=== PATIENT | male | born 1960 | race Caucasian/White ===

== ENCOUNTER 2023-06-29 10:20 | Outpatient (OUT) | payer OTHER, SELFPAY ==
--- NOTE | 2023-06-29 | XR_ITS ---
The [address] [address] Patient Name: MILE CANO MRN: [id number] date: 1960 Sex: M Assigned Patient Location: [facility] Current Patient Location: [facility] Accession/Order Number: [id number] Exam Date: 06/29/2023 10:33 Report Date: 06/29/2023 17:14 At the request of: ESTEFANIA CRESPO Procedure: XR wrist RT min 3V EXAM: XR wrist RT min 3V HISTORY: wrist pain S63.509 for the past 6 days. COMPARISON: None. TECHNIQUE: 3 views of the right wrist were obtained. FINDINGS: There is no evidence of an acute fracture or dislocation. Remote fracture fragments are seen associated with the triquetrum. Ulnar neutral variance is present. The joint space and the proximal carpal row are intact. Minimal degenerative changes are seen at the joint space of the distal scaphoid bone and mild degenerative changes are present at the first carpometacarpal joint. XR/XR wrist RT min 3V IMPRESSION: No apparent acute fracture or dislocation. Small remote fracture fragments are present which appear to be associated with the triquetrum. Some degenerative changes are also noted. Direct comparison with a previous study would be helpful in determining the chronicity of these findings. Electronically authenticated by: GOLD FRANKLIN Date: 06/29/2023 17:14
== END 2023-06-29 10:21 | disposition home or self-care (01) ==
LOC: RAD 10:20
PROVIDERS: PCP Family Medicine; Visit Provider Family Medicine
DX: S63.509A Unspecified sprain of unspecified wrist, initial encounter (principal)
CPT/HCPCS: 73110

== ENCOUNTER 2023-12-24 06:40 | Outpatient (OUT) | payer OTHER, SELFPAY ==
--- OUTSIDE RECORDS SUMMARY | 2023-12-24 06:43 | XMS_ITS | CCD ---
Author Organization [facility] Care Team Providers Care Inshore Undersea War[employer] Officer Name Role Phone ESTEFANIA WEEKS Referring Unavailable ESTEFANIA WEEKS Primary Care Unavailable MARCELLO DEL RIO Attending Unavailab Maxx Lowry Admitting Unavailable [place] Procedure Practitioner Unavailab le UNKNOWN, PROVIDER Surgeon Unavailable [place] Procedure Practitioner Unavailab le MARCELLO DEL RIO Surgeon Unavailab le [place] Procedure Practitioner Unavailab le ASHLEY BONILLA Surgeon Unavailable ESTEFANIA WEEKS Referring Unavailable ESTEFANIA WEEKS Primary Care Unavailable FRANK JACOME Attending Unavailable FRANK JACOME Admitting Unavailable RENNO, ANAS Admitting Unavailable RENNO, ANAS Attending Unavailable ESTEFANIA WEEKS Primary Care Unavailable MARKER, LEANNE J Referring Unavailable [place] Procedure Practitioner Unavailab PASTORA Pfeiffer Surgeon Unavailable MD Estefania Weeks Primary Care Provider MD Ady Lezama Attending Provider MD Estefania Weeks Primary Care Provider [phone] MD Ady Lezama Attending Provider MD Esetfania Weeks Primary Care Provider [phone] MD Ady Lezama Attending Provider MD Estefania Weeks Primary Care Provider [phone] MD Ady Lezama Attending Provider DR ESTEFANIA WEEKS Admitting Unavailable CHERIE, DR MAC Attending Unavailable DR ESTEFANIA WEEKS Primary Care Unavailable DR ESTEFANIA WEEKS Consulting Unavailable WEST, DR BECK Consulting Unavailable MD Estefania Weeks Primary Care Provider [phone] MD Ady Lezama Attending Provider MD Estefania Weeks Primary Care Provider MD Ady Lezama Attending Provider Ady Lezama Attending Unavail able Estefania Weeks Primary Care Unavailable Ady Lezama Admitting Unavail able Ady Lezama Attending Unavail able Estefania Weeks Primary Care Unavailable Ady Lezama Admitting Unavail able Ady Lezama Attending Unavail able Estefania Weeks Primary Care Unavailable Ady Lezama Admitting Unavail able Ady Lezama Attending Unavail able Ady Lezama Admitting Unavail able Estefania Weeks Primary Care Unavailable GRACE RESTREPO Attending Unavailable Medications Current Medications Medication Drug Class(es) Dates Sig (Normalized) Sig (Original) aspirin 81 mg oral tablet (6 sources) Platelet Aggregation Inhibitor, Nonsteroidal Anti-inflammatory Drug Start: 06-30-2019 take 81 mg by mouth once daily Aspirin Active 81 MG PO Daily June 30, 2019 1:00am atorvastatin 80 mg oral tablet (6 sources) HMG-CoA Reductase Inhibitor Start: 06-30-2019 take 1 tablet by mouth once daily at bedtime Atorvastatin (Lipitor) 80 mg Tablet Active 80 MG PO Daily at bedtime June 30, 2019 1:00am clindamycin 300 mg oral capsule (6 sources) Lincosamide Antibacterial Start: 08-25-2019 take 600 mg by mouth three times daily Clindamycin Hcl Active 600 MG PO Three times daily 12 August 25, 2019 1:00am clopidogrel 75 mg oral tablet (6 sources) P2Y12 Platelet Inhibitor Start: 06-30-2019 take 1 tablet by mouth once daily Clopidogrel (Plavix) 75 mg Tablet Active 75 MG PO Daily June 30, 2019 1:00am lisinopril 20 mg oral tablet (6 sources) Angiotensin Converting Enzyme Inhibitor Start: 06-30-2019 take 5 mg by mouth once daily Lisinopril Active 5 MG PO Daily June 30, 2019 1:00am 24 hr metoprolol succinate 25 mg extended release oral tablet (12 sources) beta-Adrenergic Thalia Start: 08-25-2019 take 25 mg by mouth once daily Metoprolol Succinate Active 25 MG PO Daily 30 August 25, 2019 1:00am Start: 06-30-2019 End: 08-25-2019 take 25 mg by mouth twice daily Metoprolol Tartrate Discontinued 25 MG PO Twice daily June 30, 2019 1:00am August 25, 2019 12:52pm Problems Problem Classification Problem Date Documented Date Episodic/Chronic Acute myocardial infarction (6 sources) Myocardial infarction; Translations: [Non-ST elevation (NSTEMI) myocardial infarction] 08-23-2019 Chronic Conditions associated with dizziness or vertigo (6 sources) Dizziness; Translations: [Dizziness and giddiness] 06-30-2019 Episodic Conduction disorders (6 sources) Complete atrioventricular block; Translations: [Atrioventricular block, complete] 08-24-2019 Chronic Coronary atherosclerosis and other heart disease (12 sources) Coronary arteriosclerosis; Translations: [Atherosclerotic heart disease of [place] coronary artery without angina pectoris] 08-23-2019 Chronic Other hematologic conditions (1 source) Protein level - finding; Translations: [Other specified abnormalities of plasma proteins] 08-22-2019 Episodic Other hematologic conditions (5 sources) Raised cardiac enzyme or marker; Translations: [Other specified abnormalities of plasma proteins] 08-22-2019 Episodic Syncope (6 sources) Near syncope; Translations: [Syncope and collapse] 08-22-2019 Episodic Unclassified (1 source) Encounter for checking and testing of cardiac pacemaker pulse generator [battery]; Translations: [Encounter for checking and testing of cardiac pacemaker pulse generator [battery]] Onset: 07-29-2023 Results Test Name Value Interpretation Reference Range Facility Office Visiton 12-12-2023 Follow-up visit [id number] Weston Cano 1960 M Date Provider Department Center 12/12/2023 Miguel-GRACE RESTREPO [facility] Family History Problem Relation Age of Onset No Known Problems Mother No Known Problems Father Family Status - Relation Status Age at Mother Father Level of Service:24169 [place] OFFICE/OUTPATIENT ESTABLISHED LOW MDM 20 MIN Normal [facility] US VENOUS DOPPLER R Matt US VENOUS DOPPLER R ARM EXAMINATION: US VENOUS DOPPLER R ARM HISTORY: Bursitis of olecranon of right elbow COMPARISON: No relevant comparison available. TECHNIQUE: Grayscale, color and Doppler FINDINGS: Region: Right arm Thrombus: None Flow: Normal Augmentation: Normal Compressibility: Normal Other: Mild subcutaneous edema in the area the patient's trauma at the elbow IMPRESSION: No deep or superficial vein thrombus in the right arm *Exam performed in accordance with [facility] practice guidelines- Peripheral venous ultrasound, November 08, 2009. Electronically authenticated by: EBONY MARTINEZ Date: 2022-08-31 16:22 Normal [facility] BASIC METABOLIC PANELon - Calcium [Mass/Vol] 9.5 mg/dL Normal 8.6-10.3 [facility] Comment on above: Order Comment: No: D o not add to previous draw Performed By: #### 0 0071, 37858, 81403 #### [facility] [address] [place] [address], [place] Chloride [Moles/Vol] 105 mmol/L Normal 98-107 [facility] Comment on above: Order Comment: No: D o not add to previous draw Performed By: #### 0 0071, 86991, 75569 #### [facility] [address] [place] [address], [place] CO2 [Moles/Vol] 25 mmol/L Normal 21-31 [facility] Comment on above: Order Comment: No: D o not add to previous draw Performed By: #### 0 0071, 57464, 55247 #### [facility] [address] [place] [address], [place] Creatinine [Mass/Vol] 0.96 mg/dL Normal 0.70-1.30 [facility] Comment on above: Order Comment: No: D o not add to previous draw Performed By: #### 0 0071, 37602, 36801 #### [facility] [address] [place] [address], [place] GFR/1.73 sq M predicted among blacks MDRD (S/P/Bld) [Vol rate/Area] mL/min/{1.73_m2} Normal >60 [facility] Comment on above: Order Comment: No: D o not add to previous draw Performed By: #### 0 0071, 20153, 45844 #### [facility] [address] [place] [address], [place] GFR/1.73 sq M predicted among non-blacks MDRD (S/P/Bld) [Vol rate/Area] mL/min/{1.73_m2} Normal >60 [facility] Comment on above: Order Comment: No: D o not add to previous draw Performed By: #### 0 0071, 58711, 01016 #### [facility] [address] [place] [address], [place] Glucose [Mass/Vol] 100 mg/dL Normal 70-100 [facility] Comment on above: Order Comment: No: D o not add to previous draw Performed By: #### 0 1, 82678, 92732 #### [facility] [address] [place] [address], [place] Potassium [Moles/Vol] 3.8 mmol/L Normal 3.5-5.1 [facility] Comment on above: Order Comment: No: D o not add to previous draw Performed By: #### 0 1, 46435, 22283 #### [facility] [address] [place] [address], [place] Sodium [Moles/Vol] 139 mmol/L Normal 136-145 [facility] Comment on above: Order Comment: No: D o not add to previous draw Performed By: #### 0 0071, 97906, 96364 #### [facility] [address] [place] [address], [place] Urea nitrogen [Mass/Vol] 14 mg/dL Normal 7-25 [facility] Comment on above: Order Comment: No: D o not add to previous draw Performed By: #### 0 0071, 11967, 93131 #### [facility] [address] [place] [address], [place] BASIC METABOLIC PANELon 2 Calcium [Mass/Vol] 9.2 mg/dL Normal 8.6-10.3 [facility] Comment on above: Order Comment: No: D o not add to previous draw Performed By: #### 0 0071, 20809, 10776 #### [facility] [address] [place] [address], [place] Chloride [Moles/Vol] 105 mmol/L Normal 98-107 [facility] Comment on above: Order Comment: No: D o not add to previous draw Performed By: #### 0 0071, 60544, 45602 #### [facility] [address] [place] [address], [place] CO2 [Moles/Vol] 28 mmol/L Normal 21-31 [facility] Comment on above: Order Comment: No: D o not add to previous draw Performed By: #### 0 0071, 12119, 71031 #### [facility] [address] [place] [address], [place] Creatinine [Mass/Vol] 0.97 mg/dL Normal 0.70-1.30 [facility] Comment on above: Order Comment: No: D o not add to previous draw Performed By: #### 0 0071, 04056, 99985 #### [facility] [address] [place] [address], [place] GFR/1.73 sq M predicted among blacks MDRD (S/P/Bld) [Vol rate/Area] mL/min/{1.73_m2} Normal >60 [facility] Comment on above: Order Comment: No: D o not add to previous draw Performed By: #### 0 0071, 67442, 78082 #### [facility] [address] [place] [address], [place] GFR/1.73 sq M predicted among non-blacks MDRD (S/P/Bld) [Vol rate/Area] mL/min/{1.73_m2} Normal >60 [facility] Comment on above: Order Comment: No: D o not add to previous draw Performed By: #### 0 0071, 21539, 09432 #### [facility] [address] [place] [address], [place] Glucose [Mass/Vol] 104 mg/dL High 70-100 [facility] Comment on above: Order Comment: No: D o not add to previous draw Performed By: #### 0 0071, 79705, 38396 #### [facility] [address] [place] [address], [place] Potassium [Moles/Vol] 4.0 mmol/L Normal 3.5-5.1 [facility] Comment on above: Order Comment: No: D o not add to previous draw Performed By: #### 0 0071, 32788, 01324 #### [facility] [address] [place] [address], [place] Sodium [Moles/Vol] 140 mmol/L Normal 136-145 [facility] Comment on above: Order Comment: No: D o not add to previous draw Performed By: #### 0 0071, 54745, 83847 #### [facility] [address] [place] [address], [place] Urea nitrogen [Mass/Vol] 15 mg/dL Normal 7-25 [facility] Comment on above: Order Comment: No: D o not add to previous draw Performed By: #### 0 0071, 26958, 60780 #### [facility] [address] [place] [address], [place] CBC COMPLETE BLOOD COUNTon 0 05-09-2019 Erythrocyte distribution width (RBC) [Ratio] 13.2 % Normal 11.5-15.0 [facility] Comment on above: Order Comment: No: D o not add to previous draw Performed By: #### 0 0071, 12598, 71992 #### [facility] [address] [place] [address], [place] Hematocrit (Bld) [Volume fraction] 41.7 % Normal 39.0-50.0 [facility] Comment on above: Order Comment: No: D o not add to previous draw Performed By: #### 0 70, 81471, 55342 #### [facility] [address] [place] [id number], [facility] Hemoglobin (Bld) [Mass/Vol] 13.6 g/dL Normal 13.0-17.0 [facility] Comment on above: Order Comment: No: D o not add to previous draw Performed By: #### 0 70, 93679, 53687 #### [facility] [address] [place] [address], [facility] MCH (RBC) [Entitic mass] 30.6 pg Normal 27.0-33.0 [facility] Comment on above: Order Comment: No: D o not add to previous draw Performed By: #### 0 70, , 20272 #### [facility] [address] [place] [id number], [facility] MCHC (RBC) [Mass/Vol] 32.6 g/dL Normal 32.0-35.0 [facility] Comment on above: Order Comment: No: D o not add to previous draw Performed By: #### 0 70, 96962, 39205 #### [facility] [address] [place] [id number], [facility] MCV (RBC) [Entitic vol] 93.7 fL Normal 82.0-98.0 [facility] Comment on above: Order Comment: No: D o not add to previous draw Performed By: #### 0 70, 78055, 73010 #### [facility] [address] [place] [id number], [facility] Nucleated RBC/100 WBC (Bld) [Ratio] 0 % Normal 0-0 [facility] Comment on above: Order Comment: No: D o not add to previous draw Performed By: #### 0 1, 91214, 54594 #### [facility] [address] [place] [address], [facility] PLAT CNT 195 10*3/uL Normal 150-400 [facility] Comment on above: Order Comment: No: D o not add to previous draw Performed By: #### 0 0071, 50620, 65843 #### [facility] [address] [place] [address], [facility] RBC (Bld) [#/Vol] 4.45 10*6/uL Normal 4.20-5.70 [facility] Comment on above: Order Comment: No: D o not add to previous draw Performed By: #### 0 0071, 75425, 77638 #### [facility] [address] [facility] [place] [address], [facility] WBC (Bld) [#/Vol] 7.92 10*3/uL Normal 4.00-10.60 [facility] Comment on above: Order Comment: No: D o not add to previous draw Performed By: #### 0 0071, 38528, 54513 #### [facility] [address] [facility]. [address] Cardiovascular Lab Reporton 05-09-2019 Cardiovascular Lab Report [facility] Patient Name: [facility] Weston Billings MR #: [id number] Department of Physician: Pastora Ramon M.D. Medicine Service Date: 05/08/2019 Division of Birthdate: 1960 Cardiology Room #: [id number] Adult Cardiovascular Services [facility] [address] [place] [address] Cardiovascular Laboratory Report FINAL IMPRESSION: 1. 90% left anterior descending. 2. 80% diagonal. 3. 90% obtuse marginal. 4. 70% right coronary artery. 5. Patent left internal mammary to left anterior descending. 6. Patent saphenous vein graft to the obtuse marginal. 7. Apparent occlusion of the saphenous vein graft to right coronary artery. PROCEDURE: Coronary arteriography, internal mammary artery angiography, saphenous vein graft angiography. METHOD: Written informed consent was obtained. A normal left Vaughn test was confirmed. Modified Seldinger technique was used to place a 6-Mosotho sheath in the left radial artery. Through this, a 6 JR4 was introduced for right coronary arteriography. Attempts to cannulate the internal mammary artery using an internal mammary catheter were unsuccessful. A JL4 was then used for left coronary arteriography. A SIM-1 was used for left internal mammary artery angiography. Attempts were then made to cannulate bypass grafts using the SIM-1, LCB, JR4, and multipurpose. Eventually, the multipurpose could be introduced into a saphenous vein graft to the obtuse marginal. This catheter was also used to inject what appeared to be a stump of the saphenous vein graft to the right coronary artery. It should be noted that none of the bypass grafts were marked. At the conclusion of the procedure, the sheath was withdrawn. Adequate hemostasis was achieved. There were no complications. PRESSURE DATA: LV 123/12, AO 123/58. CORONARY ARTERIOGRAPHY: Left main coronary artery: This segment was normal. Left anterior descending coronary artery: This vessel had a 90% stenosis just distal to the first septal senior materials scientist. The stenosis was proximal to a diagonal branch, which had approximately 80% stenosis. Immediately after the diagonal branch, there was a 70% stenosis. The distal LAD had 90%. FUNES to mid LAD patent. Circumflex coronary artery: This vessel was large and supplied a significant portion of the inferior wall. It gave rise to an obtuse marginal branch which had a 90% stenosis. The continuation in the AV groove had a 50% stenosis. Saphenous vein graft to obtuse marginal patent. Right coronary artery: This vessel was relatively small. The distal distribution was not entirely clear. There was a 70% stenosis in the mid vessel near the origin of the right ventricular branch which in turn had 80% stenosis. Operative notes indicated that this right coronary artery had been bypassed with a saphenous vein. There was the appearance of a bypass stump on angiography. COMMENTS: The patient is a 58-year-old gentleman, who underwent bypass surgery earlier this year. He presented with chest discomfort and a mild increase in troponin. Based on his angiogram, it appears that a vein graft to the right coronary artery is occluded. Also of note is the fact that a moderate-sized diagonal branch did not receive a bypass graft. At this point, it seems appropriate to perform stress testing to see if ischemia can be attributed to the diagonal branch or to the distal right coronary artery. Electronically Signed by: Pastora Ramon M.D. 05/10/2019 11:43 A Pastora Ramon M.D. Date Dict: 05/08/2019/02:59 P/Pastora Ramon M.D. Date Trans: 05/09/2019 07:18 A/love [id number] cc: Estefania Weeks M.D. [address], [place] [facility] [address] Normal [facility] LIPID PROFILEon 05-09-2019 Cholesterol [Mass/Vol] 101 mg/dL Low 120-200 [facility] Comment on above: Order Comment: No: D o not add to previous draw Result Comment: CHOL ESTEROL REFERENCE RANGE: 20 YEARS AND OLDER CARDIOVASCULAR RISK Less than 200 mg/dl Low Risk 200 to 239 mg/dl Borderline Risk 240 mg/dl and greater High Risk Performed By: #### 0 0071, 72112, 24556 #### [facility] [address] [place] [address], [facility] Cholesterol in HDL [Mass/Vol] 29 mg/dL Normal 23-92 [facility] Comment on above: Order Comment: No: D o not add to previous draw Result Comment: Slig ht variation in normal range could be due to gender and/or age. HDL CHOLESTEROL REFERENCE RANGE: 20 years and older Cardiovascular Risk > or =60 mg/dL Desirable 40 TO 59 mg/dL Low Risk <40 mg/dL High Risk Performed By: #### 0 0071, 69442, 85711 #### [facility] [address] [place] [address], [place] Cholesterol in LDL [Mass/Vol] 41 mg/dL Normal 0-130 [facility] Comment on above: Order Comment: No: D o not add to previous draw Result Comment: LDL IS A CALCULATION LDL IS ONLY VALID IF THE TRIG IS LESS THAN 400. Performed By: #### 0 0071, 57453, 31952 #### [facility] [address] Cholesterol.total/Ch olesterol in HDL [Mass ratio] 3.5 {ratio} Normal 0.0-4.5 [facility] Comment on above: Order Comment: No: D o not add to previous draw Performed By: #### 0 0071, 37128, 48011 #### [facility] [address] [facility] [address] NON-HDL CHOLESTEROL 72 mg/dL Normal [facility] Comment on above: Order Comment: No: D o not add to previous draw Performed By: #### 0 0071, 44769, 47256 #### [facility] [address] [facility] [address] Triglyceride [Mass/Vol] 157 mg/dL High 40-149 [facility] Comment on above: Order Comment: No: D o not add to previous draw Result Comment: TRIG LYCERIDE REFERENCE RANGE: 20 YEARS AND OLDER CARDIOVASCULAR RISK LESS THAN 150 mg/dl LOW RISK 150 TO 199 mg/dl BORDERLINE RISK 200 mg/dl AND GREATER HIGH RISK Performed By: #### 0 0071, 41697, 61823 #### [facility] [address] [facility]. [address] VLDL CHOL 31 mg/dL Normal 0-40 [facility] Comment on above: Order Comment: No: D o not add to previous draw Performed By: #### 0 0071, 98577, 76899 #### [facility] [address] APTTon 05-08-2019 aPTT Coag (Bld) [Time] 33.4 s Normal 25.0-35.0 [facility] Comment on above: Order Comment: No: D o not add to previous draw Result Comment: ALL RESULTS MUST BE INTERPRETED WITH RESPECT TO BLOOD DRAWING ARTIFACT OR DILUTION ERROR OF ANTICOAGULANT AT THE TIME OF SAMPLING. THE APTT SHOULD NOT BE USED TO MONITOR UNFRACTIONATED HEPARIN THERAPY, THIS LABORATORY NO LONGER HAS AN ESTABLISHED THERAPEUTIC RANGE BASED ON THE APTT. IT IS RECOMMENDED THAT THE [facility] - HEPARIN ASSAY (ANTI-XA ACTIVITY) BE USED FOR THIS PURPOSE. Performed By: #### 0 0071, 75109, 42922 #### [facility] [address] [place] [address], [facility] BASIC METABOLIC PANELon 09- Calcium [Mass/Vol] 9.2 mg/dL Normal 8.6-10.3 [facility] Comment on above: Order Comment: No: D o not add to previous draw Performed By: #### 0 0071, 93493, 92047 #### [facility] [address] [place] [address], [facility] Chloride [Moles/Vol] 103 mmol/L Normal 98-107 [facility] Comment on above: Order Comment: No: D o not add to previous draw Performed By: #### 0 0071, 55873, 73696 #### [facility] [address] [place] [address], [place] CO2 [Moles/Vol] 27 mmol/L Normal 21-31 [facility] Comment on above: Order Comment: No: D o not add to previous draw Performed By: #### 0 0071, 01685, 52756 #### [facility] [address] [place] [address], [place] Creatinine [Mass/Vol] 1.06 mg/dL Normal 0.70-1.30 [facility] Comment on above: Order Comment: No: D o not add to previous draw Performed By: #### 0 0071, 37839, 96510 #### [facility] [address] [place] [address], [facility] GFR/1.73 sq M predicted among blacks MDRD (S/P/Bld) [Vol rate/Area] mL/min/{1.73_m2} Normal >60 [facility] Comment on above: Order Comment: No: D o not add to previous draw Performed By: #### 0 0071, 31469, 97274 #### [facility] [address] [place] [address], [place] GFR/1.73 sq M predicted among non-blacks MDRD (S/P/Bld) [Vol rate/Area] mL/min/{1.73_m2} Normal >60 [facility] Comment on above: Order Comment: No: D o not add to previous draw Performed By: #### 0 0071, 79272, 38543 #### [facility] [address] [place] [address], [place] Glucose [Mass/Vol] 110 mg/dL High 70-100 [facility] Comment on above: Order Comment: No: D o not add to previous draw Performed By: #### 0 0071, 16778, 75489 #### [facility] [address] [place] [address], [place] Potassium [Moles/Vol] 3.6 mmol/L Normal 3.5-5.1 [facility] Comment on above: Order Comment: No: D o not add to previous draw Performed By: #### 0 0071, 64454, 99039 #### [facility] [address] [place] [address], [place] Sodium [Moles/Vol] 137 mmol/L Normal 136-145 [facility] Comment on above: Order Comment: No: D o not add to previous draw Performed By: #### 0 0071, 68414, 34592 #### [facility] [address] [place] [address], [place] Urea nitrogen [Mass/Vol] 21 mg/dL Normal 7-25 [facility] Comment on above: Order Comment: No: D o not add to previous draw Performed By: #### 0 0071, 44582, 84314 #### [facility] [address] [place] [address], [facility] CBC COMPLETE BLOOD COUNTon 05-08-2019 Erythrocyte distribution width (RBC) [Ratio] 13.2 % Normal 11.5-15.0 [facility] Comment on above: Order Comment: No: D o not add to previous draw Performed By: #### 0 0071, 64291, 25104 #### [facility] [address] Hematocrit (Bld) [Volume fraction] 39.0 % Normal 39.0-50.0 [facility] Comment on above: Order Comment: No: D o not add to previous draw Performed By: #### 0 70, 35202, 38094 #### [facility] [address] [place] [address], [facility] Hemoglobin (Bld) [Mass/Vol] 13.0 g/dL Normal 13.0-17.0 [facility] Comment on above: Order Comment: No: D o not add to previous draw Performed By: #### 0 1, 37058, 70058 #### [facility] [address] [place] [address], [facility] MCH (RBC) [Entitic mass] 31.0 pg Normal 27.0-33.0 [facility] Comment on above: Order Comment: No: D o not add to previous draw Performed By: #### 0 0071, 75074, 13624 #### [facility] [address] [place] [address], [facility] MCHC (RBC) [Mass/Vol] 33.3 g/dL Normal 32.0-35.0 [facility] Comment on above: Order Comment: No: D o not add to previous draw Performed By: #### 0 0071, 16258, 38580 #### [facility] [address] MCV (RBC) [Entitic vol] 93.1 fL Normal 82.0-98.0 [facility] Comment on above: Order Comment: No: D o not add to previous draw Performed By: #### 0 0071, 84892, 14890 #### [facility] [address] [facility] [place] [address], [facility] Nucleated RBC/100 WBC (Bld) [Ratio] 0 % Normal 0-0 [facility] Comment on above: Order Comment: No: D o not add to previous draw Performed By: #### 0 0071, 66416, 38346 #### [facility] [address] [facility] [place] [address], [facility] PLAT CNT 187 10*3/uL Normal 150-400 [facility] Comment on above: Order Comment: No: D o not add to previous draw Performed By: #### 0 0071, 87988, 29293 #### [facility] [address] [facility]. [address] RBC (Bld) [#/Vol] 4.19 10*6/uL Low 4.20-5.70 [facility] Comment on above: Order Comment: No: D o not add to previous draw Performed By: #### 0 0071, 15868, 34236 #### [facility] [address] [facility] [place] [address], [facility] WBC (Bld) [#/Vol] 8.56 10*3/uL Normal 4.00-10.60 [facility] Comment on above: Order Comment: No: D o not add to previous draw Performed By: #### 0 0071, 75120, 53872 #### [facility] [address] [place] [address], [facility] MAGNESIUM BLOODon 05-08-2019 Magnesium [Mass/Vol] 1.8 mg/dL Low 1.9-2.7 [facility] Comment on above: Order Comment: No: D o not add to previous draw Performed By: #### 0 0071, 98652, 90433 #### [facility] [address] POC GLUCOSE LABon 05-08-2019 Glucose [Mass/Vol] CANCELED Normal 70-100 [facility] Comment on above: Order Comment: No: D o not add to previous draw Result Comment: The released value 147 was canceled by BAIRON on 05/08/2019 16:27 Performed By: #### 0 0071, 66250, 64883 #### [facility] [address] NOTE CANCELED Normal [facility] Comment on above: Order Comment: No: D o not add to previous draw Performed By: #### 0 0071, 11544, 62520 #### [facility] [address] [facility]. [address] Glucose [Mass/Vol] 108 mg/dL High 70-100 [facility] Comment on above: Performed By: #### 0 0071, 31466, 16098 #### [facility] [address] PROTHROMBIN TIMEon 9 INR Coag (PPP) [Relative time] 1.05 {INR} Normal 0.91-1.16 [facility] Comment on above: Order Comment: No: D o not add to previous draw Result Comment: ACCC P RECOMMENDED INR FOR WARFARIN THERAPY ------- ------- CONDITION INR PROPHYLAXIS OF VENOUS THROMBOSIS 2-3 (HIGH-RISK SURGERY) TREATMENT OF VENOUS THROMBOSIS 2-3 TREATMENT OF PULMONARY EMBOLISM 2-3 PREVENTION OF SYSTEMIC EMBOLISM: 2-3 ACUTE MYOCARDIAL INFARCTION TISSUE HEART VALVES VALVULAR HEART DISEASE ATRIAL FIBRILLATION RECURRENT SYSTEMIC EMBOLISM MECHANICAL HEART VALVE 2.5-3.5 FROM: ORAL ANTICOAGULANTS. MECHANISM OF ACTION, CLINICAL EFFECTIVENESS, AND OPTIMAL THERAPEUTIC RANGE. CHEST 1995;108:231S-246S. Performed By: #### 0 0071, 11943, 96830 #### [facility] [address] [place] [address], [facility] PT Coag (PPP) [Time] 13.7 s Normal 12.3-14.8 [facility] Comment on above: Order Comment: No: D o not add to previous draw Result Comment: ALL RESULTS MUST BE INTERPRETED WITH RESPECT TO BLOOD DRAWING ARTIFACT OR DILUTION ERROR OF ANTICOAGULANT AT THE TIME OF SAMPLING. Performed By: #### 0 0071, 75467, 49171 #### [facility] [address] [facility] [place] [address], [facility] TROPONIN-Ion 05-08-2019 Troponin I.cardiac [Mass/Vol] 0.34 ng/mL Critically high 0.00-0.04 [facility] Comment on above: Order Comment: No: D o not add to previous draw Result Comment: M-NV EVIOUS CRITICAL RESULT REFERENCE RANGES: 0.00 - 0.04 ng/ml NORMAL 0.05 - 0.50 ng/ml INDETERMINATE > 0.50 ng/ml CONSISTENT WITH AN M.I. Performed By: #### 0 0071, 73091, 57083 #### [facility] [address] [facility] [place] [address], [facility] Troponin I.cardiac [Mass/Vol] 0.59 ng/mL Critically high 0.00-0.04 [facility] Comment on above: Order Comment: No: D o not add to previous draw Result Comment: REFE RENCE RANGES: 0.00 - 0.04 ng/ml NORMAL 0.05 - 0.50 ng/ml INDETERMINATE > 0.50 ng/ml CONSISTENT WITH AN M.I. Performed By: #### 0 0071, 27685, 72751 #### [facility] [address] Troponin I.cardiac [Mass/Vol] 0.74 ng/mL Critically high 0.00-0.04 [facility] Comment on above: Order Comment: No: D o not add to previous draw Result Comment: M-CR ITICAL RESULT(S) REVIEWED, CALLED TO AND READ BACK BY ALPESH DE LA PAZ RN AT 0555 M-TROPONIN INITIAL CRITICAL HIGH; RESPUN AND RETESTED REFERENCE RANGES: 0.00 - 0.04 ng/ml NORMAL 0.05 - 0.50 ng/ml INDETERMINATE > 0.50 ng/ml CONSISTENT WITH AN M.I. Performed By: #### 0 0071, 03300, 03160 #### [facility] [address] UFH HEPARIN ASSAYon 05-08-20 19 UNFRACTIONATED HEPARIN 0.47 IU/mL Normal 0.30-0.70 [facility] Comment on above: Result Comment: Jo roxaban and Apixaban will interfere with the anti Xa assay used to monitor UFH and LMWH. Performed By: #### 0 0071, 09093, 52152 #### [facility] [address] [facility] BASIC METABOLIC PANELon 12-13 Calcium [Mass/Vol] 8.8 mg/dL Normal 8.6-10.3 [facility] Comment on above: Order Comment: No: D o not add to previous draw Performed By: #### 0 0071, 88311, 20891 #### [facility] [address] Chloride [Moles/Vol] 106 mmol/L Normal 98-107 [facility] Comment on above: Order Comment: No: D o not add to previous draw Performed By: #### 0 0071, 10812, 21918 #### [facility] [address] [place] [address], [place] CO2 [Moles/Vol] 24 mmol/L Normal 21-31 [facility] Comment on above: Order Comment: No: D o not add to previous draw Performed By: #### 0 0071, 11053, 22856 #### [facility] [address] [place] [address], [place] Creatinine [Mass/Vol] 0.90 mg/dL Normal 0.70-1.30 [facility] Comment on above: Order Comment: No: D o not add to previous draw Performed By: #### 0 0071, 65994, 07761 #### [facility] [address] [place] [address], [place] GFR/1.73 sq M predicted among blacks MDRD (S/P/Bld) [Vol rate/Area] mL/min/{1.73_m2} Normal >60 [facility] Comment on above: Order Comment: No: D o not add to previous draw Performed By: #### 0 0071, 75218, 83736 #### [facility] [address] [place] [address], [place] GFR/1.73 sq M predicted among non-blacks MDRD (S/P/Bld) [Vol rate/Area] mL/min/{1.73_m2} Normal >60 [facility] Comment on above: Order Comment: No: D o not add to previous draw Performed By: #### 0 0071, 26747, 43896 #### [facility] [address] [place] [address], [place] Glucose [Mass/Vol] 104 mg/dL High 70-100 [facility] Comment on above: Order Comment: No: D o not add to previous draw Performed By: #### 0 0071, 00873, 29462 #### [facility] [address] [place] [address], [place] Potassium [Moles/Vol] 4.0 mmol/L Normal 3.5-5.1 [facility] Comment on above: Order Comment: No: D o not add to previous draw Performed By: #### 0 0071, 46311, 83757 #### [facility] [address] Sodium [Moles/Vol] 137 mmol/L Normal 136-145 [facility] Comment on above: Order Comment: No: D o not add to previous draw Performed By: #### 0 0071, 53798, 96017 #### [facility] [address] [facility]. [address] Urea nitrogen [Mass/Vol] 11 mg/dL Normal 7-25 [facility] Comment on above: Order Comment: No: D o not add to previous draw Performed By: #### 0 0071, 52441, 34809 #### [facility] [address] [facility]. [address] CBC W/DIFFon 12-28-2018 ABS BASOPHILS 0.1 10*3/uL Normal 0.0-0.2 [facility] Comment on above: Order Comment: No: D o not add to previous draw Performed By: #### 0 0071, 67699, 16859 #### [facility] [address] [facility]. [address] ABS IMM GRANS 0.0 10*3/uL Normal 0.0-0.2 [facility] Comment on above: Order Comment: No: D o not add to previous draw Performed By: #### 0 0071, 13945, 82384 #### [facility] [address] [facility]. [address] ABS NEUTROPHILS 4.0 10*3/uL Normal 1.6-7.6 [facility] Comment on above: Order Comment: No: D o not add to previous draw Performed By: #### 0 0071, 96786, 80122 #### [facility] [address] [place] [address], [facility] Basophils/100 WBC (Bld) 0.7 % Normal 0.0-1.0 [facility] Comment on above: Order Comment: No: D o not add to previous draw Performed By: #### 0 70, 96438, 91211 #### [facility] [address] [place] [address], [facility] Eosinophils (Bld) [#/Vol] 0.3 10*3/uL Normal 0.0-0.5 [facility] Comment on above: Order Comment: No: D o not add to previous draw Performed By: #### 0 70, , 19166 #### [facility] [address] [place] [address], [facility] Eosinophils/100 WBC (Bld) 3.8 % Normal 0.0-6.0 [facility] Comment on above: Order Comment: No: D o not add to previous draw Performed By: #### 0 70, , 72653 #### [facility] [address] [place] [address], [facility] Erythrocyte distribution width (RBC) [Ratio] 12.9 % Normal 11.5-15.0 [facility] Comment on above: Order Comment: No: D o not add to previous draw Performed By: #### 0 70, , 90527 #### [facility] [address] [place] [address], [facility] Hematocrit (Bld) [Volume fraction] 37.0 % Low 39.0-50.0 [facility] Comment on above: Order Comment: No: D o not add to previous draw Performed By: #### 0 007, 03031, 37507 #### [facility] [address] [place] [address], [place] Hemoglobin (Bld) [Mass/Vol] 12.4 g/dL Low 13.0-17.0 [facility] Comment on above: Order Comment: No: D o not add to previous draw Performed By: #### 0 1, 61689, 63236 #### [facility] [address] [place] [address], [facility] IMMATURE GRANS 0.3 % Normal 0.0-1.0 [facility] Comment on above: Order Comment: No: D o not add to previous draw Performed By: #### 0 0071, 72563, 46439 #### [facility] [address] [place] [address], [facility] Lymphocytes (Bld) [#/Vol] 2.4 10*3/uL Normal 1.2-4.0 [facility] Comment on above: Order Comment: No: D o not add to previous draw Performed By: #### 0 1, , 26441 #### [facility] [address] [place] [id number], [facility] Lymphocytes/100 WBC (Bld) 31.7 % Normal 20.0-45.0 [facility] Comment on above: Order Comment: No: D o not add to previous draw Performed By: #### 0 1, 69819, 17498 #### [facility] [address] [place] [address], [place] MCH (RBC) [Entitic mass] 31.5 pg Normal 27.0-33.0 [facility] Comment on above: Order Comment: No: D o not add to previous draw Performed By: #### 0 0071, 57626, 32182 #### [facility] [address] [place] [address], [place] MCHC (RBC) [Mass/Vol] 33.5 g/dL Normal 32.0-35.0 [facility] Comment on above: Order Comment: No: D o not add to previous draw Performed By: #### 0 0071, 21470, 58006 #### [facility] [address] [place] [address], [facility] MCV (RBC) [Entitic vol] 93.9 fL Normal 82.0-98.0 [facility] Comment on above: Order Comment: No: D o not add to previous draw Performed By: #### 0 0071, 15029, 97937 #### [facility] [address] [place] [address], [facility] Monocytes (Bld) [#/Vol] 0.7 10*3/uL Normal 0.1-1.0 [facility] Comment on above: Order Comment: No: D o not add to previous draw Performed By: #### 0 0071, 72153, 65521 #### [facility] [address] [place] [address], [facility] MONOS 9.9 % Normal 5.0-12.0 [facility] Comment on above: Order Comment: No: D o not add to previous draw Performed By: #### 0 0071, 84837, 85514 #### [facility] [address] [place] [address], [facility] Neutrophils/100 WBC (Bld) 53.6 % Normal 40.0-72.0 [facility] Comment on above: Order Comment: No: D o not add to previous draw Performed By: #### 0 0071, 62496, 36558 #### [facility] [address] [place] [address], [facility] Nucleated RBC/100 WBC (Bld) [Ratio] 0 % Normal 0-0 [facility] Comment on above: Order Comment: No: D o not add to previous draw Performed By: #### 0 0071, 14221, 76202 #### [facility] [address] [place] [id number], [place] PLAT CNT 208 10*3/uL Normal 150-400 [facility] Comment on above: Order Comment: No: D o not add to previous draw Performed By: #### 0 0071, 10064, 91145 #### [facility] [address] [place] [address], [facility] RBC (Bld) [#/Vol] 3.94 10*6/uL Low 4.20-5.70 [facility] Comment on above: Order Comment: No: D o not add to previous draw Performed By: #### 0 0071, 09822, 51070 #### [facility] [address] [place] [id number], [facility] WBC (Bld) [#/Vol] 7.41 10*3/uL Normal 4.00-10.60 [facility] Comment on above: Order Comment: No: D o not add to previous draw Performed By: #### 0 0071, 61521, 67561 #### [facility] [address] [facility]. [address] History and Physicalon 12-28 History and Physical MR#: [id number] [facility] Pt. Name: Weston Cano Admitted: 12/27/2018 Date of : 1960 Attending Physician: Nate French MD Room #: [id number] Discharge Date: HISTORY AND PHYSICAL TIME: 11:15 p.m. CHIEF COMPLAINT: Syncope. HISTORY OF PRESENT ILLNESS: This is a 58-year-old male, who had CABG for 3-vessel coronary artery disease about a month ago. Today, he presented to [facility] after having an episode of syncope. According to patient's own words, he was not feeling that well and he passed out while sitting on the side of the bed and hitting his head on the floor. After a few seconds, he came back to his senses. Did not have any urine or fecal incontinence or any tongue bite. Did not have any anecdotal chest pain, shortness of breath, or palpitation before passing out or after recovering. In the [facility], the patient had EKG without any acute ST-segment or T-wave changes, but troponins of 0.12 and due to history of recent CABG for 3-vessel coronary artery disease the patient was started on IV heparin for non ST-elevation WA and transferred to [facility] for plan of care. At the time of my interview, patient denies chest pain, shortness of breath, or palpitations. Denies nausea, vomiting or abdominal pain. Denies dizziness or lightheadedness. No swelling or edema in the lower extremities. The patient denies exertional shortness of breath or chest pain after being discharged for 3-vessel coronary artery disease. Has been compliant with his medications and has been nonsmoker since then. REVIEW OF SYSTEMS: Ten-point systems are reviewed, negative except as in HPI. PAST MEDICAL PROBLEMS: 1. Coronary artery disease, status post CABG. 2. Dyslipidemia. ALLERGIES: No known drug allergies. SOCIAL HISTORY: The patient is a nonsmoker, nonalcoholic. Has not been working since undergoing coronary artery bypass graft. 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 FAMILY HISTORY: Reviewed, noncontributory. MEDICATION LIST: Reviewed and reconciled. PHYSICAL EXAMINATION: VITAL SIGNS: The patient's blood pressure 140/88 mmHg, heart rate is 80 per minute, temperature 98 degrees Fahrenheit, respiratory rate is 17 per minute. EYES: No pallor or jaundice. ENT: No nasal discharge. RESPIRATORY: Bilateral air entry. CARDIOVASCULAR: S1-S2. ABDOMEN: Soft, nontender. MUSCULOSKELETAL: No joint deformity. PSYCHIATRY: Alert, awake, oriented to time, place, and person. NEURO: Power 5/5 in all 4 extremities. Tongue midline. No facial droop. LABORATORY DATA: Troponin 0.12. EKG normal sinus rhythm with a heart rate of 60 beats per minute, no ST-T wave changes. Right bundle branch block, which is unchanged as compared to the prior EKG. ASSESSMENT/PLAN: 1. Non-ST elevation myocardial infarction: Continue weight-based IV heparin with patient being n.p.o. and gentle IV hydration. Cardiology will be consulted in the morning. Continue aspirin, high-intensity statins and beta-blockers. Serial troponins will be ordered along with a CBC and BMP in the morning. 2. Coronary artery disease status post CABG. The patient will be continued on aspirin, beta blockers, and high-intensity statins. The patient's LDL was 112 and hemoglobin A1c 6.1 at the time of his CABG in November 2018. 3. Dyslipidemia. Continue high-intensity statins. 4. The patient's code status is full code. 5. The patient's expected length of stay is less than 48 hours at this time. Further plan of care will be based upon the serial troponins and Cardiology's evaluation and recommendations in the morning. Plan of care was discussed with the patient. All his questions were answered. Electronically Signed by: Nate French MD 12/28/2018 02:22 A Nate French MD Date Dict: 12/27/2018/11:21 P/Nate French MD Date Trans: 12/28/2018 01:02 Amadeo/love [id number] Normal [facility] TROPONIN-Ion 12-28-2018 Troponin I.cardiac [Mass/Vol] 0.04 ng/mL Normal 0.00-0.04 [facility] Comment on above: Result Comment: REFE RENCE RANGES: 0.00 - 0.04 ng/ml NORMAL 0.05 - 0.50 ng/ml INDETERMINATE > 0.50 ng/ml CONSISTENT WITH AN M.I. Performed By: #### 0 0071, 04595, 26827 #### [facility] [address] [place] [address], [facility] Troponin I.cardiac [Mass/Vol] 0.05 ng/mL High 0.00-0.04 [facility] Comment on above: Order Comment: No: D o not add to previous draw Result Comment: REFE RENCE RANGES: 0.00 - 0.04 ng/ml NORMAL 0.05 - 0.50 ng/ml INDETERMINATE > 0.50 ng/ml CONSISTENT WITH AN M.I. Performed By: #### 0 0071, 35360, 06637 #### [facility] [address] [place] [address], [facility] UFH HEPARIN ASSAYon 12-29-19 19 UNFRACTIONATED HEPARIN 0.32 IU/mL Normal 0.30-0.70 [facility] Comment on above: Result Comment: Jo roxaban and Apixaban will interfere with the anti Xa assay used to monitor UFH and LMWH. Performed By: #### 0 0071, 53723, 63369 #### [facility] [address] UNFRACTIONATED HEPARIN 0.20 IU/mL Low 0.30-0.70 [facility] Comment on above: Result Comment: Jo roxaban and Apixaban will interfere with the anti Xa assay used to monitor UFH and LMWH. Performed By: #### 0 0071, 25908, 50257 #### [facility] [address] POC GLUCOSE LABon 12-01-2018 Glucose [Mass/Vol] 138 mg/dL High 70-100 [facility] Comment on above: Performed By: #### 0 0071, 54243, 53400 #### [facility] [address] Glucose [Mass/Vol] 99 mg/dL Normal 70-100 [facility] Comment on above: Performed By: #### 0 0071, 63462, 92040 #### [facility] [address] [facility] [address] BASIC METABOLIC PANELon 11-13 Calcium [Mass/Vol] 8.3 mg/dL Low 8.6-10.3 [facility] Comment on above: Order Comment: No: D o not add to previous draw Performed By: #### 0 0071, 26849, 58715 #### [facility] [address] [place] [address], [facility] Chloride [Moles/Vol] 108 mmol/L High 98-107 [facility] Comment on above: Order Comment: No: D o not add to previous draw Performed By: #### 0 0071, 13532, 10298 #### [facility] [address] [place] [address], [place] CO2 [Moles/Vol] 25 mmol/L Normal 21-31 [facility] Comment on above: Order Comment: No: D o not add to previous draw Performed By: #### 0 0071, 91147, 28559 #### [facility] [address] [place] [address], [place] Creatinine [Mass/Vol] 0.94 mg/dL Normal 0.70-1.30 [facility] Comment on above: Order Comment: No: D o not add to previous draw Performed By: #### 0 0071, 20521, 30722 #### [facility] [address] [place] [address], [place] GFR/1.73 sq M predicted among blacks MDRD (S/P/Bld) [Vol rate/Area] mL/min/{1.73_m2} Normal >60 [facility] Comment on above: Order Comment: No: D o not add to previous draw Performed By: #### 0 0071, 25506, 89310 #### [facility] [address] [place] [address], [place] GFR/1.73 sq M predicted among non-blacks MDRD (S/P/Bld) [Vol rate/Area] mL/min/{1.73_m2} Normal >60 [facility] Comment on above: Order Comment: No: D o not add to previous draw Performed By: #### 0 0071, 38755, 74497 #### [facility] [address] [place] [address], [place] Glucose [Mass/Vol] 103 mg/dL High 70-100 [facility] Comment on above: Order Comment: No: D o not add to previous draw Performed By: #### 0 0071, 48967, 53017 #### [facility] [address] [place] [address], [place] Potassium [Moles/Vol] 3.5 mmol/L Normal 3.5-5.1 [facility] Comment on above: Order Comment: No: D o not add to previous draw Performed By: #### 0 0071, 56105, 59081 #### [facility] [address] [place] [id number], [facility] Sodium [Moles/Vol] 141 mmol/L Normal 136-145 [facility] Comment on above: Order Comment: No: D o not add to previous draw Performed By: #### 0 0071, 78507, 95469 #### [facility] [address] [place] [id number], [facility] Urea nitrogen [Mass/Vol] 17 mg/dL Normal 7-25 [facility] Comment on above: Order Comment: No: D o not add to previous draw Performed By: #### 0 0071, 71073, 14150 #### [facility] [address] [place] [address], [facility] CBC COMPLETE BLOOD COUNTon 0 - Erythrocyte distribution width (RBC) [Ratio] 12.7 % Normal 11.5-15.0 [facility] Comment on above: Order Comment: No: D o not add to previous draw Performed By: #### 0 0071, 29295, 60041 #### [facility] [address] [place] [id number], [facility] Hematocrit (Bld) [Volume fraction] 29.2 % Low 39.0-50.0 [facility] Comment on above: Order Comment: No: D o not add to previous draw Performed By: #### 0 0071, 89129, 66193 #### [facility] [address] [place] [id number], [facility] Hemoglobin (Bld) [Mass/Vol] 9.8 g/dL Low 13.0-17.0 [facility] Comment on above: Order Comment: No: D o not add to previous draw Performed By: #### 0 0071, 99838, 23557 #### [facility] [address] [place] [address], [facility] MCH (RBC) [Entitic mass] 32.1 pg Normal 27.0-33.0 [facility] Comment on above: Order Comment: No: D o not add to previous draw Performed By: #### 0 0071, 13573, 09273 #### [facility] [address] [place] [address], [facility] MCHC (RBC) [Mass/Vol] 33.6 g/dL Normal 32.0-35.0 [facility] Comment on above: Order Comment: No: D o not add to previous draw Performed By: #### 0 0071, 80045, 17911 #### [facility] [address] [place] [address], [facility] MCV (RBC) [Entitic vol] 95.7 fL Normal 82.0-98.0 [facility] Comment on above: Order Comment: No: D o not add to previous draw Performed By: #### 0 1, 58160, 79080 #### [facility] [address] [place] [address], [facility] Nucleated RBC/100 WBC (Bld) [Ratio] 0 % Normal 0-0 [facility] Comment on above: Order Comment: No: D o not add to previous draw Performed By: #### 0 0071, 89932, 94180 #### [facility] [address] [place] [address], [facility] PLAT CNT 206 10*3/uL Normal 150-400 [facility] Comment on above: Order Comment: No: D o not add to previous draw Performed By: #### 0 0071, 25181, 98707 #### [facility] [address] [place] [address], [facility] RBC (Bld) [#/Vol] 3.05 10*6/uL Low 4.20-5.70 The [facility] Comment on above: Order Comment: No: D o not add to previous draw Performed By: #### 0 0071, 59293, 15296 #### [facility] [address] [place] [address], [place] WBC (Bld) [#/Vol] 7.92 10*3/uL Normal 4.00-10.60 [facility] Comment on above: Order Comment: No: D o not add to previous draw Performed By: #### 0 0071, 51947, 47729 #### [facility] [address] [place] [address], [place] MAGNESIUM BLOODon 11-30-2018 Magnesium [Mass/Vol] 2.0 mg/dL Normal 1.9-2.7 [facility] Comment on above: Order Comment: No: D o not add to previous draw Performed By: #### 0 1, 41929, 72961 #### [facility] [address] [place] [address], [place] POC GLUCOSE LABon 11-30-2018 Glucose [Mass/Vol] 144 mg/dL High 70-100 [facility] Comment on above: Performed By: #### 0 0071, 25237, 63897 #### [facility] [address] [place] [address], [place] Glucose [Mass/Vol] 142 mg/dL High 70-100 [facility] Comment on above: Performed By: #### 0 0071, 47766, 92545 #### [facility] [address] [place] [address], [place] Glucose [Mass/Vol] 110 mg/dL High 70-100 [facility] Comment on above: Performed By: #### 0 0071, 35576, 58425 #### [facility] [address] [place] [address], [place] Glucose [Mass/Vol] 120 mg/dL High 70-100 [facility] Comment on above: Performed By: #### 0 0071, 04446, 88423 #### [facility] [address] [place] [address], [place] POC GLUCOSE LABon 11-29-2018 Glucose [Mass/Vol] 105 mg/dL High 70-100 [facility] Comment on above: Performed By: #### 0 0071, 93947, 97479 #### [facility] [address] [place] [address], [place] Glucose [Mass/Vol] 77 mg/dL Normal 70-100 [facility] Comment on above: Performed By: #### 0 0071, 86369, 65839 #### [facility] [address] [place] [address], [place] Glucose [Mass/Vol] 247 mg/dL High 70-100 [facility] Comment on above: Performed By: #### 0 0071, 03880, 37365 #### [facility] [address] [place] [address], [place] Glucose [Mass/Vol] 119 mg/dL High 70-100 [facility] Comment on above: Performed By: #### 0 0071, 65731, 47576 #### [facility] [address] [place] [address], [place] POC GLUCOSE LABon 11-28-2018 Glucose [Mass/Vol] 142 mg/dL High 70-100 [facility] Comment on above: Performed By: #### 0 0071, 78660, 04523 #### [facility] [address] [place] [address], [place] Glucose [Mass/Vol] 132 mg/dL High 70-100 [facility] Comment on above: Performed By: #### 0 0071, 37621, 48286 #### [facility] [address] [place] [address], [place] Glucose [Mass/Vol] 152 mg/dL High 70-100 [facility] Comment on above: Performed By: #### 0 0071, 41688, 15907 #### [facility] [address] [place] [address], [place] Glucose [Mass/Vol] 109 mg/dL High 70-100 [facility] Comment on above: Performed By: #### 0 0071, 01954, 02046 #### [facility] [address] [place] [address], [place] BASIC METABOLIC PANELon 11-13 Calcium [Mass/Vol] 8.3 mg/dL Low 8.6-10.3 [facility] Comment on above: Order Comment: No: D o not add to previous draw Performed By: #### 0 0071, 66481, 63250 #### [facility] [address] [place] [address], [place] Chloride [Moles/Vol] 108 mmol/L High 98-107 [facility] Comment on above: Order Comment: No: D o not add to previous draw Performed By: #### 0 0071, 02585, 69408 #### [facility] [address] [place] [address], [place] CO2 [Moles/Vol] 26 mmol/L Normal 21-31 [facility] Comment on above: Order Comment: No: D o not add to previous draw Performed By: #### 0 0071, 31709, 73952 #### [facility] [address] [place] [address], [place] Creatinine [Mass/Vol] 0.91 mg/dL Normal 0.70-1.30 [facility] Comment on above: Order Comment: No: D o not add to previous draw Performed By: #### 0 0071, 00440, 15647 #### [facility] [address] [place] [address], [place] GFR/1.73 sq M predicted among blacks MDRD (S/P/Bld) [Vol rate/Area] mL/min/{1.73_m2} Normal >60 [facility] Comment on above: Order Comment: No: D o not add to previous draw Performed By: #### 0 0071, 96709, 63667 #### [facility] [address] [place] [address], [place] GFR/1.73 sq M predicted among non-blacks MDRD (S/P/Bld) [Vol rate/Area] mL/min/{1.73_m2} Normal >60 [facility] Comment on above: Order Comment: No: D o not add to previous draw Performed By: #### 0 0071, 13973, 61030 #### [facility] [address] [place] [address], [place] Glucose [Mass/Vol] 113 mg/dL High 70-100 [facility] Comment on above: Order Comment: No: D o not add to previous draw Performed By: #### 0 0071, 57966, 89435 #### [facility] [address] [place] [address], [place] Potassium [Moles/Vol] 4.1 mmol/L Normal 3.5-5.1 [facility] Comment on above: Order Comment: No: D o not add to previous draw Performed By: #### 0 0071, 12705, 25852 #### [facility] [address] [place] [address], [place] Sodium [Moles/Vol] 137 mmol/L Normal 136-145 [facility] Comment on above: Order Comment: No: D o not add to previous draw Performed By: #### 0 0071, 68723, 13968 #### [facility] [address] [place] [address], [place] Urea nitrogen [Mass/Vol] 10 mg/dL Normal 7-25 [facility] Comment on above: Order Comment: No: D o not add to previous draw Performed By: #### 0 0071, 13826, 27264 #### [facility] [address] [facility] [place] [address], [facility] CBC W/DIFFon 11-27-2018 ABS BASOPHILS 0.0 10*3/uL Normal 0.0-0.2 The [facility] Comment on above: Order Comment: No: D o not add to previous draw Performed By: #### 5 610, 67897 #### [facility] [address] [facility]. [address] ABS IMM GRANS 0.1 10*3/uL Normal 0.0-0.2 [facility] Comment on above: Order Comment: No: D o not add to previous draw Performed By: #### 5 6100, 40258 #### [facility] [address] [facility] [place] [address], [facility] ABS NEUTROPHILS 8.1 10*3/uL High 1.6-7.6 The [facility] Comment on above: Order Comment: No: D o not add to previous draw Performed By: #### 5 610, 77228 #### [facility] [address] [facility] [place] [address], [facility] Basophils/100 WBC (Bld) 0.4 % Normal 0.0-1.0 [facility] Comment on above: Order Comment: No: D o not add to previous draw Performed By: #### 5 610, 37330 #### [facility] [address] [facility] [place] [address], [facility] Eosinophils (Bld) [#/Vol] 0.2 10*3/uL Normal 0.0-0.5 [facility] Comment on above: Order Comment: No: D o not add to previous draw Performed By: #### 5 610, 88928 #### [facility] [address] [facility] [place] [address], [facility] Eosinophils/100 WBC (Bld) 1.9 % Normal 0.0-6.0 [facility] Comment on above: Order Comment: No: D o not add to previous draw Performed By: #### 5 6100, 82620 #### [facility] [address] [place] [address], [facility] Erythrocyte distribution width (RBC) [Ratio] 13.2 % Normal 11.5-15.0 [facility] Comment on above: Order Comment: No: D o not add to previous draw Performed By: #### 5 6100, 88556 #### [facility] [address] [place] [address], [facility] Hematocrit (Bld) [Volume fraction] 26.9 % Low 39.0-50.0 [facility] Comment on above: Order Comment: No: D o not add to previous draw Performed By: #### 5 6100, 22711 #### [facility] [address] [facility] [place] [address], [facility] Hemoglobin (Bld) [Mass/Vol] 9.2 g/dL Low 13.0-17.0 [facility] Comment on above: Order Comment: No: D o not add to previous draw Performed By: #### 5 6100, 78284 #### [facility] [address] [facility] [place] [address], [facility] IMMATURE GRANS 0.6 % Normal 0.0-1.0 [facility] Comment on above: Order Comment: No: D o not add to previous draw Performed By: #### 5 6100, 53720 #### [facility] [address] [facility] [place] [address], [facility] Lymphocytes (Bld) [#/Vol] 1.7 10*3/uL Normal 1.2-4.0 [facility] Comment on above: Order Comment: No: D o not add to previous draw Performed By: #### 5 6100, 42365 #### [facility] [address] [place] [address], [facility] Lymphocytes/100 WBC (Bld) 15.0 % Low 20.0-45.0 [facility] Comment on above: Order Comment: No: D o not add to previous draw Performed By: #### 5 6100, 46763 #### [facility] [address] [place] [address], [facility] MCH (RBC) [Entitic mass] 32.9 pg Normal 27.0-33.0 [facility] Comment on above: Order Comment: No: D o not add to previous draw Performed By: #### 5 6100, 57504 #### [facility] [address] [place] [address], [facility] MCHC (RBC) [Mass/Vol] 34.2 g/dL Normal 32.0-35.0 [facility] Comment on above: Order Comment: No: D o not add to previous draw Performed By: #### 5 6100, 42698 #### [facility] [address] [place] [address], [facility] MCV (RBC) [Entitic vol] 96.1 fL Normal 82.0-98.0 [facility] Comment on above: Order Comment: No: D o not add to previous draw Performed By: #### 5 6100, 60120 #### [facility] [address] [place] [address], [facility] Monocytes (Bld) [#/Vol] 1.0 10*3/uL Normal 0.1-1.0 [facility] Comment on above: Order Comment: No: D o not add to previous draw Performed By: #### 5 610, 14113 #### [facility] [address] [place] [id number], [facility] MONOS 9.3 % Normal 5.0-12.0 [facility] Comment on above: Order Comment: No: D o not add to previous draw Performed By: #### 5 610, 52818 #### [facility] [address] [place] [address], [facility] Neutrophils/100 WBC (Bld) 72.8 % High 40.0-72.0 [facility] Comment on above: Order Comment: No: D o not add to previous draw Performed By: #### 5 610, 81995 #### [facility] [address] [place] [address], [place] Nucleated RBC/100 WBC (Bld) [Ratio] 0 % Normal 0-0 [facility] Comment on above: Order Comment: No: D o not add to previous draw Performed By: #### 5 610, 95934 #### [facility] [address] [place] [address], [place] PLAT CNT 120 10*3/uL Low 150-400 The [facility] Comment on above: Order Comment: No: D o not add to previous draw Performed By: #### 5 610, 34193 #### [facility] [address] [place] [address], [facility] RBC (Bld) [#/Vol] 2.80 10*6/uL Low 4.20-5.70 The [facility] Comment on above: Order Comment: No: D o not add to previous draw Performed By: #### 5 6101, 99596 #### [facility] [address] [place] [address], [place] WBC (Bld) [#/Vol] 11.16 10*3/uL High 4.00-10.60 [facility] Comment on above: Order Comment: No: D o not add to previous draw Performed By: #### 5 6101, 56642 #### [facility] [address] [place] [address], [place] MAGNESIUM BLOODon 11-27-2018 Magnesium [Mass/Vol] 1.9 mg/dL Normal 1.9-2.7 [facility] Comment on above: Order Comment: No: D o not add to previous draw Performed By: #### 5 6101, 31059 #### [facility] [address] Operative Reporton 9 Operative Report MR#: [id number] I [facility] Pt. Name: Weston Cano Room #: D [id number] Discharge Date: Birthdate: 1960 OPERATIVE REPORT DATE OF SURGERY: 11/24/2018 SURGEON: Marcello Del Rio MD PREOPERATIVE DIAGNOSES: Three-vessel coronary artery disease and stable angina. POSTOPERATIVE DIAGNOSES: Three-vessel coronary artery disease and stable angina. PROCEDURE PERFORMED: 1. CABG x3, MYRON to the LAD, saphenous vein to the RCA at the origin of the PDA and PL and saphenous vein to the OM. 2. RCA and PLV endarterectomy. SEISMOLOGY TEACHER: 1. DENISE Arriaga. 2. DENISE Bernal. ANESTHESIA: General. SPECIMENS: None. COMPLICATIONS: None. PRODUCTS: None. DRIPS: Levophed 0.05. URINE OUT: 500 mL. CELL SAVER: 250 mL. FINDINGS: 1. The RCA was a heavily calcified 1.5 mm vessel that needed to be endarterectomized. The endarterectomy extended from the distal RCA into the PL. There was good runoff. 2. The OM2 a 1.5 mm vessel with good runoff. 3. The LAD to mid LAD a 1.75-2 mm vessel with good runoff. DISPOSITION: The patient tolerated the procedure well. He was transferred to the CVICU in stable condition for extubation when clinically appropriate. STATEMENT OF MEDICAL NECESSITY: The patient is a 58-year-old male, who was admitted last week after an elective cardiac catheterization revealed 3-vessel CAD. The cardiac cath was scheduled secondary to repeated near syncopal episodes over the course of the last 4 months. There was associated chest congestion and mild pressure. There was no associated shortness of breath, cough, fever, chills, nausea, vomiting, or palpitations. I discussed the risks and benefits with the patient and his family. They agreed to proceed accordingly with semi-elective CABG. This was scheduled for 11/24/2018. OPERATIVE NOTE IN DETAIL: The patient was brought to the operating room, placed on the table, in the supine position, and identified as Mr. Weston Cano. General endotracheal anesthesia was induced. Monitoring lines consisted of a right IJ [place]-Comfort catheter, right radial artery pressure catheter, Astudillo catheter, and EKG electrodes. Peripheral IV access was also obtained. The patient was prepped and draped in the usual manner to encompass the neck, chest, abdomen and both lower extremities. Median sternotomy incision was made. Hemostasis was assured with the Bovie and the bone wax. The Rultract retractor was set into place for elevation of the left nanda sternum. The left pleural space was widely opened. The MYRON was dissected from its bed as a pedicle. The proximal extent was subclavian vein. The distal extent was the bifurcation. Side branches were clipped and divided. The MYRON was noted to be of adequate length, caliber, size, and integrity. Simultaneously, Arlene was used in the endoscopic vein harvesting technique to remove the greater saphenous vein from the left lower extremity. Side branches were clipped and divided. The vein was noted to be of adequate length, caliber, size, and integrity. The vein was ligated proximally and distally, and divided. It was prepared. It was placed on the back table in vein preservation solution. The leg was closed in layers with Vicryl sutures and dressings were applied. The patient was systemically heparinized. After 3 minutes of the being in, the MYRON was ligated distally and divided. There was excellent flow through the MYRON. The MYRON was noted to be of adequate length, caliber, size, and integrity. It was marked. This was wrapped in the papaverine-soaked sponge and tucked away in the left chest. The Rultract retractor was removed and a standard sternal retractor was placed. The pericardium was opened and fashioned into a cradle. Pursestring sutures were placed in the ascending aorta and the right atrium for cardiopulmonary bypass cannulas and for an antegrade cardioplegic catheter. The patient was cannulated without any difficulty. Satisfactory ACT level was obtained. Cardiopulmonary bypass was initiated and we stayed warm. The distals were checked and marked out. We then started to cool to 32 degrees. Flow was taken down and the aorta was crossclamped. Antegrade cardioplegia was delivered. There was excellent diastolic arrest of the heart. The first vessel grafted was the distal RCA. I did note upon arteriotomy that there was a plaque into the PL consistent with what was seen on the cardiac cath. Endarterectomy was performed. The plaque went into the distal RCA and into the PL. It was removed. The anastomosis was performed with 7-0 Prolene continuous suture technique. Before completion of the anastomosis, the graft was deaired. After completion of the anastomosis cardioplegia was established down the graft and there was noted to be excellent runoff. Antegrade cardioplegia was also delivered. The heart was repositioned. The next vessel grafted was the OM2 branch of the left circumflex. This was a goo vessel, approximately 1.5 mm in diameter. Arteriotomy was made and it was grafted in end-to-side fashion with the saphenous vein using 7-0 Prolene continuous suture technique. Prior to completion of the anastomosis, the graft was de-aired. After completion of the anastomosis, cardioplegia was established down the graft and there was noted to be good runoff. Cardioplegia was established down to both vein grafts and through the root. The heart was repositioned. Rewarming was begun. The final vessel grafted was the mid LAD. This was a nice vessel also, approximately 1.75 mm in diameter. Arteriotomy was made and it was grafted in an end-to-side fashion with a previously dissected MYRON using 7-0 Prolene continuos suture technique. Prior to completion of the anastomosis, it was de-aired. After completion of the anastomosis, warm blood was allowed to run through the MYRON in the LAD, as we started to re-warm when we were half way through the LAD distal. Two 6-0 Prolene tacking sutures were used to tack the mammary to the epicardial surface of the heart. No fixed sutures were necessary for either of the 3 anastomoses, and in my standard fashion, I did probe all anastomoses proximally and distally to assure patency. manager agency was given. The patient was then placed in Trendelenburg. The flow was taken down. The root vent was turned on and the crossclamp was removed. We allowed volume to remain in the heart, so we could measure out the lengths of the vein grafts. Both proximals were done at separate punch hole sites in the aorta with the aid of a side-bitting clamp. The proximal for the RCA was done at a separate punch hole site proximal in the ascending aorta. The proximal for the OM was done at the site of the antegrade cardioplegic catheter. Again, no fixed sutures were necessary. We were able to wean successfully from cardiopulmonary bypass on the first attempt. We did use little levophed for low SVR. Protamine was administered to reverse the heparin effect. The patient was decannulated without any difficulty. Hemostasis was adequate. A left pleural tube had already been placed and sutured into position. The patient was decannulated without any difficulty. Two mediastinal chest tubes were placed and sutured into position. The chest was closed in standard fashion with 2 single wires for the manubrium and 4 single wires for the body of the sternum. 0 Vicryl and #1 Vicryl for the fascial layer. 2-0 Vicryl for subcutaneous layer. 4-0 Vicryl for the subcuticular layer followed by our standard dressings. The patient tolerated the procedure well. Transferred back to the CVICU for extubation when clinically appropriate. Electronically Signed by: Marcello Del Rio MD 01/04/2019 12:26 A Marcello Del Rio MD Date Dict: 11/26/2018/04:47 P/Marcello Del Rio MD Date Trans: 11/27/2018 02:17 A/love [id number] cc: Estefania Weeks M.D. [address] [facility] [id number] Normal [facility] PHOSPHORUS BLOODon 9 Phosphate [Mass/Vol] 2.8 mg/dL Normal 2.5-5.0 [facility] Comment on above: Order Comment: No: D o not add to previous draw Performed By: #### 5 0651, 02007 #### [address] [place] [address], [facility] POC GLUCOSE LABon 11-27-2018 Glucose [Mass/Vol] 121 mg/dL High 70-100 [facility] Comment on above: Performed By: #### 0 0071, 81893, 94061 #### [facility] [address] [place] [address], [place] Glucose [Mass/Vol] 87 mg/dL Normal 70-100 [facility] Comment on above: Performed By: #### 0 0071, 88622, 06142 #### [facility] [address] [facility] [place] [place] [address], [place] Glucose [Mass/Vol] 113 mg/dL High 70-100 [facility] Comment on above: Performed By: #### 0 0071, 30720, 03974 #### [facility] [address] [place] [address], [place] Glucose [Mass/Vol] 128 mg/dL High 70-100 [facility] Comment on above: Performed By: #### 0 0071, 66665, 53945 #### [facility] [address] [facility] [place] [address], [facility] PORTABLE CHEST 1 VIEWon 11-13 PORTABLE CHEST 1 VIEW [facility] Department of Radiology [address] [place], [place] [id number] Patient Name: WESTON CANO : 1960 Sex: M Age: Race: White Pt. Location: [id number] Patient Status: I Ordered Date: 11/27/2018 7:00:00 AM Completed Date: 11/27/2018 06:01 AM Requesting Provider: MARCELLO DEL RIO Attending Provider: MARCELLO DEL RIO Report Copy To: Signs & Symptoms: Post CABG History: Patient history not available Comments: Check Chest Tube Position Exam: PORTABLE CHEST 1 VIEW PORTABLE CHEST 1 VIEW 11/27/2018 6:01 AM EDT SIGNS AND SYMPTOMS: Post CABG TECHNOLOGIST COMMENTS: Post CABG 11/24/18; check chest tube positions per ordering physician. QUESTION FOR THE RADIOLOGIST: Check Chest Tube Position PROTOCOL: AP(PA) view was obtained. COMPARISON: November 25 FINDINGS: The heart is enlarged. Sternal wires are intact. There is right basilar effusion and probable infiltrate. There is left basilar atelectasis. [place]-Com[place] catheter has been removed. Patient has been extubated. IMPRESSION: Patient has been extubated with removal of [place] catheter. Chronic cardiomegaly. Right basilar effusion and probable infiltrate/atelectas is. Electronically signed by:Kena Nix. Transcribed by: [email or web address], User Resident: Electronically Signed by: KENA NIX @ 11/27/2018 07:[address] [facility] Comment on above: Order Comment: No: D o not add to previous draw ARTERIAL BLOOD GAS WITH ICAo n 11-26-2018 BASE EXCESS -5 mmol/L Low -2-3 [facility] Comment on above: Performed By: #### 4 999, , 81058 #### [facility] [address] [place] [address], [place] [employer]ERY SYSTEMS NASAL CANNULA Normal [facility] Comment on above: Performed By: #### 4 999, 42803, 62163 #### [facility] [address] [place] [address], [place] HCO3 (Bld) [Moles/Vol] 19 mmol/L Low 21-28 [facility] Comment on above: Performed By: #### 4 999, , 29620 #### [facility] [address] [place] [address], [facility] IONIZED CALCIUM 1.17 mmol/L Normal 1.13-1.32 [facility] Comment on above: Performed By: #### 4 1000, , 31440 #### [facility] [address] [place] [address], [facility] LPM 3.[address] [facility] Comment on above: Performed By: #### 4 999, , 06132 #### [facility] [address] [facility] [place] [address], [facility] Oxygen (Bld) [Partial pressure] 61 mm[Hg] Low 83-108 [facility] Comment on above: Performed By: #### 4 1000, , #### [facility] [address] Oxygen saturation in Blood 90.2 % Low 94.0-97.0 [facility] Comment on above: Performed By: #### 4 1000, , 11889 #### [facility] [address] [facility] [place] [address], [facility] PCO2 30 mmHg Low 35-45 [facility] Comment on above: Performed By: #### 4 1000, , 55618 #### [facility] [address] [place] [address], [facility] pH (Bld) 7.41 [pH] Normal 7.35-7.45 [facility] Comment on above: Result Comment: DAPHNEY SHRESTHA NOTE: Effective 10/17/18, reference ranges for Respiratory GEM analyzers running arterial blood have been updated to reflect the power supply engineer's published reference ranges. Performed By: #### 4 1000, , 51085 #### [facility] [address] [place] [address], [facility] BASIC METABOLIC PANELon 04- Calcium [Mass/Vol] 8.3 mg/dL Low 8.6-10.3 [facility] Comment on above: Performed By: #### 4 1000, , 47603 #### [facility] [address] [place] [address], [place] Chloride [Moles/Vol] 114 mmol/L High 98-107 [facility] Comment on above: Performed By: #### 4 1000, , 00147 #### [facility] [address] [place] [address], [place] CO2 [Moles/Vol] 19 mmol/L Low 21-31 [facility] Comment on above: Performed By: #### 4 1000, , 15398 #### [facility] [address] [place] [address], [place] Creatinine [Mass/Vol] 1.00 mg/dL Normal 0.70-1.30 [facility] Comment on above: Performed By: #### 4 1000, , 25550 #### [facility] [address] [place] [address], [place] GFR/1.73 sq M predicted among blacks MDRD (S/P/Bld) [Vol rate/Area] mL/min/{1.73_m2} Normal >60 [facility] Comment on above: Performed By: #### 4 1000, , 24677 #### [facility] [address] [place] [address], [place] GFR/1.73 sq M predicted among non-blacks MDRD (S/P/Bld) [Vol rate/Area] mL/min/{1.73_m2} Normal >60 [facility] Comment on above: Performed By: #### 4 1000, , 07983 #### [facility] [address] [place] [address], [place] Glucose [Mass/Vol] 153 mg/dL High 70-100 [facility] Comment on above: Performed By: #### 4 1000, , 02994 #### [facility] [address] Potassium [Moles/Vol] 4.0 mmol/L Normal 3.5-5.1 [facility] Comment on above: Performed By: #### 4 1000, , 24014 #### [facility] [address] [facility] [address] Sodium [Moles/Vol] 140 mmol/L Normal 136-145 [facility] Comment on above: Performed By: #### 4 1000, , 35354 #### [facility] [address] [facility] [address] Urea nitrogen [Mass/Vol] 11 mg/dL Normal 7-25 [facility] Comment on above: Performed By: #### 4 1000, , 64710 #### [facility] [address] [facility]. [address] CBC W/DIFFon 11-26-2018 ABS BASOPHILS 0.0 10*3/uL Normal 0.0-0.2 [facility] Comment on above: Order Comment: No: D o not add to previous draw Performed By: #### 4 1000, , 18862 #### [facility] [address] [facility]. [address] ABS IMM GRANS 0.1 10*3/uL Normal 0.0-0.2 [facility] Comment on above: Order Comment: No: D o not add to previous draw Performed By: #### 4 1000, , 39145 #### [facility] [address] ABS NEUTROPHILS 7.6 10*3/uL Normal 1.6-7.6 [facility] Comment on above: Order Comment: No: D o not add to previous draw Performed By: #### 4 1000, , 86317 #### [facility] [address] [place] [id number], [facility] Basophils/100 WBC (Bld) 0.2 % Normal 0.0-1.0 [facility] Comment on above: Order Comment: No: D o not add to previous draw Performed By: #### 4 1000, , 72075 #### [facility] [address] [place] [id number], [facility] Eosinophils (Bld) [#/Vol] 0.0 10*3/uL Normal 0.0-0.5 [facility] Comment on above: Order Comment: No: D o not add to previous draw Performed By: #### 4 1000, , #### [facility] [address] [place] [id number], [facility] Eosinophils/100 WBC (Bld) 0.2 % Normal 0.0-6.0 [facility] Comment on above: Order Comment: No: D o not add to previous draw Performed By: #### 4 1000, , #### [facility] [address] [facility] [place] [address], [facility] Erythrocyte distribution width (RBC) [Ratio] 13.2 % Normal 11.5-15.0 [facility] Comment on above: Order Comment: No: D o not add to previous draw Performed By: #### 4 1000, , 68859 #### [facility] [address] [place] [id number], [facility] Hematocrit (Bld) [Volume fraction] 33.2 % Low 39.0-50.0 [facility] Comment on above: Order Comment: No: D o not add to previous draw Performed By: #### 4 1000, , 32303 #### [facility] [address] [place] [address], [place] Hemoglobin (Bld) [Mass/Vol] 11.6 g/dL Low 13.0-17.0 [facility] Comment on above: Order Comment: No: D o not add to previous draw Performed By: #### 4 1000, , 79950 #### [facility] [address] [place] [address], [facility] IMMATURE GRANS 0.5 % Normal 0.0-1.0 The [facility] Comment on above: Order Comment: No: D o not add to previous draw Performed By: #### 4 1000, , 62287 #### [facility] [address] [facility] [place] [address], [facility] Lymphocytes (Bld) [#/Vol] 1.4 10*3/uL Normal 1.2-4.0 [facility] Comment on above: Order Comment: No: D o not add to previous draw Performed By: #### 4 1000, , #### [facility] [address] [facility] [place] [address], [facility] Lymphocytes/100 WBC (Bld) 14.3 % Low 20.0-45.0 [facility] Comment on above: Order Comment: No: D o not add to previous draw Performed By: #### 4 1000, , 19854 #### [facility] [address] [facility] [place] [address], [facility] MCH (RBC) [Entitic mass] 33.0 pg Normal 27.0-33.0 [facility] Comment on above: Order Comment: No: D o not add to previous draw Performed By: #### 4 1000, , 69119 #### [facility] [address] [facility] [place] [id number], [facility] MCHC (RBC) [Mass/Vol] 34.9 g/dL Normal 32.0-35.0 [facility] Comment on above: Order Comment: No: D o not add to previous draw Performed By: #### 4 1000, , 07112 #### [facility] [address] MCV (RBC) [Entitic vol] 94.6 fL Normal 82.0-98.0 [facility] Comment on above: Order Comment: No: D o not add to previous draw Performed By: #### 4 1000, 61390, 14358 #### [facility] [address] [place] [address], [facility] Monocytes (Bld) [#/Vol] 0.9 10*3/uL Normal 0.1-1.0 [facility] Comment on above: Order Comment: No: D o not add to previous draw Performed By: #### 4 1000, , 29522 #### [facility] [address] MONOS 8.9 % Normal 5.0-12.0 [facility] Comment on above: Order Comment: No: D o not add to previous draw Performed By: #### 4 1000, , 68784 #### [facility] [address] Neutrophils/100 WBC (Bld) 75.9 % High 40.0-72.0 [facility] Comment on above: Order Comment: No: D o not add to previous draw Performed By: #### 4 1000, , 73977 #### [facility] [address] Nucleated RBC/100 WBC (Bld) [Ratio] 0 % Normal 0-0 [facility] Comment on above: Order Comment: No: D o not add to previous draw Performed By: #### 4 1000, , 28810 #### [facility] [address] [place] [address], [facility] PLAT CNT 102 10*3/uL Low 150-400 [facility] Comment on above: Order Comment: No: D o not add to previous draw Performed By: #### 4 1000, , 83965 #### [facility] [address] [place] [address], [facility] RBC (Bld) [#/Vol] 3.51 10*6/uL Low 4.20-5.70 The [facility] Comment on above: Order Comment: No: D o not add to previous draw Performed By: #### 4 1000, , 28196 #### [facility] [address] [place] [address], [facility] WBC (Bld) [#/Vol] 10.04 10*3/uL Normal 4.00-10.60 [facility] Comment on above: Order Comment: No: D o not add to previous draw Performed By: #### 4 1000, , 31036 #### [facility] [address] [place] [address], [facility] MAGNESIUM BLOODon 11-26-2018 Magnesium [Mass/Vol] 1.9 mg/dL Normal 1.9-2.7 [facility] Comment on above: Order Comment: No: D o not add to previous draw Performed By: #### 5 6101, 65480 #### [facility] [address] [facility] [place] [address], [facility] MIXED VENOUS BLOOD GAS W/MAINTENANCE INSPECTOR Xon 11-26-2018 BASE EXCESS -4 mmol/L Normal [facility] Comment on above: Performed By: #### 4 1000, , 53152 #### [facility] [address] [place] [address], [facility] COHB 1 % Normal [facility] Comment on above: Performed By: #### 4 1000, , 21829 #### [facility] [address] [place] [id number], [facility] HCO3 (Bld) [Moles/Vol] 20 mmol/L Normal [facility] Comment on above: Performed By: #### 4 1000, , 78842 #### [facility] [address] [place] [address], [facility] LPM 3 Normal [facility] Comment on above: Performed By: #### 4 1000, , 44486 #### [facility] [address] [place] [address], [facility] METHB 1 % Normal [facility] Comment on above: Performed By: #### 4 1000, , 29161 #### [facility] [address] [place] [address], [facility] Oxygen (Bld) [Partial pressure] 31 mm[Hg] Low 35-45 [facility] Comment on above: Performed By: #### 4 1000, , 96473 #### [facility] [address] [place] [address], [facility] Oxygen saturation in Blood 56.2 % Low 65.0-75.0 [facility] Comment on above: Performed By: #### 4 1000, , 63739 #### [facility] [address] [place] [address], [facility] PCO2 34 mmHg Low 40-50 [facility] Comment on above: Performed By: #### 4 999, , 81808 #### [facility] [address] [place] [address], [facility] pH (Bld) 7.38 [pH] Normal 7.31-7.41 [facility] Comment on above: Result Comment: DAPHNEY SHRESTHA NOTE: Effective 11/09/18, reference ranges for Respiratory GEM analyzers running venous blood have been updated to reflect the power supply engineer's published reference ranges. Performed By: #### 4 999, , 45297 #### [facility] [address] [place] [id number], [facility] THB 9.7 g/dL Normal [facility] Comment on above: Performed By: #### 4 1000, , 25968 #### [facility] [address] [place] [address], [place] PHOSPHORUS BLOODon 9 Phosphate [Mass/Vol] 2.3 mg/dL Low 2.5-5.0 [facility] Comment on above: Order Comment: No: D o not add to previous draw Performed By: #### 5 610, 98544 #### [facility] [address] [place] [address], [place] POC GLUCOSE LABon 11-26-2018 Glucose [Mass/Vol] 162 mg/dL High 70-100 [facility] Comment on above: Performed By: #### 5 610, 03963 #### [facility] [address] [place] [address], [place] Glucose [Mass/Vol] 113 mg/dL High 70-100 [facility] Comment on above: Performed By: #### 5 610, 63561 #### [facility] [address] [place] [address], [place] Glucose [Mass/Vol] 158 mg/dL High 70-100 [facility] Comment on above: Performed By: #### 5 610, 12078 #### [facility] [address] [place] [address], [place] Glucose [Mass/Vol] 101 mg/dL High 70-100 [facility] Comment on above: Performed By: #### 5 610, 49088 #### [facility] [address] [place] [address], [place] Glucose [Mass/Vol] 104 mg/dL High 70-100 [facility] Comment on above: Performed By: #### 5 610, 23703 #### [facility] [address] [place] [address], [place] Glucose [Mass/Vol] 159 mg/dL High 70-100 [facility] Comment on above: Performed By: #### 4 1000, 70676, 75542 #### [facility] [address] [place] [address], [facility] Glucose [Mass/Vol] 105 mg/dL High 70-100 [facility] Comment on above: Performed By: #### 4 1000, 64087, 90238 #### [facility] [address] [place] [address], [place] ARTERIAL BLOOD GAS W/COOXon 11-25-2018 BASE EXCESS -9 mmol/L Low -2-3 [facility] Comment on above: Performed By: #### 5 0608 #### [facility] [address] [place] [address], [facility] COHB 0.9 % Normal 0.0-1.5 [facility] Comment on above: Performed By: #### 5 0608 #### [facility] [address] [place] [address], [facility] DELIVERY SYSTEMS VENTILATOR Normal [facility] Comment on above: Performed By: #### 5 0608 #### [facility] [address] [place] [address], [facility] FIO2 50 % Normal [facility] Comment on above: Performed By: #### 5 0608 #### [facility] [address] [place] [address], [place] HCO3 (Bld) [Moles/Vol] 17 mmol/L Low 21-28 [facility] Comment on above: Performed By: #### 5 0608 #### [facility] [address] [place] [address], [place] METHB 1.3 % Normal 0.0-1.5 [facility] Comment on above: Performed By: #### 5 0608 #### [facility] [address] [place] [address], [place] MIN VOLUME 9.9 Normal [facility] Comment on above: Performed By: #### 5 0608 #### [facility] [address] [place] [address], [place] MODALITY SIMV Normal [facility] Comment on above: Performed By: #### 5 0608 #### [facility] [address] [place] [address], [place] Oxygen (Bld) [Partial pressure] 146 mm[Hg] Critically high 83-108 [facility] Comment on above: Performed By: #### 5 0608 #### [facility] [address] [place] [address], [place] Oxygen saturation in Blood 95.5 % Normal 94.0-97.0 [facility] Comment on above: Performed By: #### 5 0608 #### [facility] [address] [place] [address], [place] PCO2 37 mmHg Normal 35-45 [facility] Comment on above: Performed By: #### 5 0608 #### [facility] [address] [place] [address], [place] PEEP 8.[address] [facility] Comment on above: Performed By: #### 5 0608 #### [facility] [address] [place] [address], [place] pH (Bld) 7.27 [pH] Low 7.35-7.45 [facility] Comment on above: Result Comment: DAPHNEY SHRESTHA NOTE: Effective 10/17/18, reference ranges for Respiratory GEM analyzers running arterial blood have been updated to reflect the power supply engineer's published reference ranges. Performed By: #### 5 0608 #### [facility] [address] [place] [address], [place] PRESSURE SUPPORT 8 Normal The [facility] Comment on above: Performed By: #### 5 0608 #### [facility] [address] [place] [address], [place] THB 10.3 g/dL Low 12.0-16.3 The [facility] Comment on above: Performed By: #### 5 0608 #### [facility] [address] TIDAL VOLUME (VT) CC [address] [facility] Comment on above: Performed By: #### 5 0608 #### [facility] [address] ARTERIAL BLOOD GAS WITH ICAo n 11-25-2018 BASE EXCESS -7 mmol/L Low -2-3 [facility] Comment on above: Performed By: #### 4 1000, , 56672 #### [facility] [address] DELIVERY SYSTEMS VENTILATOR Normal The [facility] Comment on above: Performed By: #### 4 1000, , 35820 #### [facility] [address] FIO2 40 % Normal [facility] Comment on above: Performed By: #### 4 1000, , 85715 #### [facility] [address] [facility] [address] HCO3 (Bld) [Moles/Vol] 18 mmol/L Low 21-28 [facility] Comment on above: Performed By: #### 4 1000, , 59708 #### [facility] [address] IONIZED CALCIUM 1.10 mmol/L Low 1.13-1.32 The [facility] Comment on above: Performed By: #### 4 1000, , 66477 #### [facility] [address] [place] [address], [facility] MIN VOLUME 11.[address] [facility] Comment on above: Performed By: #### 4 1000, , 59847 #### [facility] [address] [place] [address], [place] MODALITY SIMV Normal [facility] Comment on above: Performed By: #### 4 999, , 63888 #### [facility] [address] [place] [address], [place] Oxygen (Bld) [Partial pressure] 92 mm[Hg] Normal 83-108 [facility] Comment on above: Performed By: #### 4 1000, , 39740 #### [facility] [address] [place] [address], [place] Oxygen saturation in Blood 94.9 % Normal 94.0-97.0 [facility] Comment on above: Performed By: #### 4 1000, , 91012 #### [facility] [address] [place] [address], [place] PCO2 32 mmHg Low 35-45 [facility] Comment on above: Performed By: #### 4 999, , 70499 #### [facility] [address] [place] [address], [place] PEEP 8.[address] [facility] Comment on above: Performed By: #### 4 999, , 62468 #### [facility] [address] [place] [address], [place] pH (Bld) 7.36 [pH] Normal 7.35-7.45 [facility] Comment on above: Result Comment: DAPHNEY SHRESTHA NOTE: Effective 10/17/18, reference ranges for Respiratory GEM analyzers running arterial blood have been updated to reflect the power supply engineer's published reference ranges. Performed By: #### 4 999, , 17732 #### [facility] [address] [place] [address], [place] PRESSURE SUPPORT 8 Normal [facility] Comment on above: Performed By: #### 4 1000, , 35070 #### [facility] [address] TIDAL VOLUME (VT) CC 500 cc Normal [facility] Comment on above: Performed By: #### 4 1000, , 67437 #### [facility] [address] [facility]. [address] CBC W/DIFFon 11-25-2018 ABS BASOPHILS 0.0 10*3/uL Normal 0.0-0.2 The [facility] Comment on above: Order Comment: No: D o not add to previous draw Performed By: #### 4 1000, , 36815 #### [facility] [address] [facility]. [address] ABS IMM GRANS 0.1 10*3/uL Normal 0.0-0.2 The [facility] Comment on above: Order Comment: No: D o not add to previous draw Performed By: #### 4 1000, , 57718 #### [facility] [address] [facility]. [address] ABS NEUTROPHILS 8.0 10*3/uL High 1.6-7.6 The [facility] Comment on above: Order Comment: No: D o not add to previous draw Performed By: #### 4 1000, , 19639 #### [facility] [address] [facility]. [address] Basophils/100 WBC (Bld) 0.2 % Normal 0.0-1.0 [facility] Comment on above: Order Comment: No: D o not add to previous draw Performed By: #### 4 1000, , [id number] #### [facility] [address] [facility] [place] [address], [facility] Eosinophils (Bld) [#/Vol] 0.1 10*3/uL Normal 0.0-0.5 [facility] Comment on above: Order Comment: No: D o not add to previous draw Performed By: #### 4 1000, , [id number] #### [facility] [address] [place] [address], [facility] Eosinophils/100 WBC (Bld) 0.8 % Normal 0.0-6.0 [facility] Comment on above: Order Comment: No: D o not add to previous draw Performed By: #### 4 1000, , 40312 #### [facility] [address] [place] [address], [facility] Erythrocyte distribution width (RBC) [Ratio] 13.1 % Normal 11.5-15.0 [facility] Comment on above: Order Comment: No: D o not add to previous draw Performed By: #### 4 1000, , 46080 #### [facility] [address] [facility] [place] [address], [facility] Hematocrit (Bld) [Volume fraction] 30.0 % Low 39.0-50.0 [facility] Comment on above: Order Comment: No: D o not add to previous draw Performed By: #### 4 1000, , 25904 #### [facility] [address] [place] [address], [facility] Hemoglobin (Bld) [Mass/Vol] 10.4 g/dL Low 13.0-17.0 [facility] Comment on above: Order Comment: No: D o not add to previous draw Performed By: #### 4 1000, , 25027 #### [facility] [address] [facility] [place] [address], [facility] IMMATURE GRANS 0.4 % Normal 0.0-1.0 [facility] Comment on above: Order Comment: No: D o not add to previous draw Performed By: #### 4 1000, , 96819 #### [facility] [address] [place] [address], [facility] Lymphocytes (Bld) [#/Vol] 1.8 10*3/uL Normal 1.2-4.0 [facility] Comment on above: Order Comment: No: D o not add to previous draw Performed By: #### 4 1000, , 24728 #### [facility] [address] [place] [address], [facility] Lymphocytes/100 WBC (Bld) 15.8 % Low 20.0-45.0 [facility] Comment on above: Order Comment: No: D o not add to previous draw Performed By: #### 4 1000, , #### [facility] [address] [place] [address], [facility] MCH (RBC) [Entitic mass] 33.3 pg High 27.0-33.0 [facility] Comment on above: Order Comment: No: D o not add to previous draw Performed By: #### 4 1000, , #### [facility] [address] [facility] [place] [address], [facility] MCHC (RBC) [Mass/Vol] 34.7 g/dL Normal 32.0-35.0 [facility] Comment on above: Order Comment: No: D o not add to previous draw Performed By: #### 4 999, , #### [facility] [address] [facility] [place] [address], [facility] MCV (RBC) [Entitic vol] 96.2 fL Normal 82.0-98.0 [facility] Comment on above: Order Comment: No: D o not add to previous draw Performed By: #### 4 999, , 28778 #### [facility] [address] [facility] [place] [address], [facility] Monocytes (Bld) [#/Vol] 1.3 10*3/uL High 0.1-1.0 [facility] Comment on above: Order Comment: No: D o not add to previous draw Performed By: #### 4 1000, , 28296 #### [facility] [address] [place] [address], [facility] MONOS 11.5 % Normal 5.0-12.0 [facility] Comment on above: Order Comment: No: D o not add to previous draw Performed By: #### 4 1000, 98972, 49995 #### [facility] [address] [place] [id number], [facility] Neutrophils/100 WBC (Bld) 71.3 % Normal 40.0-72.0 [facility] Comment on above: Order Comment: No: D o not add to previous draw Performed By: #### 4 1000, , 36556 #### [facility] [address] [place] [address], [place] Nucleated RBC/100 WBC (Bld) [Ratio] 0 % Normal 0-0 [facility] Comment on above: Order Comment: No: D o not add to previous draw Performed By: #### 4 1000, , 69644 #### [facility] [address] [place] [address], [place] PLAT CNT 149 10*3/uL Low 150-400 [facility] Comment on above: Order Comment: No: D o not add to previous draw Performed By: #### 4 1000, , 33550 #### [facility] [address] [place] [id number], [place] RBC (Bld) [#/Vol] 3.12 10*6/uL Low 4.20-5.70 [facility] Comment on above: Order Comment: No: D o not add to previous draw Performed By: #### 4 1000, , 72079 #### [facility] [address] [place] [address], [place] WBC (Bld) [#/Vol] 11.23 10*3/uL High 4.00-10.60 [facility] Comment on above: Order Comment: No: D o not add to previous draw Performed By: #### 4 1000, , 32751 #### [facility] [address] [place] [address], [place] COMP METABOLIC PANELon 11-25 Albumin [Mass/Vol] 3.6 g/dL Normal 3.5-5.7 [facility] Comment on above: Performed By: #### 4 1000, , 52426 #### [facility] [address] [place] [address], [facility] ALKALINE PHOSPH 31 IU/L Low 34-104 [facility] Comment on above: Performed By: #### 4 1000, , 62351 #### [facility] [address] [place] [address], [facility] ALT [Catalytic activity/Vol] 18 U/L Normal 7-52 [facility] Comment on above: Performed By: #### 4 1000, , 95699 #### [facility] [address] [place] [id number], [facility] AST [Catalytic activity/Vol] 50 U/L High 13-39 [facility] Comment on above: Performed By: #### 4 1000, , 39530 #### [facility] [address] [place] [id number], [facility] Bilirubin [Mass/Vol] 0.9 mg/dL Normal 0.3-1.0 [facility] Comment on above: Performed By: #### 4 1000, , 19264 #### [facility] [address] [place] [id number], [facility] Calcium [Mass/Vol] 7.8 mg/dL Low 8.6-10.3 [facility] Comment on above: Performed By: #### 4 1000, , 03594 #### [facility] [address] [place] [id number], [facility] Chloride [Moles/Vol] 116 mmol/L High 98-107 [facility] Comment on above: Performed By: #### 4 1000, , 23442 #### [facility] [address] [place] [address], [place] CO2 [Moles/Vol] 24 mmol/L Normal 21-31 [facility] Comment on above: Performed By: #### 4 1000, , 63201 #### [facility] [address] [place] [address], [place] Creatinine [Mass/Vol] 1.12 mg/dL Normal 0.70-1.30 [facility] Comment on above: Performed By: #### 4 1000, , 15229 #### [facility] [address] [place] [address], [place] GFR/1.73 sq M predicted among blacks MDRD (S/P/Bld) [Vol rate/Area] mL/min/{1.73_m2} Normal >60 [facility] Comment on above: Performed By: #### 4 1000, , 44043 #### [facility] [address] [place] [address], [place] GFR/1.73 sq M predicted among non-blacks MDRD (S/P/Bld) [Vol rate/Area] mL/min/{1.73_m2} Normal >60 [facility] Comment on above: Performed By: #### 4 1000, , 87838 #### [facility] [address] [place] [address], [place] Glucose [Mass/Vol] 129 mg/dL High 70-100 [facility] Comment on above: Performed By: #### 4 1000, , 54633 #### [facility] [address] [place] [address], [place] Potassium [Moles/Vol] 4.5 mmol/L Normal 3.5-5.1 [facility] Comment on above: Performed By: #### 4 1000, , 70446 #### [facility] [address] [place] [address], [place] Protein [Mass/Vol] 4.9 g/dL Low 6.0-8.3 [facility] Comment on above: Performed By: #### 4 1000, , 53863 #### [facility] [address] [place] [address], [facility] Sodium [Moles/Vol] 139 mmol/L Normal 136-145 [facility] Comment on above: Performed By: #### 4 1000, , 10465 #### [facility] [address] Urea nitrogen [Mass/Vol] 11 mg/dL Normal 7-25 [facility] Comment on above: Performed By: #### 4 1000, , 23294 #### [facility] [address] [facility] [address] CPK-MB PROFILEon 11-25-2018 CK [Catalytic activity/Vol] 708 U/L High 30-223 [facility] Comment on above: Order Comment: No: D o not add to previous draw Performed By: #### 4 1000, , 89395 #### [facility] [address] [facility] [address] CK.MB [Mass/Vol] 57.2 ng/mL High 0.0-5.0 The [facility] Comment on above: Order Comment: No: D o not add to previous draw Result Comment: IF T OTAL CK <200 U/L AND: 1. CKMB IS 5-10 NG/ML----BORDERLINE 2. CKMB IS >10 NG/ML----INDICATIVE OF [place] OR IF TOTAL CK >200 U/L AND CKMB INDEX >1.9----[place] Performed By: #### 4 1000, , 61034 #### [facility] [address] [place] [address], [facility] CK.MB [Mass/Vol] 8.1 ng/mL Critically high 0.0-1.9 [facility] Comment on above: Order Comment: No: D o not add to previous draw Performed By: #### 4 1000, , 57522 #### [facility] [address] [place] [address], [place] MAGNESIUM BLOODon 11-25-2018 Magnesium [Mass/Vol] 2.3 mg/dL Normal 1.9-2.7 [facility] Comment on above: Order Comment: No: D o not add to previous draw Performed By: #### 4 1000, , 15892 #### [facility] [address] [place] [address], [place] MIXED VENOUS BLOOD GASon BASE EXCESS -4 mmol/L Normal [facility] Comment on above: Order Comment: No: D o not add to previous draw Performed By: #### 4 1000, , 89339 #### [facility] [address] [place] [address], [place] DELIVERY SYSTEMS VENTILATOR Normal The [facility] Comment on above: Order Comment: No: D o not add to previous draw Performed By: #### 4 1000, , 94510 #### [facility] [address] [place] [address], [place] HCO3 (Bld) [Moles/Vol] 22 mmol/L Normal [facility] Comment on above: Order Comment: No: D o not add to previous draw Performed By: #### 4 1000, , 94082 #### [facility] [address] [place] [address], [place] Oxygen (Bld) [Partial pressure] mm[Hg] Normal 35-45 [facility] Comment on above: Order Comment: No: D o not add to previous draw Performed By: #### 4 1000, , 58942 #### [facility] [address] [place] [address], [place] Oxygen saturation in Blood 55.1 % Low 65.0-75.0 [facility] Comment on above: Order Comment: No: D o not add to previous draw Performed By: #### 4 1000, , 15817 #### [facility] [address] [place] [address], [place] PCO2 41 mmHg Normal 40-50 [facility] Comment on above: Order Comment: No: D o not add to previous draw Performed By: #### 4 1000, , 25838 #### [facility] [address] [place] [address], [place] pH (Bld) 7.33 [pH] Normal 7.31-7.41 [facility] Comment on above: Order Comment: No: D o not add to previous draw Result Comment: DAPHNEY SHRESTHA NOTE: Effective 11/09/18, reference ranges for Respiratory GEM analyzers running venous blood have been updated to reflect the power supply engineer's published reference ranges. Performed By: #### 4 1000, , 54523 #### [facility] [address] [place] [address], [place] POC GLUCOSE LABon 11-25-2018 Glucose [Mass/Vol] 77 mg/dL Normal 70-100 [facility] Comment on above: Performed By: #### 4 1000, , 62282 #### [facility] [address] [place] [address], [place] Glucose [Mass/Vol] 76 mg/dL Normal 70-100 [facility] Comment on above: Performed By: #### 4 1000, , 75001 #### [facility] [address] [place] [address], [place] Glucose [Mass/Vol] 105 mg/dL High 70-100 [facility] Comment on above: Performed By: #### 4 1000, , 61682 #### [facility] [address] [place] [address], [place] Glucose [Mass/Vol] 117 mg/dL High 70-100 [facility] Comment on above: Performed By: #### 4 1000, , 91515 #### [facility] [address] [place] [address], [place] Glucose [Mass/Vol] 164 mg/dL High 70-100 [facility] Comment on above: Performed By: #### 5 0608 #### [facility] [address] [place] [address], [place] Glucose [Mass/Vol] 131 mg/dL High 70-100 [facility] Comment on above: Performed By: #### 4 1000, , 23291 #### [facility] [address] [place] [address], [place] Glucose [Mass/Vol] 115 mg/dL High 70-100 [facility] Comment on above: Performed By: #### 4 1000, , 13506 #### [facility] [address] [place] [address], [place] Glucose [Mass/Vol] 118 mg/dL High 70-100 [facility] Comment on above: Performed By: #### 4 1000, , 63059 #### [facility] [address] [place] [address], [place] Glucose [Mass/Vol] 122 mg/dL High 70-100 [facility] Comment on above: Performed By: #### 4 1000, , 64713 #### [facility] [address] [place] [address], [place] Glucose [Mass/Vol] 124 mg/dL High 70-100 [facility] Comment on above: Performed By: #### 4 1000, , 31643 #### [facility] [address] [place] [address], [place] Glucose [Mass/Vol] 123 mg/dL High 70-100 [facility] Comment on above: Performed By: #### 4 1000, 21318, 24505 #### [facility] [address] [place] [address], [place] Glucose [Mass/Vol] 128 mg/dL High 70-100 [facility] Comment on above: Performed By: #### 4 1000, 56938, 28013 #### [facility] [address] [place] [address], [place] Glucose [Mass/Vol] 133 mg/dL High 70-100 [facility] Comment on above: Performed By: #### 4 1000, 24048, 04072 #### [facility] [address] [place] [address], [place] Glucose [Mass/Vol] 138 mg/dL High 70-100 [facility] Comment on above: Performed By: #### 5 0608 #### [facility] [address] [facility] [place] [address], [place] Glucose [Mass/Vol] 142 mg/dL High 70-100 The [facility] Comment on above: Performed By: #### 5 0608 #### [facility] [address] [facility] [place] [address], [place] Glucose [Mass/Vol] 156 mg/dL High 70-100 [facility] Comment on above: Performed By: #### 5 0608 #### [facility] [address] [facility] [place] [address], [facility] PORTABLE CHEST 1 VIEWon 11-13 PORTABLE CHEST 1 VIEW [facility] Department of Radiology [address] [place] [address] Patient Name: WESTON CANO : 1960 Sex: M Age: Race: White Pt. Location: [id number] Patient Status: I Ordered Date: 11/25/2018 6:00:00 AM Completed Date: 11/25/2018 07:12 AM Requesting Provider: MARCELLO DEL RIO Attending Provider: MARCELLO DEL RIO Report Copy To: Signs & Symptoms: Post CABG History: Patient history not available Comments: Check Chest Tube Position Exam: PORTABLE CHEST 1 VIEW PORTABLE CHEST 1 VIEW 11/25/2018 7:12 AM EDT SIGNS AND SYMPTOMS: Post CABG TECHNOLOGIST COMMENTS: post op CABG, chest tubes QUESTION FOR THE RADIOLOGIST: Check Chest Tube Position PROTOCOL: AP(PA) view was obtained. COMPARISON: November 24, 2018. FINDINGS: ET tube is within the trachea at the level of the clavicle, unchanged. Right internal jugular [place] catheter terminates within the right main pulmonary artery. Enteric tube terminates within the stomach. Median sternotomy wires are intact. Unchanged left chest tube. There is lower level of inspiration on today's study compared to prior study, with slightly increased lung marking. There may be small pleural effusion bilaterally. No pneumothorax. Degenerative change of the spine. IMPRESSION: Unchanged support lines and tubes, in satisfactory position. Slightly increased lung marking and bibasilar atelectasis, likely related to lower lung volume. Approved by:Kimberly Valdez on 11/25/2018 7:21 AM EDT. I, Leida Ferro, have reviewed the images and report and concur with these findings. Electronically signed by:Leida Ferro. Transcribed by: [email or web address], User Resident: [email or web address] Electronically Signed by: LEIDA FERRO @ 11/25/2018 06:05 PM I personally read this/these film(s) with this resident Normal [facility] Comment on above: Order Comment: No: D o not add to previous draw PROTHROMBIN TIMEon 9 INR Coag (PPP) [Relative time] 1.39 {INR} High 0.91-1.16 [facility] Comment on above: Order Comment: No: D o not add to previous draw Result Comment: ACCC P RECOMMENDED INR FOR WARFARIN THERAPY ------- ------- CONDITION INR PROPHYLAXIS OF VENOUS THROMBOSIS 2-3 (HIGH-RISK SURGERY) TREATMENT OF VENOUS THROMBOSIS 2-3 TREATMENT OF PULMONARY EMBOLISM 2-3 PREVENTION OF SYSTEMIC EMBOLISM: 2-3 ACUTE MYOCARDIAL INFARCTION TISSUE HEART VALVES VALVULAR HEART DISEASE ATRIAL FIBRILLATION RECURRENT SYSTEMIC EMBOLISM MECHANICAL HEART VALVE 2.5-3.5 FROM: ORAL ANTICOAGULANTS. MECHANISM OF ACTION, CLINICAL EFFECTIVENESS, AND OPTIMAL THERAPEUTIC RANGE. CHEST 1995;108:231S-246S. Performed By: #### 4 999, 24464, 98784 #### [facility] [address] [place] [address], [facility] PT Coag (PPP) [Time] 17.1 s High 12.3-14.8 [facility] Comment on above: Order Comment: No: D o not add to previous draw Result Comment: ALL RESULTS MUST BE INTERPRETED WITH RESPECT TO BLOOD DRAWING ARTIFACT OR DILUTION ERROR OF ANTICOAGULANT AT THE TIME OF SAMPLING. Performed By: #### 4 1000, 10911, 83587 #### [facility] [address] [place] [address], [facility] VENOUS BLOOD GAS W/COOXon BASE EXCESS -4 mmol/L Normal [facility] Comment on above: Performed By: #### 4 1000, , #### [facility] [address] [place] [id number], [facility] COHB 1 % Normal [facility] Comment on above: Performed By: #### 4 1000, , #### [facility] [address] [place] [address], [facility] HCO3 (Bld) [Moles/Vol] 20 mmol/L Normal [facility] Comment on above: Performed By: #### 4 999, , #### [facility] [address] [place] [address], [place] METHB 0.7 % Normal [facility] Comment on above: Performed By: #### 4 999, , #### [facility] [address] [place] [address], [facility] Oxygen (Bld) [Partial pressure] 31 mm[Hg] Low 35-45 [facility] Comment on above: Performed By: #### 4 999, , #### [facility] [address] [facility] [place] [address], [facility] Oxygen saturation in Blood 57.9 % Low 65.0-75.0 [facility] Comment on above: Performed By: #### 4 1000, , #### [facility] [address] [place] [id number], [facility] PCO2 34 mmHg Low 40-50 [facility] Comment on above: Performed By: #### 4 1000, , 53510 #### [facility] [address] [place] [id number], [place] pH (Bld) 7.38 [pH] Normal 7.31-7.41 [facility] Comment on above: Result Comment: PLEA SE NOTE: Effective 11/09/18, reference ranges for Respiratory GEM analyzers running venous blood have been updated to reflect the power supply engineer's published reference ranges. Performed By: #### 4 1000, 02745, 62286 #### [facility] [address] [place] [address], [facility] THB 10.4 g/dL Normal [facility] Comment on above: Performed By: #### 4 1000, 18855, 63181 #### [facility] [address] [place] [address], [facility] *MRSA/MSSA DNA NASALon 11-24 *MRSA/MSSA DNA NASAL Clinical Report: (D ) Specimen: NASAL SWAB Collected: 11/24/2018 07:00 Status: Final Last Updated: 11/24/2018 12:46 MSSA DNA (Final) Negative MRSA DNA (Final) Negative Normal [facility] Comment on above: Performed By: #### 0 0071, 35047, 28446 #### [facility] [address] [place] [address], [facility] ACTIVATED CLOTTING TIMEon ACTIVATED CLOTTING TIME 127 sec Normal 82-152 [facility] Comment on above: Performed By: #### 0 0071, 60001, 57884 #### [facility] [address] [facility] [address] ACTIVATED CLOTTING TIME 418 sec High 82-152 [facility] Comment on above: Performed By: #### 0 0071, 97635, 82691 #### [facility] [address] ACTIVATED CLOTTING TIME 443 sec High 82-152 [facility] Comment on above: Performed By: #### 0 0071, 70568, 37347 #### [facility] [address] [place] [address], [facility] ACTIVATED CLOTTING TIME 473 sec High 82-152 [facility] Comment on above: Performed By: #### 0 0071, 88710, 70250 #### [facility] [address] [place] [address], [facility] ACTIVATED CLOTTING TIME 443 sec High 82-152 [facility] Comment on above: Performed By: #### 0 0071, 24178, 45391 #### [facility] [address] [place] [address], [facility] ACTIVATED CLOTTING TIME 455 sec High 82-152 [facility] Comment on above: Performed By: #### 0 0071, 22763, 99305 #### [facility] [address] [place] [address], [facility] ACTIVATED CLOTTING TIME 514 sec High 82-152 [facility] Comment on above: Performed By: #### 0 0071, 88611, 75324 #### [facility] [address] [place] [address], [facility] ACTIVATED CLOTTING TIME 721 sec High 82-152 [facility] Comment on above: Performed By: #### 0 0071, 55051, 32219 #### [facility] [address] [place] [address], [facility] ACTIVATED CLOTTING TIME 138 sec Normal 82-152 [facility] Comment on above: Performed By: #### 0 0071, 20785, 12909 #### [facility] [address] [place] [address], [facility] APTTon 11-24-2018 aPTT Coag (Bld) [Time] 35.9 s High 25.0-35.0 [facility] Comment on above: Result Comment: ALL RESULTS MUST BE INTERPRETED WITH RESPECT TO BLOOD DRAWING ARTIFACT OR DILUTION ERROR OF ANTICOAGULANT AT THE TIME OF SAMPLING. THE APTT SHOULD NOT BE USED TO MONITOR UNFRACTIONATED HEPARIN THERAPY, THIS LABORATORY NO LONGER HAS AN ESTABLISHED THERAPEUTIC RANGE BASED ON THE APTT. IT IS RECOMMENDED THAT THE [facility] - HEPARIN ASSAY (ANTI-XA ACTIVITY) BE USED FOR THIS PURPOSE. Performed By: #### 4 6447 #### [facility] [address] [place] [address], [facility] ARTERIAL BLOOD GAS WITH ICAo n 11-24-2018 BASE EXCESS -12 mmol/L Low -2-3 [facility] Comment on above: Performed By: #### 4 [id number] #### [facility] [address] [place] [address], [facility] DELIVERY SYSTEMS VENTILATOR Normal [facility] Comment on above: Performed By: #### 4 6447 #### [facility] [address] [place] [address], [facility] FIO2 100 % Normal [facility] Comment on above: Performed By: #### 4 6447 #### [facility] [address] [place] [address], [facility] HCO3 (Bld) [Moles/Vol] 16 mmol/L Low 21-28 [facility] Comment on above: Performed By: #### 4 [id number] #### [facility] [address] [place] [address], [facility] IONIZED CALCIUM 1.11 mmol/L Low 1.13-1.32 [facility] Comment on above: Performed By: #### 4 6447 #### [facility] [address] [place] [address], [facility] MIN VOLUME 13.[address] [facility] Comment on above: Performed By: #### 4 6447 #### [facility] [address] [place] [address], [place] MODALITY SIMV Normal [facility] Comment on above: Performed By: #### 4 6447 #### [facility] [address] [place] [address], [facility] Oxygen (Bld) [Partial pressure] 108 mm[Hg] Normal 83-108 [facility] Comment on above: Performed By: #### 4 6467 #### [facility] [address] [place] [address], [facility] Oxygen saturation in Blood 94.9 % Normal 94.0-97.0 [facility] Comment on above: Performed By: #### 4 6447 #### [facility] [address] [place] [address], [place] PCO2 41 mmHg Normal 35-45 [facility] Comment on above: Performed By: #### 4 6447 #### [facility] [address] [place] [address], [place] PEEP 8.[address] [facility] Comment on above: Performed By: #### 4 6447 #### [facility] [address] [place] [address], [place] pH (Bld) 7.19 [pH] Critically low 7.35-7.45 [facility] Comment on above: Result Comment: DAPHNEY SHRESTHA NOTE: Effective 10/17/18, reference ranges for Respiratory GEM analyzers running arterial blood have been updated to reflect the power supply engineer's published reference ranges. Performed By: #### 4 [id number] #### [facility] [address] [place] [address], [place] TIDAL VOLUME (VT) CC [address] [facility] Comment on above: Performed By: #### 4 6447 #### [facility] [address] [place] [address], [place] BASE EXCESS -9 mmol/L Low -2-3 [facility] Comment on above: Order Comment: No: D o not add to previous draw Performed By: #### 4 6447 #### [facility] [address] [place] [address], [place] DELIVERY SYSTEMS MV Normal [facility] Comment on above: Order Comment: No: D o not add to previous draw Performed By: #### 4 6443 #### [facility] [address] [place] [address], [place] FIO2 50 % Normal [facility] Comment on above: Order Comment: No: D o not add to previous draw Performed By: #### 4 6447 #### [facility] [address] [place] [address], [place] HCO3 (Bld) [Moles/Vol] 19 mmol/L Low 21-28 [facility] Comment on above: Order Comment: No: D o not add to previous draw Performed By: #### 4 6447 #### [facility] [address] [place] [address], [place] IONIZED CALCIUM 1.14 mmol/L Normal 1.13-1.32 [facility] Comment on above: Order Comment: No: D o not add to previous draw Performed By: #### 4 6447 #### [facility] [address] [place] [address], [place] MIN VOLUME 10.1 Normal [facility] Comment on above: Order Comment: No: D o not add to previous draw Performed By: #### 4 6447 #### [facility] [address] [place] [address], [place] MODALITY SIMV Normal [facility] Comment on above: Order Comment: No: D o not add to previous draw Performed By: #### 4 6447 #### [facility] [address] [place] [address], [place] Oxygen (Bld) [Partial pressure] 84 mm[Hg] Normal 83-108 [facility] Comment on above: Order Comment: No: D o not add to previous draw Performed By: #### 4 6447 #### [facility] [address] [place] [address], [place] Oxygen saturation in Blood 92.7 % Low 94.0-97.0 [facility] Comment on above: Order Comment: No: D o not add to previous draw Performed By: #### 4 6447 #### [facility] [address] [place] [address], [place] PCO2 45 mmHg Normal 35-45 [facility] Comment on above: Order Comment: No: D o not add to previous draw Performed By: #### 4 6447 #### [facility] [address] [place] [address], [facility] PEEP 8.[address] [facility] Comment on above: Order Comment: No: D o not add to previous draw Performed By: #### 4 6447 #### [facility] [address] [place] [address], [facility] PF RATIO [address] [facility] Comment on above: Order Comment: No: D o not add to previous draw Performed By: #### 4 6447 #### [facility] [address] [place] [address], [facility] pH (Bld) 7.23 [pH] Critically low 7.35-7.45 [facility] Comment on above: Order Comment: No: D o not add to previous draw Result Comment: DAPHNEY SHRESTHA NOTE: Effective 10/17/18, reference ranges for Respiratory GEM analyzers running arterial blood have been updated to reflect the power supply engineer's published reference ranges. Performed By: #### 4 [id number] #### [facility] [address] [place] [address], [facility] PRESSURE SUPPORT 8 Normal [facility] Comment on above: Order Comment: No: D o not add to previous draw Performed By: #### 4 6447 #### [facility] [address] [place] [address], [facility] TIDAL VOLUME (VT) CC [address] [facility] Comment on above: Order Comment: No: D o not add to previous draw Performed By: #### 4 [id number] #### [facility] [address] [place] [address], [facility] BASIC METABOLIC PANELon 04- Calcium [Mass/Vol] 8.1 mg/dL Low 8.6-10.3 The [facility] Comment on above: Order Comment: No: D o not add to previous draw Performed By: #### 5 0608 #### [facility] [address] [place] [address], [place] Chloride [Moles/Vol] 112 mmol/L High 98-107 [facility] Comment on above: Order Comment: No: D o not add to previous draw Performed By: #### 5 0608 #### [facility] [address] [place] [address], [place] CO2 [Moles/Vol] 17 mmol/L Low 21-31 [facility] Comment on above: Order Comment: No: D o not add to previous draw Performed By: #### 5 0608 #### [facility] [address] [place] [address], [place] Creatinine [Mass/Vol] 1.41 mg/dL High 0.70-1.30 [facility] Comment on above: Order Comment: No: D o not add to previous draw Performed By: #### 5 0608 #### [facility] [address] [place] [address], [place] GFR/1.73 sq M predicted among blacks MDRD (S/P/Bld) [Vol rate/Area] mL/min/{1.73_m2} Normal >60 [facility] Comment on above: Order Comment: No: D o not add to previous draw Performed By: #### 5 0608 #### [facility] [address] [place] [address], [place] GFR/1.73 sq M predicted among non-blacks MDRD (S/P/Bld) [Vol rate/Area] 52 ml/min/1.73sq m Abnormal >60 [facility] Comment on above: Order Comment: No: D o not add to previous draw Performed By: #### 5 0608 #### [facility] [address] [place] [address], [place] Glucose [Mass/Vol] 177 mg/dL High 70-100 [facility] Comment on above: Order Comment: No: D o not add to previous draw Performed By: #### 5 0608 #### [facility] [address] [place] [address], [place] Potassium [Moles/Vol] 5.1 mmol/L Normal 3.5-5.1 [facility] Comment on above: Order Comment: No: D o not add to previous draw Performed By: #### 5 0608 #### [facility] [address] [place] [address], [place] Sodium [Moles/Vol] 140 mmol/L Normal 136-145 [facility] Comment on above: Order Comment: No: D o not add to previous draw Performed By: #### 5 0608 #### [facility] [address] [place] [address], [place] Urea nitrogen [Mass/Vol] 14 mg/dL Normal 7-25 [facility] Comment on above: Order Comment: No: D o not add to previous draw Performed By: #### 5 0608 #### [facility] [address] [place] [address], [place] Calcium [Mass/Vol] 7.8 mg/dL Low 8.6-10.3 [facility] Comment on above: Order Comment: No: D o not add to previous draw Performed By: #### 0 0071, 45213, 55310 #### [facility] [address] [place] [address], [place] Chloride [Moles/Vol] 110 mmol/L High 98-107 [facility] Comment on above: Order Comment: No: D o not add to previous draw Performed By: #### 0 0071, 47394, 73883 #### [facility] [address] [place] [address], [place] CO2 [Moles/Vol] 22 mmol/L Normal 21-31 [facility] Comment on above: Order Comment: No: D o not add to previous draw Performed By: #### 0 0071, 09743, 25076 #### [facility] [address] [place] [address], [place] Creatinine [Mass/Vol] 1.13 mg/dL Normal 0.70-1.30 [facility] Comment on above: Order Comment: No: D o not add to previous draw Performed By: #### 0 0071, 09465, 57931 #### [facility] [address] [place] [address], [place] GFR/1.73 sq M predicted among blacks MDRD (S/P/Bld) [Vol rate/Area] mL/min/{1.73_m2} Normal >60 [facility] Comment on above: Order Comment: No: D o not add to previous draw Performed By: #### 0 0071, 08386, 84196 #### [facility] [address] [place] [address], [place] GFR/1.73 sq M predicted among non-blacks MDRD (S/P/Bld) [Vol rate/Area] mL/min/{1.73_m2} Normal >60 [facility] Comment on above: Order Comment: No: D o not add to previous draw Performed By: #### 0 0071, 73995, 30863 #### [facility] [address] [place] [address], [place] Glucose [Mass/Vol] 109 mg/dL High 70-100 [facility] Comment on above: Order Comment: No: D o not add to previous draw Performed By: #### 0 0071, 15952, 79212 #### [facility] [address] [place] [address], [place] Potassium [Moles/Vol] 3.9 mmol/L Normal 3.5-5.1 [facility] Comment on above: Order Comment: No: D o not add to previous draw Performed By: #### 0 0071, 69492, 87482 #### [facility] [address] [place] [address], [place] Sodium [Moles/Vol] 138 mmol/L Normal 136-145 [facility] Comment on above: Order Comment: No: D o not add to previous draw Performed By: #### 0 0071, 34086, 15624 #### [facility] [address] [place] [address], [place] Urea nitrogen [Mass/Vol] 12 mg/dL Normal 7-25 [facility] Comment on above: Order Comment: No: D o not add to previous draw Performed By: #### 0 0071, 06747, 75394 #### [facility] [address] [place] [address], [place] Calcium [Mass/Vol] 8.8 mg/dL Normal 8.6-10.3 [facility] Comment on above: Order Comment: No: D o not add to previous draw Performed By: #### 0 1, 87737, 00976 #### [facility] [address] [place] [address], [place] Chloride [Moles/Vol] 102 mmol/L Normal 98-107 [facility] Comment on above: Order Comment: No: D o not add to previous draw Performed By: #### 0 0071, 14358, 13762 #### [facility] [address] [place] [address], [place] CO2 [Moles/Vol] 23 mmol/L Normal 21-31 [facility] Comment on above: Order Comment: No: D o not add to previous draw Performed By: #### 0 0071, 01170, 84992 #### [facility] [address] [place] [address], [place] Creatinine [Mass/Vol] 0.99 mg/dL Normal 0.70-1.30 [facility] Comment on above: Order Comment: No: D o not add to previous draw Performed By: #### 0 0071, 31501, 27498 #### [facility] [address] [place] [address], [place] GFR/1.73 sq M predicted among blacks MDRD (S/P/Bld) [Vol rate/Area] mL/min/{1.73_m2} Normal >60 [facility] Comment on above: Order Comment: No: D o not add to previous draw Performed By: #### 0 0071, 41076, 41300 #### [facility] [address] [place] [address], [place] GFR/1.73 sq M predicted among non-blacks MDRD (S/P/Bld) [Vol rate/Area] mL/min/{1.73_m2} Normal >60 [facility] Comment on above: Order Comment: No: D o not add to previous draw Performed By: #### 0 0071, 59619, 73628 #### [facility] [address] [place] [address], [place] Glucose [Mass/Vol] 100 mg/dL Normal 70-100 [facility] Comment on above: Order Comment: No: D o not add to previous draw Performed By: #### 0 0071, 90449, 24709 #### [facility] [address] [place] [address], [place] Potassium [Moles/Vol] 3.7 mmol/L Normal 3.5-5.1 [facility] Comment on above: Order Comment: No: D o not add to previous draw Performed By: #### 0 0071, 38468, 01377 #### [facility] [address] [place] [address], [place] Sodium [Moles/Vol] 133 mmol/L Low 136-145 [facility] Comment on above: Order Comment: No: D o not add to previous draw Performed By: #### 0 0071, 88296, 66049 #### [facility] [address] [place] [id number], [facility] Urea nitrogen [Mass/Vol] 11 mg/dL Normal 7-25 [facility] Comment on above: Order Comment: No: D o not add to previous draw Performed By: #### 0 0071, 26309, 12630 #### [facility] [address] [place] [address], [facility] CBC COMPLETE BLOOD COUNTon 0 - Erythrocyte distribution width (RBC) [Ratio] 12.4 % Normal 11.5-15.0 [facility] Comment on above: Order Comment: No: D o not add to previous draw Performed By: #### 0 0071, 41844, 57489 #### [facility] [address] [place] [id number], [facility] Hematocrit (Bld) [Volume fraction] 31.5 % Low 39.0-50.0 [facility] Comment on above: Order Comment: No: D o not add to previous draw Performed By: #### 0 1, 01877, 56491 #### [facility] [address] [place] [address], [facility] Hemoglobin (Bld) [Mass/Vol] 11.4 g/dL Low 13.0-17.0 [facility] Comment on above: Order Comment: No: D o not add to previous draw Performed By: #### 0 1, 21480, 53641 #### [facility] [address] [place] [address], [facility] MCH (RBC) [Entitic mass] 33.2 pg High 27.0-33.0 [facility] Comment on above: Order Comment: No: D o not add to previous draw Performed By: #### 0 0071, 40585, 07263 #### [facility] [address] [place] [id number], [facility] MCHC (RBC) [Mass/Vol] 36.2 g/dL High 32.0-35.0 [facility] Comment on above: Order Comment: No: D o not add to previous draw Performed By: #### 0 0071, 62038, 42482 #### [facility] [address] [place] [address], [facility] MCV (RBC) [Entitic vol] 91.8 fL Normal 82.0-98.0 [facility] Comment on above: Order Comment: No: D o not add to previous draw Performed By: #### 0 0071, 42475, 20759 #### [facility] [address] [place] [id number], [facility] Nucleated RBC/100 WBC (Bld) [Ratio] 0 % Normal 0-0 [facility] Comment on above: Order Comment: No: D o not add to previous draw Performed By: #### 0 0071, 83446, 54253 #### [facility] [address] [place] [id number], [facility] PLAT CNT 133 10*3/uL Low 150-400 [facility] Comment on above: Order Comment: No: D o not add to previous draw Performed By: #### 0 0071, 31650, 50166 #### [facility] [address] [place] [address], [facility] RBC (Bld) [#/Vol] 3.43 10*6/uL Low 4.20-5.70 The [facility] Comment on above: Order Comment: No: D o not add to previous draw Performed By: #### 0 0071, 15285, 77489 #### [facility] [address] [place] [address], [place] WBC (Bld) [#/Vol] 10.86 10*3/uL High 4.00-10.60 [facility] Comment on above: Order Comment: No: D o not add to previous draw Performed By: #### 0 0071, 69713, 13260 #### [facility] [address] [place] [address], [facility] CBC W/DIFFon 11-24-2018 ABS BASOPHILS 0.0 10*3/uL Normal 0.0-0.2 The [facility] Comment on above: Performed By: #### 5 0608 #### [facility] [address] [place] [address], [facility] ABS IMM GRANS 0.1 10*3/uL Normal 0.0-0.2 [facility] Comment on above: Performed By: #### 5 0608 #### [facility] [address] [place] [address], [facility] ABS NEUTROPHILS 15.8 10*3/uL High 1.6-7.6 The [facility] Comment on above: Performed By: #### 5 0608 #### [facility] [address] Basophils/100 WBC (Bld) 0.2 % Normal 0.0-1.0 [facility] Comment on above: Performed By: #### 5 0608 #### [facility] [address] [place] [address], [facility] Eosinophils (Bld) [#/Vol] 0.0 10*3/uL Normal 0.0-0.5 [facility] Comment on above: Performed By: #### 5 0608 #### [facility] [address] [place] [address], [facility] Eosinophils/100 WBC (Bld) 0.2 % Normal 0.0-6.0 [facility] Comment on above: Performed By: #### 5 0608 #### [facility] [address] Erythrocyte distribution width (RBC) [Ratio] 12.9 % Normal 11.5-15.0 [facility] Comment on above: Performed By: #### 5 0608 #### [facility] [address] [place] [address], [facility] Hematocrit (Bld) [Volume fraction] 33.4 % Low 39.0-50.0 [facility] Comment on above: Performed By: #### 5 0608 #### [facility] [address] [place] [address], [facility] Hemoglobin (Bld) [Mass/Vol] 11.6 g/dL Low 13.0-17.0 [facility] Comment on above: Performed By: #### 5 0608 #### [facility] [address] [place] [address], [facility] IMMATURE GRANS 0.5 % Normal 0.0-1.0 The [facility] Comment on above: Performed By: #### 5 0608 #### [facility] [address] [facility] [place] [address], [facility] Lymphocytes (Bld) [#/Vol] 1.4 10*3/uL Normal 1.2-4.0 [facility] Comment on above: Performed By: #### 5 0608 #### [facility] [address] [facility] [place] [address], [facility] Lymphocytes/100 WBC (Bld) 7.6 % Low 20.0-45.0 [facility] Comment on above: Performed By: #### 5 0608 #### [facility] [address] [place] [address], [facility] MCH (RBC) [Entitic mass] 33.3 pg High 27.0-33.0 [facility] Comment on above: Performed By: #### 5 0608 #### [facility] [address] [place] [address], [facility] MCHC (RBC) [Mass/Vol] 34.7 g/dL Normal 32.0-35.0 [facility] Comment on above: Performed By: #### 5 0608 #### [facility] [address] [facility]. [address] MCV (RBC) [Entitic vol] 96.0 fL Normal 82.0-98.0 [facility] Comment on above: Performed By: #### 5 0608 #### [facility] [address] [place] [address], [facility] Monocytes (Bld) [#/Vol] 1.3 10*3/uL High 0.1-1.0 [facility] Comment on above: Performed By: #### 5 0608 #### [facility] [address] MONOS 7.1 % Normal 5.0-12.0 [facility] Comment on above: Performed By: #### 5 0608 #### [facility] [address] Neutrophils/100 WBC (Bld) 84.4 % High 40.0-72.0 [facility] Comment on above: Performed By: #### 5 0608 #### [facility] [address] Nucleated RBC/100 WBC (Bld) [Ratio] 0 % Normal 0-0 [facility] Comment on above: Performed By: #### 5 0608 #### [facility] [address] [facility] [place] [address], [facility] PLAT CNT 210 10*3/uL Normal 150-400 [facility] Comment on above: Performed By: #### 5 0608 #### [facility] [address] [place] [address], [facility] RBC (Bld) [#/Vol] 3.48 10*6/uL Low 4.20-5.70 [facility] Comment on above: Performed By: #### 5 0608 #### [facility] [address] [place] [address], [facility] WBC (Bld) [#/Vol] 18.69 10*3/uL High 4.00-10.60 [facility] Comment on above: Performed By: #### 5 0608 #### [facility] [address] [place] [address], [facility] ABS BASOPHILS 0.0 10*3/uL Normal 0.0-0.2 [facility] Comment on above: Order Comment: No: D o not add to previous draw Performed By: #### 0 0071, 85017, 34978 #### [facility] [address] [place] [address], [facility] ABS IMM GRANS 0.0 10*3/uL Normal 0.0-0.2 [facility] Comment on above: Order Comment: No: D o not add to previous draw Performed By: #### 0 0071, 96882, 49628 #### [facility] [address] [place] [address], [facility] ABS NEUTROPHILS 3.5 10*3/uL Normal 1.6-7.6 The [facility] Comment on above: Order Comment: No: D o not add to previous draw Performed By: #### 0 0071, 89135, 31646 #### [facility] [address] [place] [address], [facility] Basophils/100 WBC (Bld) 0.6 % Normal 0.0-1.0 [facility] Comment on above: Order Comment: No: D o not add to previous draw Performed By: #### 0 0071, 76760, 81792 #### [facility] [address] [place] [address], [facility] Eosinophils (Bld) [#/Vol] 0.4 10*3/uL Normal 0.0-0.5 [facility] Comment on above: Order Comment: No: D o not add to previous draw Performed By: #### 0 0071, 70436, 48279 #### [facility] [address] [place] [address], [facility] Eosinophils/100 WBC (Bld) 6.0 % Normal 0.0-6.0 [facility] Comment on above: Order Comment: No: D o not add to previous draw Performed By: #### 0 0071, 85825, 23156 #### [facility] [address] Erythrocyte distribution width (RBC) [Ratio] 12.3 % Normal 11.5-15.0 [facility] Comment on above: Order Comment: No: D o not add to previous draw Performed By: #### 0 0071, 15657, 48345 #### [facility] [address] [place] [id number], [facility] Hematocrit (Bld) [Volume fraction] 41.0 % Normal 39.0-50.0 [facility] Comment on above: Order Comment: No: D o not add to previous draw Performed By: #### 0 1, 30463, 71068 #### [facility] [address] [place] [address], [facility] Hemoglobin (Bld) [Mass/Vol] 14.7 g/dL Normal 13.0-17.0 [facility] Comment on above: Order Comment: No: D o not add to previous draw Performed By: #### 0 0071, 95759, 24416 #### [facility] [address] [place] [address], [facility] IMMATURE GRANS 0.3 % Normal 0.0-1.0 [facility] Comment on above: Order Comment: No: D o not add to previous draw Performed By: #### 0 0071, 32189, 24347 #### [facility] [address] [place] [id number], [facility] Lymphocytes (Bld) [#/Vol] 2.0 10*3/uL Normal 1.2-4.0 [facility] Comment on above: Order Comment: No: D o not add to previous draw Performed By: #### 0 0071, 55455, 46386 #### [facility] [address] [place] [address], [facility] Lymphocytes/100 WBC (Bld) 30.0 % Normal 20.0-45.0 [facility] Comment on above: Order Comment: No: D o not add to previous draw Performed By: #### 0 0071, 02386, 03521 #### [facility] [address] [place] [address], [facility] MCH (RBC) [Entitic mass] 33.0 pg Normal 27.0-33.0 [facility] Comment on above: Order Comment: No: D o not add to previous draw Performed By: #### 0 1, 43028, 91972 #### [facility] [address] [place] [address], [facility] MCHC (RBC) [Mass/Vol] 35.9 g/dL High 32.0-35.0 [facility] Comment on above: Order Comment: No: D o not add to previous draw Performed By: #### 0 0071, 85280, 72643 #### [facility] [address] [place] [address], [facility] MCV (RBC) [Entitic vol] 92.1 fL Normal 82.0-98.0 [facility] Comment on above: Order Comment: No: D o not add to previous draw Performed By: #### 0 0071, 94238, 50141 #### [facility] [address] [place] [address], [facility] Monocytes (Bld) [#/Vol] 0.7 10*3/uL Normal 0.1-1.0 [facility] Comment on above: Order Comment: No: D o not add to previous draw Performed By: #### 0 0071, 53796, 20327 #### [facility] [address] [place] [address], [place] MONOS 10.4 % Normal 5.0-12.0 [facility] Comment on above: Order Comment: No: D o not add to previous draw Performed By: #### 0 0071, 65827, 72422 #### [facility] [address] [place] [address], [place] Neutrophils/100 WBC (Bld) 52.7 % Normal 40.0-72.0 [facility] Comment on above: Order Comment: No: D o not add to previous draw Performed By: #### 0 0071, 10335, 76034 #### [facility] [address] [place] [address], [place] Nucleated RBC/100 WBC (Bld) [Ratio] 0 % Normal 0-0 [facility] Comment on above: Order Comment: No: D o not add to previous draw Performed By: #### 0 0071, 15288, 40298 #### [facility] [address] [place] [id number], [place] PLAT CNT 209 10*3/uL Normal 150-400 [facility] Comment on above: Order Comment: No: D o not add to previous draw Performed By: #### 0 0071, 61883, 83519 #### [facility] [address] [place] [address], [place] RBC (Bld) [#/Vol] 4.45 10*6/uL Normal 4.20-5.70 [facility] Comment on above: Order Comment: No: D o not add to previous draw Performed By: #### 0 0071, 50481, 03452 #### [facility] [address] [place] [address], [place] WBC (Bld) [#/Vol] 6.54 10*3/uL Normal 4.00-10.60 [facility] Comment on above: Order Comment: No: D o not add to previous draw Performed By: #### 0 0071, 34679, 04320 #### [facility] [address] [place] [address], [facility] COOXIMETRYon 11-24-2018 COHB 2 % Normal [facility] Comment on above: Performed By: #### 4 6447 #### [facility] [address] [place] [address], [place] METHB 0 % Normal [facility] Comment on above: Performed By: #### 4 6447 #### [facility] [address] [place] [address], [place] Oxygen saturation in Blood 59.4 % Low 65.0-75.0 [facility] Comment on above: Performed By: #### 4 6447 #### [facility] [address] [place] [address], [place] THB 12.4 g/dL Normal [facility] Comment on above: Performed By: #### 4 6447 #### [facility] [address] [place] [address], [place] MAGNESIUM BLOODon 11-24-2018 Magnesium [Mass/Vol] 2.5 mg/dL Normal 1.9-2.7 [facility] Comment on above: Order Comment: No: D o not add to previous draw Performed By: #### 5 0608 #### [facility] [address] [place] [address], [place] Magnesium [Mass/Vol] 2.8 mg/dL High 1.9-2.7 [facility] Comment on above: Performed By: #### 0 0071, 78703, 66749 #### [facility] [address] [place] [address], [place] MIXED VENOUS BLOOD GASon BASE EXCESS CANCELED Normal [facility] Comment on above: Order Comment: No: D o not add to previous draw Result Comment: The released value -8 was canceled by DANIELA on 11/24/2018 16:42 Performed By: #### 4 6447 #### [facility] [address] [place] [address], [place] BILEVEL CANCELED Normal [facility] Comment on above: Order Comment: No: D o not add to previous draw Performed By: #### 4 6447 #### [facility] [address] [place] [address], [place] DELIVERY SYSTEMS CANCELED Normal [facility] Comment on above: Order Comment: No: D o not add to previous draw Performed By: #### 4 6447 #### [facility] [address] [place] [address], [place] FIO2 CANCELED Normal [facility] Comment on above: Order Comment: No: D o not add to previous draw Performed By: #### 4 6447 #### [facility] [address] [place] [address], [place] HCO3 (Bld) [Moles/Vol] CANCELED Normal [facility] Comment on above: Order Comment: No: D o not add to previous draw Result Comment: The released value 20 was canceled by DANIELA on 11/24/2018 16:42 Performed By: #### 4 6447 #### [facility] [address] [place] [address], [place] LPM CANCELED Normal [facility] Comment on above: Order Comment: No: D o not add to previous draw Performed By: #### 4 6447 #### [facility] [address] [place] [address], [place] MIN VOLUME CANCELED Normal [facility] Comment on above: Order Comment: No: D o not add to previous draw Performed By: #### 4 6447 #### [facility] [address] [place] [address], [place] MODALITY CANCELED Normal [facility] Comment on above: Order Comment: No: D o not add to previous draw Performed By: #### 4 6447 #### [facility] [address] [place] [address], [place] Oxygen (Bld) [Partial pressure] CANCELED Normal 35-45 [facility] Comment on above: Order Comment: No: D o not add to previous draw Result Comment: The released value 38 was canceled by KBRANDMAN on 11/24/2018 16:42 Performed By: #### 4 6447 #### [facility] [address] [place] [address], [place] Oxygen saturation in Blood CANCELED Normal 65.0-75.0 [facility] Comment on above: Order Comment: No: D o not add to previous draw Result Comment: The released value 59.4 was canceled by KBRANDMAN on 11/24/2018 16:42 Performed By: #### 4 6447 #### [facility] [address] [place] [address], [place] PCO2 CANCELED Normal 40-50 [facility] Comment on above: Order Comment: No: D o not add to previous draw Result Comment: The released value 53 was canceled by KBRANDMAN on 11/24/2018 16:42 Performed By: #### 4 6447 #### [facility] [address] [place] [address], [place] PEEP CANCELED Normal [facility] Comment on above: Order Comment: No: D o not add to previous draw Performed By: #### 4 6447 #### [facility] [address] [place] [address], [place] pH (Bld) CANCELED Normal 7.31-7.41 [facility] Comment on above: Order Comment: No: D o not add to previous draw Result Comment: The released value 7.19 was canceled by KBRANDMAN on 11/24/2018 16:42 Performed By: #### 4 6447 #### [facility] [address] [place] [address], [place] PRESSURE SUPPORT CANCELED Normal [facility] Comment on above: Order Comment: No: D o not add to previous draw Performed By: #### 4 6447 #### [facility] [address] [place] [address], [place] TIDAL VOLUME (VT) CC CANCELED Normal [facility] Comment on above: Order Comment: No: D o not add to previous draw Performed By: #### 4 6447 #### [facility] [address] [place] [address], [place] PERFUSION BLOOD PANELon 11-13 BASE EXCESS -8.0 mmol/L Low -2.0-3.0 [facility] Comment on above: Performed By: #### 4 1000, , 30585 #### [facility] [address] [place] [address], [place] Glucose [Mass/Vol] 162 mg/dL High 70-105 [facility] Comment on above: Performed By: #### 4 1000, , 39855 #### [facility] [address] [place] [address], [place] Hematocrit (Bld) [Volume fraction] 30 % Low 38-51 [facility] Comment on above: Performed By: #### 4 1000, , 54315 #### [facility] [address] [place] [address], [place] Hemoglobin (Bld) [Mass/Vol] 10.2 g/dL Low 12.0-17.0 [facility] Comment on above: Performed By: #### 4 1000, , 78674 #### [facility] [address] [place] [address], [place] IONIZED CALCIUM 1.09 mmol/L Low 1.12-1.32 [facility] Comment on above: Performed By: #### 4 999, , 27274 #### [facility] [address] [place] [address], [place] Oxygen (Bld) [Partial pressure] 319.0 mm[Hg] High 80.0-105.0 [facility] Comment on above: Performed By: #### 4 999, , 10560 #### [facility] [address] [place] [address], [place] PCO2 42.4 mmHg Normal 35.0-45.0 [facility] Comment on above: Performed By: #### 4 999, , 09592 #### [facility] [address] [place] [address], [place] pH (Bld) 7.26 [pH] Low 7.35-7.45 [facility] Comment on above: Performed By: #### 4 999, , 12704 #### [facility] [address] [place] [address], [place] Potassium [Moles/Vol] 4.8 mmol/L Normal 3.5-4.9 [facility] Comment on above: Performed By: #### 4 999, , 14686 #### [facility] [address] [place] [address], [place] Sodium [Moles/Vol] 142 mmol/L Normal 138-146 [facility] Comment on above: Performed By: #### 4 999, , 56801 #### [facility] [address] [place] [address], [place] BASE EXCESS -6.0 mmol/L Low -2.0-3.0 [facility] Comment on above: Performed By: #### 0 0071, 84991, 80810 #### [facility] [address] [place] [address], [place] Glucose [Mass/Vol] 97 mg/dL Normal 70-105 [facility] Comment on above: Performed By: #### 0 70, , 29597 #### [facility] [address] [place] [address], [facility] Hematocrit (Bld) [Volume fraction] 33 % Low 38-51 [facility] Comment on above: Performed By: #### 0 70, , 09753 #### [facility] [address] [place] [address], [facility] Hemoglobin (Bld) [Mass/Vol] 11.2 g/dL Low 12.0-17.0 [facility] Comment on above: Performed By: #### 0 70, , 81099 #### [facility] [address] [place] [address], [facility] IONIZED CALCIUM 1.13 mmol/L Normal 1.12-1.32 [facility] Comment on above: Performed By: #### 0 70, , 07622 #### [facility] [address] [place] [address], [facility] Oxygen (Bld) [Partial pressure] 93.0 mm[Hg] Normal 80.0-105.0 [facility] Comment on above: Performed By: #### 0 70, , 10505 #### [facility] [address] [place] [address], [facility] PCO2 43.6 mmHg Normal 35.0-45.0 [facility] Comment on above: Performed By: #### 0 70, 20153, 06603 #### [facility] [address] [place] [id number], [facility] pH (Bld) 7.28 [pH] Low 7.35-7.45 [facility] Comment on above: Performed By: #### 0 70, , 60400 #### [facility] [address] [place] [address], [facility] Potassium [Moles/Vol] 3.9 mmol/L Normal 3.5-4.9 [facility] Comment on above: Performed By: #### 0 1, 16416, 37427 #### [facility] [address] [place] [address], [place] Sodium [Moles/Vol] 140 mmol/L Normal 138-146 [facility] Comment on above: Performed By: #### 0 0071, 37629, 97939 #### [facility] [address] [place] [address], [facility] BASE EXCESS -4.0 mmol/L Low -2.0-3.0 [facility] Comment on above: Performed By: #### 0 1, 66192, 05098 #### [facility] [address] [place] [address], [facility] Glucose [Mass/Vol] 107 mg/dL High 70-105 [facility] Comment on above: Performed By: #### 0 1, 47278, 55734 #### [facility] [address] [place] [address], [facility] Hematocrit (Bld) [Volume fraction] 26 % Low 38-51 [facility] Comment on above: Performed By: #### 0 0071, 58904, 53874 #### [facility] [address] [place] [address], [facility] Hemoglobin (Bld) [Mass/Vol] 8.8 g/dL Low 12.0-17.0 [facility] Comment on above: Performed By: #### 0 0071, 33092, 01944 #### [facility] [address] [place] [address], [facility] IONIZED CALCIUM 1.18 mmol/L Normal 1.12-1.32 [facility] Comment on above: Performed By: #### 0 1, 94049, 52810 #### [facility] [address] [place] [address], [place] Oxygen (Bld) [Partial pressure] 195.0 mm[Hg] High 80.0-105.0 [facility] Comment on above: Performed By: #### 0 0071, 46825, 59051 #### [facility] [address] [place] [address], [place] PCO2 44.9 mmHg Normal 35.0-45.0 [facility] Comment on above: Performed By: #### 0 1, 89014, 96484 #### [facility] [address] [place] [address], [place] pH (Bld) 7.31 [pH] Low 7.35-7.45 [facility] Comment on above: Performed By: #### 0 70, 78131, 14774 #### [facility] [address] [place] [address], [place] Potassium [Moles/Vol] 3.7 mmol/L Normal 3.5-4.9 [facility] Comment on above: Performed By: #### 0 1, 03357, 69264 #### [facility] [address] [place] [address], [place] Sodium [Moles/Vol] 138 mmol/L Normal 138-146 [facility] Comment on above: Performed By: #### 0 0071, 69576, 49452 #### [facility] [address] [place] [address], [place] BASE EXCESS -2.0 mmol/L Normal -2.0-3.0 [facility] Comment on above: Performed By: #### 0 1, 17751, 61791 #### [facility] [address] [place] [address], [place] Glucose [Mass/Vol] 118 mg/dL High 70-105 [facility] Comment on above: Performed By: #### 0 70, , 37796 #### [facility] [address] [place] [id number], [facility] Hematocrit (Bld) [Volume fraction] 27 % Low 38-51 [facility] Comment on above: Performed By: #### 0 70, , 54743 #### [facility] [address] [place] [address], [facility] Hemoglobin (Bld) [Mass/Vol] 9.2 g/dL Low 12.0-17.0 [facility] Comment on above: Performed By: #### 0 70, , 86552 #### [facility] [address] [facility] [place] [address], [facility] IONIZED CALCIUM 1.00 mmol/L Low 1.12-1.32 [facility] Comment on above: Performed By: #### 0 70, , 25851 #### [facility] [address] [facility] [place] [address], [facility] Oxygen (Bld) [Partial pressure] 329.0 mm[Hg] High 80.0-105.0 [facility] Comment on above: Performed By: #### 0 70, , 42537 #### [facility] [address] [facility] [place] [address], [facility] PCO2 47.2 mmHg High 35.0-45.0 [facility] Comment on above: Performed By: #### 0 70, 95909, 80523 #### [facility] [address] [place] [address], [facility] pH (Bld) 7.32 [pH] Low 7.35-7.45 [facility] Comment on above: Performed By: #### 0 70, , 97765 #### [facility] [address] [place] [address], [facility] Potassium [Moles/Vol] 4.3 mmol/L Normal 3.5-4.9 [facility] Comment on above: Performed By: #### 0 0071, 19093, 07855 #### [facility] [address] [place] [address], [facility] Sodium [Moles/Vol] 136 mmol/L Low 138-146 [facility] Comment on above: Performed By: #### 0 0071, 63839, 29030 #### [facility] [address] [place] [address], [facility] BASE EXCESS -2.0 mmol/L Normal -2.0-3.0 [facility] Comment on above: Performed By: #### 0 1, 67418, 97848 #### [facility] [address] [place] [address], [facility] Glucose [Mass/Vol] 120 mg/dL High 70-105 [facility] Comment on above: Performed By: #### 0 0071, 17756, 07428 #### [facility] [address] [place] [address], [facility] Hematocrit (Bld) [Volume fraction] 30 % Low 38-51 [facility] Comment on above: Performed By: #### 0 0071, 45734, 11862 #### [facility] [address] [place] [address], [facility] Hemoglobin (Bld) [Mass/Vol] 10.2 g/dL Low 12.0-17.0 [facility] Comment on above: Performed By: #### 0 0071, 40342, 50899 #### [facility] [address] [place] [address], [facility] IONIZED CALCIUM 1.00 mmol/L Low 1.12-1.32 [facility] Comment on above: Performed By: #### 0 0071, , 87459 #### [facility] [address] [place] [address], [facility] Oxygen (Bld) [Partial pressure] 332.0 mm[Hg] High 80.0-105.0 [facility] Comment on above: Performed By: #### 0 0071, 34330, 18324 #### [facility] [address] [place] [address], [place] PCO2 46.0 mmHg High 35.0-45.0 [facility] Comment on above: Performed By: #### 0 0071, 09362, 48416 #### [facility] [address] [place] [address], [place] pH (Bld) 7.33 [pH] Low 7.35-7.45 [facility] Comment on above: Performed By: #### 0 1, , 87448 #### [facility] [address] [place] [address], [place] Potassium [Moles/Vol] 4.5 mmol/L Normal 3.5-4.9 [facility] Comment on above: Performed By: #### 0 1, 92018, 96054 #### [facility] [address] [place] [address], [place] Sodium [Moles/Vol] 136 mmol/L Low 138-146 [facility] Comment on above: Performed By: #### 0 0071, 52451, 48873 #### [facility] [address] [place] [address], [place] BASE EXCESS 0.0 mmol/L Normal -2.0-3.0 [facility] Comment on above: Performed By: #### 0 0071, 75210, 36741 #### [facility] [address] [place] [address], [place] Glucose [Mass/Vol] 120 mg/dL High 70-105 [facility] Comment on above: Performed By: #### 0 70, , 01544 #### [facility] [address] [place] [address], [facility] Hematocrit (Bld) [Volume fraction] 31 % Low 38-51 [facility] Comment on above: Performed By: #### 0 70, , 88820 #### [facility] [address] [place] [address], [facility] Hemoglobin (Bld) [Mass/Vol] 10.5 g/dL Low 12.0-17.0 [facility] Comment on above: Performed By: #### 0 70, , 17345 #### [facility] [address] [place] [address], [facility] IONIZED CALCIUM 0.99 mmol/L Low 1.12-1.32 [facility] Comment on above: Performed By: #### 0 70, , 66713 #### [facility] [address] [place] [address], [facility] Oxygen (Bld) [Partial pressure] 396.0 mm[Hg] High 80.0-105.0 [facility] Comment on above: Performed By: #### 0 70, , 83981 #### [facility] [address] [place] [address], [facility] PCO2 41.9 mmHg Normal 35.0-45.0 [facility] Comment on above: Performed By: #### 0 70, 57901, 27546 #### [facility] [address] [place] [address], [facility] pH (Bld) 7.38 [pH] Normal 7.35-7.45 [facility] Comment on above: Performed By: #### 0 70, , 09791 #### [facility] [address] [place] [address], [facility] Potassium [Moles/Vol] 4.3 mmol/L Normal 3.5-4.9 [facility] Comment on above: Performed By: #### 0 0071, 90521, 01787 #### [facility] [address] [place] [address], [facility] Sodium [Moles/Vol] 137 mmol/L Low 138-146 [facility] Comment on above: Performed By: #### 0 0071, 57639, 23637 #### [facility] [address] [place] [address], [facility] BASE EXCESS 0.0 mmol/L Normal -2.0-3.0 [facility] Comment on above: Performed By: #### 0 1, 93310, 56388 #### [facility] [address] [place] [address], [facility] Glucose [Mass/Vol] 115 mg/dL High 70-105 [facility] Comment on above: Performed By: #### 0 0071, 13534, [id number] #### [facility] [address] [place] [address], [facility] Hematocrit (Bld) [Volume fraction] 30 % Low 38-51 [facility] Comment on above: Performed By: #### 0 [id number], [id number], [id number] #### [facility] [address] [place] [address], [facility] Hemoglobin (Bld) [Mass/Vol] 10.2 g/dL Low 12.0-17.0 [facility] Comment on above: Performed By: #### 0 [id number], [id number], [id number] #### [facility] [address] [place] [address], [facility] IONIZED CALCIUM 0.99 mmol/L Low 1.12-1.32 [facility] Comment on above: Performed By: #### 0 [id number], , [id number] #### [facility] [address] [place] [address], [place] Oxygen (Bld) [Partial pressure] 346.0 mm[Hg] High 80.0-105.0 [facility] Comment on above: Performed By: #### 0 0071, 33743, 13969 #### [facility] [address] [place] [address], [place] PCO2 44.8 mmHg Normal 35.0-45.0 [facility] Comment on above: Performed By: #### 0 0071, 69144, 55170 #### [facility] [address] [place] [address], [place] pH (Bld) 7.37 [pH] Normal 7.35-7.45 [facility] Comment on above: Performed By: #### 0 70, , 44839 #### [facility] [address] [place] [address], [place] Potassium [Moles/Vol] 4.1 mmol/L Normal 3.5-4.9 [facility] Comment on above: Performed By: #### 0 1, 03516, 31294 #### [facility] [address] [place] [address], [place] Sodium [Moles/Vol] 138 mmol/L Normal 138-146 [facility] Comment on above: Performed By: #### 0 0071, 01462, 07700 #### [facility] [address] [place] [address], [place] BASE EXCESS -3.0 mmol/L Low -2.0-3.0 [facility] Comment on above: Performed By: #### 0 0071, 28046, 69966 #### [facility] [address] [place] [address], [place] Glucose [Mass/Vol] 103 mg/dL Normal 70-105 [facility] Comment on above: Performed By: #### 0 70, , 17845 #### [facility] [address] [place] [id number], [facility] Hematocrit (Bld) [Volume fraction] 30 % Low 38-51 [facility] Comment on above: Performed By: #### 0 70, , 05679 #### [facility] [address] [place] [address], [facility] Hemoglobin (Bld) [Mass/Vol] 10.2 g/dL Low 12.0-17.0 [facility] Comment on above: Performed By: #### 0 70, , 58433 #### [facility] [address] [place] [address], [facility] IONIZED CALCIUM 1.00 mmol/L Low 1.12-1.32 [facility] Comment on above: Performed By: #### 0 70, , 32341 #### [facility] [address] [place] [id number], [facility] Oxygen (Bld) [Partial pressure] 272.0 mm[Hg] High 80.0-105.0 [facility] Comment on above: Performed By: #### 0 70, , 57895 #### [facility] [address] [place] [id number], [facility] PCO2 38.6 mmHg Normal 35.0-45.0 [facility] Comment on above: Performed By: #### 0 70, 92209, 17614 #### [facility] [address] [place] [id number], [facility] pH (Bld) 7.36 [pH] Normal 7.35-7.45 [facility] Comment on above: Performed By: #### 0 70, , 47866 #### [facility] [address] [place] [address], [place] Potassium [Moles/Vol] 4.3 mmol/L Normal 3.5-4.9 [facility] Comment on above: Performed By: #### 0 1, 41677, 09412 #### [facility] [address] [place] [address], [place] Sodium [Moles/Vol] 137 mmol/L Low 138-146 [facility] Comment on above: Performed By: #### 0 1, , 80988 #### [facility] [address] [place] [address], [place] Glucose [Mass/Vol] 101 mg/dL Normal 70-105 [facility] Comment on above: Performed By: #### 0 70, , 28054 #### [facility] [address] [place] [address], [facility] Oxygen (Bld) [Partial pressure] 496.0 mm[Hg] High 80.0-105.0 [facility] Comment on above: Performed By: #### 0 70, 63198, 02710 #### [facility] [address] [place] [address], [place] PCO2 50.1 mmHg High 35.0-45.0 [facility] Comment on above: Performed By: #### 0 70, 02912, 01034 #### [facility] [address] [place] [address], [place] BASE EXCESS -5.0 mmol/L Low -2.0-3.0 [facility] Comment on above: Performed By: #### 0 70, 58477, 46320 #### [facility] [address] [place] [address], [place] Glucose [Mass/Vol] 108 mg/dL High 70-105 [facility] Comment on above: Performed By: #### 0 1, 69509, 35050 #### [facility] [address] [place] [address], [facility] Hematocrit (Bld) [Volume fraction] 35 % Low 38-51 [facility] Comment on above: Performed By: #### 0 1, 07539, 04113 #### [facility] [address] [place] [address], [facility] Hemoglobin (Bld) [Mass/Vol] 11.9 g/dL Low 12.0-17.0 [facility] Comment on above: Performed By: #### 0 1, 49634, 04158 #### [facility] [address] [place] [address], [facility] IONIZED CALCIUM 1.13 mmol/L Normal 1.12-1.32 [facility] Comment on above: Performed By: #### 0 70, , 55368 #### [facility] [address] [place] [address], [facility] Oxygen (Bld) [Partial pressure] 184.0 mm[Hg] High 80.0-105.0 [facility] Comment on above: Performed By: #### 0 1, 97059, 87305 #### [facility] [address] [place] [address], [facility] PCO2 49.9 mmHg High 35.0-45.0 [facility] Comment on above: Performed By: #### 0 0071, 95269, 19180 #### [facility] [address] [place] [address], [place] pH (Bld) 7.26 [pH] Low 7.35-7.45 [facility] Comment on above: Performed By: #### 0 0071, 27979, 13296 #### [facility] [address] [place] [address], [facility] Potassium [Moles/Vol] 4.0 mmol/L Normal 3.5-4.9 [facility] Comment on above: Performed By: #### 0 1, 65493, 54102 #### [facility] [address] [place] [id number], [facility] Sodium [Moles/Vol] 138 mmol/L Normal 138-146 [facility] Comment on above: Performed By: #### 0 0071, 06679, 03289 #### [facility] [address] [place] [address], [facility] BASE EXCESS -1.0 mmol/L Normal -2.0-3.0 [facility] Comment on above: Performed By: #### 0 70, , 00480 #### [facility] [address] [place] [address], [facility] Glucose [Mass/Vol] 109 mg/dL High 70-105 [facility] Comment on above: Performed By: #### 0 70, 69883, 43444 #### [facility] [address] [place] [address], [facility] Hematocrit (Bld) [Volume fraction] 37 % Low 38-51 [facility] Comment on above: Performed By: #### 0 70, , 05212 #### [facility] [address] [place] [address], [facility] Hemoglobin (Bld) [Mass/Vol] 12.6 g/dL Normal 12.0-17.0 [facility] Comment on above: Performed By: #### 0 1, 84789, 70004 #### [facility] [address] [place] [id number], [facility] IONIZED CALCIUM 1.14 mmol/L Normal 1.12-1.32 [facility] Comment on above: Performed By: #### 0 007, 05926, 07225 #### [facility] [address] [place] [address], [facility] Oxygen (Bld) [Partial pressure] 231.0 mm[Hg] High 80.0-105.0 [facility] Comment on above: Performed By: #### 0 0071, 82764, 65868 #### [facility] [address] [place] [address], [facility] PCO2 43.2 mmHg Normal 35.0-45.0 [facility] Comment on above: Performed By: #### 0 0071, 78533, 28705 #### [facility] [address] [place] [address], [facility] pH (Bld) 7.36 [pH] Normal 7.35-7.45 [facility] Comment on above: Performed By: #### 0 0071, 38437, 01099 #### [facility] [address] [place] [id number], [facility] Potassium [Moles/Vol] 4.2 mmol/L Normal 3.5-4.9 [facility] Comment on above: Performed By: #### 0 0071, 17143, 08604 #### [facility] [address] [place] [address], [facility] Sodium [Moles/Vol] 137 mmol/L Low 138-146 [facility] Comment on above: Performed By: #### 0 0071, 34662, 27435 #### [facility] [address] [place] [address], [facility] PHOSPHORUS BLOODon 9 Phosphate [Mass/Vol] 4.0 mg/dL Normal 2.5-5.0 [facility] Comment on above: Order Comment: No: D o not add to previous draw Performed By: #### 5 0608 #### [facility] [address] [place] [address], [facility] POC GLUCOSE LABon 11-24-2018 Glucose [Mass/Vol] 104 mg/dL High 70-100 [facility] Comment on above: Performed By: #### 5 0608 #### [facility] [address] [facility] [place] [address], [place] Glucose [Mass/Vol] 88 mg/dL Normal 70-100 [facility] Comment on above: Performed By: #### 4 6447 #### [facility] [address] [facility] [place] [address], [place] Glucose [Mass/Vol] 92 mg/dL Normal 70-100 [facility] Comment on above: Performed By: #### 4 6447 #### [facility] [address] [facility] [place] [address], [place] Glucose [Mass/Vol] 80 mg/dL Normal 70-100 [facility] Comment on above: Performed By: #### 4 6447 #### [facility] [address] [facility] [place] [address], [place] Glucose [Mass/Vol] 105 mg/dL High 70-100 [facility] Comment on above: Performed By: #### 0 0071, 82607, 27087 #### [facility] [address] [facility] [place] [address], [facility] PORTABLE CHEST 1 VIEWon 11-13 PORTABLE CHEST 1 VIEW [facility] Department of Radiology [address] [place] [id number] Patient Name: WESTON CANO : 1960 Sex: M Age: Race: White Pt. Location: [id number] Patient Status: I Ordered Date: 11/24/2018 8:40:00 PM Completed Date: 11/24/2018 08:53 PM Requesting Provider: MARCELLO DEL RIO Attending Provider: MARCELLO DEL RIO Report Copy To: Signs & Symptoms: O2 Desaturation History: Patient history not available Comments: Check E.T. Position Exam: PORTABLE CHEST 1 VIEW PORTABLE CHEST 1 VIEW 11/24/2018 8:53 PM EDT SIGNS AND SYMPTOMS: O2 Desaturation TECHNOLOGIST COMMENTS: Check E.T. Position QUESTION FOR THE RADIOLOGIST: Check E.T. Position PROTOCOL: AP(PA) view was obtained. COMPARISON: Chest radiograph from same day at 1558 hours. FINDINGS: ET tube is seen approximately 5 cm from clotilde, in satisfactory position. Right IJ [place]-Comfort catheter again seen with tip just left of midline within the pulmonary outflow tract. Post CABG changes as before. Left-sided chest tube is again seen. Enteric tube again seen going below the diaphragm with tip out of field of view, likely in satisfactory position. Trachea is midline. Cardiac Silhouette is slightly enlarged as before. Redemonstration of perihilar vascular congestion, unchanged. Small left-sided pleural effusion, unchanged. Post surgical changes in the mediastinum with small amount of air projecting over the left lung base, unchanged. There is no focal consolidation. No pneumothorax. No acute osseous abnormalities. IMPRESSION: 1. Support lines and tubes in satisfactory position. 2. Right IJ Syracuse-Comfort catheter again seen, slightly retracted with tip just left of midline. 3. Cardiomegaly with perihilar vascular congestion, unchanged. 4. Postsurgical changes from recent CABG with small amount of air projecting over the left lung base, unchanged and may represent loculated subpulmonic pneumothorax. 5. Left-sided pleural effusion, unchanged. Approved by:Yolanda Nicole on 11/25/2018 1:47 AM EDT. I, Leida Ferro, have reviewed the images and report and concur with these findings. Electronically signed by:Leida Ferro. Transcribed by: [email or web address], User Resident: YOLANDA NICOLE Electronically Signed by: GIBSONBALDEMAR PILLO @ 11/25/2018 09:37 AM I personally read this/these film(s) with this resident Normal [facility] Comment on above: Order Comment: No: D o not add to previous draw PORTABLE CHEST 1 VIEW [facility] Department of Radiology [address] [place] [phone] Patient Name: WESTON CANO : 1960 Sex: M Age: Race: White Pt. Location: [address] [place] [address] Patient Status: I Ordered Date: 11/24/2018 3:45:00 PM Completed Date: 11/24/2018 04:10 PM Requesting Provider: MARCELLO DEL RIO Attending Provider: EMA LUO Report Copy To: Signs & Symptoms: Other History: Patient history not available Comments: Other, post CABG Exam: PORTABLE CHEST 1 VIEW PORTABLE CHEST 1 VIEW 11/24/2018 4:10 PM EDT SIGNS AND SYMPTOMS: Other TECHNOLOGIST COMMENTS: Post CABG QUESTION FOR THE RADIOLOGIST: Other, post CABG PROTOCOL: AP(PA) view was obtained. COMPARISON: Chest x-ray November 23, 2018. FINDINGS: Endotracheal tube in satisfactory position with the tip between the clavicles. Enteric tube extends beneath the diaphragm. Right IJ [place]-Comfort catheter with the tip in the proximal right main pulmonary artery. Left-sided chest tube in place. Cardiac silhouette is enlarged. There is perihilar vascular congestion. Left-sided pleural effusion. Postsurgical changes to the mediastinum with a small amount of air projecting over the left lung base. No pneumothorax. IMPRESSION: 1. Postsurgical changes from recent CABG with small amount of air projecting over the left lung base. Left-sided pleural effusion with left basilar atelectasis. 2. Support lines and tubes in satisfactory positions with right IJ [place]-Comfort catheter tip in the right main pulmonary artery. 3. Left-sided chest tube in place. 4. Cardiomegaly with perihilar vascular congestion. Approved by:Rajani Santillan on 11/24/2018 4:16 PM EDT. I, Danette Krueger, have reviewed the images and report and concur with these findings. Electronically signed by:Danette Krueger. Transcribed by: [email or web address], User Resident: RAJANI SANTILLAN Electronically Signed by: DANETTE KRUEGER @ 11/24/2018 04:32 PM I personally read this/these film(s) with this resident Normal [facility] Comment on above: Order Comment: No: D o not add to previous draw PORTABLE CHEST 1 VIEW [facility] Department of Radiology [address] [place] [phone] Patient Name: WESTON CANO : 1960 Sex: M Age: Race: White Pt. Location: [id number] Patient Status: I Ordered Date: 11/23/2018 10:20:00 PM Completed Date: 11/24/2018 12:05 AM Requesting Provider: MARCELLO DEL RIO Attending Provider: EMA LUO Report Copy To: Signs & Symptoms: Pre-Op Evaluation History: Patient history not available Comments: R/O Atelectasis, pre-op for CABG in AM Exam: PORTABLE CHEST 1 VIEW PORTABLE CHEST 1 VIEW 11/24/2018 12:05 AM EDT SIGNS AND SYMPTOMS: Pre-Op Evaluation TECHNOLOGIST COMMENTS: pre op CABG patient denies any previous medical history QUESTION FOR THE RADIOLOGIST: R/O Atelectasis, pre-op for CABG in AM PROTOCOL: AP(PA) view was obtained. COMPARISON: None FINDINGS: Frontal view of the chest revealed mild cardiomegaly. Lungs and costophrenic recesses are clear with left basal platelike atelectasis at the costophrenic angle and tiny right pleural effusion is suspected. Trachea is in the midline. Bony skeleton appears intact with spurring in the thoracic spine suggesting mild spondylosis. IMPRESSION: Left basal platelike atelectasis. Possible small right pleural effusion. Mild cardiomegaly. Electronically signed by:Leida Ferro. Transcribed by: [email or web address], User Resident: Electronically Signed by: LEIDA FERRO @ 11/24/2018 01:13 PM Normal [facility] Comment on above: Order Comment: No: D o not add to previous draw PROTHROMBIN TIMEon 9 INR Coag (PPP) [Relative time] 1.43 {INR} High 0.91-1.16 [facility] Comment on above: Order Comment: No: D o not add to previous draw Result Comment: ACCC P RECOMMENDED INR FOR WARFARIN THERAPY ------- ------- CONDITION INR PROPHYLAXIS OF VENOUS THROMBOSIS 2-3 (HIGH-RISK SURGERY) TREATMENT OF VENOUS THROMBOSIS 2-3 TREATMENT OF PULMONARY EMBOLISM 2-3 PREVENTION OF SYSTEMIC EMBOLISM: 2-3 ACUTE MYOCARDIAL INFARCTION TISSUE HEART VALVES VALVULAR HEART DISEASE ATRIAL FIBRILLATION RECURRENT SYSTEMIC EMBOLISM MECHANICAL HEART VALVE 2.5-3.5 FROM: ORAL ANTICOAGULANTS. MECHANISM OF ACTION, CLINICAL EFFECTIVENESS, AND OPTIMAL THERAPEUTIC RANGE. CHEST 1995;108:231S-246S. Performed By: #### 4 6447 #### [facility] [employer] [address] PT Coag (PPP) [Time] 17.5 s High 12.3-14.8 [facility] Comment on above: Order Comment: No: D o not add to previous draw Result Comment: ALL RESULTS MUST BE INTERPRETED WITH RESPECT TO BLOOD DRAWING ARTIFACT OR DILUTION ERROR OF ANTICOAGULANT AT THE TIME OF SAMPLING. Performed By: #### 4 6447 #### [facility] [address] RBC'S 2 UNITSon 11-24-2018 CROSSMATCH INTERP 1 COMP Normal [facility] Comment on above: Performed By: #### 0 0071, 58757, 95141 #### [facility] [address] CROSSMATCH INTERP 2 COMP Normal [facility] Comment on above: Performed By: #### 0 0071, 10116, 16581 #### [facility] [address] PRODUCT CODE 1 E0336 Normal [facility] Comment on above: Performed By: #### 0 0071, 67390, 40251 #### [facility] [address] [facility]. [address] PRODUCT CODE 2 E0336 Normal [facility] Comment on above: Performed By: #### 0 0071, 01779, 76472 #### [facility] [address] [place] [address], [facility] PRODUCT STATUS 1 RE Normal [facility] Comment on above: Result Comment: Resu lt changed by IF on 11/28/2018 06:51. The previous value was XM. Performed By: #### 0 0071, 45251, 27996 #### [facility] [address] [place] [address], [facility] PRODUCT STATUS 2 RE Normal [facility] Comment on above: Result Comment: Resu lt changed by IF on 11/28/2018 06:51. The previous value was XM. Performed By: #### 0 0071, 99587, 94774 #### [facility] [address] [place] [address], [facility] UNIT ABO [address] [facility] Comment on above: Performed By: #### 0 0071, 35913, 44460 #### [facility] [address] [place] [address], [facility] UNIT ABO [address] [facility] Comment on above: Performed By: #### 0 0071, 62578, 49092 #### [facility] [address] [place] [address], [facility] UNIT ID 1 [id number] Normal [facility] Comment on above: Performed By: #### 0 0071, 66268, 24101 #### [facility] [address] [place] [address], [facility] UNIT ID 2 [id number] Normal [facility] Comment on above: Performed By: #### 0 0071, 66005, 12384 #### [facility] [address] UNIT RH 1 Positive Normal [facility] Comment on above: Performed By: #### 0 0071, 79979, 22480 #### [facility] [address] [place] [address], [facility] UNIT RH 2 Positive Normal [facility] Comment on above: Performed By: #### 0 0071, 49766, 00535 #### [facility] [address] TYPE AND SCREENon 11-24-2018 ABO INTERPRETATION A Normal [facility] Comment on above: Performed By: #### 0 0071, 53907, 04511 #### [facility] [address] RH INTERPRETATION Positive Normal [facility] Comment on above: Performed By: #### 0 0071, 14285, 80154 #### [facility] [address] APTTon 11-23-2018 aPTT Coag (Bld) [Time] 30.2 s Normal 25.0-35.0 [facility] Comment on above: Order Comment: No: D o not add to previous draw Result Comment: ALL RESULTS MUST BE INTERPRETED WITH RESPECT TO BLOOD DRAWING ARTIFACT OR DILUTION ERROR OF ANTICOAGULANT AT THE TIME OF SAMPLING. THE APTT SHOULD NOT BE USED TO MONITOR UNFRACTIONATED HEPARIN THERAPY, THIS LABORATORY NO LONGER HAS AN ESTABLISHED THERAPEUTIC RANGE BASED ON THE APTT. IT IS RECOMMENDED THAT THE [facility] - HEPARIN ASSAY (ANTI-XA ACTIVITY) BE USED FOR THIS PURPOSE. Performed By: #### 0 0071, 22036, 67158 #### [facility] [address] BASIC METABOLIC PANELon 11-13 Calcium [Mass/Vol] 8.7 mg/dL Normal 8.6-10.3 [facility] Comment on above: Order Comment: No: D o not add to previous draw Performed By: #### 4 1000, , 80229 #### [facility] [address] [place] [address], [place] Chloride [Moles/Vol] 106 mmol/L Normal 98-107 [facility] Comment on above: Order Comment: No: D o not add to previous draw Performed By: #### 4 1000, 92146, 19130 #### [facility] [address] [place] [address], [place] CO2 [Moles/Vol] 24 mmol/L Normal 21-31 [facility] Comment on above: Order Comment: No: D o not add to previous draw Performed By: #### 4 1000, , 36059 #### [facility] [address] [place] [address], [place] Creatinine [Mass/Vol] 1.08 mg/dL Normal 0.70-1.30 [facility] Comment on above: Order Comment: No: D o not add to previous draw Performed By: #### 4 1000, , 64909 #### [facility] [address] [place] [address], [place] GFR/1.73 sq M predicted among blacks MDRD (S/P/Bld) [Vol rate/Area] mL/min/{1.73_m2} Normal >60 [facility] Comment on above: Order Comment: No: D o not add to previous draw Performed By: #### 4 1000, , 95221 #### [facility] [address] [place] [address], [place] GFR/1.73 sq M predicted among non-blacks MDRD (S/P/Bld) [Vol rate/Area] mL/min/{1.73_m2} Normal >60 [facility] Comment on above: Order Comment: No: D o not add to previous draw Performed By: #### 4 1000, , 81498 #### [facility] [address] [place] [address], [place] Glucose [Mass/Vol] 105 mg/dL High 70-100 [facility] Comment on above: Order Comment: No: D o not add to previous draw Performed By: #### 4 1000, 22524, 50333 #### [facility] [address] [place] [address], [place] Potassium [Moles/Vol] 4.1 mmol/L Normal 3.5-5.1 [facility] Comment on above: Order Comment: No: D o not add to previous draw Performed By: #### 4 1000, 48888, 28762 #### [facility] [address] [place] [address], [place] Sodium [Moles/Vol] 137 mmol/L Normal 136-145 [facility] Comment on above: Order Comment: No: D o not add to previous draw Performed By: #### 4 1000, , 44708 #### [facility] [address] [place] [address], [place] Urea nitrogen [Mass/Vol] 9 mg/dL Normal 7-25 [facility] Comment on above: Order Comment: No: D o not add to previous draw Performed By: #### 4 1000, 32306, 68494 #### [facility] [address] [place] [address], [place] CBC COMPLETE BLOOD COUNTon 0 - Erythrocyte distribution width (RBC) [Ratio] 12.5 % Normal 11.5-15.0 [facility] Comment on above: Order Comment: No: D o not add to previous draw Performed By: #### 5 0608 #### [facility] [address] [place] [address], [place] Hematocrit (Bld) [Volume fraction] 39.5 % Normal 39.0-50.0 [facility] Comment on above: Order Comment: No: D o not add to previous draw Performed By: #### 5 0608 #### [facility] [address] [place] [address], [facility] [facility] Hemoglobin (Bld) [Mass/Vol] 13.9 g/dL Normal 13.0-17.0 [facility] Comment on above: Order Comment: No: D o not add to previous draw Performed By: #### 5 0608 #### [facility] [address] [place] [address], [facility] MCH (RBC) [Entitic mass] 32.2 pg Normal 27.0-33.0 [facility] Comment on above: Order Comment: No: D o not add to previous draw Performed By: #### 5 0608 #### [facility] [address] [facility] [place] [address], [facility] MCHC (RBC) [Mass/Vol] 35.2 g/dL High 32.0-35.0 [facility] Comment on above: Order Comment: No: D o not add to previous draw Performed By: #### 5 0608 #### [facility] [address] [facility] [place] [address], [facility] MCV (RBC) [Entitic vol] 91.4 fL Normal 82.0-98.0 [facility] Comment on above: Order Comment: No: D o not add to previous draw Performed By: #### 5 0608 #### [facility] [address] [facility] [place] [address], [facility] Nucleated RBC/100 WBC (Bld) [Ratio] 0 % Normal 0-0 [facility] Comment on above: Order Comment: No: D o not add to previous draw Performed By: #### 5 0608 #### [facility] [address] [facility] [place] [address], [facility] PLAT CNT 208 10*3/uL Normal 150-400 [facility] Comment on above: Order Comment: No: D o not add to previous draw Performed By: #### 5 0608 #### [facility] [address] [facility] [place] [address], [facility] RBC (Bld) [#/Vol] 4.32 10*6/uL Normal 4.20-5.70 [facility] Comment on above: Order Comment: No: D o not add to previous draw Performed By: #### 5 0608 #### [facility] [address] [place] [id number], [facility] WBC (Bld) [#/Vol] 6.36 10*3/uL Normal 4.00-10.60 [facility] Comment on above: Order Comment: No: D o not add to previous draw Performed By: #### 5 0608 #### [facility] [address] Cardiovascular Lab Reporton 11-23-2018 Cardiovascular Lab Report [facility] Patient Name: [facility] Weston Billings MR #: [id number] Department of Physician: [facility] Alethea Ramsey M.D. Division of Service Date: 11/22/2018 Cardiology Birthdate: 1960 Adult Cardiovascular Room #: [id number] [place] [address] Cardiovascular Laboratory Report INDICATION: The patient is a 58-year-old man, who recently sustained syncope. His evaluation included a stress test during which he had rate related bundle branch block and ischemic EKG changes, myocardial perfusion. Imaging showed a fixed defect in the inferior wall, but no reversible ischemia. His echocardiogram was normal except for possible bundle branch block on rhythm strips. Because of that, he was referred for cardiac catheterization. PROCEDURES: 1. Bilateral selective coronary angiography from the right radial access. 2. Left heart catheterization. METHODS: Procedure was explained to the patient with risks and benefits. He signed informed consent. He was brought to greens laborer in a fasting state. The right wrist area was prepped and draped in usual fashion. The Vaughn's test was favorable. Using micropuncture technique, the right radial artery was accessed a 6-Mosotho x 11 cm Hydrophilic sheath was advanced. Verapamil was given through the sheath and heparin was administered intravenously. Left heart catheterization was then performed by advancing the 6-Mosotho JR5 diagnostic catheter over the wire into the left ventricular cavity. Measurement of pressures was performed. Pullback across the aortic valve was performed with measurement of pressures. Bilateral selective coronary angiography was then performed using 6-Mosotho JR5 and JL 3.5. diagnostic catheters. Catheters were removed. Procedure was concluded. The access sheath was removed and a manual compression dressing applied for hemostasis. He tolerated the procedure well. He was transferred back to the cardiovascular recovery area. TOTAL FLUORO TIME: 4.56 minutes. TOTAL AIR KERMA: 624 mGy. TOTAL CONTRAST VOLUME: 50 mL. HEMODYNAMICS: AO 126/78, mean 100. LV 129/5, 12. CORONARY ANGIOGRAPHY: This is a codominant circulation. Left main: This arises from left coronary cusp. It bifurcates into left anterior descending and circumflex vessels. Left main is free of disease. Left anterior descending: This is a large vessel, it has diffuse calcifications in its proximal to mid segment. There is a diffuse 80% stenosis. There is complex in the mid segment. A first diagonal branch has a 70% proximal stenosis. The apical LAD has 90% stenosis. Circumflex vessel: This is large and codominant vessel. It has a 70% mid segment stenosis. A second obtuse marginal branch has 60% stenosis. Right coronary artery. This arises from the right coronary cusp. It is a large and codominant vessel. It has 80% mid segment stenosis, 40% distal stenosis, and 80% stenosis at the ostium of a posterolateral ventricular branch. SUMMARY OF FINDINGS: 1. Severe 3-vessel coronary artery disease. 2. Normal left-sided filling pressures. 3. No evidence of aortic stenosis. RECOMMENDATIONS: Bypass surgery after a Heart team approach and discussion with the patient regarding risks and benefits. Electronically Signed by: Austin Ramsey M.D. 11/25/2018 12:14 P Austin Ramsey M.D. Date Dict: 11/22/2018/10:22 Amadeo/Austin Ramsey M.D. Date Trans: 11/23/2018 07:36 Amadeo/love [id number] cc: Estefania Weeks M.D. [address] [place] [address] Normal [facility] MAGNESIUM BLOODon 11-23-2018 Magnesium [Mass/Vol] 2.0 mg/dL Normal 1.9-2.7 [facility] Comment on above: Order Comment: No: D o not add to previous draw Performed By: #### 4 1000, 91979, 51879 #### [facility] [address] [facility]. [address] PHOSPHORUS BLOODon 9 Phosphate [Mass/Vol] 2.9 mg/dL Normal 2.5-5.0 [facility] Comment on above: Order Comment: No: D o not add to previous draw Performed By: #### 4 1000, 48932, 24453 #### [facility] [address] [facility]. [address] PROTHROMBIN TIMEon 9 INR Coag (PPP) [Relative time] 1.11 {INR} Normal 0.91-1.16 [facility] Comment on above: Order Comment: No: D o not add to previous draw Result Comment: ACCC P RECOMMENDED INR FOR WARFARIN THERAPY ------- ------- CONDITION INR PROPHYLAXIS OF VENOUS THROMBOSIS 2-3 (HIGH-RISK SURGERY) TREATMENT OF VENOUS THROMBOSIS 2-3 TREATMENT OF PULMONARY EMBOLISM 2-3 PREVENTION OF SYSTEMIC EMBOLISM: 2-3 ACUTE MYOCARDIAL INFARCTION TISSUE HEART VALVES VALVULAR HEART DISEASE ATRIAL FIBRILLATION RECURRENT SYSTEMIC EMBOLISM MECHANICAL HEART VALVE 2.5-3.5 FROM: ORAL ANTICOAGULANTS. MECHANISM OF ACTION, CLINICAL EFFECTIVENESS, AND OPTIMAL THERAPEUTIC RANGE. CHEST 1995;108:231S-246S. Performed By: #### 5 6101, 62427 #### [facility] [address] [place] [address], [facility] PT Coag (PPP) [Time] 14.3 s Normal 12.3-14.8 [facility] Comment on above: Order Comment: No: D o not add to previous draw Result Comment: ALL RESULTS MUST BE INTERPRETED WITH RESPECT TO BLOOD DRAWING ARTIFACT OR DILUTION ERROR OF ANTICOAGULANT AT THE TIME OF SAMPLING. Performed By: #### 5 6101, 90788 #### [facility] [address] [place] [address], [facility] BASIC METABOLIC PANELon 11-13 Calcium [Mass/Vol] 9.4 mg/dL Normal 8.6-10.3 [facility] Comment on above: Order Comment: No: D o not add to previous draw Performed By: #### 0 0071, 36180, 70815 #### [facility] [address] [place] [address], [facility] Chloride [Moles/Vol] 106 mmol/L Normal 98-107 [facility] Comment on above: Order Comment: No: D o not add to previous draw Performed By: #### 0 0071, 32797, 92594 #### [facility] [address] [place] [address], [place] CO2 [Moles/Vol] 26 mmol/L Normal 21-31 [facility] Comment on above: Order Comment: No: D o not add to previous draw Performed By: #### 0 0071, 12313, 70411 #### [facility] [address] [place] [address], [facility] Creatinine [Mass/Vol] 1.01 mg/dL Normal 0.70-1.30 [facility] Comment on above: Order Comment: No: D o not add to previous draw Performed By: #### 0 0071, 77307, 19394 #### [facility] [address] [place] [address], [place] GFR/1.73 sq M predicted among blacks MDRD (S/P/Bld) [Vol rate/Area] mL/min/{1.73_m2} Normal >60 [facility] Comment on above: Order Comment: No: D o not add to previous draw Performed By: #### 0 0071, 72246, 70067 #### [facility] [address] [place] [address], [place] GFR/1.73 sq M predicted among non-blacks MDRD (S/P/Bld) [Vol rate/Area] mL/min/{1.73_m2} Normal >60 [facility] Comment on above: Order Comment: No: D o not add to previous draw Performed By: #### 0 0071, 75178, 84006 #### [facility] [address] [place] [address], [place] Glucose [Mass/Vol] 99 mg/dL Normal 70-100 [facility] Comment on above: Order Comment: No: D o not add to previous draw Performed By: #### 0 0071, 82807, 23061 #### [facility] [address] [place] [address], [place] Potassium [Moles/Vol] 3.9 mmol/L Normal 3.5-5.1 [facility] Comment on above: Order Comment: No: D o not add to previous draw Performed By: #### 0 0071, 15180, 59350 #### [facility] [address] [place] [address], [place] Sodium [Moles/Vol] 137 mmol/L Normal 136-145 [facility] Comment on above: Order Comment: No: D o not add to previous draw Performed By: #### 0 0071, 63580, 60902 #### [facility] [address] [place] [address], [place] Urea nitrogen [Mass/Vol] 8 mg/dL Normal 7-25 [facility] Comment on above: Order Comment: No: D o not add to previous draw Performed By: #### 0 0071, 06102, 88587 #### [facility] [address] [facility]. [address] CBC W/DIFFon 11-22-2018 ABS BASOPHILS 0.1 10*3/uL Normal 0.0-0.2 [facility] Comment on above: Order Comment: No: D o not add to previous draw Performed By: #### 5 0103 #### [facility] [address] ABS IMM GRANS 0.0 10*3/uL Normal 0.0-0.2 [facility] Comment on above: Order Comment: No: D o not add to previous draw Performed By: #### 5 0103 #### [facility] [address] [facility]. [address] ABS NEUTROPHILS 4.9 10*3/uL Normal 1.6-7.6 [facility] Comment on above: Order Comment: No: D o not add to previous draw Performed By: #### 5 0103 #### [facility] [address] [facility] [place] [address], [facility] Basophils/100 WBC (Bld) 0.6 % Normal 0.0-1.0 [facility] Comment on above: Order Comment: No: D o not add to previous draw Performed By: #### 5 0103 #### [facility] [address] [facility] [place] [address], [facility] Eosinophils (Bld) [#/Vol] 0.3 10*3/uL Normal 0.0-0.5 [facility] Comment on above: Order Comment: No: D o not add to previous draw Performed By: #### 5 0103 #### [facility] [address] [facility]. [address] Eosinophils/100 WBC (Bld) 3.3 % Normal 0.0-6.0 [facility] Comment on above: Order Comment: No: D o not add to previous draw Performed By: #### 5 0103 #### [facility] [address] [place] [address], [facility] Erythrocyte distribution width (RBC) [Ratio] 12.4 % Normal 11.5-15.0 [facility] Comment on above: Order Comment: No: D o not add to previous draw Performed By: #### 5 0103 #### [facility] [address] [facility] [place] [address], [facility] Hematocrit (Bld) [Volume fraction] 40.9 % Normal 39.0-50.0 [facility] Comment on above: Order Comment: No: D o not add to previous draw Performed By: #### 5 0103 #### [facility] [address] [place] [address], [facility] Hemoglobin (Bld) [Mass/Vol] 14.4 g/dL Normal 13.0-17.0 [facility] Comment on above: Order Comment: No: D o not add to previous draw Performed By: #### 5 0103 #### [facility] [address] [place] [address], [facility] IMMATURE GRANS 0.4 % Normal 0.0-1.0 [facility] Comment on above: Order Comment: No: D o not add to previous draw Performed By: #### 5 0103 #### [facility] [address] [place] [address], [facility] Lymphocytes (Bld) [#/Vol] 2.4 10*3/uL Normal 1.2-4.0 [facility] Comment on above: Order Comment: No: D o not add to previous draw Performed By: #### 5 3 #### [facility] [address] Lymphocytes/100 WBC (Bld) 29.4 % Normal 20.0-45.0 [facility] Comment on above: Order Comment: No: D o not add to previous draw Performed By: #### 5 0103 #### [facility] [address] [place] [address], [facility] MCH (RBC) [Entitic mass] 32.8 pg Normal 27.0-33.0 [facility] Comment on above: Order Comment: No: D o not add to previous draw Performed By: #### 5 0103 #### [facility] [address] [place] [address], [facility] MCHC (RBC) [Mass/Vol] 35.2 g/dL High 32.0-35.0 [facility] Comment on above: Order Comment: No: D o not add to previous draw Performed By: #### 5 0103 #### [facility] [address] [facility] [place] [address], [facility] MCV (RBC) [Entitic vol] 93.2 fL Normal 82.0-98.0 [facility] Comment on above: Order Comment: No: D o not add to previous draw Performed By: #### 5 0103 #### [facility] [address] [place] [address], [facility] Monocytes (Bld) [#/Vol] 0.6 10*3/uL Normal 0.1-1.0 [facility] Comment on above: Order Comment: No: D o not add to previous draw Performed By: #### 5 0103 #### [facility] [address] [place] [address], [facility] MONOS 7.5 % Normal 5.0-12.0 [facility] Comment on above: Order Comment: No: D o not add to previous draw Performed By: #### 5 3 #### [facility] [address] [place] [address], [place] Neutrophils/100 WBC (Bld) 58.8 % Normal 40.0-72.0 [facility] Comment on above: Order Comment: No: D o not add to previous draw Performed By: #### 5 0103 #### [facility] [address] [place] [id number], [facility] Nucleated RBC/100 WBC (Bld) [Ratio] 0 % Normal 0-0 [facility] Comment on above: Order Comment: No: D o not add to previous draw Performed By: #### 5 0103 #### [facility] [address] [place] [address], [place] PLAT CNT 209 10*3/uL Normal 150-400 [facility] Comment on above: Order Comment: No: D o not add to previous draw Performed By: #### 5 0103 #### [facility] [address] [place] [address], [facility] RBC (Bld) [#/Vol] 4.39 10*6/uL Normal 4.20-5.70 [facility] Comment on above: Order Comment: No: D o not add to previous draw Performed By: #### 5 0103 #### [facility] [address] [place] [address], [facility] WBC (Bld) [#/Vol] 8.26 10*3/uL Normal 4.00-10.60 [facility] Comment on above: Order Comment: No: D o not add to previous draw Performed By: #### 5 0103 #### [facility] [address] [place] [address], [facility] HEMOGLOBIN A1Con 11-22-2018 HbA1c (Bld) [Mass fraction] 6.1 % High 4.0-6.0 [facility] Comment on above: Order Comment: No: D o not add to previous draw Performed By: #### 4 6447 #### [facility] [address] [place] [address], [facility] HbA1c (Bld) [Mass fraction] 128 mg/dL High 70-126 [facility] Comment on above: Order Comment: No: D o not add to previous draw Performed By: #### 4 6447 #### [facility] [address] [place] [address], [facility] LIPID PROFILEon 11-22-2018 Cholesterol [Mass/Vol] 166 mg/dL Normal 120-200 [facility] Comment on above: Order Comment: No: D o not add to previous draw Result Comment: CHOL ESTEROL REFERENCE RANGE: 20 YEARS AND OLDER CARDIOVASCULAR RISK Less than 200 mg/dl Low Risk 200 to 239 mg/dl Borderline Risk 240 mg/dl and greater High Risk Performed By: #### 0 0071, 13074, 37620 #### [facility] [address] [place] [address], [facility] Cholesterol in HDL [Mass/Vol] 30 mg/dL Normal 23-92 [facility] Comment on above: Order Comment: No: D o not add to previous draw Result Comment: Slig ht variation in normal range could be due to gender and/or age. HDL CHOLESTEROL REFERENCE RANGE: 20 years and older Cardiovascular Risk > or =60 mg/dL Desirable 40 TO 59 mg/dL Low Risk <40 mg/dL High Risk Performed By: #### 0 0071, 32146, 32044 #### [facility] [address] [place] [address], [facility] Cholesterol in LDL [Mass/Vol] 112 mg/dL Normal 0-130 [facility] Comment on above: Order Comment: No: D o not add to previous draw Result Comment: LDL IS A CALCULATION LDL IS ONLY VALID IF THE TRIG IS LESS THAN 400. Performed By: #### 0 0071, 38069, 61362 #### [facility] [address] [place] [id number], [facility] Cholesterol.total/Ch olesterol in HDL [Mass ratio] 5.5 {ratio} High .0-4.5 [facility] Comment on above: Order Comment: No: D o not add to previous draw Performed By: #### 0 0071, 11838, 96850 #### [facility] [address] NON-HDL CHOLESTEROL 136 mg/dL Normal [facility] Comment on above: Order Comment: No: D o not add to previous draw Performed By: #### 0 0071, 51016, 69120 #### [facility] [address] Triglyceride [Mass/Vol] 119 mg/dL Normal 40-149 [facility] Comment on above: Order Comment: No: D o not add to previous draw Result Comment: TRIG LYCERIDE REFERENCE RANGE: 20 YEARS AND OLDER CARDIOVASCULAR RISK LESS THAN 150 mg/dl LOW RISK 150 TO 199 mg/dl BORDERLINE RISK 200 mg/dl AND GREATER HIGH RISK Performed By: #### 0 0071, 23938, 74095 #### [facility] [address] VLDL CHOL 24 mg/dL Normal 0-40 [facility] Comment on above: Order Comment: No: D o not add to previous draw Performed By: #### 0 0071, 98310, 42467 #### [facility] [address] [place] [address], [facility] LIVER BATTERYon 11-22-2018 Albumin [Mass/Vol] 4.2 g/dL Normal 3.5-5.7 [facility] Comment on above: Order Comment: No: D o not add to previous draw Performed By: #### 0 0071, 35324, 42661 #### [facility] [address] [place] [address], [facility] ALKALINE PHOSPH 56 IU/L Normal 34-104 [facility] Comment on above: Order Comment: No: D o not add to previous draw Performed By: #### 0 0071, 47105, 17338 #### [facility] [address] [place] [address], [facility] ALT [Catalytic activity/Vol] 32 U/L Normal 7-52 [facility] Comment on above: Order Comment: No: D o not add to previous draw Performed By: #### 0 0071, 22267, 73597 #### [facility] [address] [place] [address], [place] AST [Catalytic activity/Vol] 21 U/L Normal 13-39 [facility] Comment on above: Order Comment: No: D o not add to previous draw Performed By: #### 0 0071, 02302, 19320 #### [facility] [address] [place] [address], [place] Bilirubin [Mass/Vol] 0.6 mg/dL Normal 0.3-1.0 [facility] Comment on above: Order Comment: No: D o not add to previous draw Performed By: #### 0 0071, 50554, 10062 #### [facility] [address] [place] [address], [place] Bilirubin.direct [Mass/Vol] 0.1 mg/dL Normal 0.0-0.2 [facility] Comment on above: Order Comment: No: D o not add to previous draw Performed By: #### 0 0071, 73320, 06093 #### [facility] [address] [place] [address], [place] Protein [Mass/Vol] 7.1 g/dL Normal 6.0-8.3 [facility] Comment on above: Order Comment: No: D o not add to previous draw Performed By: #### 0 0071, 35888, 58450 #### [facility] [address] [place] [address], [place] Vital Signs Date Time Vital Sign Value Performing Clinician Facility 11-25-2018 08:07-0400 Respiratory rate 12 /min ESTEFANIA WEEKS [facility] Comment on above: Performed By: #### 4 1000, 65755, 09947 #### [facility] [address] [place] [address], [facility] 11-25-2018 01:22-0400 Respiratory rate 12 /min ESTEFANIA CHERIE [facility] Comment on above: Performed By: #### 5 0608 #### [facility] [address] [place] [address], [facility] 11-24-2018 22:23-0400 Respiratory rate 12 /min ESTEFANIA CHERIE [facility] Comment on above: Performed By: #### 4 6447 #### [facility] [address] [place] [address], [facility] 11-24-2018 18:19-0400 Respiratory rate CANCELED ESTEFANIA WEEKS [facility] Comment on above: Order Comment: No: D o not add to previous draw Performed By: #### 4 6447 #### [facility] [address] [place] [address], [facility] 11-24-2018 18:18-0400 Respiratory rate 12 /min ESTEFANIA MISTRYY [facility] Comment on above: Order Comment: No: D o not add to previous draw Performed By: #### 4 6447 #### [facility] [address] [place], [place] [id number] [place] [address] Encounters Encounter Date Encounter Type Care Provider Facility Start: 12-12-2023 End: 12-12-2023 ambulatory GRACE [facility]REPO [facility] Start: 10-28-2023 End: 10-28-2023 ambulatory Ady Lezama Facility:[facility] Start: 10-28-2023 End: 10-28-2023 ambulatory MD Estefania Weeks Work Phone: [facility] Work Phone: Start: 10-28-2023 End: 10-28-2023 Patient encounter procedure MD Estefania Weeks Work Phone: [facility] Start: 07-29-2023 End: 07-29-2023 ambulatory Ady Lezama Facility:[facility] Start: 04-29-2023 End: 04-29-2023 ambulatory Ady Lezama Facility:[id number] Start: 01-25-2023 End: 01-25-2023 ambulatory Ady Lezama Facility:[id number] Start: 10-25-2022 End: 10-25-2022 ambulatory MD Estefania Weeks Work Phone: [facility] Work Phone: Start: 10-25-2022 End: 10-25-2022 Patient encounter procedure MD Estefania Weeks Work Phone: [facility] Start: 10-22-2022 ambulatory Facility:[id number] Start: 08-31-2022 End: 09-01-[address] ESTEFANIA WEEKS Facility:[facility] Start: 07-23-2022 End: 07-23-2022 ambulatory MD Estefania Weeks Work Phone: [facility] Work Phone: Start: 07-23-2022 End: 07-23-2022 Patient encounter procedure MD Estefania Weeks Work Phone: [facility] [facility] Start: 07-23-2022 ambulatory Facility:[id number] Start: 04-23-2022 End: 04-23-2022 Patient encounter procedure MD Estefania Weeks Work Phone: [facility] Start: 01-19-2022 End: 01-19-2022 Patient encounter procedure MD Estefania Weeks Work Phone: [facility] Start: 10-16-2021 End: 10-16-2021 Patient encounter procedure MD Estefania Weeks Work Phone: [facility] Start: 05-08-2019 End: 05-10-2019 Evaluation and management of inpatient VICKI LUND Facility:[facility] Start: 12-28-2018 End: 12-28-2018 Evaluation and management of inpatient ESTEFANIA WEEKS Facility:[facility] Start: 11-22-2018 End: 12-01-2018 Evaluation and management of inpatient ESTEFANIA WEEKS Facility:[facility] Procedures Date Procedure Procedure Detail Performing Clinician Start: 05-08-2019 FLUOROSCOPY OF L INT MAMM GRAFT USING OTH CONTRAST PASTORA RAMON Start: 05-08-2019 FLUOROSCOPY OF MULT COR A GRAFT USING OTH CONTRAST PASTORA RAMON Start: 05-08-2019 FLUOROSCOPY OF MULTI PLE CORONARY ARTERIES USING OTH CONTRAST PASTORA RAMON Start: 05-08-2019 MEASURE OF CARDIAC S AMPL \T\ PRESSURE, L HEART, PERC APPROACH PASTORA RAMON Start: 11-24-2018 Antibody screen ESTEFANIA WEEKS Comment on above: Performed By: #### [id number] #### [facility] [address] [place] [address], [facility] Start: 11-24-2018 BYPASS 1 COR ART FRO M L INT MAMMARY, OPEN APPROACH NARONGSAK G BOONSWANG Start: 11-24-2018 BYPASS 2 COR ART FRO M AORTA WITH AUTOL VN, OPEN APPROACH NARONGSAK G BOONSWANG Start: 11-24-2018 EXCISION OF LEFT SAP HENOUS VEIN, PERC ENDO APPROACH NARONGSAK G BOONSWANG Start: 11-24-2018 EXTIRPATION OF MATTE R FROM 1 COR ART, OPEN APPROACH NARONGSAK G BOONSWANG Start: 11-24-2018 MONITORING OF ARTERI AL PRESSURE, PULMONARY, PERC APPROACH SOORAJ G YERMAL Start: 11-24-2018 MONITORING OF ARTERI AL SATURATION, PERIPHERAL, PERC APPROACH NARONGSAK G BOONSWANG Start: 11-24-2018 MONITORING OF CARDIA C OUTPUT, PERCUTANEOUS APPROACH SOORAJ G YERMAL Start: 11-24-2018 Performance of Cardi ac Output, Continuous NARONGSAK G BOONSWANG Start: 11-24-2018 PERFORMANCE OF CARDI AC OUTPUT, SINGLE, MANUAL NARONGSAK G BOONSWANG Start: 11-24-2018 ULTRASONOGRAPHY OF R IGHT AND LEFT HEART, TRANSESOPHAGEAL SOORAJ G YERMAL Start: 11-22-2018 FLUOROSCOPY OF MULTI PLE CORONARY ARTERIES USING OTH CONTRAST AUSTIN GONZALEZRBEL Start: 11-22-2018 MEASURE OF CARDIAC S AMPL \T\ PRESSURE, L HEART, PERC APPROACH AUSTIN GONZALEZRBHELEN History of coronary artery bypass grafting S/P CABG x 3 MD Estefania Weeks Work Phone: Payers Date Payer Category Payer Self-pay [id number] 1960 Unknown [id number] 2.16.8 [id number] 1960 Unknown [id number] 2.16.8 [id number] 1960 Unknown [id number] 2.16.8 [id number] 1960 Unknown [id number] 2.16.84 [id number] 1960 Unknown [id number] 2.16. [id number] 1960 Unknown [id number] 2.16. [id number] 1960 Unknown [id number] 2.16. [id number] 1960 Unknown [id number] 2.16. [id number] 1959 Unknown [id number] Unknown [id number] Unknown [id number] 2.16.8 [id number] Unknown [id number] 2.16.8 [id number] Unknown [id number] 2.16.8 [id number] Unknown [id number] 2.16.8 [id number] Social History Date Type Detail Facility Start: 08-24-2019 End: 08-24-2019 Tobacco smoking status NHIS Ex-smoker (finding) [facility] End: 12-12-2018 History of tobacco use [facility] Work Phone: Start: 1960 Sex Assigned At Male F [facility] Medical Equipment Procedure Code Equipment Code Equipment Origin al Text Equipment Identifier Dates Insertion, pacemaker Endocardial pacing lead [id number] FDA Start: 08-24-2019 Insertion, pacemaker Endocardial pacing lead [id number] FDA Start: 08-24-2019 Insertion, pacemaker Dual-chamber implantable pacemaker, rate-responsive [id number] FDA Start: 08-24-2019 Progress note 12-12-2023 Note Date & Type Note Facility 12-12-2023 Note [facility] Cardiology Clinic Note Chief Complaint: Patient here for 1 year follow up CAD, hypertension, and hyperlipidemia. Still follows with [facility] in [place] for device interrogations. No recent labs or imaging. Denies chest pain, SOB, palpitations, and lightheadedness/syncope. HPI: Weston Cano is a 63 y.o. male presents to clinic for routine f/u. Known h/o CAD s/p CABG x3 in 2019, HTN, HLD Pacemaker placed d/t complete heart block at [facility] this past August 24, 2019. 10/19/2021 He denies any changes since last seen. He stays active, walks 2-3 miles daily. Tries to maintain a heart helathy diet. Denies CP, dyspnea, PRATER, orthopnea, PND, LE edema, dizziness/LH, palpitations, syncope 11/2023 Doing well Cardiology ROS: Review of Systems All other systems reviewed and are negative. Past Medical History He has a past medical history of Coronary artery disease, Hyperlipidemia, and Hypertension. Surgical History He has a past surgical history that includes Cardiac catheterization; Coronary artery bypass graft; and Insert / replace / remove pacemaker. Social History He reports that he has quit smoking. His smoking use included cigarettes. He has never used smokeless tobacco. He reports that he does not currently use alcohol. No history on file for drug use. Family History Family History Problem Relation Name Age of Onset No Known Problems Mother No Known Problems Father Allergies Patient has no known allergies. Medications Current Outpatient Medications: aspirin 81 mg EC tablet, Take 1 tablet (81 mg) by mouth in the morning., Disp: 90 tablet, Rfl: 3 clopidogrel (Plavix) 75 mg tablet, Take 1 tablet (75 mg) by mouth in the morning., Disp: 90 tablet, Rfl: 3 lisinopril 5 mg tablet, Take 1 tablet (5 mg) by mouth in the morning., Disp: 90 tablet, Rfl: 3 metoprolol succinate XL (Toprol-XL) 25 mg 24 hr tablet, TAKE 1 TABLET BY MOUTH EVERY DAY IN THE MORNING, Disp: 90 tablet, Rfl: 3 rosuvastatin (Crestor) 20 mg tablet, Take 1 tablet (20 mg) by mouth in the morning., Disp: 90 tablet, Rfl: 3 Last Recorded Vitals BP 134/70 (BP Location: Right arm, Patient Position: Sitting) Pulse 68 Ht 1.778 m (5' 10 ) Wt 102 kg (224 lb) SpO2 96% BMI 32.14 kg/m??? Physical Examination: GENERAL: alert and oriented x3, well developed, in no acute distress. HEAD: atraumatic, normocephalic. EYES: KATHY, EOMI. NECK: trachea midline, no JVD present, no carotid bruits present. CARDIAC: S1, S2 present. RRR. No murmur, rubs, or gallops. RESPIRATORY: CTAB, no increased effort of breathing, no rales, rhonchi, or wheezing. ABDOMEN: soft, nontender, nondistended. EXTREMITIES: no lower extremity edema, peripheral pulses are 2+ bilaterally. No rash/skin discoloration present. NEURO: strength/sensation equal and symmetric in bilateral upper and lower extremities. PSYCH: appropriate mood, affect, and judgement. Labs 06/27/2021 CBC-unremarkable CMP-creatinine 1.19, BUN 22, K4.2, NA 139, GFR greater than 60, ALT 28, AST 19 [id number] Lipids 06/27/2021-cholesterol 96, HDL 40, trig 73, LDL 41 -- 11/24/2018 PROCEDURE PERFORMED: 1. CABG x3, MYRON to the LAD, saphenous vein to the RCA at the origin of the PDA and PL and saphenous vein to the OM. 2. RCA and PLV endarterectomy. CVL report 05/08/2019 FINAL IMPRESSION: 1. 90% left anterior descending. 2. 80% diagonal. 3. 90% obtuse marginal. 4. 70% right coronary artery. 5. Patent left internal mammary to left anterior descending. 6. Patent saphenous vein graft to the obtuse marginal. 7. Apparent occlusion of the saphenous vein graft to right coronary artery Echocardiogram 08/23/2019: Global left ventricular systolic function is normal; EF 55 to 60%. No significant valvular abnormalities. ASSESSMENT 1. Coronary arteriosclerosis - -S/p CABG x3 2018 -Lipids 06/27/2021-cholesterol 96, HDL 40, trig 73, LDL 41 -Denies angina or dyspnea -Continue aspirin, statin, Plavix, lisinopril and metoprolol -Continue cardiac risk factor modification with routine exercise and heart healthy diet. I25.10: Atherosclerotic heart disease of [place] coronary artery without angina pectoris 2. History of coronary artery bypass grafting - -As above Z95.1: Presence of aortocoronary bypass graft 3. Mixed hyperlipidemia - -Well controlled -Continue atorvastatin E78.2: Mixed hyperlipidemia 4. Essential hypertension - -Currently well controlled -Continue lisinopril and metoprolol I10: Essential (primary) hypertension 5. Cardiac pacemaker in situ - -placed for CHB -Patient following with [facility]cludes [facility] in [place] for his pacemaker interrogations and follow-up Z95.0: Presence of cardiac pacemaker Plan: We will check a fasting lipid profile and liver function tests. Consider Crestor increasing to 40 mg if needed. Continue (more content not included)... [facility] Evaluation note Note Date & Type Note Facility Evaluation note No assessment information availa [facility] Work Phone: Summary Purpose Family History No Family History Records FoundNo Family History Records FoundNo Family History Records FoundNo Family History Records FoundNo Family History Records Found Advance Directives No Advanced Directives Records Found Advance Directive Response Recorded Date/ Time Advance Directives No June 8:48am Advance Directive Response Recorded Date/ Time Advance Directives No June 9:48am Hospital Course Note MR#: [id number] [facility] Pt. Name: Weston Cano Admitted: 11/22/2018 Discharged: 12/01/2018 Date of : 1960 Physician: Marcello Del Rio MD DISCHARGE SUMMARY The patient is a 58-year-old male who was admitted on 11/22/2018 after elective cardiac catheterization revealed severe three-vessel disease. His cath was scheduled secondary to repeated near syncopal episode over the course of the past 4 months. He reported the associated chest congestion and mild pressure. There was no associated shortness of breath, cough, fever, chills, nausea, vomiting, or palpitations. The benefits and risks of the coronary artery bypass grafting were discussed with the patient and his family. They agreed to proceed with surgery. Surgery was performed on 11/24/2018. No complications ensued. Of note that the evening of surgery, the patient had been pacer dependent. His pacer stopped working and thus he coded. A code blue was called. He was resuscitated aft (more content not included)... Note MR#: [id number] [facility] Pt. Name: Weston Cano Admitted: 12/27/2018 Discharged: 12/28/2018 Date of : 1960 Physician: Frank Jacome MD DISCHARGE SUMMARY PRINCIPAL DIAGNOSES: 1. Syncope. 2. Zqh-DI-ozjmirpxq myocardial infarction. 3. Coronary artery disease, status post CABG. 4. Hyperlipidemia. HISTORY OF PRESENT ILLNESS: This is a 58-year-old male who recently underwent coronary artery bypass surgery by Dr. Del Rio on 12/03/2018, who presented with syncopal episode. He stated that the past few days he had been feeling well and the day prior to admission he lied down on the couch where he felt some tingling in his arms. He then sat up on the couch and then fell face forward. He was sent to [place]. He had a troponin of 0.12. Given this troponin, they sent him to [facility] for further care. He had no shortness of breath or incontinence. He had no other symptoms. He states that he has been compliant with his medications. He was starte (more content not included)... Note MR#: [id number] [facility] Pt. Name: Weston Cano Admitted: 05/08/2019 Discharged: 05/10/2019 Date of : 1960 Physician: Vicki Lund M.D. DISCHARGE SUMMARY PRIMARY DIAGNOSIS: Fsa-PO-aaadrxzln myocardial infarction. SECONDARY DIAGNOSES: 1. Coronary artery disease, status post CABG. 2. Hyperlipidemia. HISTORY OF PRESENT ILLNESS AND HOSPITAL COURSE: The patient is a 58-year-old male with a past medical history of CAD status post CABG in November of 2018, who was transferred from [facility] for NSTEMI. The patient reported that he was sitting on his chair and was about to sleep when he experienced sudden onset of substernal chest discomfort and that lasted 5-10 minutes. It resolved on its own. There were no apparent alleviating or aggravating factors for the chest pain. It was more like discomfort rather than pain, but it was associated with numbness all over his body and dizziness. The patient feels like his chest was very tight (more content not included)... Chief Complaint and Reason for Visit Chief Complaint complete heart block Additional Source Comments (unrecognized sect ion and content) No Status Records FoundNo Status Records FoundNo Status Records FoundNo Status Records FoundNo Status Records Found INFORMATION SOURCE (unrecogn ized section and content) DATE CREATED AUTHOR 05/25/2019 [facility] DATE CREATED AUTHOR AUTHOR'S ORGANIZ ATION 09/01/2022 [facility] DATE CREATED AUTHOR AUTHOR'S ORGANIZ ATION 05/05/2023 [facility] DATE CREATED AUTHOR AUTHOR'S ORGANIZ ATION 11/04/2023 [facility] DATE CREATED AUTHOR AUTHOR'S ORGANIZ ATION 12/13/2023 [facility] Care Teams (unrecognized sec tion and content) Team Status: Active Member Role Status Dates Estefania Weeks MD Primary Care Provider Active Team Status: Inactive Member Role Status Dates Estefania Weeks MD Primary Care Provider Active Ady Weston Lezama MD Attending Provider Active Team Status: Inactive Member Role Status Dates Estefania Weeks MD Primary Care Provider Active Start: October 28, 2023 End: October 28, 2023 Ady Lezama MD Attending Provider Active Start: October 28, 2023 End: October 28, 2023 Goals (unrecognized section and content) Goals may be documented in a n alternate sectionGoals may be documented in an alternate sectionGoals may be documented in an alternate sectionGoals may be documented in an alternate sectionGoals may be documented in an alternate sectionGoals may be documented in an alternate section FOR RECORDS PERTAINING TO PATIENTS WHO ARE OR HAVE BEEN ENROLLED IN A CHEMICAL DEPENDENCY/SUBSTANCEABUSE PROGRAM, SOME INFORMATION MAY BE OMITTED. This clinical summary was aggregated from multiple sources. Caution should be exercised in using it in the provision of clinical care. This summary normalizes information from multiple sources, and as a consequence, information in this document may materially change the coding, format and clinical context of patient data. In addition, data may be omitted in some cases. CLINICAL DECISIONS SHOULD BE BASED ON THE PRIMARY CLINICAL RECORDS. [employer] provides no warranty or guarantee of the accuracy or completeness of information in this document.
[2023-12-24 10:50] LABS: Alanine Aminotransferase 44 U/L (16-63); Albumin Globulin Ratio 1.1; Albumin Level 3.9 g/dL (3.4-5.0); Alkaline Phosphatase 68 U/L (46-116); Aspartate Amino Transferase 21 U/L (15-37); Bilirubin Direct 0.1 mg/dL (0.0-0.2); Bilirubin Total 0.5 mg/dL (0.2-1.0); Chol HDL Ratio 3.2; Cholesterol 129 mg/dL (<=200); Globulin 3.4 g/dL; HDL Cholesterol 40 mg/dL (40-60); Total Protein 7.3 g/dL (6.4-8.2); Triglycerides 205 mg/dL (<=150)
== END 2023-12-24 06:41 | disposition home or self-care (01) ==
LOC: LAB 06:41
PROVIDERS: PCP Family Medicine; Visit Provider Internal Medicine Interventional Cardiology
DX: E78.5 Hyperlipidemia, unspecified (principal)
CPT/HCPCS: 36415; 80061; 80076

== ENCOUNTER 2024-08-28 15:09 | Outpatient (OUT) | payer OTHER, SELFPAY ==
--- OUTSIDE RECORDS SUMMARY | 2024-08-28 15:24 | XMS_ITS | CCD ---
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 Name Role Phone ESTEFANIA WEEKS Referring Unavailable ESTEFANIA WEEKS Primary Care Unavailable MARCELLO DEL RIO Attending Unavailab Maxx Lowry Admitting Unavailable [place] Procedure Practitioner Unavailab le UNKNOWN, PROVIDER Surgeon Unavailable [place] Procedure Practitioner Unavailab MARCELLO Adamson Surgeon Unavailab le [place] Procedure Practitioner Unavailab le ASHLEY BONILLA Surgeon Unavailable ESTEFANIA WEEKS Referring Unavailable ESTEFANIA WEEKS Primary Care Unavailable FRANK JACOME Attending Unavailable FRANK JACOME Admitting Unavailable RENNO, ANAS Admitting Unavailable RENNO, ANAS Attending Unavailable ESTEFANIA WEEKS Primary Care Unavailable MARKER, LEANNE J Referring Unavailable [place] Procedure Practitioner Unavailab PASTORA Pfeiffer Surgeon Unavailable MD Estefania Weeks Primary Care Provider [phone] MD Ady Lezama Attending Provider MD Estefania Weeks Primary Care Provider [phone] MD Ady Lezama Attending Provider MD Estefania Weeks Primary Care Provider [phone] MD Ady Lezama Attending Provider MD Estefania Weeks Primary Care Provider [phone] MD Ady Lezama Attending Provider DR ESTEFANIA WEEKS Admitting Unavailable DR ESTEFANIA WEEKS Attending Unavailable DR ESTEFANIA WEEKS Primary Care Unavailable DR ESTEFANIA WEEKS Consulting Unavailable WEST, DR BECK Consulting Unavailable MD Estefania Weeks Primary Care Provider [phone] MD Ady Lezama Attending Provider MD Estefania Weeks Primary Care Provider [phone] MD Ady Lezama Attending Provider GRACE RESTREPO Attending Unavailable MD Estefania Weeks Primary Care Provider [phone] MD Ady Lezama Attending Provider MD Estefania Weeks Primary Care Provider [phone] MD Ady Lezama Attending Provider Ady Lezama [...] Unavail able Estefania Weeks Primary Care Unavailable Medications Current Medications Medication Drug Class(es) Dates Sig (Normalized) Sig (Original) aspirin 81 mg oral tablet (8 sources) Platelet Aggregation Inhibitor, Nonsteroidal Anti-inflammatory Drug Start: 06-30-2019 take 81 mg by mouth once daily Aspirin Active 81 MG PO Daily June 30, 2019 1:00am atorvastatin 80 mg oral tablet (8 sources) HMG-CoA Reductase Inhibitor Start: 06-30-2019 take 1 tablet by mouth once daily at bedtime Atorvastatin (Lipitor) 80 mg Tablet Active 80 MG PO Daily at bedtime June 30, 2019 1:00am clindamycin 300 mg oral capsule (8 sources) Lincosamide Antibacterial Start: 08-25-2019 take 600 mg by mouth three times daily Clindamycin Hcl Active 600 MG PO Three times daily 12 2 August 25, 2019 1:00am clopidogrel 75 mg oral tablet (8 sources) P2Y12 Platelet Inhibitor Start: 06-30-2019 take 1 tablet by mouth once daily Clopidogrel (Plavix) 75 mg Tablet Active 75 MG PO Daily June 30, 2019 1:00am lisinopril 20 mg oral tablet (8 sources) Angiotensin Converting Enzyme Inhibitor Start: 06-30-2019 take 5 mg by mouth once daily Lisinopril Active 5 MG PO Daily June 30, 2019 1:00am 24 hr metoprolol succinate 25 mg extended release oral tablet (16 sources) beta-Adrenergic Thalia Start: 08-25-2019 take 25 mg by mouth once daily Metoprolol Succinate Active 25 MG PO Daily 30 30 August 25, 2019 1:00am Start: 06-30-2019 End: 08-25-2019 take 25 mg by mouth twice daily Metoprolol Tartrate Discontinued 25 MG PO Twice daily June 30, 2019 1:00am August 25, 2019 12:52pm Problems Problem Classification Problem Date Documented Date Episodic/Chronic Acute myocardial infarction (8 sources) Myocardial infarction; Translations: [Non-ST elevation (NSTEMI) myocardial infarction] 08-23-2019 Chronic Conditions associated with dizziness or vertigo (8 sources) Dizziness; Translations: [Dizziness and giddiness] 06-30-2019 Episodic Conduction disorders (9 sources) Complete atrioventricular block; Translations: [Atrioventricular block, complete] Onset: 01-30-2024 08-24-2019 Chronic Coronary atherosclerosis and other heart disease (16 sources) Coronary arteriosclerosis; Translations: [Atherosclerotic heart disease of picayune coronary artery without angina pectoris] 08-23-2019 Chronic Other hematologic conditions (1 source) Protein level - finding; Translations: [Other specified abnormalities of plasma proteins] 08-22-2019 Episodic Other hematologic conditions (7 sources) Raised cardiac enzyme or marker; Translations: [Other specified abnormalities of plasma proteins] 08-22-2019 Episodic Syncope (8 sources) Near syncope; Translations: [Syncope and collapse] 08-22-2019 Episodic Unclassified (1 source) Encounter for checking and testing of cardiac pacemaker pulse generator [battery]; Translations: [Encounter for checking and testing of cardiac pacemaker pulse generator [battery]] Onset: 10-28-2023 Results Test Name Value Interpretation Reference Range Facility Office Visiton 12-12-2023 Follow-up visit [id number] Weston Cano 1960 M Date Provider Department Center 12/12/2023 Miguel-GRACE RESTREPO CARD [facility] Family History Problem Relation Age of Onset No Known Problems Mother No Known Problems Father Family Status - Relation Status Age at Mother Father Level of Service:04261 [place] OFFICE/OUTPATIENT ESTABLISHED LOW MDM 20 MIN Normal [facility] US VENOUS DOPPLER R Matt US VENOUS [...] by: EBONY MARTINEZ Date: 2022-08-31 16:22 Normal [facility] BASIC METABOLIC PANELon 04-16 Calcium [Mass/Vol] 9.5 mg/dL Normal 8.6-10.3 [facility] Comment on above: Order Comment: No: D o not add to previous draw Performed By: #### 0 0071, 57654, 42037 #### [facility] [address] [place] [address], [place] Chloride [Moles/Vol] 105 mmol/L Normal 98-107 [facility] Comment on above: Order Comment: No: D o not add to previous draw Performed By: #### 0 0071, 18078, 26578 #### [facility] [address] [place] [address], [place] CO2 [Moles/Vol] 25 mmol/L Normal 21-31 [facility] Comment on above: Order Comment: No: D o not add to previous draw Performed By: #### 0 0071, 35594, 80253 #### [facility] [address] [place] [address], [place] Creatinine [Mass/Vol] 0.96 mg/dL Normal 0.70-1.30 [facility] Comment on above: Order Comment: No: D o not add to previous draw Performed By: #### 0 0071, 63620, 64605 #### [facility] [address] [place] [address], [place] GFR/1.73 sq M predicted among blacks MDRD (S/P/Bld) [Vol rate/Area] mL/min/{1.73_m2} Normal >60 [facility] Comment on above: Order Comment: No: D o not add to previous draw Performed By: #### 0 0071, 07354, 74210 #### [facility] [address] [place] [address], [place] GFR/1.73 sq M predicted among non-blacks MDRD (S/P/Bld) [Vol rate/Area] mL/min/{1.73_m2} Normal >60 [facility] Comment on above: Order Comment: No: D o not add to previous draw Performed By: #### 0 0071, 10810, 61903 #### [facility] [address] [place] [address], [place] Glucose [Mass/Vol] 100 mg/dL Normal 70-100 [facility] Comment on above: Order Comment: No: D o not add to previous draw Performed By: #### 0 0071, 60006, 46624 #### [facility] [address] [place] [address], [place] Potassium [Moles/Vol] 3.8 mmol/L Normal 3.5-5.1 [facility] Comment on above: Order Comment: No: D o not add to previous draw Performed By: #### 0 0071, 37525, 08011 #### [facility] [address] [place] [address], [place] Sodium [Moles/Vol] 139 mmol/L Normal 136-145 [facility] Comment on above: Order Comment: No: D o not add to previous draw Performed By: #### 0 0071, 25511, 21588 #### [facility] [address] [place] [address], [place] Urea nitrogen [Mass/Vol] 14 mg/dL Normal 7-25 [facility] Comment on above: Order Comment: No: D o not add to previous draw Performed By: #### 0 0071, 88606, 36755 #### [facility] [address] [place] [address], [facility] BASIC METABOLIC PANELon - Calcium [Mass/Vol] 9.2 mg/dL Normal 8.6-10.3 [facility] Comment on above: Order Comment: No: D o not add to previous draw Performed By: #### 0 0071, 65552, 87303 #### [facility] [address] [place] [address], [facility] Chloride [Moles/Vol] 105 mmol/L Normal 98-107 [facility] Comment on above: Order Comment: No: D o not add to previous draw Performed By: #### 0 0071, 40082, 92373 #### [facility] [address] [place] [address], [place] CO2 [Moles/Vol] 28 mmol/L Normal 21-31 [facility] Comment on above: Order Comment: No: D o not add to previous draw Performed By: #### 0 0071, 06314, 16928 #### [facility] [address] [place] [address], [place] Creatinine [Mass/Vol] 0.97 mg/dL Normal 0.70-1.30 [facility] Comment on above: Order Comment: No: D o not add to previous draw Performed By: #### 0 0071, 97668, 68344 #### [facility] [address] [place] [address], [place] GFR/1.73 sq M predicted among blacks MDRD (S/P/Bld) [Vol rate/Area] mL/min/{1.73_m2} Normal >60 [facility] Comment on above: Order Comment: No: D o not add to previous draw Performed By: #### 0 0071, 39229, 27827 #### [facility] [address] [place] [address], [place] GFR/1.73 sq M predicted among non-blacks MDRD (S/P/Bld) [Vol rate/Area] mL/min/{1.73_m2} Normal >60 [facility] Comment on above: Order Comment: No: D o not add to previous draw Performed By: #### 0 0071, 68411, 67960 #### [facility] [address] [place] [address], [place] Glucose [Mass/Vol] 104 mg/dL High 70-100 [facility] Comment on above: Order Comment: No: D o not add to previous draw Performed By: #### 0 0071, 14112, 46672 #### [facility] [address] [place] [address], [place] Potassium [Moles/Vol] 4.0 mmol/L Normal 3.5-5.1 [facility] Comment on above: Order Comment: No: D o not add to previous draw Performed By: #### 0 1, 25549, 96703 #### [facility] [address] [place] [address], [place] Sodium [Moles/Vol] 140 mmol/L Normal 136-145 [facility] Comment on above: Order Comment: No: D o not add to previous draw Performed By: #### 0 0071, 59254, 02465 #### [facility] [address] [place] [address], [place] Urea nitrogen [Mass/Vol] 15 mg/dL Normal 7-25 [facility] Comment on above: Order Comment: No: D o not add to previous draw Performed By: #### 0 0071, 60963, 57817 #### [facility] [address] [place] [address], [place] CBC COMPLETE BLOOD COUNTon 0 05-09-2019 Erythrocyte distribution width (RBC) [Ratio] 13.2 % Normal 11.5-15.0 [facility] Comment on above: Order Comment: No: D o not add to previous draw Performed By: #### 0 0071, 16843, 97319 #### [facility] [address] [place] [address], [facility] Hematocrit (Bld) [Volume fraction] 41.7 % Normal 39.0-50.0 [facility] Comment on above: Order Comment: No: D o not add to previous draw Performed By: #### 0 1, 33725, 04886 #### [facility] [address] [place] [address], [facility] Hemoglobin (Bld) [Mass/Vol] 13.6 g/dL Normal 13.0-17.0 [facility] Comment on above: Order Comment: No: D o not add to previous draw Performed By: #### 0 1, 26872, 58510 #### [facility] [address] [place] [address], [place] MCH (RBC) [Entitic mass] 30.6 pg Normal 27.0-33.0 [facility] Comment on above: Order Comment: No: D o not add to previous draw Performed By: #### 0 70, 15512, 07500 #### [facility] [address] [place] [address], [place] MCHC (RBC) [Mass/Vol] 32.6 g/dL Normal 32.0-35.0 [facility] Comment on above: Order Comment: No: D o not add to previous draw Performed By: #### 0 0071, 11660, 52622 #### [facility] [address] [place] [address], [place] MCV (RBC) [Entitic vol] 93.7 fL Normal 82.0-98.0 [facility] Comment on above: Order Comment: No: D o not add to previous draw Performed By: #### 0 1, 79880, 05197 #### [facility] [address] [place] [address], [facility] Nucleated RBC/100 WBC (Bld) [Ratio] 0 % Normal 0-0 [facility] Comment on above: Order Comment: No: D o not add to previous draw Performed By: #### 0 0071, 73712, 19092 #### [facility] [address] [place] [address], [facility] PLAT CNT 195 10*3/uL Normal 150-400 [facility] Comment on above: Order Comment: No: D o not add to previous draw Performed By: #### 0 0071, 05426, 28816 #### [facility] [address] [facility] [place] [address], [facility] RBC (Bld) [#/Vol] 4.45 10*6/uL Normal 4.20-5.70 [facility] Comment on above: Order Comment: No: D o not add to previous draw Performed By: #### 0 0071, 84948, 05295 #### [facility] [address] [facility] [place] [address], [facility] WBC (Bld) [#/Vol] 7.92 10*3/uL Normal 4.00-10.60 [facility] Comment on above: Order Comment: No: D o not add to previous draw Performed By: #### 0 0071, 26227, 89828 #### [facility] [address] [facility]. [address] Cardiovascular Lab Reporton 05-09-2019 Cardiovascular Lab Report [facility] Patient Name: [facility] Weston Billings MR #: [id number] Department of Physician: Pastora Ramon M.D. Medicine Service Date: 05/08/2019 Division of Birthdate: 1960 Cardiology Room #: 3AB [id number] Adult Cardiovascular Services [facility] [address] [address] Cardiovascular Laboratory Report FINAL IMPRESSION: 1. 90% [...] Seldinger technique was used to place a 6-Tuvaluan sheath in the left radial artery. Through [...] stenosis just distal to the first septal vp of global marketing. The stenosis was proximal to a diagonal [...] Ramon M.D. Date Trans: 05/09/2019 07:18 A/love [id number] cc: Estefania Weeks M.D. [address] [phone] Normal [facility] LIPID PROFILEon 05-09-2019 Cholesterol [Mass/Vol] 101 mg/dL Low 120-200 [facility] Comment on above: Order Comment: No: D o not add to previous draw Result Comment: CHOL ESTEROL REFERENCE RANGE: 20 YEARS AND OLDER CARDIOVASCULAR RISK Less than 200 mg/dl Low Risk 200 to 239 mg/dl Borderline Risk 240 mg/dl and greater High Risk Performed By: #### 0 0071, 39165, 02945 #### [facility] [address] Cholesterol in HDL [Mass/Vol] 29 mg/dL Normal 23-92 [facility] Comment on above: Order Comment: No: D o not add to previous draw Result Comment: Slig ht variation in normal range could be due to gender and/or age. HDL CHOLESTEROL REFERENCE RANGE: 20 years and older Cardiovascular Risk > or =60 mg/dL Desirable 40 TO 59 mg/dL Low Risk <40 mg/dL High Risk Performed By: #### 0 0071, 69257, 88595 #### [facility] [address] [place] [address], [facility] Cholesterol in LDL [Mass/Vol] 41 mg/dL Normal 0-130 [facility] Comment on above: Order Comment: No: D o not add to previous draw Result Comment: LDL IS A CALCULATION LDL IS ONLY VALID IF THE TRIG IS LESS THAN 400. Performed By: #### 0 0071, 71558, 40331 #### [facility] [address] [place] [address], [facility] Cholesterol.total/Ch olesterol in HDL [Mass ratio] 3.5 {ratio} Normal 0.0-4.5 [facility] Comment on above: Order Comment: No: D o not add to previous draw Performed By: #### 0 1, 45878, 97061 #### [facility] [address] [place] [address], [facility] NON-HDL CHOLESTEROL 72 mg/dL Normal [facility] Comment on above: Order Comment: No: D o not add to previous draw Performed By: #### 0 1, 59862, 21198 #### [facility] [address] [place] [address], [facility] Triglyceride [Mass/Vol] 157 mg/dL High 40-149 [facility] Comment on above: Order Comment: No: D o not add to previous draw Result Comment: TRIG LYCERIDE REFERENCE RANGE: 20 YEARS AND OLDER CARDIOVASCULAR RISK LESS THAN 150 mg/dl LOW RISK 150 TO 199 mg/dl BORDERLINE RISK 200 mg/dl AND GREATER HIGH RISK Performed By: #### 0 0071, 68469, 05179 #### [facility] [address] [place] [address], [place] VLDL CHOL 31 mg/dL Normal 0-40 [facility] Comment on above: Order Comment: No: D o not add to previous draw Performed By: #### 0 0071, 48006, 06737 #### [facility] [address] [place] [address], [facility] APTTon 05-08-2019 aPTT Coag (Bld) [Time] 33.4 s Normal 25.0-35.0 [facility] Comment on above: Order Comment: No: [...] THIS PURPOSE. Performed By: #### 0 0071, 22507, 49760 #### [facility] [address] [place] [address], [facility] BASIC METABOLIC PANELon 04-16 Calcium [Mass/Vol] 9.2 mg/dL Normal 8.6-10.3 [facility] Comment on above: Order Comment: No: D o not add to previous draw Performed By: #### 0 0071, 17292, 93572 #### [facility] [address] [place] [address], [facility] Chloride [Moles/Vol] 103 mmol/L Normal 98-107 [facility] Comment on above: Order Comment: No: D o not add to previous draw Performed By: #### 0 0071, 91434, 69138 #### [facility] [address] [place] [address], [place] CO2 [Moles/Vol] 27 mmol/L Normal 21-31 [facility] Comment on above: Order Comment: No: D o not add to previous draw Performed By: #### 0 0071, 47627, 76279 #### [facility] [address] [place] [address], [place] Creatinine [Mass/Vol] 1.06 mg/dL Normal 0.70-1.30 [facility] Comment on above: Order Comment: No: D o not add to previous draw Performed By: #### 0 0071, 68785, 01433 #### [facility] [address] [place] [address], [place] GFR/1.73 sq M predicted among blacks MDRD (S/P/Bld) [Vol rate/Area] mL/min/{1.73_m2} Normal >60 [facility] Comment on above: Order Comment: No: D o not add to previous draw Performed By: #### 0 0071, 77916, 60775 #### [facility] [address] [place] [address], [facility] GFR/1.73 sq M predicted among non-blacks MDRD (S/P/Bld) [Vol rate/Area] mL/min/{1.73_m2} Normal >60 [facility] Comment on above: Order Comment: No: D o not add to previous draw Performed By: #### 0 0071, 27534, 41340 #### [facility] [address] [place] [address], [place] Glucose [Mass/Vol] 110 mg/dL High 70-100 [facility] Comment [facility]: Order Comment: No: D o not add to previous draw Performed By: #### 0 0071, 26940, 88545 #### [facility] [address] [place] [address], [place] Potassium [Moles/Vol] 3.6 mmol/L Normal 3.5-5.1 [facility] Comment on above: Order Comment: No: D o not add to previous draw Performed By: #### 0 0071, 34595, 77703 #### [facility] [address] [place] [address], [place] Sodium [Moles/Vol] 137 mmol/L Normal 136-145 [facility] Comment on above: Order Comment: No: D o not add to previous draw Performed By: #### 0 0071, 92809, 66457 #### [facility] [address] [place] [address], [facility] Urea nitrogen [Mass/Vol] 21 mg/dL Normal 7-25 [facility] Comment on above: Order Comment: No: D o not add to previous draw Performed By: #### 0 0071, 06906, 44954 #### [facility] [address] [place] [address], [facility] CBC COMPLETE BLOOD COUNTon - Erythrocyte distribution width (RBC) [Ratio] 13.2 % Normal 11.5-15.0 [facility] Comment on above: Order Comment: No: D o not add to previous draw Performed By: #### 0 0071, 35387, 72469 #### [facility] [address] [place] [address], [facility] Hematocrit (Bld) [Volume fraction] 39.0 % Normal 39.0-50.0 [facility] Comment on above: Order Comment: No: D o not add to previous draw Performed By: #### 0 0071, 65173, 11690 #### [facility] [address] [place] [address], [facility] Hemoglobin (Bld) [Mass/Vol] 13.0 g/dL Normal 13.0-17.0 [facility] Comment on above: Order Comment: No: D o not add to previous draw Performed By: #### 0 0071, 65797, 03628 #### [facility] [address] [place] [address], [place] MCH (RBC) [Entitic mass] 31.0 pg Normal 27.0-33.0 [facility] Comment on above: Order Comment: No: D o not add to previous draw Performed By: #### 0 0071, 56849, 17969 #### [facility] [address] MCHC (RBC) [Mass/Vol] 33.3 g/dL Normal 32.0-35.0 [facility] Comment on above: Order Comment: No: D o not add to previous draw Performed By: #### 0 0071, 86869, 09821 #### [facility] [address] [place] [address], [facility] MCV (RBC) [Entitic vol] 93.1 fL Normal 82.0-98.0 [facility] Comment on above: Order Comment: No: D o not add to previous draw Performed By: #### 0 0071, 54563, 51371 #### [facility] [address] Nucleated RBC/100 WBC (Bld) [Ratio] 0 % Normal 0-0 [facility] Comment on above: Order Comment: No: D o not add to previous draw Performed By: #### 0 0071, 34279, 35084 #### [facility] [address] [place] [address], [facility] PLAT CNT 187 10*3/uL Normal 150-400 [facility] Comment on above: Order Comment: No: D o not add to previous draw Performed By: #### 0 0071, 89587, 59918 #### [facility] [address] [facility] [place] [address], [facility] RBC (Bld) [#/Vol] 4.19 10*6/uL Low 4.20-5.70 [facility] Comment on above: Order Comment: No: D o not add to previous draw Performed By: #### 0 0071, 85723, 01643 #### [facility] [address] [facility] [place] [address], [facility] WBC (Bld) [#/Vol] 8.56 10*3/uL Normal 4.00-10.60 [facility] Comment on above: Order Comment: No: D o not add to previous draw Performed By: #### 0 0071, 95803, 35529 #### [facility] [address] [place] [address], [place] MAGNESIUM BLOODon 05-08-2019 Magnesium [Mass/Vol] 1.8 mg/dL Low 1.9-2.7 [facility] Comment on above: Order Comment: No: D o not add to previous draw Performed By: #### 0 0071, 07534, 52109 #### [facility] [address] [place] [address], [facility] POC GLUCOSE LABon 05-08-2019 Glucose [Mass/Vol] CANCELED Normal 70-100 [facility] Comment [facility]: Order Comment: No: D o not add to previous draw Result Comment: The released value 147 was canceled by BAIRON on 05/08/2019 16:27 Performed By: #### 0 0071, 82858, 43210 #### [facility] [address] [place] [address], [facility] NOTE CANCELED Normal The [facility] Comment on above: Order Comment: No: D o not add to previous draw Performed By: #### 0 0071, 41873, 53804 #### [facility] [address] [place] [address], [place] Glucose [Mass/Vol] 108 mg/dL High 70-100 [facility] Comment on above: Performed By: #### 0 0071, 79524, 14917 #### [facility] [address] [place] [address], [place] PROTHROMBIN TIMEon 9 INR Coag (PPP) [Relative time] 1.05 {INR} Normal 0.91-1.16 [facility] Comment on above: Order Comment: [...] CHEST 1995;[id number]. Performed By: #### 0 0071, 91597, 58173 #### [facility] [address] PT Coag (PPP) [Time] 13.7 s Normal 12.3-14.8 [facility] Comment on above: Order Comment: No: D o not add to previous draw Result Comment: ALL RESULTS MUST BE INTERPRETED WITH RESPECT TO BLOOD DRAWING ARTIFACT OR DILUTION ERROR OF ANTICOAGULANT AT THE TIME OF SAMPLING. Performed By: #### 0 0071, 63985, 56200 #### [facility] [address] [place] [address], [facility] TROPONIN-Ion 05-08-2019 Troponin I.cardiac [Mass/Vol] 0.34 ng/mL Critically high 0.00-0.04 [facility] Comment on above: Order Comment: No: D o not add to previous draw Result Comment: M-WI EVIOUS CRITICAL RESULT REFERENCE RANGES: 0.00 - 0.04 ng/ml NORMAL 0.05 - 0.50 ng/ml INDETERMINATE > 0.50 ng/ml CONSISTENT WITH AN M.I. Performed By: #### 0 0071, 17598, 89088 #### [facility] [address] [place] [address], [facility] Troponin I.cardiac [Mass/Vol] 0.59 ng/mL Critically high 0.00-0.04 [facility] Comment on above: Order Comment: No: D o not add to previous draw Result Comment: REFE RENCE RANGES: 0.00 - 0.04 ng/ml NORMAL 0.05 - 0.50 ng/ml INDETERMINATE > 0.50 ng/ml CONSISTENT WITH AN M.I. Performed By: #### 0 0071, 88726, 05161 #### [facility] [address] Troponin I.cardiac [Mass/Vol] 0.74 ng/mL Critically high 0.00-0.04 [facility] Comment on above: Order Comment: No: [...] AN M.I. Performed By: #### 0 0071, 43189, 34803 #### [facility] [address] [facility]. [address] UFH HEPARIN ASSAYon 05-08-20 19 UNFRACTIONATED HEPARIN 0.47 IU/mL Normal 0.30-0.70 [facility] Comment on above: Result Comment: [place] roxaban and Apixaban will interfere with the anti Xa assay used to monitor UFH and LMWH. Performed By: #### 0 0071, 96281, 76660 #### [facility] [address] [facility] [address] BASIC METABOLIC PANELon 05- Calcium [Mass/Vol] 8.8 mg/dL Normal 8.6-10.3 [facility] Comment on above: Order Comment: No: D o not add to previous draw Performed By: #### 0 0071, 27076, 71815 #### [facility] [address] [place] [address], [place] Chloride [Moles/Vol] 106 mmol/L Normal 98-107 [facility] Comment on above: Order Comment: No: D o not add to previous draw Performed By: #### 0 0071, 13407, 74676 #### [facility] [address] [place] [address], [place] CO2 [Moles/Vol] 24 mmol/L Normal 21-31 The [facility] Comment on above: Order Comment: No: D o not add to previous draw Performed By: #### 0 0071, 95786, 00769 #### [facility] [address] [place] [address], [place] Creatinine [Mass/Vol] 0.90 mg/dL Normal 0.70-1.30 [facility] Comment on above: Order Comment: No: D o not add to previous draw Performed By: #### 0 0071, 45337, 67883 #### [facility] [address] [place] [address], [place] GFR/1.73 sq M predicted among blacks MDRD (S/P/Bld) [Vol rate/Area] mL/min/{1.73_m2} Normal >60 [facility] Comment on above: Order Comment: No: D o not add to previous draw Performed By: #### 0 0071, 94356, 45995 #### [facility] [address] [place] [address], [place] GFR/1.73 sq M predicted among non-blacks MDRD (S/P/Bld) [Vol rate/Area] mL/min/{1.73_m2} Normal >60 [facility] Comment on above: Order Comment: No: D o not add to previous draw Performed By: #### 0 0071, 93193, 21769 #### [facility] [address] [place] [address], [place] Glucose [Mass/Vol] 104 mg/dL High 70-100 [facility] Comment on above: Order Comment: No: D o not add to previous draw Performed By: #### 0 0071, 79663, 45247 #### [facility] [address] [place] [address], [facility] Potassium [Moles/Vol] 4.0 mmol/L Normal 3.5-5.1 [facility] Comment on above: Order Comment: No: D o not add to previous draw Performed By: #### 0 0071, 37905, 83376 #### [facility] [address] [place] [address], [facility] Sodium [Moles/Vol] 137 mmol/L Normal 136-145 [facility] Comment on above: Order Comment: No: D o not add to previous draw Performed By: #### 0 0071, 10567, 76748 #### [facility] [address] [facility]. [address] Urea nitrogen [Mass/Vol] 11 mg/dL Normal 7-25 [facility] Comment on above: Order Comment: No: D o not add to previous draw Performed By: #### 0 0071, 46776, 14600 #### [facility] [address] [facility]. [address] CBC W/DIFFon 12-28-2018 ABS BASOPHILS 0.1 10*3/uL Normal 0.0-0.2 The [facility] Comment on above: Order Comment: No: D o not add to previous draw Performed By: #### 0 0071, 90313, 04698 #### [facility] [address] [facility] [place] [address], [facility] ABS IMM GRANS 0.0 10*3/uL Normal 0.0-0.2 [facility] Comment on above: Order Comment: No: D o not add to previous draw Performed By: #### 0 0071, 23162, 26560 #### [facility] [address] [place] [address], [facility] ABS NEUTROPHILS 4.0 10*3/uL Normal 1.6-7.6 [facility] Comment on above: Order Comment: No: D o not add to previous draw Performed By: #### 0 1, 26369, 30094 #### [facility] [address] [place] [address], [facility] Basophils/100 WBC (Bld) 0.7 % Normal 0.0-1.0 [facility] Comment on above: Order Comment: No: D o not add to previous draw Performed By: #### 0 70, 01362, 70920 #### [facility] [address] [place] [address], [facility] Eosinophils (Bld) [#/Vol] 0.3 10*3/uL Normal 0.0-0.5 [facility] Comment on above: Order Comment: No: D o not add to previous draw Performed By: #### 0 70, , 95645 #### [facility] [address] [place] [address], [facility] Eosinophils/100 WBC (Bld) 3.8 % Normal 0.0-6.0 [facility] Comment on above: Order Comment: No: D o not add to previous draw Performed By: #### 0 70, 59577, 08243 #### [facility] [address] [place] [address], [facility] Erythrocyte distribution width (RBC) [Ratio] 12.9 % Normal 11.5-15.0 [facility] Comment on above: Order Comment: No: D o not add to previous draw Performed By: #### 0 1, 11320, 25143 #### [facility] [address] [place] [address], [facility] Hematocrit (Bld) [Volume fraction] 37.0 % Low 39.0-50.0 [facility] Comment on above: Order Comment: No: D o not add to previous draw Performed By: #### 0 1, 66702, 07884 #### [facility] [address] [place] [address], [facility] Hemoglobin (Bld) [Mass/Vol] 12.4 g/dL Low 13.0-17.0 [facility] Comment on above: Order Comment: No: D o not add to previous draw Performed By: #### 0 1, 19073, 56046 #### [facility] [address] [place] [address], [facility] IMMATURE GRANS 0.3 % Normal 0.0-1.0 The [facility] Comment on above: Order Comment: No: D o not add to previous draw Performed By: #### 0 70, , 76460 #### [facility] [address] [facility] [place] [address], [facility] Lymphocytes (Bld) [#/Vol] 2.4 10*3/uL Normal 1.2-4.0 [facility] Comment on above: Order Comment: No: D o not add to previous draw Performed By: #### 0 70, 77742, 73447 #### [facility] [address] [facility] [place] [address], [facility] Lymphocytes/100 WBC (Bld) 31.7 % Normal 20.0-45.0 [facility] Comment on above: Order Comment: No: D o not add to previous draw Performed By: #### 0 1, 85515, 13240 #### [facility] [address] [place] [address], [facility] MCH (RBC) [Entitic mass] 31.5 pg Normal 27.0-33.0 [facility] Comment on above: Order Comment: No: D o not add to previous draw Performed By: #### 0 70, 71181, 10596 #### [facility] [address] [place] [address], [facility] MCHC (RBC) [Mass/Vol] 33.5 g/dL Normal 32.0-35.0 [facility] Comment on above: Order Comment: No: D o not add to previous draw Performed By: #### 0 0071, 57406, 32065 #### [facility] [address] [place] [id number], [facility] MCV (RBC) [Entitic vol] 93.9 fL Normal 82.0-98.0 [facility] Comment on above: Order Comment: No: D o not add to previous draw Performed By: #### 0 0071, 26331, 73891 #### [facility] [address] [facility] [place] [address], [facility] Monocytes (Bld) [#/Vol] 0.7 10*3/uL Normal 0.1-1.0 [facility] Comment on above: Order Comment: No: D o not add to previous draw Performed By: #### 0 0071, 48725, 19686 #### [facility] [address] [place] [address], [facility] MONOS 9.9 % Normal 5.0-12.0 [facility] Comment on above: Order Comment: No: D o not add to previous draw Performed By: #### 0 0071, 23338, 07779 #### [facility] [address] [place] [address], [facility] Neutrophils/100 WBC (Bld) 53.6 % Normal 40.0-72.0 [facility] Comment on above: Order Comment: No: D o not add to previous draw Performed By: #### 0 0071, 45874, 12714 #### [facility] [address] [place] [address], [facility] Nucleated RBC/100 WBC (Bld) [Ratio] 0 % Normal 0-0 [facility] Comment on above: Order Comment: No: D o not add to previous draw Performed By: #### 0 0071, 85189, 07243 #### [facility] [address] [place] [address], [facility] PLAT CNT 208 10*3/uL Normal 150-400 The [facility] Comment on above: Order Comment: No: D o not add to previous draw Performed By: #### 0 0071, 49716, 18120 #### [facility] [address] RBC (Bld) [#/Vol] 3.94 10*6/uL Low 4.20-5.70 The [facility] Comment on above: Order Comment: No: D o not add to previous draw Performed By: #### 0 0071, 42749, 55894 #### [facility] [address] [facility] [address] WBC (Bld) [#/Vol] 7.41 10*3/uL Normal 4.00-10.60 [facility] Comment on above: Order Comment: No: D o not add to previous draw Performed By: #### 0 0071, 22652, 41087 #### [facility] [address] [facility]. [address] History and Physicalon 12-28 History and Physical MR#: [id number] [facility] Pt. Name: Weston Cano Admitted: 12/27/2018 Date of : 1960 Attending Physician: Nate French MD Room #: [id number] Discharge Date: HISTORY AND PHYSICAL TIME: 11:15 p.m. CHIEF COMPLAINT: Syncope. HISTORY OF PRESENT ILLNESS: This is a 58-year-old male, who had CABG for 3-vessel coronary artery disease about a month ago. Today, he presented to [facility] after having an episode of syncope. [...] passing out or after recovering. In the [facility], the patient had EKG without any acute ST-segment or T-wave changes, but troponins of 0.12 and due to history of recent CABG for 3-vessel coronary artery disease the patient was started on IV heparin for non ST-elevation ND and transferred to [facility] for plan of care. At [...] artery bypass graft. 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 FAMILY HISTORY: Reviewed, noncontributory. MEDICATION LIST: Reviewed [...] P/Nate French MD Date Trans: 12/28/2018 01:02 A/love [id number] Normal [facility] TROPONIN-Ion 12-28-2018 Troponin I.cardiac [Mass/Vol] 0.04 ng/mL Normal 0.00-0.04 [facility] Comment on above: Result Comment: REFE LIBAN RANGES: 0.00 - 0.04 ng/ml NORMAL 0.05 - 0.50 ng/ml INDETERMINATE > 0.50 ng/ml CONSISTENT WITH AN M.I. Performed By: #### 0 0071, 31423, 59691 #### [facility] [address] [facility] [place] [address], [facility] Troponin I.cardiac [Mass/Vol] 0.05 ng/mL High 0.00-0.04 [facility] Comment on above: Order Comment: No: D o not add to previous draw Result Comment: REFE LIBAN RANGES: 0.00 - 0.04 ng/ml NORMAL 0.05 - 0.50 ng/ml INDETERMINATE > 0.50 ng/ml CONSISTENT WITH AN M.I. Performed By: #### 0 0071, 38563, 30710 #### [facility] [address] [place] [address], [facility] UFH HEPARIN ASSAYon 12-29-19 UNFRACTIONATED HEPARIN 0.32 IU/mL Normal 0.30-0.70 [facility] Comment on above: Result Comment: [place] roxaban and Apixaban will interfere with the anti Xa assay used to monitor UFH and LMWH. Performed By: #### 0 0071, 29681, 56754 #### [facility] [address] UNFRACTIONATED HEPARIN 0.20 IU/mL Low 0.30-0.70 [facility] Comment on above: Result Comment: Jo roxaban and Apixaban will interfere with the anti Xa assay used to monitor UFH and LMWH. Performed By: #### 0 0071, 25479, 05619 #### [facility] [address] [place] [address], [facility] POC GLUCOSE LABon 12-01-2018 Glucose [Mass/Vol] 138 mg/dL High 70-100 [facility] Comment on above: Performed By: #### 0 0071, 26614, 98395 #### [facility] [address] [place] [address], [facility] Glucose [Mass/Vol] 99 mg/dL Normal 70-100 [facility] Comment on above: Performed By: #### 0 0071, 23854, 06453 #### [facility] [address] [place] [address], [facility] BASIC METABOLIC PANELon 11-13 Calcium [Mass/Vol] 8.3 mg/dL Low 8.6-10.3 [facility] Comment on above: Order Comment: No: D o not add to previous draw Performed By: #### 0 0071, 48134, 97804 #### [facility] [address] [place] [address], [place] Chloride [Moles/Vol] 108 mmol/L High 98-107 [facility] Comment on above: Order Comment: No: D o not add to previous draw Performed By: #### 0 0071, 85892, 78654 #### [facility] [address] [place] [address], [place] CO2 [Moles/Vol] 25 mmol/L Normal 21-31 [facility] Comment on above: Order Comment: No: D o not add to previous draw Performed By: #### 0 0071, 01761, 18250 #### [facility] [address] [place] [address], [facility] Creatinine [Mass/Vol] 0.94 mg/dL Normal 0.70-1.30 [facility] Comment on above: Order Comment: No: D o not add to previous draw Performed By: #### 0 0071, 78150, 74183 #### [facility] [address] [place] [address], [place] GFR/1.73 sq M predicted among blacks MDRD (S/P/Bld) [Vol rate/Area] mL/min/{1.73_m2} Normal >60 [facility] Comment on above: Order Comment: No: D o not add to previous draw Performed By: #### 0 0071, 28151, 07234 #### [facility] [address] [place] [address], [place] GFR/1.73 sq M predicted among non-blacks MDRD (S/P/Bld) [Vol rate/Area] mL/min/{1.73_m2} Normal >60 [facility] Comment on above: Order Comment: No: D o not add to previous draw Performed By: #### 0 0071, 70395, 04126 #### [facility] [address] [place] [address], [place] Glucose [Mass/Vol] 103 mg/dL High 70-100 [facility] Comment on above: Order Comment: No: D o not add to previous draw Performed By: #### 0 0071, 73845, 22584 #### [facility] [address] [place] [address], [facility] Potassium [Moles/Vol] 3.5 mmol/L Normal 3.5-5.1 [facility] Comment on above: Order Comment: No: D o not add to previous draw Performed By: #### 0 0071, 66557, 96606 #### [facility] [address] [place] [id number], [facility] Sodium [Moles/Vol] 141 mmol/L Normal 136-145 [facility] Comment on above: Order Comment: No: D o not add to previous draw Performed By: #### 0 0071, 46353, 67172 #### [facility] [address] Urea nitrogen [Mass/Vol] 17 mg/dL Normal 7-25 [facility] Comment on above: Order Comment: No: D o not add to previous draw Performed By: #### 0 1, 87879, 97344 #### [facility] [address] CBC COMPLETE BLOOD COUNTon 0 - Erythrocyte distribution width (RBC) [Ratio] 12.7 % Normal 11.5-15.0 [facility] Comment on above: Order Comment: No: D o not add to previous draw Performed By: #### 0 0071, 14079, 47828 #### [facility] [address] [place] [id number], [facility] Hematocrit (Bld) [Volume fraction] 29.2 % Low 39.0-50.0 [facility] Comment on above: Order Comment: No: D o not add to previous draw Performed By: #### 0 0071, 43473, 11741 #### [facility] [address] Hemoglobin (Bld) [Mass/Vol] 9.8 g/dL Low 13.0-17.0 [facility] Comment on above: Order Comment: No: D o not add to previous draw Performed By: #### 0 0071, 14324, 58432 #### [facility] [address] [place] [address], [facility] MCH (RBC) [Entitic mass] 32.1 pg Normal 27.0-33.0 [facility] Comment on above: Order Comment: No: D o not add to previous draw Performed By: #### 0 70, 83299, 57279 #### [facility] [address] [place] [address], [facility] MCHC (RBC) [Mass/Vol] 33.6 g/dL Normal 32.0-35.0 [facility] Comment on above: Order Comment: No: D o not add to previous draw Performed By: #### 0 007, , 70898 #### [facility] [address] [facility] [place] [address], [facility] MCV (RBC) [Entitic vol] 95.7 fL Normal 82.0-98.0 [facility] Comment on above: Order Comment: No: D o not add to previous draw Performed By: #### 0 70, 37566, 53281 #### [facility] [address] [facility] [place] [address], [facility] Nucleated RBC/100 WBC (Bld) [Ratio] 0 % Normal 0-0 [facility] Comment on above: Order Comment: No: D o not add to previous draw Performed By: #### 0 0071, 49054, 79200 #### [facility] [address] [place] [address], [facility] PLAT CNT 206 10*3/uL Normal 150-400 [facility] Comment on above: Order Comment: No: D o not add to previous draw Performed By: #### 0 0071, 02437, 57427 #### [facility] [address] [place] [address], [place] RBC (Bld) [#/Vol] 3.05 10*6/uL Low 4.20-5.70 [facility] Comment on above: Order Comment: No: D o not add to previous draw Performed By: #### 0 0071, 19515, 97767 #### [facility] [address] [place] [address], [place] WBC (Bld) [#/Vol] 7.92 10*3/uL Normal 4.00-10.60 [facility] Comment on above: Order Comment: No: D o not add to previous draw Performed By: #### 0 0071, 79320, 76475 #### [facility] [address] [place] [address], [place] MAGNESIUM BLOODon 11-30-2018 Magnesium [Mass/Vol] 2.0 mg/dL Normal 1.9-2.7 [facility] Comment on above: Order Comment: No: D o not add to previous draw Performed By: #### 0 0071, 30124, 98003 #### [facility] [address] [place] [address], [place] POC GLUCOSE LABon 11-30-2018 Glucose [Mass/Vol] 144 mg/dL High 70-100 [facility] Comment on above: Performed By: #### 0 0071, 92554, 57538 #### [facility] [address] [place] [address], [place] Glucose [Mass/Vol] 142 mg/dL High 70-100 [facility] Comment on above: Performed By: #### 0 0071, 80607, 77860 #### [facility] [address] [place] [address], [place] Glucose [Mass/Vol] 110 mg/dL High 70-100 [facility] Comment on above: Performed By: #### 0 0071, 08435, 89728 #### [facility] [address] [place] [address], [place] Glucose [Mass/Vol] 120 mg/dL High 70-100 [facility] Comment on above: Performed By: #### 0 0071, 50948, 25034 #### [facility] [address] [place] [address], [place] POC GLUCOSE LABon 11-29-2018 Glucose [Mass/Vol] 105 mg/dL High 70-100 [facility] Comment on above: Performed By: #### 0 0071, 21201, 25151 #### [facility] [address] [place] [address], [place] Glucose [Mass/Vol] 77 mg/dL Normal 70-100 [facility] Comment on above: Performed By: #### 0 0071, 70289, 56122 #### [facility] [address] [place] [address], [place] Glucose [Mass/Vol] 247 mg/dL High 70-100 [facility] Comment on above: Performed By: #### 0 0071, 96262, 18515 #### [facility] [address] [place] [address], [place] Glucose [Mass/Vol] 119 mg/dL High 70-100 [facility] Comment on above: Performed By: #### 0 0071, 81857, 02595 #### [facility] [address] [place] [address], [place] POC GLUCOSE LABon 11-28-2018 Glucose [Mass/Vol] 142 mg/dL High 70-100 [facility] Comment on above: Performed By: #### 0 0071, 82268, 41213 #### [facility] [address] [place] [address], [place] Glucose [Mass/Vol] 132 mg/dL High 70-100 [facility] Comment on above: Performed By: #### 0 0071, 11639, 59829 #### [facility] [address] [place] [address], [place] Glucose [Mass/Vol] 152 mg/dL High 70-100 [facility] Comment on above: Performed By: #### 0 0071, 13808, 12748 #### [facility] [address] [place] [address], [place] Glucose [Mass/Vol] 109 mg/dL High 70-100 [facility] Comment on above: Performed By: #### 0 0071, 84400, 01381 #### [facility] [address] [place] [address], [place] BASIC METABOLIC PANELon 11-13 Calcium [Mass/Vol] 8.3 mg/dL Low 8.6-10.3 [facility] Comment on above: Order Comment: No: D o not add to previous draw Performed By: #### 0 0071, 58257, 93929 #### [facility] [address] [place] [address], [place] Chloride [Moles/Vol] 108 mmol/L High 98-107 [facility] Comment on above: Order Comment: No: D o not add to previous draw Performed By: #### 0 0071, 43494, 49400 #### [facility] [address] [place] [address], [place] CO2 [Moles/Vol] 26 mmol/L Normal 21-31 [facility] Comment on above: Order Comment: No: D o not add to previous draw Performed By: #### 0 0071, 10436, 90113 #### [facility] [address] [place] [address], [place] Creatinine [Mass/Vol] 0.91 mg/dL Normal 0.70-1.30 [facility] Comment on above: Order Comment: No: D o not add to previous draw Performed By: #### 0 0071, 19673, 91927 #### [facility] [address] [place] [address], [place] GFR/1.73 sq M predicted among blacks MDRD (S/P/Bld) [Vol rate/Area] mL/min/{1.73_m2} Normal >60 [facility] Comment on above: Order Comment: No: D o not add to previous draw Performed By: #### 0 0071, 62119, 06029 #### [facility] [address] [place] [address], [place] GFR/1.73 sq M predicted among non-blacks MDRD (S/P/Bld) [Vol rate/Area] mL/min/{1.73_m2} Normal >60 [facility] Comment on above: Order Comment: No: D o not add to previous draw Performed By: #### 0 0071, 64161, 29303 #### [facility] [address] [place] [address], [place] Glucose [Mass/Vol] 113 mg/dL High 70-100 [facility] Comment on above: Order Comment: No: D o not add to previous draw Performed By: #### 0 0071, 39639, 71287 #### [facility] [address] [place] [address], [place] Potassium [Moles/Vol] 4.1 mmol/L Normal 3.5-5.1 [facility] Comment on above: Order Comment: No: D o not add to previous draw Performed By: #### 0 0071, 49511, 80333 #### [facility] [address] [place] [address], [place] Sodium [Moles/Vol] 137 mmol/L Normal 136-145 [facility] Comment on above: Order Comment: No: D o not add to previous draw Performed By: #### 0 0071, 98769, 18875 #### [facility] [address] Urea nitrogen [Mass/Vol] 10 mg/dL Normal 7-25 [facility] Comment on above: Order Comment: No: D o not add to previous draw Performed By: #### 0 0071, 86119, 99192 #### [facility] [address] [place] [address], [facility] CBC W/DIFFon 11-27-2018 ABS BASOPHILS 0.0 10*3/uL Normal 0.0-0.2 [facility] Comment on above: Order Comment: No: D o not add to previous draw Performed By: #### 5 6101, 66116 #### [facility] [address] ABS IMM GRANS 0.1 10*3/uL Normal 0.0-0.2 [facility] Comment on above: Order Comment: No: D o not add to previous draw Performed By: #### 5 6101, 48671 #### [facility] [address] [facility] ABS NEUTROPHILS 8.1 10*3/uL High 1.6-7.6 [facility] Comment on above: Order Comment: No: D o not add to previous draw Performed By: #### 5 6101, 03694 #### [facility] [address] [place] [address], [facility] Basophils/100 WBC (Bld) 0.4 % Normal 0.0-1.0 [facility] Comment on above: Order Comment: No: D o not add to previous draw Performed By: #### 5 610, 12972 #### [facility] [address] [place] [address], [facility] Eosinophils (Bld) [#/Vol] 0.2 10*3/uL Normal 0.0-0.5 [facility] Comment on above: Order Comment: No: D o not add to previous draw Performed By: #### 5 6100, 27281 #### [facility] [address] [place] [address], [facility] Eosinophils/100 WBC (Bld) 1.9 % Normal 0.0-6.0 [facility] Comment on above: Order Comment: No: D o not add to previous draw Performed By: #### 5 6100, 15025 #### [facility] [address] [place] [address], [facility] Erythrocyte distribution width (RBC) [Ratio] 13.2 % Normal 11.5-15.0 [facility] Comment on above: Order Comment: No: D o not add to previous draw Performed By: #### 5 6100, 81915 #### [facility] [address] [place] [address], [facility] Hematocrit (Bld) [Volume fraction] 26.9 % Low 39.0-50.0 [facility] Comment on above: Order Comment: No: D o not add to previous draw Performed By: #### 5 6100, 14745 #### [facility] [address] [place] [address], [facility] Hemoglobin (Bld) [Mass/Vol] 9.2 g/dL Low 13.0-17.0 [facility] Comment on above: Order Comment: No: D o not add to previous draw Performed By: #### 5 6100, 15097 #### [facility] [address] [place] [address], [facility] IMMATURE GRANS 0.6 % Normal 0.0-1.0 [facility] Comment on above: Order Comment: No: D o not add to previous draw Performed By: #### 5 6100, 66949 #### [facility] [address] [place] [address], [facility] Lymphocytes (Bld) [#/Vol] 1.7 10*3/uL Normal 1.2-4.0 [facility] Comment on above: Order Comment: No: D o not add to previous draw Performed By: #### 5 6100, 55751 #### [facility] [address] [place] [id number], [facility] Lymphocytes/100 WBC (Bld) 15.0 % Low 20.0-45.0 [facility] Comment on above: Order Comment: No: D o not add to previous draw Performed By: #### 5 6100, 57581 #### [facility] [address] [place] [address], [facility] MCH (RBC) [Entitic mass] 32.9 pg Normal 27.0-33.0 [facility] Comment on above: Order Comment: No: D o not add to previous draw Performed By: #### 5 6100, 59984 #### [facility] [address] [place] [id number], [facility] MCHC (RBC) [Mass/Vol] 34.2 g/dL Normal 32.0-35.0 [facility] Comment on above: Order Comment: No: D o not add to previous draw Performed By: #### 5 6100, 37159 #### [facility] [address] [place] [address], [facility] MCV (RBC) [Entitic vol] 96.1 fL Normal 82.0-98.0 [facility] Comment on above: Order Comment: No: D o not add to previous draw Performed By: #### 5 610, 63103 #### [facility] [address] [place] [address], [facility] Monocytes (Bld) [#/Vol] 1.0 10*3/uL Normal 0.1-1.0 [facility] Comment on above: Order Comment: No: D o not add to previous draw Performed By: #### 5 610, 09542 #### [facility] [address] [place] [address], [place] MONOS 9.3 % Normal 5.0-12.0 [facility] Comment on above: Order Comment: No: D o not add to previous draw Performed By: #### 5 610, 10573 #### [facility] [address] [place] [address], [place] Neutrophils/100 WBC (Bld) 72.8 % High 40.0-72.0 [facility] Comment on above: Order Comment: No: D o not add to previous draw Performed By: #### 5 610, 47835 #### [facility] [address] [place] [address], [place] Nucleated RBC/100 WBC (Bld) [Ratio] 0 % Normal 0-0 [facility] Comment on above: Order Comment: No: D o not add to previous draw Performed By: #### 5 610, 86687 #### [facility] [address] [place] [address], [place] PLAT CNT 120 10*3/uL Low 150-400 [facility] Comment on above: Order Comment: No: D o not add to previous draw Performed By: #### 5 610, 84265 #### [facility] [address] [place] [address], [place] RBC (Bld) [#/Vol] 2.80 10*6/uL Low 4.20-5.70 [facility] Comment on above: Order Comment: No: D o not add to previous draw Performed By: #### 5 610, 72789 #### [facility] [address] [place] [address], [place] WBC (Bld) [#/Vol] 11.16 10*3/uL High 4.00-10.60 [facility] Comment on above: Order Comment: No: D o not add to previous draw Performed By: #### 5 6101, 61806 #### [facility] [address] [place] [address], [facility] MAGNESIUM BLOODon 11-27-2018 Magnesium [Mass/Vol] 1.9 mg/dL Normal 1.9-2.7 [facility] Comment on above: Order Comment: No: D o not add to previous draw Performed By: #### 5 6101, 15655 #### [facility] [address] Operative Reporton 9 Operative Report MR#: [id number] I [facility] Pt. Name: Weston Cano Room #: 3CD 192019 Discharge Date: Birthdate: 1960 OPERATIVE REPORT DATE [...] the OM. 2. RCA and PLV endarterectomy. DESIGN DRAFTER: 1. DENISE Arriaga. 2. DENISE Bernal. ANESTHESIA: [...] Monitoring lines consisted of a right IJ Alden-Comfort catheter, right radial artery pressure catheter, Astudillo [...] anastomoses proximally and distally to assure patency. shot examiner was given. The patient was then placed [...] Rio MD Date Trans: 11/27/2018 02:17 A/love [id number] cc: Estefania Weeks M.D. [address] [place] [address] Normal [facility] PHOSPHORUS BLOODon 9 Phosphate [Mass/Vol] 2.8 mg/dL Normal 2.5-5.0 [facility] Comment on above: Order Comment: No: D o not add to previous draw Performed By: #### 5 6101, 27553 #### [facility] [address] [place] [address], [place] POC GLUCOSE LABon 11-27-2018 Glucose [Mass/Vol] 121 mg/dL High 70-100 [facility] Comment on above: Performed By: #### 0 0071, 47002, 84218 #### [facility] [address] [place] [address], [place] Glucose [Mass/Vol] 87 mg/dL Normal 70-100 [facility] Comment on above: Performed By: #### 0 0071, 32121, 69035 #### [facility] [address] [place] [address], [place] Glucose [Mass/Vol] 113 mg/dL High 70-100 [facility] Comment on above: Performed By: #### 0 0071, 25399, 37033 #### [facility] [address] [place] [address], [place] Glucose [Mass/Vol] 128 mg/dL High 70-100 [facility] Comment on above: Performed By: #### 0 0071, 20421, 50049 #### [facility] [address] [facility] [place] [address], [facility] PORTABLE CHEST 1 VIEWon 11-13 PORTABLE CHEST 1 VIEW [facility] Department of Radiology [address] [place] [address] Patient Name: WESTON CANO : 1960 Sex: M Age: Race: White Pt. Location: [id number] Patient Status: I Ordered Date: 11/27/2018 7:00:00 [...] probable infiltrate. There is left basilar atelectasis. Alden-Comfort catheter has been removed. Patient has been extubated. IMPRESSION: Patient has been extubated with removal of Alden-Comfort catheter. Chronic cardiomegaly. Right basilar effusion and probable infiltrate/atelectas is. Electronically signed by:Kena Nix. Transcribed by: [email or web address], User Resident: Electronically Signed by: KENA NIX @ 11/27/2018 07:43 AM Normal [facility] Comment on above: Order Comment: No: D o not add to previous draw ARTERIAL BLOOD GAS WITH ICAo n 11-26-2018 BASE EXCESS -5 mmol/L Low -2-3 [facility] Comment on above: Performed By: #### 4 1000, 13536, 32314 #### [facility] [address] [place] [address], [facility] [employer] NASAL CANNULA Normal [facility] Comment on above: Performed By: #### 4 999, , 28369 #### [facility] [address] [place] [address], [place] HCO3 (Bld) [Moles/Vol] 19 mmol/L Low 21-28 [facility] Comment on above: Performed By: #### 4 1000, , #### [facility] [address] [place] [address], [place] IONIZED CALCIUM 1.17 mmol/L Normal 1.13-1.32 [facility] Comment on above: Performed By: #### 4 999, , #### [facility] [address] [place] [address], [place] LPM 3.0 LPM Normal [facility] Comment on above: Performed By: #### 4 999, , 29486 #### [facility] [address] [place] [address], [place] Oxygen (Bld) [Partial pressure] 61 mm[Hg] Low 83-108 [facility] Comment on above: Performed By: #### 4 999, , 83865 #### [facility] [address] [place] [address], [place] Oxygen saturation in Blood 90.2 % Low 94.0-97.0 [facility] Comment on above: Performed By: #### 4 999, , 19027 #### [facility] [address] [place] [address], [place] PCO2 30 mmHg Low 35-45 [facility] Comment on above: Performed By: #### 4 1000, , 07685 #### [facility] [address] [place] [address], [place] pH (Bld) 7.41 [pH] Normal 7.35-7.45 [facility] Comment on above: Result Comment: PLEA SE NOTE: Effective 10/17/18, reference ranges for Respiratory GEM analyzers running arterial blood have been updated to reflect the account analyst's published reference ranges. Performed By: #### 4 1000, 06957, 55890 #### [facility] [address] [place] [id number], [place] BASIC METABOLIC PANELon - Calcium [Mass/Vol] 8.3 mg/dL Low 8.6-10.3 [facility] Comment on above: Performed By: #### 4 1000, 56821, 63057 #### [facility] [address] [place] [address], [place] Chloride [Moles/Vol] 114 mmol/L High 98-107 [facility] Comment on above: Performed By: #### 4 1000, , 76422 #### [facility] [address] [place] [address], [place] CO2 [Moles/Vol] 19 mmol/L Low 21-31 [facility] Comment on above: Performed By: #### 4 1000, , 11097 #### [facility] [address] [place] [address], [place] Creatinine [Mass/Vol] 1.00 mg/dL Normal 0.70-1.30 [facility] Comment on above: Performed By: #### 4 1000, , 83592 #### [facility] [address] [place] [address], [place] GFR/1.73 sq M predicted among blacks MDRD (S/P/Bld) [Vol rate/Area] mL/min/{1.73_m2} Normal >60 [facility] Comment on above: Performed By: #### 4 1000, , 11378 #### [facility] [address] [place] [address], [place] GFR/1.73 sq M predicted among non-blacks MDRD (S/P/Bld) [Vol rate/Area] mL/min/{1.73_m2} Normal >60 [facility] Comment on above: Performed By: #### 4 1000, , 47406 #### [facility] [address] [place] [address], [facility] Glucose [Mass/Vol] 153 mg/dL High 70-100 [facility] Comment on above: Performed By: #### 4 1000, , 48861 #### [facility] [address] [facility] [place] [address], [facility] Potassium [Moles/Vol] 4.0 mmol/L Normal 3.5-5.1 [facility] Comment on above: Performed By: #### 4 1000, , 18611 #### [facility] [address] [facility] [place] [address], [facility] Sodium [Moles/Vol] 140 mmol/L Normal 136-145 [facility] Comment on above: Performed By: #### 4 1000, , 81405 #### [facility] [address] [facility]. [address] Urea nitrogen [Mass/Vol] 11 mg/dL Normal 7-25 [facility] Comment on above: Performed By: #### 4 1000, , 65619 #### [facility] [address] [facility]. [address] CBC W/DIFFon 11-26-2018 ABS BASOPHILS 0.0 10*3/uL Normal 0.0-0.2 [facility] Comment on above: Order Comment: No: D o not add to previous draw Performed By: #### 4 1000, , 31332 #### [facility] [address] [facility] [place] [address], [facility] ABS IMM GRANS 0.1 10*3/uL Normal 0.0-0.2 [facility] Comment on above: Order Comment: No: D o not add to previous draw Performed By: #### 4 1000, , 76911 #### [facility] [address] [place] [address], [facility] ABS NEUTROPHILS 7.6 10*3/uL Normal 1.6-7.6 [facility] Comment on above: Order Comment: No: D o not add to previous draw Performed By: #### 4 1000, , 97330 #### [facility] [address] [place] [id number], [facility] Basophils/100 WBC (Bld) 0.2 % Normal 0.0-1.0 [facility] Comment on above: Order Comment: No: D o not add to previous draw Performed By: #### 4 1000, , #### [facility] [address] [place] [address], [facility] Eosinophils (Bld) [#/Vol] 0.0 10*3/uL Normal 0.0-0.5 [facility] Comment on above: Order Comment: No: D o not add to previous draw Performed By: #### 4 999, , #### [facility] [address] [facility] [place] [address], [facility] Eosinophils/100 WBC (Bld) 0.2 % Normal 0.0-6.0 [facility] Comment on above: Order Comment: No: D o not add to previous draw Performed By: #### 4 999, , 44852 #### [facility] [address] [place] [place] [address], [facility] Erythrocyte distribution width (RBC) [Ratio] 13.2 % Normal 11.5-15.0 [facility] Comment on above: Order Comment: No: D o not add to previous draw Performed By: #### 4 1000, , 63442 #### [facility] [address] [place] [id number], [facility] Hematocrit (Bld) [Volume fraction] 33.2 % Low 39.0-50.0 [facility] Comment on above: Order Comment: No: D o not add to previous draw Performed By: #### 4 1000, , 93111 #### [facility] [address] [facility] [place] [address], [facility] Hemoglobin (Bld) [Mass/Vol] 11.6 g/dL Low 13.0-17.0 [facility] Comment on above: Order Comment: No: D o not add to previous draw Performed By: #### 4 1000, , 90702 #### [facility] [address] [facility] [place] [address], [facility] IMMATURE GRANS 0.5 % Normal 0.0-1.0 [facility] Comment on above: Order Comment: No: D o not add to previous draw Performed By: #### 4 1000, , 38096 #### [facility] [address] [facility] [place] [address], [facility] Lymphocytes (Bld) [#/Vol] 1.4 10*3/uL Normal 1.2-4.0 [facility] Comment on above: Order Comment: No: D o not add to previous draw Performed By: #### 4 1000, , 43997 #### [facility] [address] [facility] [place] [address], [facility] Lymphocytes/100 WBC (Bld) 14.3 % Low 20.0-45.0 [facility] Comment on above: Order Comment: No: D o not add to previous draw Performed By: #### 4 1000, , 75567 #### [facility] [address] [facility] [place] [address], [facility] MCH (RBC) [Entitic mass] 33.0 pg Normal 27.0-33.0 [facility] Comment on above: Order Comment: No: D o not add to previous draw Performed By: #### 4 1000, , 92496 #### [facility] [address] [facility] MCHC (RBC) [Mass/Vol] 34.9 g/dL Normal 32.0-35.0 [facility] Comment on above: Order Comment: No: D o not add to previous draw Performed By: #### 4 1000, , 53793 #### [facility] [address] [place] [place] [address], [facility] MCV (RBC) [Entitic vol] 94.6 fL Normal 82.0-98.0 [facility] Comment on above: Order Comment: No: D o not add to previous draw Performed By: #### 4 1000, , 42711 #### [facility] [address] [place] [address], [facility] Monocytes (Bld) [#/Vol] 0.9 10*3/uL Normal 0.1-1.0 [facility] Comment on above: Order Comment: No: D o not add to previous draw Performed By: #### 4 1000, , 85225 #### [facility] [address] [facility] [place] [address], [facility] MONOS 8.9 % Normal 5.0-12.0 [facility] Comment on above: Order Comment: No: D o not add to previous draw Performed By: #### 4 1000, , 74882 #### [facility] [address] [facility] [place] [address], [facility] Neutrophils/100 WBC (Bld) 75.9 % High 40.0-72.0 [facility] Comment on above: Order Comment: No: D o not add to previous draw Performed By: #### 4 1000, , 02027 #### [facility] [address] [facility] [place] [address], [facility] Nucleated RBC/100 WBC (Bld) [Ratio] 0 % Normal 0-0 [facility] Comment on above: Order Comment: No: D o not add to previous draw Performed By: #### 4 1000, , 37738 #### [facility] [address] [place] [address], [place] PLAT CNT 102 10*3/uL Low 150-400 [facility] Comment on above: Order Comment: No: D o not add to previous draw Performed By: #### 4 1000, 21234, 74263 #### [facility] [address] [place] [address], [facility] RBC (Bld) [#/Vol] 3.51 10*6/uL Low 4.20-5.70 [facility] Comment on above: Order Comment: No: D o not add to previous draw Performed By: #### 4 1000, , 67193 #### [facility] [address] [place] [address], [place] WBC (Bld) [#/Vol] 10.04 10*3/uL Normal 4.00-10.60 [facility] Comment on above: Order Comment: No: D o not add to previous draw Performed By: #### 4 999, , 23154 #### [facility] [address] [place] [address], [facility] MAGNESIUM BLOODon 11-26-2018 Magnesium [Mass/Vol] 1.9 mg/dL Normal 1.9-2.7 [facility] Comment on above: Order Comment: No: D o not add to previous draw Performed By: #### 5 6101, 35814 #### [facility] [address] [place] [address], [facility] MIXED VENOUS BLOOD GAS W/TYRE FINISHER AND EXAMINER Xon 11-26-2018 BASE EXCESS -4 mmol/L Normal [facility] Comment on above: Performed By: #### 4 999, , 85445 #### [facility] [address] [place], [place] [id number], [facility] COHB 1 % Normal [facility] Comment on above: Performed By: #### 4 1000, , [id number] #### [facility] [address] [place] [address], [place] HCO3 (Bld) [Moles/Vol] 20 mmol/L Normal [facility] Comment on above: Performed By: #### 4 999, , 14468 #### [facility] [address] [place] [address], [place] LPM 3 Normal [facility] Comment on above: Performed By: #### 4 999, , 13614 #### [facility] [address] [place] [address], [place] METHB 1 % Normal [facility] Comment on above: Performed By: #### 4 999, , #### [facility] [address] [place] [address], [place] Oxygen (Bld) [Partial pressure] 31 mm[Hg] Low 35-45 [facility] Comment on above: Performed By: #### 4 999, , #### [facility] [address] [place] [address], [place] Oxygen saturation in Blood 56.2 % Low 65.0-75.0 [facility] Comment on above: Performed By: #### 4 999, , #### [facility] [address] [place] [address], [place] PCO2 34 mmHg Low 40-50 [facility] Comment on above: Performed By: #### 4 999, , 18795 #### [facility] [address] [place] [address], [place] pH (Bld) 7.38 [pH] Normal 7.31-7.41 [facility] Comment on above: Result Comment: DAPHNEY SHRESTHA NOTE: Effective 11/09/18, reference ranges for Respiratory GEM analyzers running venous blood have been updated to reflect the account analyst's published reference ranges. Performed By: #### 4 999, , 72627 #### [facility] [address] [place] [address], [place] THB 9.7 g/dL Normal [facility] Comment on above: Performed By: #### 4 1000, 83410, 27678 #### [facility] [address] [place] [address], [place] PHOSPHORUS BLOODon 9 Phosphate [Mass/Vol] 2.3 mg/dL Low 2.5-5.0 [facility] Comment on above: Order Comment: No: D o not add to previous draw Performed By: #### 5 610, 05227 #### [facility] [address] [place] [address], [place] POC GLUCOSE LABon 11-26-2018 Glucose [Mass/Vol] 162 mg/dL High 70-100 [facility] Comment on above: Performed By: #### 5 610, 32979 #### [facility] [address] [place] [address], [place] Glucose [Mass/Vol] 113 mg/dL High 70-100 [facility] Comment on above: Performed By: #### 5 610, 01897 #### [facility] [address] [place] [address], [place] Glucose [Mass/Vol] 158 mg/dL High 70-100 [facility] Comment on above: Performed By: #### 5 6101, 32158 #### [facility] [address] [place] [address], [place] Glucose [Mass/Vol] 101 mg/dL High 70-100 [facility] Comment on above: Performed By: #### 5 6101, 89126 #### [facility] [address] [place] [address], [place] Glucose [Mass/Vol] 104 mg/dL High 70-100 [facility] Comment on above: Performed By: #### 5 6101, 21364 #### [facility] [address] [place] [address], [facility] Glucose [Mass/Vol] 159 mg/dL High 70-100 [facility] Comment on above: Performed By: #### 4 1000, 73407, 13099 #### [facility] [address] [place] [address], [place] Glucose [Mass/Vol] 105 mg/dL High 70-100 [facility] Comment on above: Performed By: #### 4 1000, 98624, 32217 #### [facility] [address] [place] [address], [facility] ARTERIAL BLOOD GAS W/COOXon 11-25-2018 BASE EXCESS -9 mmol/L Low -2-3 [facility] Comment on above: Performed By: #### 5 0608 #### [facility] [address] [place] [address], [facility] COHB 0.9 % Normal 0.0-1.5 [facility] Comment on above: Performed By: #### 5 0608 #### [facility] [address] [place] [id number], [facility] DELIVERY SYSTEMS VENTILATOR Normal [facility] Comment on above: Performed By: #### 5 0608 #### [facility] [address] [place] [address], [facility] FIO2 50 % Normal [facility] Comment on above: Performed By: #### 5 0608 #### [facility] [address] [place] [address], [facility] HCO3 (Bld) [Moles/Vol] 17 mmol/L Low 21-28 [facility] Comment on above: Performed By: #### 5 0608 #### [facility] [address] [place] [address], [place] METHB 1.3 % Normal 0.0-1.5 [facility] [place] [facility] Comment on above: Performed By: #### 5 0608 #### [facility] [address] [place] [address], [facility] MIN VOLUME 9.9 Normal [facility] Comment on above: Performed By: #### 5 0608 #### [facility] [address] [place] [address], [facility] MODALITY SIMV Normal [facility] Comment on above: Performed By: #### 5 0608 #### [facility] [address] [place] [address], [facility] Oxygen (Bld) [Partial pressure] 146 mm[Hg] Critically high 83-108 [facility] Comment on above: Performed By: #### 5 0608 #### [facility] [address] [place] [address], [facility] Oxygen saturation in Blood 95.5 % Normal 94.0-97.0 [facility] Comment on above: Performed By: #### 5 0608 #### [facility] [address] [place] [address], [facility] PCO2 37 mmHg Normal 35-45 [facility] Comment on above: Performed By: #### 5 0608 #### [facility] [address] [place] [address], [facility] PEEP 8.0 CMH20 Normal [facility] Comment on above: Performed By: #### 5 0608 #### [facility] [address] [place] [address], [place] pH (Bld) 7.27 [pH] Low 7.35-7.45 [facility] Comment on above: Result Comment: DAPHNEY SHRESTHA NOTE: Effective 10/17/18, reference ranges for Respiratory GEM analyzers running arterial blood have been updated to reflect the account analyst's published reference ranges. Performed By: #### 5 0608 #### [facility] [address] [place] [address], [facility] PRESSURE SUPPORT 8 Normal [facility] Comment on above: Performed By: #### 5 0608 #### [facility] [address] [place] [address], [facility] THB 10.3 g/dL Low 12.0-16.3 [facility] Comment on above: Performed By: #### 5 0608 #### [facility] [address] TIDAL VOLUME (VT) CC 500 cc Normal [facility] Comment on above: Performed By: #### 5 0608 #### [facility] [address] ARTERIAL BLOOD GAS WITH ICAo n 11-25-2018 BASE EXCESS -7 mmol/L Low -2-3 [facility] Comment on above: Performed By: #### 4 1000, , 58910 #### [facility] [address] DELIVERY SYSTEMS VENTILATOR Normal [facility] Comment on above: Performed By: #### 4 999, , 98606 #### [facility] [address] [place] [address], [facility] FIO2 40 % Normal [facility] Comment on above: Performed By: #### 4 1000, , 17632 #### [facility] [address] [place] [address], [facility] HCO3 (Bld) [Moles/Vol] 18 mmol/L Low 21-28 [facility] Comment on above: Performed By: #### 4 1000, 94309, 98504 #### [facility] [address] [place] [address], [facility] IONIZED CALCIUM 1.10 mmol/L Low 1.13-1.32 [facility] Comment on above: Performed By: #### 4 1000, , #### [facility] [address] [place] [address], [place] MIN VOLUME 11.7 Normal [facility] Comment on above: Performed By: #### 4 999, , 86597 #### [facility] [address] [place] [address], [place] MODALITY SIMV Normal [facility] Comment on above: Performed By: #### 4 999, , 06466 #### [facility] [address] [place] [address], [place] Oxygen (Bld) [Partial pressure] 92 mm[Hg] Normal 83-108 [facility] Comment on above: Performed By: #### 4 999, , #### [facility] [address] [place] [address], [place] Oxygen saturation in Blood 94.9 % Normal 94.0-97.0 [facility] Comment on above: Performed By: #### 4 999, , #### [facility] [address] [place] [address], [place] PCO2 32 mmHg Low 35-45 [facility] Comment on above: Performed By: #### 4 999, , #### [facility] [address] [place] [address], [place] PEEP 8.0 CMH20 Normal [facility] Comment on above: Performed By: #### 4 1000, , 10413 #### [facility] [address] [place] [address], [place] pH (Bld) 7.36 [pH] Normal 7.35-7.45 [facility] Comment on above: Result Comment: DAPHNEY SE NOTE: Effective 10/17/18, reference ranges for Respiratory GEM analyzers running arterial blood have been updated to reflect the account analyst's published reference ranges. Performed By: #### 4 999, , 69329 #### [facility] [address] [facility] [place] [address], [facility] PRESSURE SUPPORT 8 Normal [facility] Comment on above: Performed By: #### 4 1000, , 77938 #### [facility] [address] [facility] TIDAL VOLUME (VT) CC 500 cc Normal [facility] Comment on above: Performed By: #### 4 1000, , 50844 #### [facility] [address] [facility] [place] [address], [facility] CBC W/DIFFon 11-25-2018 ABS BASOPHILS 0.0 10*3/uL Normal 0.0-0.2 [facility] Comment on above: Order Comment: No: D o not add to previous draw Performed By: #### 4 999, , 25658 #### [facility] [address] [facility]. [address] ABS IMM GRANS 0.1 10*3/uL Normal 0.0-0.2 [facility] Comment on above: Order Comment: No: D o not add to previous draw Performed By: #### 4 999, , 10307 #### [facility] [address] [facility]. [address] ABS NEUTROPHILS 8.0 10*3/uL High 1.6-7.6 [facility] Comment on above: Order Comment: No: D o not add to previous draw Performed By: #### 4 999, , 42784 #### [facility] [address] [facility] [place] [address], [facility] Basophils/100 WBC (Bld) 0.2 % Normal 0.0-1.0 [facility] Comment on above: Order Comment: No: D o not add to previous draw Performed By: #### 4 999, , 78546 #### [facility] [address] Eosinophils (Bld) [#/Vol] 0.1 10*3/uL Normal 0.0-0.5 [facility] Comment on above: Order Comment: No: D o not add to previous draw Performed By: #### 4 1000, , 75898 #### [facility] [address] [place] [place] [address], [facility] Eosinophils/100 WBC (Bld) 0.8 % Normal 0.0-6.0 [facility] Comment on above: Order Comment: No: D o not add to previous draw Performed By: #### 4 1000, , 46847 #### [facility] [address] Erythrocyte distribution width (RBC) [Ratio] 13.1 % Normal 11.5-15.0 [facility] Comment on above: Order Comment: No: D o not add to previous draw Performed By: #### 4 1000, , 51552 #### [facility] [address] [facility] [place] [address], [facility] Hematocrit (Bld) [Volume fraction] 30.0 % Low 39.0-50.0 [facility] Comment on above: Order Comment: No: D o not add to previous draw Performed By: #### 4 1000, , 99680 #### [facility] [address] [facility] [place] [address], [facility] Hemoglobin (Bld) [Mass/Vol] 10.4 g/dL Low 13.0-17.0 [facility] Comment on above: Order Comment: No: D o not add to previous draw Performed By: #### 4 1000, , 04138 #### [facility] [address] [facility] [place] [address], [facility] IMMATURE GRANS 0.4 % Normal 0.0-1.0 [facility] Comment on above: Order Comment: No: D o not add to previous draw Performed By: #### 4 1000, , 96191 #### [facility] [address] [place] [address], [facility] Lymphocytes (Bld) [#/Vol] 1.8 10*3/uL Normal 1.2-4.0 [facility] Comment on above: Order Comment: No: D o not add to previous draw Performed By: #### 4 1000, , 34345 #### [facility] [address] [facility] [place] [address], [facility] Lymphocytes/100 WBC (Bld) 15.8 % Low 20.0-45.0 [facility] Comment on above: Order Comment: No: D o not add to previous draw Performed By: #### 4 1000, , #### [facility] [address] [facility] [place] [address], [facility] MCH (RBC) [Entitic mass] 33.3 pg High 27.0-33.0 [facility] Comment on above: Order Comment: No: D o not add to previous draw Performed By: #### 4 999, , #### [facility] [address] [facility] [place] [address], [facility] MCHC (RBC) [Mass/Vol] 34.7 g/dL Normal 32.0-35.0 [facility] Comment on above: Order Comment: No: D o not add to previous draw Performed By: #### 4 999, , 31362 #### [facility] [address] [facility] [place] [address], [facility] MCV (RBC) [Entitic vol] 96.2 fL Normal 82.0-98.0 [facility] Comment on above: Order Comment: No: D o not add to previous draw Performed By: #### 4 1000, , 62405 #### [facility] [address] [place] [address], [facility] Monocytes (Bld) [#/Vol] 1.3 10*3/uL High 0.1-1.0 [facility] Comment on above: Order Comment: No: D o not add to previous draw Performed By: #### 4 1000, , 92099 #### [facility] [address] [place] [address], [place] MONOS 11.5 % Normal 5.0-12.0 [facility] Comment on above: Order Comment: No: D o not add to previous draw Performed By: #### 4 1000, , 36126 #### [facility] [address] [place] [address], [place] Neutrophils/100 WBC (Bld) 71.3 % Normal 40.0-72.0 [facility] Comment on above: Order Comment: No: D o not add to previous draw Performed By: #### 4 1000, , #### [facility] [address] [place] [address], [place] Nucleated RBC/100 WBC (Bld) [Ratio] 0 % Normal 0-0 [facility] Comment on above: Order Comment: No: D o not add to previous draw Performed By: #### 4 1000, , 25143 #### [facility] [address] [place] [address], [place] PLAT CNT 149 10*3/uL Low 150-400 [facility] Comment on above: Order Comment: No: D o not add to previous draw Performed By: #### 4 1000, , 36530 #### [facility] [address] [place] [address], [place] RBC (Bld) [#/Vol] 3.12 10*6/uL Low 4.20-5.70 [facility] Comment on above: Order Comment: No: D o not add to previous draw Performed By: #### 4 1000, , 46250 #### [facility] [address] [place] [address], [place] WBC (Bld) [#/Vol] 11.23 10*3/uL High 4.00-10.60 [facility] Comment on above: Order Comment: No: D o not add to previous draw Performed By: #### 4 1000, , 64215 #### [facility] [address] COMP METABOLIC PANELon 11-25 Albumin [Mass/Vol] 3.6 g/dL Normal 3.5-5.7 [facility] Comment on above: Performed By: #### 4 1000, , 45037 #### [facility] [address] [facility] ALKALINE PHOSPH 31 IU/L Low 34-104 [facility] Comment on above: Performed By: #### 4 1000, , 97595 #### [facility] [address] ALT [Catalytic activity/Vol] 18 U/L Normal 7-52 [facility] Comment on above: Performed By: #### 4 1000, , 29796 #### [facility] [address] [facility]. [address] AST [Catalytic activity/Vol] 50 U/L High 13-39 [facility] Comment on above: Performed By: #### 4 1000, , 47455 #### [facility] [address] Bilirubin [Mass/Vol] 0.9 mg/dL Normal 0.3-1.0 [facility] Comment on above: Performed By: #### 4 1000, , 85392 #### [facility] [address] [place] [address], [facility] Calcium [Mass/Vol] 7.8 mg/dL Low 8.6-10.3 [facility] Comment on above: Performed By: #### 4 1000, , 99393 #### [facility] [address] [place] [address], [place] Chloride [Moles/Vol] 116 mmol/L High 98-107 [facility] Comment on above: Performed By: #### 4 1000, , 38288 #### [facility] [address] [place] [address], [place] CO2 [Moles/Vol] 24 mmol/L Normal 21-31 [facility] Comment on above: Performed By: #### 4 1000, , 59695 #### [facility] [address] [place] [address], [place] Creatinine [Mass/Vol] 1.12 mg/dL Normal 0.70-1.30 [facility] Comment on above: Performed By: #### 4 1000, , 41710 #### [facility] [address] [place] [address], [place] GFR/1.73 sq M predicted among blacks MDRD (S/P/Bld) [Vol rate/Area] mL/min/{1.73_m2} Normal >60 [facility] Comment on above: Performed By: #### 4 1000, , 58061 #### [facility] [address] [place] [address], [place] GFR/1.73 sq M predicted among non-blacks MDRD (S/P/Bld) [Vol rate/Area] mL/min/{1.73_m2} Normal >60 [facility] Comment on above: Performed By: #### 4 1000, , 21218 #### [facility] [address] [place] [address], [place] Glucose [Mass/Vol] 129 mg/dL High 70-100 [facility] Comment on above: Performed By: #### 4 1000, , 22962 #### [facility] [address] [place] [address], [facility] Potassium [Moles/Vol] 4.5 mmol/L Normal 3.5-5.1 [facility] Comment on above: Performed By: #### 4 1000, , 32179 #### [facility] [address] [place] [address], [facility] Protein [Mass/Vol] 4.9 g/dL Low 6.0-8.3 [facility] Comment on above: Performed By: #### 4 1000, , 63613 #### [facility] [address] [place] [address], [facility] Sodium [Moles/Vol] 139 mmol/L Normal 136-145 [facility] Comment on above: Performed By: #### 4 1000, , 11892 #### [facility] [address] [facility] [place] [address], [facility] Urea nitrogen [Mass/Vol] 11 mg/dL Normal 7-25 [facility] Comment on above: Performed By: #### 4 1000, , 59240 #### [facility] [address] [facility] CPK-MB PROFILEon 11-25-2018 CK [Catalytic activity/Vol] 708 U/L High 30-223 [facility] Comment on above: Order Comment: No: D o not add to previous draw Performed By: #### 4 1000, , 00439 #### [facility] [address] [place] [address], [facility] CK.MB [Mass/Vol] 57.2 ng/mL High 0.0-5.0 [facility] Comment on above: Order Comment: No: D o not add to previous draw Result Comment: IF T OTAL CK <200 U/L AND: 1. CKMB IS 5-10 NG/ML----BORDERLINE 2. CKMB IS >10 NG/ML----INDICATIVE OF ND OR IF TOTAL CK >200 U/L AND CKMB INDEX >1.9----INDICATIVE OF ND Performed By: #### 4 1000, , 17246 #### [facility] [address] [place] [address], [facility] CK.MB [Mass/Vol] 8.1 ng/mL Critically high 0.0-1.9 [facility] Comment on above: Order Comment: No: D o not add to previous draw Performed By: #### 4 1000, , 74625 #### [facility] [address] [place] [address], [facility] MAGNESIUM BLOODon 11-25-2018 Magnesium [Mass/Vol] 2.3 mg/dL Normal 1.9-2.7 [facility] Comment on above: Order Comment: No: D o not add to previous draw Performed By: #### 4 1000, , 91018 #### [facility] [address] [place] [address], [facility] MIXED VENOUS BLOOD GASon BASE EXCESS -4 mmol/L Normal [facility] Comment on above: Order Comment: No: D o not add to previous draw Performed By: #### 4 1000, , 34263 #### [facility] [address] [place] [address], [facility] DELIVERY SYSTEMS VENTILATOR Normal [facility] Comment on above: Order Comment: No: D o not add to previous draw Performed By: #### 4 1000, , 54397 #### [facility] [address] [place] [address], [place] HCO3 (Bld) [Moles/Vol] 22 mmol/L Normal [facility] Comment on above: Order Comment: No: D o not add to previous draw Performed By: #### 4 1000, , 65957 #### [facility] [address] [place] [address], [place] Oxygen (Bld) [Partial pressure] mm[Hg] Normal 35-45 [facility] Comment on above: Order Comment: No: D o not add to previous draw Performed By: #### 4 1000, 27481, 99335 #### [facility] [address] [place] [address], [place] Oxygen saturation in Blood 55.1 % Low 65.0-75.0 [facility] Comment on above: Order Comment: No: D o not add to previous draw Performed By: #### 4 1000, , 02932 #### [facility] [address] [place] [place] [address], [place] PCO2 41 mmHg Normal 40-50 [facility] Comment on above: Order Comment: No: D o not add to previous draw Performed By: #### 4 1000, , 46987 #### [facility] [address] [place] [address], [place] pH (Bld) 7.33 [pH] Normal 7.31-7.41 [facility] Comment on above: Order Comment: No: D o not add to previous draw Result Comment: DAPHNEY SHRESTHA NOTE: Effective 11/09/18, reference ranges for Respiratory GEM analyzers running venous blood have been updated to reflect the account analyst's published reference ranges. Performed By: #### 4 1000, , 33968 #### [facility] [address] [place] [address], [place] POC GLUCOSE LABon 11-25-2018 Glucose [Mass/Vol] 77 mg/dL Normal 70-100 [facility] Comment on above: Performed By: #### 4 1000, 53744, 10557 #### [facility] [address] [place] [address], [place] Glucose [Mass/Vol] 76 mg/dL Normal 70-100 [facility] Comment on above: Performed By: #### 4 1000, 92148, 65926 #### [facility] [address] [place] [address], [place] Glucose [Mass/Vol] 105 mg/dL High 70-100 [facility] Comment on above: Performed By: #### 4 1000, , [id number] #### [facility] [address] [place] [address], [place] Glucose [Mass/Vol] 117 mg/dL High 70-100 [facility] Comment on above: Performed By: #### 4 1000, , 51595 #### [facility] [address] [place] [address], [place] Glucose [Mass/Vol] 164 mg/dL High 70-100 [facility] Comment on above: Performed By: #### 5 0608 #### [facility] [address] [place] [address], [place] Glucose [Mass/Vol] 131 mg/dL High 70-100 [facility] Comment on above: Performed By: #### 4 1000, , 55288 #### [facility] [address] [place] [address], [place] Glucose [Mass/Vol] 115 mg/dL High 70-100 [facility] Comment on above: Performed By: #### 4 1000, , 12008 #### [facility] [address] [place] [address], [place] Glucose [Mass/Vol] 118 mg/dL High 70-100 [facility] Comment on above: Performed By: #### 4 1000, , 13536 #### [facility] [address] [place] [address], [place] Glucose [Mass/Vol] 122 mg/dL High 70-100 [facility] Comment on above: Performed By: #### 4 1000, , 64369 #### [facility] [address] [place] [address], [place] Glucose [Mass/Vol] 124 mg/dL High 70-100 [facility] [place] [facility] Comment on above: Performed By: #### 4 1000, 41983, 51481 #### [facility] [address] [place] [address], [place] Glucose [Mass/Vol] 123 mg/dL High 70-100 [facility] Comment on above: Performed By: #### 4 1000, 10632, 24500 #### [facility] [address] [place] [address], [place] Glucose [Mass/Vol] 128 mg/dL High 70-100 [facility] Comment on above: Performed By: #### 4 1000, 10493, 19652 #### [facility] [address] [place] [address], [place] Glucose [Mass/Vol] 133 mg/dL High 70-100 [facility] Comment on above: Performed By: #### 4 1000, 90978, 50317 #### [facility] [address] [place] [address], [place] Glucose [Mass/Vol] 138 mg/dL High 70-100 [facility] Comment on above: Performed By: #### 5 0608 #### [facility] [address] [place] [address], [place] Glucose [Mass/Vol] 142 mg/dL High 70-100 [facility] Comment on above: Performed By: #### 5 0608 #### [facility] [address] [place] [address], [place] Glucose [Mass/Vol] 156 mg/dL High 70-100 [facility] Comment on above: Performed By: #### 5 0608 #### [facility] [address] [place] [address], [place] PORTABLE CHEST 1 VIEWon 11-13 PORTABLE CHEST 1 VIEW [facility] Department of Radiology [address] [place] [address] Patient Name: WESTON CANO : 1960 Sex: M Age: Race: White Pt. Location: [id number] Patient Status: I Ordered Date: 11/25/2018 6:00:00 [...] of the clavicle, unchanged. Right internal jugular Alden-Comfort catheter terminates within the right main pulmonary [...] findings. Electronically signed by:Leida Ferro. Transcribed by: [email or web address], User Resident: KIMBERLY VALDEZ Electronically Signed by: LEIDA FERRO @ 11/25/2018 06:05 PM I personally read this/these film(s) with this resident Normal [facility] Comment on above: Order Comment: No: D o not add to previous draw PROTHROMBIN TIMEon 9 INR Coag (PPP) [Relative time] 1.39 {INR} High 0.91-1.16 [facility] Comment on above: Order Comment: [...] RANGE. CHEST 1995;108:[id number]. Performed By: #### 4 1399, 46315, 79724 #### [facility] [address] PT Coag (PPP) [Time] 17.1 s High 12.3-14.8 [facility] Comment on above: Order Comment: No: D o not add to previous draw Result Comment: ALL RESULTS MUST BE INTERPRETED WITH RESPECT TO BLOOD DRAWING ARTIFACT OR DILUTION ERROR OF ANTICOAGULANT AT THE TIME OF SAMPLING. Performed By: #### 4 999, , #### [facility] [address] [place] [address], [facility] VENOUS BLOOD GAS W/COOXon BASE EXCESS -4 mmol/L Normal [facility] Comment on above: Performed By: #### 4 999, , 73059 #### [facility] [address] [place] [address], [facility] COHB 1 % Normal [facility] Comment on above: Performed By: #### 4 999, , #### [facility] [address] [facility] [place] [address], [facility] HCO3 (Bld) [Moles/Vol] 20 mmol/L Normal [facility] Comment on above: Performed By: #### 4 999, , #### [facility] [address] [place] [address], [facility] METHB 0.7 % Normal [facility] Comment on above: Performed By: #### 4 999, , 66634 #### [facility] [address] [place] [address], [facility] Oxygen (Bld) [Partial pressure] 31 mm[Hg] Low 35-45 [facility] Comment on above: Performed By: #### 4 999, , 02309 #### [facility] [address] [place] [address], [place] Oxygen saturation in Blood 57.9 % Low 65.0-75.0 [facility] Comment on above: Performed By: #### 4 999, , 98219 #### [facility] [address] [place] [address], [place] PCO2 34 mmHg Low 40-50 [facility] Comment on above: Performed By: #### 4 1000, 06800, 80696 #### [facility] [address] [place] [address], [place] pH (Bld) 7.38 [pH] Normal 7.31-7.41 [facility] Comment on above: Result Comment: DAPHNEY SHRESTHA NOTE: Effective 11/09/18, reference ranges for Respiratory GEM analyzers running venous blood have been updated to reflect the account analyst's published reference ranges. Performed By: #### 4 999, 86529, 32892 #### [facility] [address] [place] [address], [facility] THB 10.4 g/dL Normal [facility] Comment on above: Performed By: #### 4 999, 24370, 57607 #### [facility] [address] [place] [address], [facility] *MRSA/MSSA DNA NASALon 11-24 *MRSA/MSSA DNA NASAL Clinical Report: (D ) Specimen: NASAL SWAB Collected: 11/24/2018 07:00 Status: Final Last Updated: 11/24/2018 12:46 MSSA DNA (Final) Negative MRSA DNA (Final) Negative Normal [facility] Comment on above: Performed By: #### 0 0071, 95927, 38723 #### [facility] [address] [place] [address], [place] ACTIVATED CLOTTING TIMEon ACTIVATED CLOTTING TIME 127 sec Normal 82-152 [facility] Comment on above: Performed By: #### 0 0071, 64619, 71100 #### [facility] [address] [place] [address], [place] ACTIVATED CLOTTING TIME 418 sec High 82-152 [facility] Comment on above: Performed By: #### 0 0071, 73326, 95772 #### [facility] [address] [place] [address], [place] ACTIVATED CLOTTING TIME 443 sec High 82-152 [facility] Comment on above: Performed By: #### 0 0071, 29491, 35152 #### [facility] [address] [place] [address], [place] ACTIVATED CLOTTING TIME 473 sec High 82-152 [facility] Comment on above: Performed By: #### 0 0071, 23350, 68101 #### [facility] [address] [place] [address], [place] ACTIVATED CLOTTING TIME 443 sec High 82-152 [facility] Comment on above: Performed By: #### 0 0071, 90899, 93801 #### [facility] [address] [place] [address], [place] ACTIVATED CLOTTING TIME 455 sec High 82-152 [facility] Comment on above: Performed By: #### 0 0071, 91505, 32872 #### [facility] [address] [place] [address], [facility] ACTIVATED CLOTTING TIME 514 sec High 82-152 [facility] Comment on above: Performed By: #### 0 0071, 35919, 30370 #### [facility] [address] [place] [address], [place] ACTIVATED CLOTTING TIME 721 sec High 82-152 [facility] Comment on above: Performed By: #### 0 0071, 71700, 52159 #### [facility] [address] [place] [address], [facility] ACTIVATED CLOTTING TIME 138 sec Normal 82-152 [facility] Comment on above: Performed By: #### 0 0071, 57604, 64525 #### [facility] [address] [place] [address], [facility] APTTon 11-24-2018 aPTT Coag (Bld) [Time] 35.9 s High 25.0-35.0 [facility] Comment on above: Result Comment: ALL RESULTS [...] PURPOSE. Performed By: #### 4 6447 #### [facility] [address] [place] [address], [facility] ARTERIAL BLOOD GAS WITH ICAo n 11-24-2018 BASE EXCESS -12 mmol/L Low -2-3 [facility] Comment on above: Performed By: #### 4 6447 #### [facility] [address] [place] [address], [facility] DELIVERY SYSTEMS VENTILATOR Normal [facility] Comment on above: Performed By: #### 4 6447 #### [facility] [address] [place] [address], [facility] FIO2 100 % Normal [facility] Comment on above: Performed By: #### 4 6447 #### [facility] [address] [place] [address], [facility] HCO3 (Bld) [Moles/Vol] 16 mmol/L Low 21-28 [facility] Comment on above: Performed By: #### 4 6447 #### [facility] [address] [place] [address], [facility] IONIZED CALCIUM 1.11 mmol/L Low 1.13-1.32 [facility] Comment on above: Performed By: #### 4 6447 #### [facility] [address] [place] [address], [facility] MIN VOLUME 13.1 Normal [facility] Comment on above: Performed By: #### 4 6447 #### [facility] [address] [place] [address], [facility] MODALITY SIMV Normal [facility] Comment on above: Performed By: #### 4 6462 #### [facility] [address] [place] [address], [facility] Oxygen (Bld) [Partial pressure] 108 mm[Hg] Normal 83-108 [facility] Comment on above: Performed By: #### 4 6447 #### [facility] [address] [place] [address], [facility] Oxygen saturation in Blood 94.9 % Normal 94.0-97.0 [facility] Comment on above: Performed By: #### 4 6447 #### [facility] [address] [place] [address], [facility] PCO2 41 mmHg Normal 35-45 [facility] Comment on above: Performed By: #### 4 6447 #### [facility] [address] [place] [address], [facility] PEEP 8.0 CMH20 Normal [facility] Comment on above: Performed By: #### 4 6447 #### [facility] [address] [place] [address], [facility] pH (Bld) 7.19 [pH] Critically low 7.35-7.45 [facility] Comment on above: Result Comment: DAPHNEY SHRESTHA NOTE: Effective 10/17/18, reference ranges for Respiratory GEM analyzers running arterial blood have been updated to reflect the account analyst's published reference ranges. Performed By: #### 4 6423 #### [facility] [address] [place] [address], [facility] TIDAL VOLUME (VT) CC 500 cc Normal [facility] Comment on above: Performed By: #### 4 6450 #### [facility] [address] [facility] [place] [place] [address], [facility] BASE EXCESS -9 mmol/L Low -2-3 [facility] Comment on above: Order Comment: No: D o not add to previous draw Performed By: #### 4 6448 #### [facility] [address] [place] [address], [facility] [employer] MV Normal [facility] Comment on above: Order Comment: No: D o not add to previous draw Performed By: #### 4 6447 #### [facility] [address] [place] [address], [facility] FIO2 50 % Normal [facility] Comment on above: Order Comment: No: D o not add to previous draw Performed By: #### 4 6447 #### [facility] [address] [place] [address], [facility] HCO3 (Bld) [Moles/Vol] 19 mmol/L Low 21-28 [facility] Comment on above: Order Comment: No: D o not add to previous draw Performed By: #### 4 6447 #### [facility] [address] [place] [address], [place] IONIZED CALCIUM 1.14 mmol/L Normal 1.13-1.32 [facility] Comment on above: Order Comment: No: D o not add to previous draw Performed By: #### 4 6447 #### [facility] [address] [place] [address], [facility] MIN VOLUME 10.1 Normal [facility] Comment on above: Order Comment: No: D o not add to previous draw Performed By: #### 4 6447 #### [facility] [address] [place] [address], [place] MODALITY SIMV Normal [facility] Comment on above: Order Comment: No: D o not add to previous draw Performed By: #### 4 6447 #### [facility] [address] [place] [address], [place] Oxygen (Bld) [Partial pressure] 84 mm[Hg] Normal 83-108 [facility] Comment on above: Order Comment: No: D o not add to previous draw Performed By: #### 4 6447 #### [facility] [address] [place] [address], [place] Oxygen saturation in Blood 92.7 % Low 94.0-97.0 [facility] Comment on above: Order Comment: No: D o not add to previous draw Performed By: #### 4 6447 #### [facility] [address] [place] [address], [place] PCO2 45 mmHg Normal 35-45 [facility] Comment on above: Order Comment: No: D o not add to previous draw Performed By: #### 4 6447 #### [facility] [address] [place] [address], [place] PEEP 8.0 CMH20 Normal [facility] Comment on above: Order Comment: No: D o not add to previous draw Performed By: #### 4 6447 #### [facility] [address] [place] [address], [place] PF RATIO 168 mmHg Normal [facility] Comment on above: Order Comment: No: D o not add to previous draw Performed By: #### 4 6447 #### [facility] [address] [place] [address], [place] pH (Bld) 7.23 [pH] Critically low 7.35-7.45 [facility] Comment on above: Order Comment: No: D o not add to previous draw Result Comment: PLEA SE NOTE: Effective 10/17/18, reference ranges for Respiratory GEM analyzers running arterial blood have been updated to reflect the account analyst's published reference ranges. Performed By: #### 4 6447 #### [facility] [address] [place] [address], [place] PRESSURE SUPPORT 8 Normal [facility] Comment on above: Order Comment: No: D o not add to previous draw Performed By: #### 4 6472 #### [facility] [address] [place] [address], [place] TIDAL VOLUME (VT) CC 500 cc Normal [facility] Comment on above: Order Comment: No: D o not add to previous draw Performed By: #### 4 6447 #### [facility] [address] [place] [address], [place] BASIC METABOLIC PANELon 11-13 Calcium [Mass/Vol] 8.1 mg/dL Low 8.6-10.3 [facility] Comment on above: Order Comment: No: D o not add to previous draw Performed By: #### 5 0608 #### [facility] [address] [place] [address], [place] Chloride [Moles/Vol] 112 mmol/L High 98-107 [facility] Comment on above: Order Comment: No: D o not add to previous draw Performed By: #### 5 0608 #### [facility] [address] [place] [address], [place] CO2 [Moles/Vol] 17 mmol/L Low 21-31 [facility] Comment on above: Order Comment: No: D o not add to previous draw Performed By: #### 5 0608 #### [facility] [address] [place] [address], [place] Creatinine [Mass/Vol] 1.41 mg/dL High 0.70-1.30 [facility] Comment on above: Order Comment: No: D o not add to previous draw Performed By: #### 5 0608 #### [facility] [address] [place] [id number], [place] GFR/1.73 sq M predicted among blacks MDRD (S/P/Bld) [Vol rate/Area] mL/min/{1.73_m2} Normal >60 [facility] Comment on above: Order Comment: No: D o not add to previous draw Performed By: #### 5 0608 #### [facility] [address] [place] [address], [place] GFR/1.73 sq M predicted among non-blacks MDRD (S/P/Bld) [Vol rate/Area] 52 ml/min/1.73sq m Abnormal >60 [facility] Comment on above: Order Comment: No: D o not add to previous draw Performed By: #### 5 0608 #### [facility] [address] [place] [address], [place] Glucose [Mass/Vol] 177 mg/dL High 70-100 [facility]: Order Comment: No: D o not add to previous draw Performed By: #### 5 0608 #### [facility] [address] [place] [address], [place] Potassium [Moles/Vol] 5.1 mmol/L Normal 3.5-5.1 [facility] Comment on above: Order Comment: No: D o not add to previous draw Performed By: #### 5 0608 #### [facility] [address] [place] [address], [place] Sodium [Moles/Vol] 140 mmol/L Normal 136-145 [facility] Comment on above: Order Comment: No: D o not add to previous draw Performed By: #### 5 0608 #### [facility] [address] [place] [address], [place] Urea nitrogen [Mass/Vol] 14 mg/dL Normal 7-25 [facility] Comment on above: Order Comment: No: D o not add to previous draw Performed By: #### 5 0608 #### [facility] [address] [place] [address], [place] Calcium [Mass/Vol] 7.8 mg/dL Low 8.6-10.3 [facility] Comment on above: Order Comment: No: D o not add to previous draw Performed By: #### 0 0071, 98297, 08660 #### [facility] [address] [place] [address], [place] Chloride [Moles/Vol] 110 mmol/L High 98-107 [facility] Comment on above: Order Comment: No: D o not add to previous draw Performed By: #### 0 0071, 40227, 13685 #### [facility] [address] [place] [address], [place] CO2 [Moles/Vol] 22 mmol/L Normal 21-31 [facility] Comment on above: Order Comment: No: D o not add to previous draw Performed By: #### 0 0071, 65649, 93436 #### [facility] [address] [place] [address], [place] Creatinine [Mass/Vol] 1.13 mg/dL Normal 0.70-1.30 [facility] Comment on above: Order Comment: No: D o not add to previous draw Performed By: #### 0 0071, 49465, 12831 #### [facility] [address] [place] [address], [place] GFR/1.73 sq M predicted among blacks MDRD (S/P/Bld) [Vol rate/Area] mL/min/{1.73_m2} Normal >60 [facility] Comment on above: Order Comment: No: D o not add to previous draw Performed By: #### 0 0071, 82361, 86358 #### [facility] [address] [place] [address], [place] GFR/1.73 sq M predicted among non-blacks MDRD (S/P/Bld) [Vol rate/Area] mL/min/{1.73_m2} Normal >60 [facility] Comment on above: Order Comment: No: D o not add to previous draw Performed By: #### 0 0071, 48471, 46334 #### [facility] [address] [place] [address], [place] Glucose [Mass/Vol] 109 mg/dL High 70-100 [facility] Comment on above: Order Comment: No: D o not add to previous draw Performed By: #### 0 0071, 66192, 76165 #### [facility] [address] [place] [address], [place] Potassium [Moles/Vol] 3.9 mmol/L Normal 3.5-5.1 [facility] Comment on above: Order Comment: No: D o not add to previous draw Performed By: #### 0 0071, 59145, 20517 #### [facility] [address] [place] [address], [place] Sodium [Moles/Vol] 138 mmol/L Normal 136-145 [facility] Comment on above: Order Comment: No: D o not add to previous draw Performed By: #### 0 0071, 03104, 70828 #### [facility] [address] [place] [address], [place] Urea nitrogen [Mass/Vol] 12 mg/dL Normal 7-25 [facility] Comment on above: Order Comment: No: D o not add to previous draw Performed By: #### 0 0071, 72981, 49277 #### [facility] [address] [place] [address], [place] Calcium [Mass/Vol] 8.8 mg/dL Normal 8.6-10.3 [facility] Comment on above: Order Comment: No: D o not add to previous draw Performed By: #### 0 0071, 65166, 01722 #### [facility] [address] [place] [address], [place] Chloride [Moles/Vol] 102 mmol/L Normal 98-107 [facility] Comment on above: Order Comment: No: D o not add to previous draw Performed By: #### 0 0071, 30660, 83785 #### [facility] [address] [place] [address], [place] CO2 [Moles/Vol] 23 mmol/L Normal 21-31 [facility] Comment on above: Order Comment: No: D o not add to previous draw Performed By: #### 0 0071, 19491, 06498 #### [facility] [address] [place] [address], [place] Creatinine [Mass/Vol] 0.99 mg/dL Normal 0.70-1.30 [facility] Comment on above: Order Comment: No: D o not add to previous draw Performed By: #### 0 0071, 32309, 87279 #### [facility] [address] [place] [address], [place] GFR/1.73 sq M predicted among blacks MDRD (S/P/Bld) [Vol rate/Area] mL/min/{1.73_m2} Normal >60 [facility] Comment on above: Order Comment: No: D o not add to previous draw Performed By: #### 0 0071, 50349, 86654 #### [facility] [address] [place] [address], [place] GFR/1.73 sq M predicted among non-blacks MDRD (S/P/Bld) [Vol rate/Area] mL/min/{1.73_m2} Normal >60 [facility] Comment on above: Order Comment: No: D o not add to previous draw Performed By: #### 0 0071, 16795, 14933 #### [facility] [address] [place] [address], [place] Glucose [Mass/Vol] 100 mg/dL Normal 70-100 [facility] Comment on above: Order Comment: No: D o not add to previous draw Performed By: #### 0 0071, 72864, 49667 #### [facility] [facility] [address] [place] [address], [place] Potassium [Moles/Vol] 3.7 mmol/L Normal 3.5-5.1 [facility] Comment on above: Order Comment: No: D o not add to previous draw Performed By: #### 0 0071, 79852, 00962 #### [facility] [address] [place] [address], [facility] Sodium [Moles/Vol] 133 mmol/L Low 136-145 [facility] Comment on above: Order Comment: No: D o not add to previous draw Performed By: #### 0 0071, 59817, 31251 #### [facility] [address] [place] [address], [facility] Urea nitrogen [Mass/Vol] 11 mg/dL Normal 7-25 [facility] Comment on above: Order Comment: No: D o not add to previous draw Performed By: #### 0 0071, 38275, 49258 #### [facility] [address] [place] [address], [facility] CBC COMPLETE BLOOD COUNTon 0 - Erythrocyte distribution width (RBC) [Ratio] 12.4 % Normal 11.5-15.0 [facility] Comment on above: Order Comment: No: D o not add to previous draw Performed By: #### 0 0071, 92701, 85640 #### [facility] [address] [place] [address], [facility] Hematocrit (Bld) [Volume fraction] 31.5 % Low 39.0-50.0 [facility] Comment on above: Order Comment: No: D o not add to previous draw Performed By: #### 0 0071, 37651, 41663 #### [facility] [address] [place] [address], [facility] Hemoglobin (Bld) [Mass/Vol] 11.4 g/dL Low 13.0-17.0 [facility] Comment on above: Order Comment: No: D o not add to previous draw Performed By: #### 0 0071, 51123, 94293 #### [facility] [address] [place] [address], [facility] MCH (RBC) [Entitic mass] 33.2 pg High 27.0-33.0 [facility] Comment on above: Order Comment: No: D o not add to previous draw Performed By: #### 0 1, 50196, 65622 #### [facility] [address] [place] [address], [facility] MCHC (RBC) [Mass/Vol] 36.2 g/dL High 32.0-35.0 [facility] Comment on above: Order Comment: No: D o not add to previous draw Performed By: #### 0 1, , 16385 #### [facility] [address] [place] [id number], [facility] MCV (RBC) [Entitic vol] 91.8 fL Normal 82.0-98.0 [facility] Comment on above: Order Comment: No: D o not add to previous draw Performed By: #### 0 70, , 88879 #### [facility] [address] [place] [address], [facility] Nucleated RBC/100 WBC (Bld) [Ratio] 0 % Normal 0-0 [facility] Comment on above: Order Comment: No: D o not add to previous draw Performed By: #### 0 70, , 46322 #### [facility] [address] [place] [address], [facility] PLAT CNT 133 10*3/uL Low 150-400 [facility] Comment on above: Order Comment: No: D o not add to previous draw Performed By: #### 0 1, 25070, 91896 #### [facility] [address] [place] [id number], [facility] RBC (Bld) [#/Vol] 3.43 10*6/uL Low 4.20-5.70 [facility] Comment on above: Order Comment: No: D o not add to previous draw Performed By: #### 0 70, , 01334 #### [facility] [address] [facility] [place] [address], [facility] WBC (Bld) [#/Vol] 10.86 10*3/uL High 4.00-10.60 [facility] Comment on above: Order Comment: No: D o not add to previous draw Performed By: #### 0 0071, 55725, 91920 #### [facility] [address] [facility] [place] [address], [facility] CBC W/DIFFon 11-24-2018 ABS BASOPHILS 0.0 10*3/uL Normal 0.0-0.2 [facility] Comment on above: Performed By: #### 5 0608 #### [facility] [address] [facility] [place] [address], [facility] ABS IMM GRANS 0.1 10*3/uL Normal 0.0-0.2 [facility] Comment on above: Performed By: #### 5 0608 #### [facility] [address] [facility] [place] [address], [facility] ABS NEUTROPHILS 15.8 10*3/uL High 1.6-7.6 [facility] Comment on above: Performed By: #### 5 0608 #### [facility] [address] [facility] [place] [address], [facility] Basophils/100 WBC (Bld) 0.2 % Normal 0.0-1.0 [facility] Comment on above: Performed By: #### 5 0608 #### [facility] [address] [facility] [place] [address], [facility] Eosinophils (Bld) [#/Vol] 0.0 10*3/uL Normal 0.0-0.5 [facility] Comment on above: Performed By: #### 5 0608 #### [facility] [address] [place] [id number], [facility] Eosinophils/100 WBC (Bld) 0.2 % Normal 0.0-6.0 [facility] Comment on above: Performed By: #### 5 0608 #### [facility] [address] [facility] [facility] Erythrocyte distribution width (RBC) [Ratio] 12.9 % Normal 11.5-15.0 [facility] Comment on above: Performed By: #### 5 0608 #### [facility] [address] [facility] [place] [address], [facility] Hematocrit (Bld) [Volume fraction] 33.4 % Low 39.0-50.0 [facility] Comment on above: Performed By: #### 5 0608 #### [facility] [address] [facility]. [address] Hemoglobin (Bld) [Mass/Vol] 11.6 g/dL Low 13.0-17.0 [facility] Comment on above: Performed By: #### 5 0608 #### [facility] [address] [facility]. [address] IMMATURE GRANS 0.5 % Normal 0.0-1.0 [facility] Comment on above: Performed By: #### 5 0608 #### [facility] [address] [facility] [place] [address], [facility] Lymphocytes (Bld) [#/Vol] 1.4 10*3/uL Normal 1.2-4.0 [facility] Comment on above: Performed By: #### 5 0608 #### [facility] [address] [place] [address], [facility] Lymphocytes/100 WBC (Bld) 7.6 % Low 20.0-45.0 [facility] Comment on above: Performed By: #### 5 0608 #### [facility] [address] [place] [address], [facility] MCH (RBC) [Entitic mass] 33.3 pg High 27.0-33.0 [facility] Comment on above: Performed By: #### 5 0608 #### [facility] [address] [facility] MCHC (RBC) [Mass/Vol] 34.7 g/dL Normal 32.0-35.0 [facility] Comment on above: Performed By: #### 5 0608 #### [facility] [address] [facility] [place] [place] [address], [facility] MCV (RBC) [Entitic vol] 96.0 fL Normal 82.0-98.0 [facility] Comment on above: Performed By: #### 5 0608 #### [facility] [address] [facility] [place] [address], [facility] Monocytes (Bld) [#/Vol] 1.3 10*3/uL High 0.1-1.0 [facility] Comment on above: Performed By: #### 5 0608 #### [facility] [address] [facility] MONOS 7.1 % Normal 5.0-12.0 [facility] Comment on above: Performed By: #### 5 0608 #### [facility] [address] [facility] Neutrophils/100 WBC (Bld) 84.4 % High 40.0-72.0 [facility] Comment on above: Performed By: #### 5 0608 #### [facility] [address] [facility] [place] [address], [facility] Nucleated RBC/100 WBC (Bld) [Ratio] 0 % Normal 0-0 [facility] Comment on above: Performed By: #### 5 0608 #### [facility] [address] [place] [address], [facility] PLAT CNT 210 10*3/uL Normal 150-400 [facility] Comment on above: Performed By: #### 5 0608 #### [facility] [address] [facility] [place] [address], [facility] RBC (Bld) [#/Vol] 3.48 10*6/uL Low 4.20-5.70 [facility] Comment on above: Performed By: #### 5 0608 #### [facility] [address] [facility] [place] [address], [facility] WBC (Bld) [#/Vol] 18.69 10*3/uL High 4.00-10.60 [facility] Comment on above: Performed By: #### 5 0608 #### [facility] [address] [facility] [place] [address], [facility] ABS BASOPHILS 0.0 10*3/uL Normal 0.0-0.2 [facility] Comment on above: Order Comment: No: D o not add to previous draw Performed By: #### 0 0071, 11822, 78949 #### [facility] [address] [facility]. [address] ABS IMM GRANS 0.0 10*3/uL Normal 0.0-0.2 [facility] Comment on above: Order Comment: No: D o not add to previous draw Performed By: #### 0 0071, 78871, 64502 #### [facility] [address] [facility] [place] [address], [facility] ABS NEUTROPHILS 3.5 10*3/uL Normal 1.6-7.6 [facility] Comment on above: Order Comment: No: D o not add to previous draw Performed By: #### 0 0071, 89086, 15177 #### [facility] [address] [facility] [place] [address], [facility] Basophils/100 WBC (Bld) 0.6 % Normal 0.0-1.0 [facility] Comment on above: Order Comment: No: D o not add to previous draw Performed By: #### 0 0071, 34108, 77879 #### [facility] [address] [place] [address], [facility] Eosinophils (Bld) [#/Vol] 0.4 10*3/uL Normal 0.0-0.5 [facility] Comment on above: Order Comment: No: D o not add to previous draw Performed By: #### 0 0071, 43975, 13038 #### [facility] [address] [place] [id number], [facility] Eosinophils/100 WBC (Bld) 6.0 % Normal 0.0-6.0 [facility] Comment on above: Order Comment: No: D o not add to previous draw Performed By: #### 0 70, 13411, 67499 #### [facility] [address] [place] [id number], [facility] Erythrocyte distribution width (RBC) [Ratio] 12.3 % Normal 11.5-15.0 [facility] Comment on above: Order Comment: No: D o not add to previous draw Performed By: #### 0 0071, 10621, 97019 #### [facility] [address] [place] [address], [facility] Hematocrit (Bld) [Volume fraction] 41.0 % Normal 39.0-50.0 [facility] Comment on above: Order Comment: No: D o not add to previous draw Performed By: #### 0 0071, 26321, 13222 #### [facility] [address] [place] [id number], [facility] Hemoglobin (Bld) [Mass/Vol] 14.7 g/dL Normal 13.0-17.0 [facility] Comment on above: Order Comment: No: D o not add to previous draw Performed By: #### 0 0071, 90728, 33926 #### [facility] [address] [place] [id number], [facility] IMMATURE GRANS 0.3 % Normal 0.0-1.0 [facility] Comment on above: Order Comment: No: D o not add to previous draw Performed By: #### 0 0071, 03598, 58387 #### [facility] [address] [place] [address], [facility] Lymphocytes (Bld) [#/Vol] 2.0 10*3/uL Normal 1.2-4.0 [facility] Comment on above: Order Comment: No: D o not add to previous draw Performed By: #### 0 0071, , 48869 #### [facility] [address] [place] [address], [facility] Lymphocytes/100 WBC (Bld) 30.0 % Normal 20.0-45.0 [facility] Comment on above: Order Comment: No: D o not add to previous draw Performed By: #### 0 70, , 48697 #### [facility] [address] [place] [address], [facility] MCH (RBC) [Entitic mass] 33.0 pg Normal 27.0-33.0 [facility] Comment on above: Order Comment: No: D o not add to previous draw Performed By: #### 0 1, 75179, 86039 #### [facility] [address] [place] [id number], [facility] MCHC (RBC) [Mass/Vol] 35.9 g/dL High 32.0-35.0 [facility] Comment on above: Order Comment: No: D o not add to previous draw Performed By: #### 0 0071, 48388, 48319 #### [facility] [address] [place] [id number], [facility] MCV (RBC) [Entitic vol] 92.1 fL Normal 82.0-98.0 [facility] Comment on above: Order Comment: No: D o not add to previous draw Performed By: #### 0 0071, 45418, 42806 #### [facility] [address] [place] [address], [facility] Monocytes (Bld) [#/Vol] 0.7 10*3/uL Normal 0.1-1.0 [facility] Comment on above: Order Comment: No: D o not add to previous draw Performed By: #### 0 0071, 44304, 13861 #### [facility] [address] [place] [address], [facility] MONOS 10.4 % Normal 5.0-12.0 [facility] Comment on above: Order Comment: No: D o not add to previous draw Performed By: #### 0 0071, 22344, 43285 #### [facility] [address] [place] [address], [facility] Neutrophils/100 WBC (Bld) 52.7 % Normal 40.0-72.0 [facility] Comment on above: Order Comment: No: D o not add to previous draw Performed By: #### 0 0071, 29478, 67332 #### [facility] [address] [facility] [place] [address], [facility] Nucleated RBC/100 WBC (Bld) [Ratio] 0 % Normal 0-0 [facility] Comment on above: Order Comment: No: D o not add to previous draw Performed By: #### 0 0071, 87233, 20384 #### [facility] [address] [facility] [place] [address], [facility] PLAT CNT 209 10*3/uL Normal 150-400 [facility] Comment on above: Order Comment: No: D o not add to previous draw Performed By: #### 0 0071, 00745, 70567 #### [facility] [address] [place] [address], [facility] RBC (Bld) [#/Vol] 4.45 10*6/uL Normal 4.20-5.70 [facility] Comment on above: Order Comment: No: D o not add to previous draw Performed By: #### 0 0071, 49695, 28309 #### [facility] [address] [place] [address], [place] WBC (Bld) [#/Vol] 6.54 10*3/uL Normal 4.00-10.60 [facility] Comment on above: Order Comment: No: D o not add to previous draw Performed By: #### 0 0071, 84330, 19729 #### [facility] [address] [place] [address], [place] COOXIMETRYon 11-24-2018 COHB 2 % Normal [facility] Comment on above: Performed By: #### 4 6447 #### [facility] [address] [place] [address], [place] METHB 0 % Normal [facility] Comment on above: Performed By: #### 4 6447 #### [facility] [address] [place] [address], [place] Oxygen saturation in Blood 59.4 % Low 65.0-75.0 [facility] Comment on above: Performed By: #### 4 6447 #### [facility] [address] [place] [address], [place] THB 12.4 g/dL Normal [facility] Comment on above: Performed By: #### 4 6447 #### [facility] [address] [place] [address], [place] MAGNESIUM BLOODon 11-24-2018 Magnesium [Mass/Vol] 2.5 mg/dL Normal 1.9-2.7 [facility] Comment on above: Order Comment: No: D o not add to previous draw Performed By: #### 5 0608 #### [facility] [address] [place] [address], [place] Magnesium [Mass/Vol] 2.8 mg/dL High 1.9-2.7 [facility] Comment on above: Performed By: #### 0 0071, 13434, 56152 #### [facility] [address] [place] [address], [facility] MIXED VENOUS BLOOD GASon BASE EXCESS CANCELED Normal [facility] Comment on above: Order Comment: No: D o not add to previous draw Result Comment: The released value -8 was canceled by DANIELA on 11/24/2018 16:42 Performed By: #### 4 [id number] #### [facility] [address] [place] [address], [facility] BILEVEL CANCELED Normal [facility] Comment on above: Order Comment: No: D o not add to previous draw Performed By: #### 4 6447 #### [facility] [address] [place] [address], [facility] DELIVERY SYSTEMS CANCELED Normal [facility] Comment on above: Order Comment: No: D o not add to previous draw Performed By: #### 4 6447 #### [facility] [address] [place] [address], [place] FIO2 CANCELED Normal [facility] Comment on above: Order Comment: No: D o not add to previous draw Performed By: #### 4 6447 #### [facility] [address] [place] [address], [facility] HCO3 (Bld) [Moles/Vol] CANCELED Normal [facility] Comment on above: Order Comment: No: D o not add to previous draw Result Comment: The released value 20 was canceled by DANIELA on 11/24/2018 16:42 Performed By: #### 4 [id number] #### [facility] [address] [place] [address], [place] LPM CANCELED Normal [facility] Comment on above: Order Comment: No: D o not add to previous draw Performed By: #### 4 6499 #### [facility] [address] [place] [address], [place] MIN VOLUME CANCELED Normal [facility] Comment on above: Order Comment: No: D o not add to previous draw Performed By: #### 4 6447 #### [facility] [address] [place] [address], [place] MODALITY CANCELED Normal [facility] Comment on above: Order Comment: No: D o not add to previous draw Performed By: #### 4 6447 #### [facility] [address] [place] [address], [place] Oxygen (Bld) [Partial pressure] CANCELED Normal 35-45 [facility] Comment on above: Order Comment: No: D o not add to previous draw Result Comment: The released value 38 was canceled by KBRANDMAN on 11/24/2018 16:42 Performed By: #### 4 [id number] #### [facility] [address] [place] [address], [place] Oxygen saturation in Blood CANCELED Normal 65.0-75.0 [facility] Comment on above: Order Comment: No: D o not add to previous draw Result Comment: The released value 59.4 was canceled by KBRANDMAN on 11/24/2018 16:42 Performed By: #### 4 [id number] #### [facility] [address] [place] [address], [place] PCO2 CANCELED Normal 40-50 [facility] Comment on above: Order Comment: No: D o not add to previous draw Result Comment: The released value 53 was canceled by KBRANDMAN on 11/24/2018 16:42 Performed By: #### 4 [id number] #### [facility] [address] [place] [address], [place] PEEP CANCELED Normal [facility] Comment on above: Order Comment: No: D o not add to previous draw Performed By: #### 4 6447 #### [facility] [address] [place] [address], [place] pH (Bld) CANCELED Normal 7.31-7.41 [facility] Comment on above: Order Comment: No: D o not add to previous draw Result Comment: The released value 7.19 was canceled by DANIELA on 11/24/2018 16:42 Performed By: #### 4 [id number] #### [facility] [address] [place] [address], [place] PRESSURE SUPPORT CANCELED Normal [facility] Comment on above: Order Comment: No: D o not add to previous draw Performed By: #### 4 6447 #### [facility] [address] [place] [address], [place] TIDAL VOLUME (VT) CC CANCELED Normal [facility] Comment on above: Order Comment: No: D o not add to previous draw Performed By: #### 4 [id number] #### [facility] [address] [place] [address], [place] PERFUSION BLOOD PANELon 11-13 BASE EXCESS -8.0 mmol/L Low -2.0-3.0 [facility] Comment on above: Performed By: #### 4 1000, 56434, 21061 #### [facility] [address] [place] [address], [place] Glucose [Mass/Vol] 162 mg/dL High 70-105 [facility] Comment on above: Performed By: #### 4 1000, 32685, 03383 #### [facility] [address] [place] [address], [place] Hematocrit (Bld) [Volume fraction] 30 % Low 38-51 [facility] Comment on above: Performed By: #### 4 1000, 57103, 07985 #### [facility] [address] [place] [address], [place] Hemoglobin (Bld) [Mass/Vol] 10.2 g/dL Low 12.0-17.0 [facility] Comment on above: Performed By: #### 4 999, , 82855 #### [facility] [address] [place] [id number], [facility] IONIZED CALCIUM 1.09 mmol/L Low 1.12-1.32 [facility] Comment on above: Performed By: #### 4 999, , #### [facility] [address] [place] [address], [facility] Oxygen (Bld) [Partial pressure] 319.0 mm[Hg] High 80.0-105.0 [facility] Comment on above: Performed By: #### 4 999, , #### [facility] [address] [place] [address], [facility] PCO2 42.4 mmHg Normal 35.0-45.0 [facility] Comment on above: Performed By: #### 4 999, , #### [facility] [address] [place] [address], [facility] pH (Bld) 7.26 [pH] Low 7.35-7.45 [facility] Comment on above: Performed By: #### 4 999, , #### [facility] [address] [place] [address], [place] Potassium [Moles/Vol] 4.8 mmol/L Normal 3.5-4.9 [facility] Comment on above: Performed By: #### 4 999, , #### [facility] [address] [place] [address], [place] Sodium [Moles/Vol] 142 mmol/L Normal 138-146 [facility] Comment on above: Performed By: #### 4 999, , #### [facility] [address] [place] [address], [place] BASE EXCESS -6.0 mmol/L Low -2.0-3.0 [facility] Comment on above: Performed By: #### 0 70, 14954, 41453 #### [facility] [address] [place] [address], [place] Glucose [Mass/Vol] 97 mg/dL Normal 70-105 [facility] Comment on above: Performed By: #### 0 70, , 46496 #### [facility] [address] [place] [address], [place] Hematocrit (Bld) [Volume fraction] 33 % Low 38-51 [facility] Comment on above: Performed By: #### 0 70, , 13635 #### [facility] [facility] [address] [place] [address], [place] Hemoglobin (Bld) [Mass/Vol] 11.2 g/dL Low 12.0-17.0 [facility] Comment on above: Performed By: #### 0 70, 81675, 97278 #### [facility] [address] [place] [address], [place] IONIZED CALCIUM 1.13 mmol/L Normal 1.12-1.32 [facility] Comment on above: Performed By: #### 0 70, 22390, 11496 #### [facility] [address] [place] [address], [place] Oxygen (Bld) [Partial pressure] 93.0 mm[Hg] Normal 80.0-105.0 [facility] Comment on above: Performed By: #### 0 70, 72443, 96025 #### [facility] [address] [place] [address], [place] PCO2 43.6 mmHg Normal 35.0-45.0 [facility] Comment on above: Performed By: #### 0 70, , 42179 #### [facility] [address] [place] [address], [facility] pH (Bld) 7.28 [pH] Low 7.35-7.45 [facility] Comment on above: Performed By: #### 0 1, 17035, 84778 #### [facility] [address] [place] [address], [place] Potassium [Moles/Vol] 3.9 mmol/L Normal 3.5-4.9 [facility] Comment on above: Performed By: #### 0 0071, 53987, 91171 #### [facility] [address] [place] [address], [place] Sodium [Moles/Vol] 140 mmol/L Normal 138-146 [facility] Comment on above: Performed By: #### 0 70, , 70125 #### [facility] [address] [place] [address], [place] BASE EXCESS -4.0 mmol/L Low -2.0-3.0 [facility] Comment on above: Performed By: #### 0 1, 76334, 49289 #### [facility] [address] [place] [address], [place] Glucose [Mass/Vol] 107 mg/dL High 70-105 [facility] Comment on above: Performed By: #### 0 0071, 06683, 28316 #### [facility] [address] [place] [address], [place] Hematocrit (Bld) [Volume fraction] 26 % Low 38-51 [facility] Comment on above: Performed By: #### 0 0071, 28573, 03443 #### [facility] [address] [place] [address], [place] Hemoglobin (Bld) [Mass/Vol] 8.8 g/dL Low 12.0-17.0 [facility] Comment on above: Performed By: #### 0 1, 76532, 07323 #### [facility] [address] [place] [address], [facility] IONIZED CALCIUM 1.18 mmol/L Normal 1.12-1.32 [facility] Comment on above: Performed By: #### 0 0071, 29547, 26422 #### [facility] [address] [place] [address], [facility] Oxygen (Bld) [Partial pressure] 195.0 mm[Hg] High 80.0-105.0 [facility] Comment on above: Performed By: #### 0 1, 74667, 50658 #### [facility] [address] [place] [address], [facility] PCO2 44.9 mmHg Normal 35.0-45.0 [facility] Comment on above: Performed By: #### 0 1, 03427, 07434 #### [facility] [address] [place] [address], [facility] pH (Bld) 7.31 [pH] Low 7.35-7.45 [facility] Comment on above: Performed By: #### 0 1, 95188, 77503 #### [facility] [address] [place] [address], [facility] Potassium [Moles/Vol] 3.7 mmol/L Normal 3.5-4.9 [facility] Comment on above: Performed By: #### 0 0071, 81411, 52457 #### [facility] [address] [place] [address], [place] Sodium [Moles/Vol] 138 mmol/L Normal 138-146 [facility] Comment on above: Performed By: #### 0 1, 55400, 04462 #### [facility] [address] [place] [address], [facility] BASE EXCESS -2.0 mmol/L Normal -2.0-3.0 [facility] Comment on above: Performed By: #### 0 1, 02018, 59883 #### [facility] [address] [place] [address], [place] Glucose [Mass/Vol] 118 mg/dL High 70-105 [facility] Comment on above: Performed By: #### 0 70, 90716, 90002 #### [facility] [address] [place] [address], [facility] Hematocrit (Bld) [Volume fraction] 27 % Low 38-51 [facility] Comment on above: Performed By: #### 0 70, 74396, 31929 #### [facility] [address] [place] [address], [facility] Hemoglobin (Bld) [Mass/Vol] 9.2 g/dL Low 12.0-17.0 [facility] Comment on above: Performed By: #### 0 70, 12144, 90161 #### [facility] [address] [place] [address], [facility] IONIZED CALCIUM 1.00 mmol/L Low 1.12-1.32 [facility] Comment on above: Performed By: #### 0 70, 98155, 73798 #### [facility] [address] [place] [address], [facility] Oxygen (Bld) [Partial pressure] 329.0 mm[Hg] High 80.0-105.0 [facility] Comment on above: Performed By: #### 0 70, 98279, 68632 #### [facility] [address] [place] [address], [facility] PCO2 47.2 mmHg High 35.0-45.0 [facility] Comment on above: Performed By: #### 0 70, 01229, 56258 #### [facility] [address] [place] [address], [facility] pH (Bld) 7.32 [pH] Low 7.35-7.45 [facility] Comment on above: Performed By: #### 0 1, , 50233 #### [facility] [address] [place] [address], [place] Potassium [Moles/Vol] 4.3 mmol/L Normal 3.5-4.9 [facility] Comment on above: Performed By: #### 0 1, 28897, 18811 #### [facility] [address] [place] [address], [place] Sodium [Moles/Vol] 136 mmol/L Low 138-146 [facility] Comment on above: Performed By: #### 0 70, , 57902 #### [facility] [address] [place] [address], [place] BASE EXCESS -2.0 mmol/L Normal -2.0-3.0 [facility] Comment on above: Performed By: #### 0 70, 89345, 27648 #### [facility] [address] [place] [address], [place] Glucose [Mass/Vol] 120 mg/dL High 70-105 [facility] Comment on above: Performed By: #### 0 70, 90496, 69627 #### [facility] [address] [place] [address], [place] Hematocrit (Bld) [Volume fraction] 30 % Low 38-51 [facility] Comment on above: Performed By: #### 0 70, 44680, 62187 #### [facility] [address] [place] [address], [place] Hemoglobin (Bld) [Mass/Vol] 10.2 g/dL Low 12.0-17.0 [facility] Comment on above: Performed By: #### 0 0071, 66662, 65832 #### [facility] [address] [place] [address], [facility] IONIZED CALCIUM 1.00 mmol/L Low 1.12-1.32 [facility] Comment on above: Performed By: #### 0 0071, 93585, 74591 #### [facility] [address] [place] [address], [facility] Oxygen (Bld) [Partial pressure] 332.0 mm[Hg] High 80.0-105.0 [facility] Comment on above: Performed By: #### 0 0071, 97592, 52552 #### [facility] [address] [place] [address], [facility] PCO2 46.0 mmHg High 35.0-45.0 [facility] Comment on above: Performed By: #### 0 0071, 14791, 49244 #### [facility] [address] [place] [address], [facility] pH (Bld) 7.33 [pH] Low 7.35-7.45 [facility] Comment on above: Performed By: #### 0 1, 53243, 22676 #### [facility] [address] [place] [address], [facility] Potassium [Moles/Vol] 4.5 mmol/L Normal 3.5-4.9 [facility] Comment on above: Performed By: #### 0 0071, 67427, 19839 #### [facility] [address] [place] [address], [place] Sodium [Moles/Vol] 136 mmol/L Low 138-146 [facility] Comment on above: Performed By: #### 0 0071, 24013, 94645 #### [facility] [address] [place] [address], [facility] BASE EXCESS 0.0 mmol/L Normal -2.0-3.0 [facility] Comment on above: Performed By: #### 0 1, 78898, 32427 #### [facility] [address] [place] [address], [place] Glucose [Mass/Vol] 120 mg/dL High 70-105 [facility] Comment on above: Performed By: #### 0 70, , 44669 #### [facility] [address] [place] [address], [facility] Hematocrit (Bld) [Volume fraction] 31 % Low 38-51 [facility] Comment on above: Performed By: #### 0 70, 07747, 77296 #### [facility] [address] [place] [address], [facility] Hemoglobin (Bld) [Mass/Vol] 10.5 g/dL Low 12.0-17.0 [facility] Comment on above: Performed By: #### 0 70, 20589, 33492 #### [facility] [address] [place] [address], [facility] IONIZED CALCIUM 0.99 mmol/L Low 1.12-1.32 [facility] Comment on above: Performed By: #### 0 70, 67677, 01225 #### [facility] [address] [place] [address], [facility] Oxygen (Bld) [Partial pressure] 396.0 mm[Hg] High 80.0-105.0 [facility] Comment on above: Performed By: #### 0 70, 64270, 93663 #### [facility] [address] [place] [address], [facility] PCO2 41.9 mmHg Normal 35.0-45.0 [facility] Comment on above: Performed By: #### 0 70, 34347, 20525 #### [facility] [address] [place] [address], [place] pH (Bld) 7.38 [pH] Normal 7.35-7.45 [facility] Comment on above: Performed By: #### 0 1, 27916, 45596 #### [facility] [address] [place] [address], [place] Potassium [Moles/Vol] 4.3 mmol/L Normal 3.5-4.9 [facility] Comment on above: Performed By: #### 0 0071, 66973, 09000 #### [facility] [address] [place] [address], [place] Sodium [Moles/Vol] 137 mmol/L Low 138-146 [facility] Comment on above: Performed By: #### 0 70, 30303, 87869 #### [facility] [address] [place] [address], [place] BASE EXCESS 0.0 mmol/L Normal -2.0-3.0 [facility] Comment on above: Performed By: #### 0 70, 78362, 28112 #### [facility] [address] [place] [address], [place] Glucose [Mass/Vol] 115 mg/dL High 70-105 [facility] Comment on above: Performed By: #### 0 70, 98584, 14292 #### [facility] [address] [place] [address], [place] Hematocrit (Bld) [Volume fraction] 30 % Low 38-51 [facility] Comment on above: Performed By: #### 0 0071, 48942, 32491 #### [facility] [address] [place] [address], [place] Hemoglobin (Bld) [Mass/Vol] 10.2 g/dL Low 12.0-17.0 [facility] Comment on above: Performed By: #### 0 1, 39256, 64892 #### [facility] [address] [place] [address], [facility] IONIZED CALCIUM 0.99 mmol/L Low 1.12-1.32 [facility] Comment on above: Performed By: #### 0 0071, 26821, 74309 #### [facility] [address] [place] [address], [facility] Oxygen (Bld) [Partial pressure] 346.0 mm[Hg] High 80.0-105.0 [facility] Comment on above: Performed By: #### 0 1, 53753, 15453 #### [facility] [address] [place] [address], [facility] PCO2 44.8 mmHg Normal 35.0-45.0 [facility] Comment on above: Performed By: #### 0 1, 14064, 98732 #### [facility] [address] [place] [address], [facility] pH (Bld) 7.37 [pH] Normal 7.35-7.45 [facility] Comment on above: Performed By: #### 0 1, 36026, 44652 #### [facility] [address] [place] [address], [place] Potassium [Moles/Vol] 4.1 mmol/L Normal 3.5-4.9 [facility] Comment on above: Performed By: #### 0 0071, 12391, 72982 #### [facility] [address] [place] [address], [place] Sodium [Moles/Vol] 138 mmol/L Normal 138-146 [facility] Comment on above: Performed By: #### 0 1, 33027, 96120 #### [facility] [address] [place] [address], [facility] BASE EXCESS -3.0 mmol/L Low -2.0-3.0 [facility] Comment on above: Performed By: #### 0 70, 00818, 24890 #### [facility] [address] [place] [address], [place] Glucose [Mass/Vol] 103 mg/dL Normal 70-105 [facility] Comment on above: Performed By: #### 0 70, , 21755 #### [facility] [address] [place] [address], [facility] Hematocrit (Bld) [Volume fraction] 30 % Low 38-51 [facility] Comment on above: Performed By: #### 0 70, , 49113 #### [facility] [address] [place] [address], [facility] Hemoglobin (Bld) [Mass/Vol] 10.2 g/dL Low 12.0-17.0 [facility] Comment on above: Performed By: #### 0 70, 46677, 01784 #### [facility] [address] [place] [address], [facility] IONIZED CALCIUM 1.00 mmol/L Low 1.12-1.32 [facility] Comment on above: Performed By: #### 0 70, 09422, 99279 #### [facility] [address] [place] [address], [facility] Oxygen (Bld) [Partial pressure] 272.0 mm[Hg] High 80.0-105.0 [facility] Comment on above: Performed By: #### 0 70, 07236, 11419 #### [facility] [address] [place] [address], [facility] PCO2 38.6 mmHg Normal 35.0-45.0 [facility] Comment on above: Performed By: #### 0 70, 38933, 32861 #### [facility] [address] [place] [address], [facility] pH (Bld) 7.36 [pH] Normal 7.35-7.45 [facility] Comment on above: Performed By: #### 0 0071, , 13079 #### [facility] [address] [place] [address], [place] Potassium [Moles/Vol] 4.3 mmol/L Normal 3.5-4.9 [facility] Comment on above: Performed By: #### 0 0071, 44258, 69677 #### [facility] [address] [place] [address], [facility] Sodium [Moles/Vol] 137 mmol/L Low 138-146 [facility] Comment on above: Performed By: #### 0 70, 12861, 15129 #### [facility] [address] [place] [address], [place] Glucose [Mass/Vol] 101 mg/dL Normal 70-105 [facility] Comment on above: Performed By: #### 0 1, 25796, 61254 #### [facility] [address] [place] [address], [facility] Oxygen (Bld) [Partial pressure] 496.0 mm[Hg] High 80.0-105.0 [facility] Comment on above: Performed By: #### 0 0071, 25652, 29067 #### [facility] [address] [place] [address], [place] PCO2 50.1 mmHg High 35.0-45.0 [facility] Comment on above: Performed By: #### 0 0071, 97604, 46071 #### [facility] [address] [place] [address], [place] BASE EXCESS -5.0 mmol/L Low -2.0-3.0 [facility] Comment on above: Performed By: #### 0 1, 63155, 73100 #### [facility] [address] [place] [address], [facility] Glucose [Mass/Vol] 108 mg/dL High 70-105 [facility] Comment on above: Performed By: #### 0 1, 44473, 06726 #### [facility] [address] [place] [address], [facility] Hematocrit (Bld) [Volume fraction] 35 % Low 38-51 [facility] Comment on above: Performed By: #### 0 70, 49538, 21435 #### [facility] [address] [place] [address], [facility] Hemoglobin (Bld) [Mass/Vol] 11.9 g/dL Low 12.0-17.0 [facility] Comment on above: Performed By: #### 0 70, 03883, 91988 #### [facility] [address] [place] [address], [facility] IONIZED CALCIUM 1.13 mmol/L Normal 1.12-1.32 [facility] Comment on above: Performed By: #### 0 70, , 03567 #### [facility] [address] [place] [address], [facility] Oxygen (Bld) [Partial pressure] 184.0 mm[Hg] High 80.0-105.0 [facility] Comment on above: Performed By: #### 0 1, 65445, 34707 #### [facility] [address] [place] [address], [facility] PCO2 49.9 mmHg High 35.0-45.0 [facility] Comment on above: Performed By: #### 0 70, 63805, 54406 #### [facility] [address] [place] [address], [facility] pH (Bld) 7.26 [pH] Low 7.35-7.45 [facility] Comment on above: Performed By: #### 0 70, 80586, 94089 #### [facility] [address] [place] [address], [facility] Potassium [Moles/Vol] 4.0 mmol/L Normal 3.5-4.9 [facility] Comment on above: Performed By: #### 0 1, , 03951 #### [facility] [address] [place] [address], [facility] Sodium [Moles/Vol] 138 mmol/L Normal 138-146 [facility] Comment on above: Performed By: #### 0 70, , 42856 #### [facility] [address] [place] [address], [facility] BASE EXCESS -1.0 mmol/L Normal -2.0-3.0 [facility] Comment on above: Performed By: #### 0 70, 97400, 63627 #### [facility] [address] [facility] [place] [address], [facility] Glucose [Mass/Vol] 109 mg/dL High 70-105 [facility] Comment on above: Performed By: #### 0 70, 06407, 69771 #### [facility] [address] [place] [address], [facility] Hematocrit (Bld) [Volume fraction] 37 % Low 38-51 [facility] Comment on above: Performed By: #### 0 70, 00116, 78059 #### [facility] [address] [place] [id number], [facility] Hemoglobin (Bld) [Mass/Vol] 12.6 g/dL Normal 12.0-17.0 [facility] Comment on above: Performed By: #### 0 1, 48403, 86251 #### [facility] [address] [place] [address], [facility] IONIZED CALCIUM 1.14 mmol/L Normal 1.12-1.32 [facility] Comment on above: Performed By: #### 0 1, 94866, 69747 #### [facility] [address] [place] [address], [facility] Oxygen (Bld) [Partial pressure] 231.0 mm[Hg] High 80.0-105.0 [facility] Comment on above: Performed By: #### 0 1, 68431, 15878 #### [facility] [address] [place] [address], [facility] PCO2 43.2 mmHg Normal 35.0-45.0 [facility] Comment on above: Performed By: #### 0 70, 50029, 26581 #### [facility] [address] [place] [address], [facility] pH (Bld) 7.36 [pH] Normal 7.35-7.45 [facility] Comment on above: Performed By: #### 0 1, 34515, 96203 #### [facility] [address] [place] [address], [facility] Potassium [Moles/Vol] 4.2 mmol/L Normal 3.5-4.9 [facility] Comment on above: Performed By: #### 0 0071, 19620, 49213 #### [facility] [address] [place] [address], [place] Sodium [Moles/Vol] 137 mmol/L Low 138-146 [facility] Comment on above: Performed By: #### 0 0071, 56572, 84602 #### [facility] [address] [place] [address], [facility] PHOSPHORUS BLOODon 9 Phosphate [Mass/Vol] 4.0 mg/dL Normal 2.5-5.0 [facility] Comment on above: Order Comment: No: D o not add to previous draw Performed By: #### 5 0608 #### [facility] [address] [place] [address], [place] POC GLUCOSE LABon 11-24-2018 Glucose [Mass/Vol] 104 mg/dL High 70-100 [facility] Comment on above: Performed By: #### 5 0608 #### [facility] [address] [place] [address], [place] Glucose [Mass/Vol] 88 mg/dL Normal 70-100 [facility] Comment on above: Performed By: #### 4 6447 #### [facility] [address] [place] [address], [place] Glucose [Mass/Vol] 92 mg/dL Normal 70-100 [facility] Comment on above: Performed By: #### 4 6447 #### [facility] [address] [facility] [place] [address], [place] Glucose [Mass/Vol] 80 mg/dL Normal 70-100 [facility] Comment on above: Performed By: #### 4 6447 #### [facility] [address] [place] [address], [place] Glucose [Mass/Vol] 105 mg/dL High 70-100 [facility] Comment on above: Performed By: #### 0 0071, 85502, 58194 #### [facility] [address] [facility] [place] [address], [place] PORTABLE CHEST 1 VIEWon 11-13 PORTABLE CHEST 1 VIEW [facility] Department of Radiology [address] [place] [address] Patient Name: WESTON CANO : 1960 Sex: M Age: Race: White Pt. Location: [id number] Patient Status: I Ordered Date: 11/24/2018 8:40:00 [...] from clotilde, in satisfactory position. Right IJ Alden-Comfort catheter again seen with tip just left [...] tubes in satisfactory position. 2. Right IJ Alden-Comfort catheter again seen, slightly retracted with tip [...] findings. Electronically signed by:Leida Ferro. Transcribed by: [email or web address], User Resident: YOLANDA NICOLE Electronically Signed by: LEIDA FERRO @ 11/25/2018 09:37 AM I personally read this/these film(s) with this resident Normal [facility] Comment on above: Order Comment: No: D o not add to previous draw PORTABLE CHEST 1 VIEW [facility] Department of Radiology [address] [place] [id number] Patient Name: WESTON CANO : 1960 Sex: M Age: Race: White Pt. Location: [address] [place] [id number] Patient Status: I Ordered Date: 11/24/2018 3:45:00 [...] tube extends beneath the diaphragm. Right IJ Alden-Comfort catheter with the tip in the proximal [...] tubes in satisfactory positions with right IJ Alden-Comfort catheter tip in the right main pulmonary artery. 3. Left-sided chest tube in place. 4. Cardiomegaly with perihilar vascular congestion. Approved by:Rajani Santillan on 11/24/2018 4:16 PM EDT. I, Danette Krueger, have reviewed the images and report and concur with these findings. Electronically signed by:Danette Krueger. Transcribed by: [email or web address], User Resident: RAJANI SANTILLAN Electronically Signed by: DANETTE KRUEGER @ 11/24/2018 04:32 PM I personally read this/these film(s) with this resident Normal [facility] Comment on above: Order Comment: No: D o not add to previous draw PORTABLE CHEST 1 VIEW [facility] Department of Radiology [address] [place] [id number] Patient Name: WESTON CANO : 1960 Sex: M Age: Race: White Pt. Location: [id number] Patient Status: I Ordered Date: 11/23/2018 10:20:00 [...] cardiomegaly. Electronically signed by:Leida Ferro. Transcribed by: [email or web address], User Resident: Electronically Signed by: LEIDA FERRO @ 11/24/2018 01:13 PM Normal [facility] Comment on above: Order Comment: No: D o not add to previous draw PROTHROMBIN TIMEon 9 INR Coag (PPP) [Relative time] 1.43 {INR} High 0.91-1.16 [facility] Comment on above: Order Comment: [...] 1995;[id number]. Performed By: #### 4 6447 #### [facility] GENERAL [address] PT Coag (PPP) [Time] 17.5 s High 12.3-14.8 [facility] Comment on above: Order Comment: No: D o not add to previous draw Result Comment: ALL RESULTS MUST BE INTERPRETED WITH RESPECT TO BLOOD DRAWING ARTIFACT OR DILUTION ERROR OF ANTICOAGULANT AT THE TIME OF SAMPLING. Performed By: #### 4 6447 #### [facility] 3000 [facility]. [address] RBC'S 2 UNITSon 11-24-2018 CROSSMATCH INTERP 1 COMP Normal [facility] Comment on above: Performed By: #### 0 0071, 34148, 42745 #### [facility] [address] [facility] [place] [address], [facility] CROSSMATCH INTERP 2 COMP Normal [facility] Comment on above: Performed By: #### 0 0071, 18511, 84809 #### [facility] [address] [place] [address], [facility] PRODUCT CODE 1 E0336 Normal [facility] Comment on above: Performed By: #### 0 0071, 79833, 17165 #### [facility] [address] [place] [address], [place] PRODUCT CODE 2 E0336 Normal [facility] Comment on above: Performed By: #### 0 0071, 29297, 26179 #### [facility] [address] [place] [address], [facility] PRODUCT STATUS 1 RE Normal [facility] Comment on above: Result Comment: Resu lt changed by IF on 11/28/2018 06:51. The previous value was XM. Performed By: #### 0 0071, 90600, 94537 #### [facility] [address] [place] [address], [facility] PRODUCT STATUS 2 RE Normal [facility] Comment on above: Result Comment: Resu lt changed by IF on 11/28/2018 06:51. The previous value was XM. Performed By: #### 0 0071, 79036, 72338 #### [facility] [address] [place] [address], [place] UNIT ABO 1 A Normal [facility] Comment on above: Performed By: #### 0 0071, 03372, 57402 #### [facility] [address] [place] [address], [place] UNIT ABO 2 A Normal [facility] Comment on above: Performed By: #### 0 0071, 26364, 12726 #### [facility] [address] [place] [address], [place] UNIT ID 1 [id number] Normal [facility] Comment on above: Performed By: #### 0 0071, 70215, 68934 #### [facility] [address] [place] [address], [facility] UNIT ID 2 [id number] Normal [facility] Comment on above: Performed By: #### 0 0071, 33554, 78778 #### [facility] [address] [place] [address], [facility] UNIT RH 1 Positive Normal [facility] Comment on above: Performed By: #### 0 0071, 73680, 82231 #### [facility] [address] [place] [address], [facility] UNIT RH 2 Positive Normal [facility] Comment on above: Performed By: #### 0 0071, 94814, 09872 #### [facility] [address] [place] [address], [facility] TYPE AND SCREENon 11-24-2018 ABO INTERPRETATION A Normal [facility] Comment on above: Performed By: #### 0 0071, 76784, 92305 #### [facility] [address] [place] [address], [facility] RH INTERPRETATION Positive Normal [facility] Comment on above: Performed By: #### 0 0071, 33260, 73050 #### [facility] [address] APTTon 11-23-2018 aPTT Coag (Bld) [Time] 30.2 s Normal 25.0-35.0 [facility] Comment on above: Order Comment: No: [...] THIS PURPOSE. Performed By: #### 0 0071, 35439, 23450 #### [facility] [address] [place] [address], [place] BASIC METABOLIC PANELon 04- Calcium [Mass/Vol] 8.7 mg/dL Normal 8.6-10.3 [facility] Comment on above: Order Comment: No: D o not add to previous draw Performed By: #### 4 1000, , 70527 #### [facility] [address] [place] [address], [place] Chloride [Moles/Vol] 106 mmol/L Normal 98-107 [facility] Comment on above: Order Comment: No: D o not add to previous draw Performed By: #### 4 1000, , 72496 #### [facility] [address] [place] [address], [place] CO2 [Moles/Vol] 24 mmol/L Normal 21-31 [facility] Comment on above: Order Comment: No: D o not add to previous draw Performed By: #### 4 1000, , 91734 #### [facility] [address] [place] [address], [place] Creatinine [Mass/Vol] 1.08 mg/dL Normal 0.70-1.30 [facility] Comment on above: Order Comment: No: D o not add to previous draw Performed By: #### 4 1000, , 48064 #### [facility] [address] [place] [address], [place] GFR/1.73 sq M predicted among blacks MDRD (S/P/Bld) [Vol rate/Area] mL/min/{1.73_m2} Normal >60 [facility] Comment on above: Order Comment: No: D o not add to previous draw Performed By: #### 4 1000, , 81241 #### [facility] [address] [place] [address], [place] GFR/1.73 sq M predicted among non-blacks MDRD (S/P/Bld) [Vol rate/Area] mL/min/{1.73_m2} Normal >60 [facility] Comment on above: Order Comment: No: D o not add to previous draw Performed By: #### 4 1000, 60657, 35939 #### [facility] [address] [place] [address], [place] Glucose [Mass/Vol] 105 mg/dL High 70-100 [facility] Comment on above: Order Comment: No: D o not add to previous draw Performed By: #### 4 1000, 82838, 06467 #### [facility] [address] [place] [address], [place] Potassium [Moles/Vol] 4.1 mmol/L Normal 3.5-5.1 [facility] Comment on above: Order Comment: No: D o not add to previous draw Performed By: #### 4 1000, , 83891 #### [facility] [address] [place] [address], [place] Sodium [Moles/Vol] 137 mmol/L Normal 136-145 [facility] Comment on above: Order Comment: No: D o not add to previous draw Performed By: #### 4 1000, , 16798 #### [facility] [address] [place] [address], [place] Urea nitrogen [Mass/Vol] 9 mg/dL Normal 7-25 [facility] Comment on above: Order Comment: No: D o not add to previous draw Performed By: #### 4 1000, 22393, 77808 #### [facility] [address] [place] [address], [place] CBC COMPLETE BLOOD COUNTon 0 - Erythrocyte distribution width (RBC) [Ratio] 12.5 % Normal 11.5-15.0 [facility] Comment on above: Order Comment: No: D o not add to previous draw Performed By: #### 5 0608 #### [facility] [address] [place] [address], [facility] Hematocrit (Bld) [Volume fraction] 39.5 % Normal 39.0-50.0 [facility] Comment on above: Order Comment: No: D o not add to previous draw Performed By: #### 5 0608 #### [facility] [address] [place] [address], [facility] Hemoglobin (Bld) [Mass/Vol] 13.9 g/dL Normal 13.0-17.0 [facility] Comment on above: Order Comment: No: D o not add to previous draw Performed By: #### 5 0608 #### [facility] [address] [facility] [place] [address], [facility] MCH (RBC) [Entitic mass] 32.2 pg Normal 27.0-33.0 [facility] Comment on above: Order Comment: No: D o not add to previous draw Performed By: #### 5 0608 #### [facility] [address] [place] [address], [facility] MCHC (RBC) [Mass/Vol] 35.2 g/dL High 32.0-35.0 [facility] Comment on above: Order Comment: No: D o not add to previous draw Performed By: #### 5 0608 #### [facility] [address] [place] [address], [facility] MCV (RBC) [Entitic vol] 91.4 fL Normal 82.0-98.0 [facility] Comment on above: Order Comment: No: D o not add to previous draw Performed By: #### 5 0608 #### [facility] [address] [place] [address], [facility] Nucleated RBC/100 WBC (Bld) [Ratio] 0 % Normal 0-0 [facility] Comment on above: Order Comment: No: D o not add to previous draw Performed By: #### 5 0608 #### [facility] PLAT CNT 208 10*3/uL Normal 150-400 [facility] Comment on above: Order Comment: No: D o not add to previous draw Performed By: #### 5 0608 #### [address] RBC (Bld) [#/Vol] 4.32 10*6/uL Normal 4.20-5.70 [facility] Comment on above: Order Comment: No: D o not add to previous draw Performed By: #### 5 0608 #### [address] WBC (Bld) [#/Vol] 6.36 10*3/uL Normal 4.00-10.60 [facility] Comment on above: Order Comment: No: D o not add to previous draw Performed By: #### 5 0608 #### [address] Cardiovascular Lab Reporton 11-23-2018 Cardiovascular Lab Report [facility] Patient Name: [facility] Bill[facility] MR #: [id number] Department of Physician: Austin Hartley M.D. Division of Service Date: 11/22/2018 Cardiology Birthdate: 1960 Adult Cardiovascular Room #: 3CD 219599 Services [place] [address] Cardiovascular Laboratory Report INDICATION: The patient is [...] signed informed consent. 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 The right wrist area was prepped and draped in usual fashion. The Vaughn's test was favorable. Using micropuncture technique, the right radial artery was accessed a 6-Tuvaluan x 11 cm Hydrophilic sheath was advanced. Verapamil was given through the sheath and heparin was administered intravenously. Left heart catheterization was then performed by advancing the 6-Tuvaluan JR5 diagnostic catheter over the wire into the left ventricular cavity. Measurement of pressures was performed. Pullback across the aortic valve was performed with measurement of pressures. Bilateral selective coronary angiography was then performed using 6-Tuvaluan JR5 and JL 3.5. diagnostic catheters. Catheters [...] risks and benefits. Electronically Signed by: Austin Hartley M.D. 11/25/2018 12:14 P Austin Hartley M.D. Date Dict: 11/22/2018/10:22 Amadeo/Austin Hartley M.D. Date Trans: 11/23/2018 07:36 Amadeo/love [id number] cc: Estefania Weeks M.D. [address], [facility] [place] [id number] Normal [facility] MAGNESIUM BLOODon 11-23-2018 Magnesium [Mass/Vol] 2.0 mg/dL Normal 1.9-2.7 [facility] Comment on above: Order Comment: No: D o not add to previous draw Performed By: #### 4 1000, 18227, 42699 #### [facility] 3000 [facility]. [address] PHOSPHORUS BLOODon 9 Phosphate [Mass/Vol] 2.9 mg/dL Normal 2.5-5.0 [facility] Comment on above: Order Comment: No: D o not add to previous draw Performed By: #### 4 1000, 03972, 50810 #### [facility] [address] [facility]. [address] PROTHROMBIN TIMEon 9 INR Coag (PPP) [Relative time] 1.11 {INR} Normal 0.91-1.16 [facility] Comment on above: Order Comment: [...] CHEST 1995;108:[id number]-246S. Performed By: #### 5 6101, 05944 #### [facility] [address] PT Coag (PPP) [Time] 14.3 s Normal 12.3-14.8 [facility] Comment on above: Order Comment: No: D o not add to previous draw Result Comment: ALL RESULTS MUST BE INTERPRETED WITH RESPECT TO BLOOD DRAWING ARTIFACT OR DILUTION ERROR OF ANTICOAGULANT AT THE TIME OF SAMPLING. Performed By: #### 5 6101, 27461 #### [facility] [address] BASIC METABOLIC PANELon 04- Calcium [Mass/Vol] 9.4 mg/dL Normal 8.6-10.3 [facility] Comment on above: Order Comment: No: D o not add to previous draw Performed By: #### 0 0071, 75643, 13665 #### [facility] [address] [facility]. [address] Chloride [Moles/Vol] 106 mmol/L Normal 98-107 [facility] Comment on above: Order Comment: No: D o not add to previous draw Performed By: #### 0 0071, 18433, 88471 #### [facility] [address] [facility] [place] [address], [facility] CO2 [Moles/Vol] 26 mmol/L Normal 21-31 [facility] Comment on above: Order Comment: No: D o not add to previous draw Performed By: #### 0 0071, 27195, 20281 #### [facility] [address] [place] [address], [place] Creatinine [Mass/Vol] 1.01 mg/dL Normal 0.70-1.30 [facility] Comment on above: Order Comment: No: D o not add to previous draw Performed By: #### 0 0071, 88242, 35537 #### [facility] [address] [place] [address], [place] GFR/1.73 sq M predicted among blacks MDRD (S/P/Bld) [Vol rate/Area] mL/min/{1.73_m2} Normal >60 [facility] Comment on above: Order Comment: No: D o not add to previous draw Performed By: #### 0 0071, 92797, 96651 #### [facility] [address] [place] [address], [place] GFR/1.73 sq M predicted among non-blacks MDRD (S/P/Bld) [Vol rate/Area] mL/min/{1.73_m2} Normal >60 [facility] Comment on above: Order Comment: No: D o not add to previous draw Performed By: #### 0 0071, 58313, 21069 #### [facility] [address] [place] [address], [place] Glucose [Mass/Vol] 99 mg/dL Normal 70-100 [facility] Comment on above: Order Comment: No: D o not add to previous draw Performed By: #### 0 0071, 33487, 67847 #### [facility] [address] [place] [address], [place] Potassium [Moles/Vol] 3.9 mmol/L Normal 3.5-5.1 [facility] Comment on above: Order Comment: No: D o not add to previous draw Performed By: #### 0 0071, 28981, 42188 #### [facility] [address] [place] [address], [place] Sodium [Moles/Vol] 137 mmol/L Normal 136-145 [facility] Comment on above: Order Comment: No: D o not add to previous draw Performed By: #### 0 0071, 56072, 78735 #### [facility] [address] Urea nitrogen [Mass/Vol] 8 mg/dL Normal 7-25 [facility] Comment on above: Order Comment: No: D o not add to previous draw Performed By: #### 0 0071, 61437, 60495 #### [facility] [address] [facility]. [address] CBC W/DIFFon 11-22-2018 ABS BASOPHILS 0.1 10*3/uL Normal 0.0-0.2 [facility] Comment on above: Order Comment: No: D o not add to previous draw Performed By: #### 5 0103 #### [facility] [address] [facility] [address] ABS IMM GRANS 0.0 10*3/uL Normal 0.0-0.2 [facility] Comment on above: Order Comment: No: D o not add to previous draw Performed By: #### 5 0103 #### [facility] [address] [facility]. [address] ABS NEUTROPHILS 4.9 10*3/uL Normal 1.6-7.6 [facility] Comment on above: Order Comment: No: D o not add to previous draw Performed By: #### 5 0103 #### [facility] [address] [facility] [place] [address], [facility] Basophils/100 WBC (Bld) 0.6 % Normal 0.0-1.0 [facility] Comment on above: Order Comment: No: D o not add to previous draw Performed By: #### 5 0103 #### [facility] [address] [facility]. [address] Eosinophils (Bld) [#/Vol] 0.3 10*3/uL Normal 0.0-0.5 [facility] Comment on above: Order Comment: No: D o not add to previous draw Performed By: #### 5 0103 #### [facility] [address] [place] [address], [facility] Eosinophils/100 WBC (Bld) 3.3 % Normal 0.0-6.0 [facility] Comment on above: Order Comment: No: D o not add to previous draw Performed By: #### 5 0103 #### [facility] [address] Erythrocyte distribution width (RBC) [Ratio] 12.4 % Normal 11.5-15.0 [facility] Comment on above: Order Comment: No: D o not add to previous draw Performed By: #### 5 0103 #### [facility] [address] [facility] [place] [address], [facility] Hematocrit (Bld) [Volume fraction] 40.9 % Normal 39.0-50.0 [facility] Comment on above: Order Comment: No: D o not add to previous draw Performed By: #### 5 0103 #### [facility] [address] [facility] [place] [address], [facility] Hemoglobin (Bld) [Mass/Vol] 14.4 g/dL Normal 13.0-17.0 [facility] Comment on above: Order Comment: No: D o not add to previous draw Performed By: #### 5 0103 #### [facility] [address] [facility] [place] [address], [facility] IMMATURE GRANS 0.4 % Normal 0.0-1.0 [facility] Comment on above: Order Comment: No: D o not add to previous draw Performed By: #### 5 0103 #### [facility] [address] Lymphocytes (Bld) [#/Vol] 2.4 10*3/uL Normal 1.2-4.0 [facility] Comment on above: Order Comment: No: D o not add to previous draw Performed By: #### 5 0103 #### [facility] [address] [place] [address], [facility] Lymphocytes/100 WBC (Bld) 29.4 % Normal 20.0-45.0 [facility] Comment on above: Order Comment: No: D o not add to previous draw Performed By: #### 5 0103 #### [facility] [address] [place] [address], [facility] MCH (RBC) [Entitic mass] 32.8 pg Normal 27.0-33.0 [facility] Comment on above: Order Comment: No: D o not add to previous draw Performed By: #### 5 0103 #### [facility] [address] [place] [address], [facility] MCHC (RBC) [Mass/Vol] 35.2 g/dL High 32.0-35.0 [facility] Comment on above: Order Comment: No: D o not add to previous draw Performed By: #### 5 0103 #### [facility] [address] [place] [address], [facility] MCV (RBC) [Entitic vol] 93.2 fL Normal 82.0-98.0 [facility] Comment on above: Order Comment: No: D o not add to previous draw Performed By: #### 5 0103 #### [facility] [address] [place] [address], [facility] Monocytes (Bld) [#/Vol] 0.6 10*3/uL Normal 0.1-1.0 [facility] Comment on above: Order Comment: No: D o not add to previous draw Performed By: #### 5 0103 #### [facility] 3000 [place] [address], [facility] MONOS 7.5 % Normal 5.0-12.0 [facility] Comment on above: Order Comment: No: D o not add to previous draw Performed By: #### 5 0103 #### [facility] [address] [place] [address], [facility] Neutrophils/100 WBC (Bld) 58.8 % Normal 40.0-72.0 [facility] Comment on above: Order Comment: No: D o not add to previous draw Performed By: #### 5 0103 #### [facility] [address] [place] [id number], [facility] Nucleated RBC/100 WBC (Bld) [Ratio] 0 % Normal 0-0 [facility] Comment on above: Order Comment: No: D o not add to previous draw Performed By: #### 5 0103 #### [facility] [address] [facility] [place] [address], [facility] PLAT CNT 209 10*3/uL Normal 150-400 [facility] Comment on above: Order Comment: No: D o not add to previous draw Performed By: #### 5 0103 #### [facility] [address] [facility] [place] [id number], [facility] RBC (Bld) [#/Vol] 4.39 10*6/uL Normal 4.20-5.70 [facility] Comment on above: Order Comment: No: D o not add to previous draw Performed By: #### 5 0103 #### [facility] [address] [place] [address], [place] WBC (Bld) [#/Vol] 8.26 10*3/uL Normal 4.00-10.60 [facility] Comment on above: Order Comment: No: D o not add to previous draw Performed By: #### 5 3 #### [facility] [address] [place] [address], [facility] HEMOGLOBIN A1Con 04-10-2019 HbA1c (Bld) [Mass fraction] 6.1 % High 4.0-6.0 [facility] Comment on above: Order Comment: No: D o not add to previous draw Performed By: #### 4 6447 #### [facility] [address] [place] [address], [facility] HbA1c (Bld) [Mass fraction] 128 mg/dL High 70-126 [facility] Comment on above: Order Comment: No: D o not add to previous draw Performed By: #### 4 6447 #### [facility] [address] [place] [address], [facility] LIPID PROFILEon 11-22-2018 Cholesterol [Mass/Vol] 166 mg/dL Normal 120-200 [facility] Comment on above: Order Comment: No: D o not add to previous draw Result Comment: CHOL ESTEROL REFERENCE RANGE: 20 YEARS AND OLDER CARDIOVASCULAR RISK Less than 200 mg/dl Low Risk 200 to 239 mg/dl Borderline Risk 240 mg/dl and greater High Risk Performed By: #### 0 0071, 67603, 03103 #### [facility] [address] [place] [address], [facility] Cholesterol in HDL [Mass/Vol] 30 mg/dL Normal 23-92 [facility] Comment on above: Order Comment: No: D o not add to previous draw Result Comment: Slig ht variation in normal range could be due to gender and/or age. HDL CHOLESTEROL REFERENCE RANGE: 20 years and older Cardiovascular Risk > or =60 mg/dL Desirable 40 TO 59 mg/dL Low Risk <40 mg/dL High Risk Performed By: #### 0 0071, 75747, 41692 #### [facility] [address] [place] [address], [facility] Cholesterol in LDL [Mass/Vol] 112 mg/dL Normal 0-130 [facility] Comment on above: Order Comment: No: D o not add to previous draw Result Comment: LDL IS A CALCULATION LDL IS ONLY VALID IF THE TRIG IS LESS THAN 400. Performed By: #### 0 0071, 11182, 05586 #### [facility] [address] [place] [address], [facility] Cholesterol.total/Ch olesterol in HDL [Mass ratio] 5.5 {ratio} High .0-4.5 [facility] Comment on above: Order Comment: No: D o not add to previous draw Performed By: #### 0 0071, 60225, 41094 #### [facility] [address] [place] [address], [facility] NON-HDL CHOLESTEROL 136 mg/dL Normal [facility] Comment on above: Order Comment: No: D o not add to previous draw Performed By: #### 0 0071, 04346, 56295 #### [facility] [address] [place] [address], [facility] Triglyceride [Mass/Vol] 119 mg/dL Normal 40-149 [facility] Comment on above: Order Comment: No: D o not add to previous draw Result Comment: TRIG LYCERIDE REFERENCE RANGE: 20 YEARS AND OLDER CARDIOVASCULAR RISK LESS THAN 150 mg/dl LOW RISK 150 TO 199 mg/dl BORDERLINE RISK 200 mg/dl AND GREATER HIGH RISK Performed By: #### 0 [id number], [id number], [id number] #### [facility] [address] [place] [address], [facility] VLDL CHOL 24 mg/dL Normal 0-40 [facility] Comment on above: Order Comment: No: D o not add to previous draw Performed By: #### 0 [id number], [id number], [id number] #### [facility] [address] [place] [address], [facility] LIVER BATTERYon 11-22-2018 Albumin [Mass/Vol] 4.2 g/dL Normal 3.5-5.7 [facility] Comment on above: Order Comment: No: D o not add to previous draw Performed By: #### 0 0071, [id number], [id number] #### [facility] [address] [place] [address], [facility] ALKALINE PHOSPH 56 IU/L Normal 34-104 [facility] Comment on above: Order Comment: No: D o not add to previous draw Performed By: #### 0 [id number], [id number], [id number] #### [facility] [address] [place] [address], [place] ALT [Catalytic activity/Vol] 32 U/L Normal 7-52 [facility] Comment on above: Order Comment: No: D o not add to previous draw Performed By: #### 0 [id number], [id number], [id number] #### [facility] [address] [place] [address], [place] AST [Catalytic activity/Vol] 21 U/L Normal 13-39 [facility] Comment on above: Order Comment: No: D o not add to previous draw Performed By: #### 0 [id number], [id number], [id number] #### [facility] [address] [place] [address], [place] Bilirubin [Mass/Vol] 0.6 mg/dL Normal 0.3-1.0 [facility] Comment on above: Order Comment: No: D o not add to previous draw Performed By: #### 0 0071, [id number], [id number] #### [facility] [address] [place] [address], [place] Bilirubin.direct [Mass/Vol] 0.1 mg/dL Normal 0.0-0.2 [facility] Comment on above: Order Comment: No: D o not add to previous draw Performed By: #### 0 0071, [id number], [id number] #### [facility] [address] [place] [address], [place] Protein [Mass/Vol] 7.1 g/dL Normal 6.0-8.3 [facility] Comment on above: Order Comment: No: D o not add to previous draw Performed By: #### 0 [id number], [id number], [id number] #### [facility] [address] [place] [address], [facility] Vital Signs Date Time Vital Sign Value Performing Clinician Facility 11-25-2018 08:07-0400 Respiratory rate 12 /min ESTEFANIA WEEKS [facility] Comment on above: Performed By: #### 4 1000, [id number], [id number] #### [facility] [address] [place] [address], [facility] 11-25-2018 01:22-0400 Respiratory rate 12 /min ESTEFANIA HOY [facility] Comment on above: Performed By: #### 5 [id number] #### [facility] [address] [place] [address], [facility] 11-24-2018 22:23-0400 Respiratory rate 12 /min ESTEFANIA HOY [facility] Comment on above: Performed By: #### 4 [id number] #### [facility] [address] [place] [address], [facility] 11-24-2018 18:19-0400 Respiratory rate CANCELED ESTEFANIA WEEKS [facility] Comment on above: Order Comment: No: D o not add to previous draw Performed By: #### 4 [id number] #### [facility] [address] [place] [address], [facility] 11-24-2018 18:18-0400 Respiratory rate 12 /min ESTEFANIA MISTRYY [facility] Comment on above: Order Comment: No: D o not add to previous draw Performed By: #### 4 [id number] #### [facility] [address] [place] [address], [facility] Encounters Encounter Date Encounter Type Care Provider Facility Start: 07-31-2024 End: 07-31-2024 ambulatory Ady Lezama Facility:[facility] Start: 05-01-2024 End: 05-01-2024 Patient encounter procedure MD Estefania Weeks Work Phone: [facility] Start: 05-01-2024 End: 05-01-2024 ambulatory MD Estefania Weeks Work Phone: [facility] Work Phone: Start: 01-30-2024 End: 01-30-2024 ambulatory MD Estefania Weeks Work Phone: [facility] Work Phone: Start: 01-30-2024 End: 01-30-2024 Patient encounter procedure MD Estefania Weeks Work Phone: [facility] Start: 12-12-2023 End: 12-12-2023 ambulatory [facility] Start: 10-28-2023 End: 10-28-2023 Patient encounter procedure MD Estefania Weeks Work Phone: [facility] Start: 10-28-2023 End: 10-28-2023 ambulatory MD Estefania Weeks Work Phone: [facility] Work Phone: Start: 04-29-2023 ambulatory Facility:[id number] Start: 01-25-2023 ambulatory Facility:[id number] Start: 10-25-2022 End: 10-25-2022 ambulatory MD Estefania Weeks Work Phone: [facility] Work Phone: Start: 10-25-2022 End: 10-25-2022 Patient encounter procedure MD Estefania Weeks Work Phone: [facility] Start: 10-22-2022 ambulatory Facility:[id number] Start: 08-31-2022 End: 09-01-[address] ESTEFANIA WEEKS Facility:[facility] Start: 07-23-2022 End: 07-23-2022 ambulatory MD Estefania Weeks Work Phone: [facility] Work Phone: Start: 07-23-2022 End: 07-23-2022 Patient encounter procedure MD Estefania Weeks Work Phone: [facility] Start: 07-23-2022 ambulatory Facility:[id number] Start: 04-23-2022 End: 04-23-2022 Patient encounter procedure MD Estefania Weeks Work Phone: [facility] Start: 01-19-2022 End: 01-19-2022 Patient encounter procedure MD Estefania Weeks Work Phone: [facility] Start: 10-16-2021 End: 10-16-2021 Patient encounter procedure MD Estefania Weeks Work Phone: [facility] Start: 05-08-2019 End: 05-10-2019 Evaluation and management of inpatient ANAS RENNO Facility:[facility] Start: 12-28-2018 End: 12-28-2018 Evaluation and management of inpatient ESTEFANIA WEEKS Facility:[facility] Start: 11-22-2018 End: 12-01-2018 Evaluation and management of inpatient ESTEFANIA WEEKS Facility:[facility] Procedures Date Procedure Procedure Detail Performing Clinician Start: 05-08-2019 FLUOROSCOPY OF L INT MAMM GRAFT USING OTH CONTRAST PASTORA RAMON Start: 05-08-2019 FLUOROSCOPY OF MULT COR A GRAFT USING OTH CONTRAST PASTORA TRISTEN Start: 05-08-2019 FLUOROSCOPY OF MULTI PLE CORONARY ARTERIES USING OTH CONTRAST PASTORA BUR[place]LE Start: 05-08-2019 MEASURE OF CARDIAC S AMPL \T\ PRESSURE, L HEART, PERC APPROACH PASTORA TRISTEN Start: 11-24-2018 Antibody screen ESTEFANIA WEEKS Comment on above: Performed By: #### 0 [id number], [id number], [id number] #### [facility] [address] Start: 11-24-2018 BYPASS 1 COR ART FRO M L INT MAMMARY, OPEN APPROACH MARCELLO RUIZWAROCKY Start: 11-24-2018 BYPASS 2 COR ART FRO M AORTA WITH AUTOL VN, OPEN APPROACH MARCELLO RUIZWAROCKY Start: 11-24-2018 EXCISION OF LEFT SAP HENOUS VEIN, PERC ENDO APPROACH MARCELLO RUIZWAROCKY Start: 11-24-2018 EXTIRPATION OF MATTE R FROM 1 COR ART, OPEN APPROACH MARCELLO RUIZWAROCKY Start: 11-24-2018 MONITORING OF ARTERI AL PRESSURE, PULMONARY, PERC APPROACH ASHLEY Mirza YERMAL Start: 11-24-2018 MONITORING OF ARTERI AL SATURATION, PERIPHERAL, PERC APPROACH MARCELLO RUIZ Start: 11-24-2018 MONITORING OF CARDIA C OUTPUT, PERCUTANEOUS APPROACH SOIVA Mirza YERMAL Start: 11-24-2018 Performance of Cardi ac Output, Continuous MARCELLO CAMPBELL Start: 11-24-2018 PERFORMANCE OF CARDI AC OUTPUT, SINGLE, MANUAL NARETHAN RUIZ Start: 11-24-2018 ULTRASONOGRAPHY OF R IGHT AND LEFT HEART, TRANSESOPHAGEAL SOIVA Mirza Start: 11-22-2018 FLUOROSCOPY OF MULTI PLE CORONARY ARTERIES USING OTH CONTRAST AUSTIN HARTLEY Start: 11-22-2018 MEASURE OF CARDIAC S AMPL \T\ PRESSURE, L HEART, PERC APPROACH AUSTIN HARTLEY History of coronary artery bypass grafting S/P CABG x 3 MD sEtefania Weeks Work Phone: Payers Date Payer Category Payer Self-pay [id number] 1960 Unknown [id number] 2.16.8 [id number] 1960 Unknown [id number] 2.16.8 [id number] 1960 Unknown [id number] 2.16.8 [id number] 1960 Unknown [id number] 2.16.84 [id number] 1960 Unknown [id number] 2.16. [id number] 1960 Unknown [id number] 2.16. [id number] 1960 Unknown [id number] 2.16. [id number] 1960 Unknown [id number] 2.16. [id number] 1959 Unknown [id number] Unknown [id number] Unknown [id number] 2.16.8 [id number] Unknown [id number] 2.16.8 [id number] Unknown [id number] 2.16.8 [id number] Unknown [id number] 2.16.8 [id number] Social History Date Type Detail Facility Start: 08-24-2019 End: 08-24-2019 Tobacco smoking status [facility] Ex-smoker (finding) [facility] End: 12-12-2018 History of tobacco use [facility] Work Phone: Start: 1960 Sex Assigned At Male F [facility] Medical Equipment Procedure Code Equipment Code Equipment Origin al Text Equipment Identifier Dates Insertion, pacemaker Endocardial pacing lead [id number] FDA Start: 08-24-2019 Insertion, pacemaker Endocardial pacing lead [id number] FDA Start: 08-24-2019 Insertion, pacemaker Dual-chamber implantable pacemaker, rate-responsive ()[id number] FDA Start: 08-24-2019 Progress note 12-12-2023 Note Date & Type Note Facility 12-12-2023 Note [facility] Note Chief Complaint: Patient here for 1 year follow up CAD, hypertension, and hyperlipidemia. [place] [facility] [place] interrogations. No recent labs or imaging. Denies chest pain, SOB, palpitations, and lightheadedness/syncope. HPI: Weston Cano is a 63 y.o. male presents to clinic for routine f/u. Known h/o CAD s/p CABG x3 in 2019, HTN, HLD Pacemaker placed d/t complete heart block at [facility] this past August 24, 2019. 10/19/2021 [...] greater than 60, ALT 28, AST 19 [id number]-4.8 Lipids 06/27/2021-cholesterol 96, HDL 40, trig 73, [...] 1. Coronary arteriosclerosis - -S/p CABG x3 2019 -Lipids 06/27/2021-cholesterol 96, HDL 40, trig 73, LDL 41 -Denies angina or dyspnea -Continue aspirin, statin, Plavix, lisinopril and metoprolol -Continue cardiac risk factor modification with routine exercise and heart healthy diet. I25.10: Atherosclerotic heart disease of picayune coronary artery without angina pectoris 2. History of coronary artery bypass grafting - -As above Z95.1: Presence of aortocoronary bypass graft 3. Mixed hyperlipidemia - -Well controlled -Continue atorvastatin E78.2: Mixed hyperlipidemia 4. Essential hypertension - -Currently well controlled -Continue lisinopril and metoprolol I10: Essential (primary) hypertension 5. Cardiac pacemaker in situ - -placed for CHB -Patient following with [facility] in [place] for his pacemaker interrogations and follow-up Z95.0: Presence of cardiac pacemaker Plan: We will check a fasting lipid profile and liver function tests. Consider Crestor increasing to 40 mg if needed. Continue (more content not included)... [facility] Evaluation note Note Date & Type Note Facility Evaluation note No assessment information availa [facility] Work Phone: Summary Purpose Family History No Family History Records FoundNo Family History Records FoundNo Family History Records FoundNo Family History Records FoundNo Family History Records Found Advance Directives No Advanced Directives Records Found Advance Directive Response Recorded Date/ Time Advance Directives No June 8:48am Advance Directive Response Recorded Date/ Time Advance Directives No June 9:48am Hospital Course Note MR#: [id number] [facility] Pt. Name: Weston Cano Admitted: 11/22/2018 Discharged: [...] (more content not included)... Note MR#: [id number] [facility] Pt. Name: Weston Cano Admitted: 12/27/2018 Discharged: 12/28/2018 Date of : 1960 Physician: Frank Jacome MD DISCHARGE SUMMARY PRINCIPAL DIAGNOSES: 1. Syncope. 2. Rze-SB-rmlzhcjxe myocardial infarction. 3. Coronary artery disease, status [...] fell face forward. He was sent to [place]. He had a troponin of 0.12. Given this troponin, they sent him to [facility] for further care. He had no shortness of breath or incontinence. He had no other symptoms. He states that he has been compliant with his medications. He was starte (more content not included)... Note MR#: [id number] [facility] Pt. Name: Weston Cano Admitted: 05/08/2019 Discharged: 05/10/2019 Date of : 1960 Physician: Vicki Freire M.D. DISCHARGE SUMMARY PRIMARY DIAGNOSIS: Rma-ON-dkqcqgcwu myocardial infarction. SECONDARY DIAGNOSES: 1. Coronary artery disease, status post CABG. 2. Hyperlipidemia. HISTORY OF PRESENT ILLNESS AND HOSPITAL COURSE: The patient is a 58-year-old male with a past medical history of CAD status post CABG in November of 2018, who was transferred from [facility] for NSTEMI. The patient reported that [...] and content) DATE CREATED AUTHOR 05/25/2019 [facility] DATE CREATED AUTHOR AUTHOR'S ORGANIZ ATION 09/01/2022 [facility] DATE CREATED AUTHOR AUTHOR'S ORGANIZ ATION 05/05/2023 [facility] DATE CREATED AUTHOR AUTHOR'S ORGANIZ ATION 12/13/2023 [facility] DATE CREATED AUTHOR AUTHOR'S ORGANIZ ATION 08/03/2024 [facility] Care Teams (unrecognized sec tion and content) Team Status: Active Member Role Status Dates Estefania Weeks MD Primary Care Provider Active Team Status: Inactive Member Role Status Dates Estefania Weeks MD Primary Care Provider Active Ady Lezama MD Attending Provider Active Team Status: Inactive Member Role Status Dates Estefania Weeks MD Primary Care Provider Active Start: October 28, 2023 End: October 28, 2023 Ady Lezama MD Attending Provider Active Start: October 28, 2023 End: October 28, 2023 Team Status: Inactive Member Role Status Dates Estefania Weeks MD Primary Care Provider Active Start: January 30, 2024 End: January 30, 2024 Ady Lezama MD Attending Provider Active Start: January 30, 2024 End: January 30, 2024 Team Status: Inactive Member Role Status Dates Estefania Weeks MD Primary Care Provider Active Start: May 01, 2024 End: May 01, 2024 Ady Lezama MD Attending Provider Active Start: May 01, 2024 End: May 01, 2024 Goals (unrecognized section and content) Goals may [...] BE BASED ON THE PRIMARY CLINICAL RECORDS. [facility] [employer] [facility]. provides no warranty or guarantee of the accuracy or completeness of information in this document.
[2024-08-28 16:04] LABS: Basophils Percent Auto 0.4 % (0.2-2.0); Eosinophils Absolute Auto 0.1 10^3/uL (0.0-0.7); Eosinophils Percent Auto 0.7 % (0.9-7.0); Hematocrit 37.2 % (42.0-54.0); Hemoglobin 12.4 g/dL (14.0-18.0); Immature Granulocytes Abs Auto 0.04 10^3/uL (0.00-0.03); Immature Granulocytes Pct Auto 0.4 % (0.0-0.5); Lymphocytes Absolute Auto 1.4 10^3/uL (1.2-3.8); Lymphocytes Percent Auto 14.3 % (20.5-60.0); Mean Corpuscular HGB Conc 33.3 g/dL (29.9-35.2); Mean Corpuscular Hemoglobin 31.5 pg (25.9-34.0); Mean Corpuscular Volume 94.4 fL (80.0-94.0); Mean Platelet Volume 9.6 fL (9.5-13.5); Monocytes Absolute Auto 0.7 10^3/uL (0.3-0.8); Monocytes Percent Auto 6.8 % (1.7-12.0); Neutrophils Absolute Auto 7.5 10^3/uL (1.4-6.5); Neutrophils Percent Auto 77.4 % (43.0-75.0); Platelet Count 262 10^3/uL (150-450); Red Blood Count 3.94 10^6/uL (4.70-6.10); Red Cell Distribution Width 12.2 % (11.0-15.0); White Blood Count 9.7 10^3/uL (4.0-11.0)
[2024-08-28 16:09] LABS: Erythrocyte Sedimentation Rate 35 mm/hr (<=20)
[2024-08-28 16:13] LABS: Alanine Aminotransferase 37 U/L (16-63); Albumin Level 3.9 g/dL (3.4-5.0); Alkaline Phosphatase 75 U/L (46-116); Anion Gap 11.2; Aspartate Amino Transferase 16 U/L (15-37); BUN Creatinine Ratio 14.4; Bilirubin Total 0.3 mg/dL (0.2-1.0); C Reactive Protein 1.48 mg/dL (<=0.50); Calcium 9.2 mg/dL (8.5-10.1); Carbon Dioxide 28.3 mmol/L (21.0-32.0); Chloride 105 mmol/L (98-107); Estimated GFR (African America >60 (>=60 mL/min/1.73m^2); Estimated GFR (Non-African Ame 52 (>=60 mL/min/1.73m^2); Globulin 3.9 g/dL; Glucose 101 mg/dL (74-106); Potassium 4.5 mmol/L (3.5-5.1); Sodium 140 mmol/L (136-145); Total Protein 7.8 g/dL (6.4-8.2); Uric Acid 7.4 mg/dL (3.5-7.2)
[2024-08-30 07:12] LABS: Antistreptolysin O Ab 124.1 IU/mL (0.0-200.0); Rheumatoid Factor (RF) <10.0 IU/mL (<14.0)
[2024-08-30 15:08] LABS: Antinuclear Antibodies, IFA Negative (.)
== END 2024-08-28 15:10 | disposition home or self-care (01) ==
PROVIDERS: PCP Family Medicine; Visit Provider Family Medicine
DX: S63.509A Unspecified sprain of unspecified wrist, initial encounter (principal)
CPT/HCPCS: 36415; 80053; 84550; 85025; 85652; 86038; 86060; 86140; 86431

== ENCOUNTER 2025-02-09 06:44 | Outpatient (OUT) | payer OTHER, SELFPAY ==
--- OUTSIDE RECORDS SUMMARY | 2025-02-09 06:48 | XMS_ITS | CCD ---
Author Organization [facility] Care Team Providers Care Partnership Manager Name Role Phone ESTEFANIA WEEKS Referring Unavailable ESTEFANIA WEEKS Primary Care Unavailable MARCELLO DEL RIO Attending Unavailab Maxx Lowry Admitting Unavailable MD Procedure Practitioner Unavailab le UNKNOWN, PROVIDER Surgeon Unavailable MD Procedure Practitioner Unavailab MARCELLO Adamson Surgeon Unavailab le MD Procedure Practitioner Unavailab le ASHLEY BONILLA Surgeon Unavailable ESTEFANIA WEEKS Referring Unavailable ESTEFANIA WEEKS Primary Care Unavailable FRANK JACOME Attending Unavailable FRANK JACOME Admitting Unavailable RENNO, ANAS Admitting Unavailable RENNO, ANAS Attending Unavailable ESTEFANIA WEEKS Primary Care Unavailable MARKER, LEANNE J Referring Unavailable MD Procedure Practitioner Unavailab PASTORA Pfeiffer Surgeon Unavailable MD Estefania Weeks Primary Care Provider [phone] MD Ady Lezama Attending Provider MD Estefania Weeks Primary Care Provider [phone] MD Ady Lezama Attending Provider MD Estefania Weeks Primary Care Provider [phone] MD Ady Lezama Attending Provider MD Estefania Weeks Primary Care Provider [phone] MD Ady Lezama Attending Provider DR ESTEFANIA WEEKS Admitting Unavailable DR ESTEFANIA WEEKS Attending Unavailable DR ESTEFANIA WEEKS Primary Care Unavailable DR ESTEFANIA WEEKS Consulting Unavailable WEST, DR BECK Consulting Unavailable MD Estefania Weeks Primary Care Provider [phone] MD Ady Lezama Attending Provider MD Estefania Weeks Primary Care Provider [phone] MD Ady Lezama Attending Provider MD Estefania Weeks Primary Care Provider [phone] MD Ady Lezama Attending Provider MD Estefania Weeks Primary Care Provider [phone] MD Ady Lezama Attending Provider Estefania Weeks MD Primary Care Provider [phone] Ady Lezama MD Attending Provider GRACE RESTREPO Attending Unavailable Ady Lezama Attending Unavail able Ady Lezama Admitting Unavail able Estefania Weeks Primary Care Unavailable dAy Lezama Attending Unavail able Ady Lezama Admitting Unavail able Estefania Weeks Primary Care Unavailable Ady Lezama Attending Unavail able Ady Lezama Admitting Unavail able Estefania Weeks Primary Care Unavailable Ady Lezama Attending Unavail able Estefania Weeks Primary Care Unavailable Ady Lezama Admitting Unavail able Medications Current Medications Medication Drug Class(es) Dates Sig (Normalized) Sig (Original) aspirin 81 mg oral tablet (9 sources) Platelet Aggregation Inhibitor, Nonsteroidal Anti-inflammatory Drug Start: 06-30-2019 take 1 tablet by mouth once daily Aspirin 81 mg Tablet,Chewable Active 81 MG PO Daily June 30, 2019 1:00am atorvastatin 80 mg oral tablet (9 sources) HMG-CoA Reductase Inhibitor Start: 06-30-2019 take 1 tablet by mouth once daily at bedtime Atorvastatin (Lipitor) 80 mg Tablet Active 80 MG PO Daily at bedtime June 30, 2019 1:00am clindamycin 300 mg oral capsule (9 sources) Lincosamide Antibacterial Start: 08-25-2019 take 2 capsules by mouth three times daily Clindamycin Hcl 300 mg capsule Active 600 MG PO Three times daily 07 16August 25, 2019 1:00am Start: 08-25-2019 take 600 mg by mouth three times daily Clindamycin Hcl Active 600 MG PO Three times daily 07 16August 25, 2019 1:00am clopidogrel 75 mg oral tablet (9 sources) P2Y12 Platelet Inhibitor Start: 06-30-2019 take 1 tablet by mouth once daily Clopidogrel (Plavix) 75 mg Tablet Active 75 MG PO Daily June 30, 2019 1:00am lisinopril 20 mg oral tablet (9 sources) Angiotensin Converting Enzyme Inhibitor Start: 06-30-2019 take 5 mg by mouth once daily Lisinopril 20 mg Tablet Active 5 MG PO Daily June 30, 2019 1:00am Start: 06-30-2019 take 5 mg by mouth once daily Lisinopril Active 5 MG PO Daily June 30, 2019 1:00am 24 hr metoprolol succinate 25 mg extended release oral tablet (18 sources) beta-Adrenergic Thalia Start: 08-25-2019 take 1 tablet by mouth once daily Metoprolol Succinate 25 mg tablet extended release 24 hr Active 25 MG PO Daily August 25, 2019 1:00am Start: 06-30-2019 End: 08-25-2019 Metoprolol Tartrate 50 mg Ta blet Discontinued 25 MG PO Twice daily June 30, 2019 1:00am August 25, 2019 12:52pm Start: 06-30-2019 End: 08-25-2019 take 25 mg by mouth twice daily Metoprolol Tartrate Discontinued 25 MG PO Twice daily June 30, 2019 1:00am August 25, 2019 12:52pm Problems Problem Classification Problem Date Documented Date Episodic/Chronic Acute myocardial infarction (9 sources) Myocardial infarction; Translations: [Non-ST elevation (NSTEMI) myocardial infarction] 08-23-2019 Chronic Comment on above: Problem List clean-u p per request of Phys. EHR Cmte Conditions associated with dizziness or vertigo (9 sources) Dizziness; Translations: [Dizziness and giddiness] 06-30-2019 Episodic Comment on above: Problem List clean-u p per request of Phys. EHR Cmte Conduction disorders (12 sources) Complete atrioventricular block; Translations: [Atrioventricular block, complete] Onset: 12-12-2023 08-24-2019 Chronic Comment on above: Problem List clean-u p per request of Phys. EHR Cmte Coronary atherosclerosis and other heart disease (20 sources) Coronary arteriosclerosis; Translations: [Atherosclerotic heart disease of [place] coronary artery without angina pectoris] Onset: 12-11-2024 08-23-2019 Chronic Comment on above: Problem List clean-u p per request of Phys. EHR Cmte Coronary atherosclerosis and other heart disease (2 sources) Presence of aortocoronary bypass graft; Translations: [Presence of aortocoronary bypass graft] Onset: 12-11-2024 Episodic Disorders of lipid metabolism (2 sources) Hyperlipidemia, unspecified; Translations: [Hyperlipidemia, unspecified] Onset: 12-11-2024 Chronic Other circulatory disease (2 sources) Other disorder of circulatory system; Translations: [Other disorder of circulatory system] Onset: 12-11-2024 Episodic Other hematologic conditions (1 source) Protein level - finding; Translations: [Other specified abnormalities of plasma proteins] 08-22-2019 Episodic Other hematologic conditions (8 sources) Raised cardiac enzyme or marker; Translations: [Other specified abnormalities of plasma proteins] 08-22-2019 Episodic Comment on above: Problem List clean-u p per request of Phys. EHR Cmte Syncope (9 sources) Near syncope; Translations: [Syncope and collapse] 08-22-2019 Episodic Comment on above: Problem List clean-u p per request of Phys. EHR Cmte Results Test Name Value Interpretation Reference Range Facility Office Visiton 12-11-2024 Follow-up visit [id number] Weston Cano 1960 M Date Provider Department Center 12/11/2024 Miguel-GRACE RESTREPO [facility] Family History Problem Relation Age of Onset No Known Problems Mother No Known Problems Father Family Status - Relation Status Age at Mother Father Level of Service:[id number] MD OFFICE/OUTPATIENT ESTABLISHED MOD MDM 30 MIN Normal [facility] US VENOUS DOPPLER R Matt US [...] right arm *Exam performed in accordance with [facility] practice guidelines- Peripheral venous ultrasound, November 08, 2009. Electronically authenticated by: EBONY MARTINEZ Date: 2022-08-31 16:22 Normal [facility] BASIC METABOLIC PANELon 09-2 Calcium [Mass/Vol] 9.5 mg/dL Normal 8.6-10.3 [facility] Comment on above: Order Comment: No: D o not add to previous draw Performed By: #### 0 0071, 85311, 21083 #### [facility] [address] [place] [address], [place] Chloride [Moles/Vol] 105 mmol/L Normal 98-107 [facility] Comment on above: Order Comment: No: D o not add to previous draw Performed By: #### 0 0071, 55784, 30278 #### [facility] [address] [place] [address], [place] CO2 [Moles/Vol] 25 mmol/L Normal 21-31 [facility] Comment on above: Order Comment: No: D o not add to previous draw Performed By: #### 0 0071, 49666, 77252 #### [facility] [address] [place] [address], [place] Creatinine [Mass/Vol] 0.96 mg/dL Normal 0.70-1.30 [facility] Comment on above: Order Comment: No: D o not add to previous draw Performed By: #### 0 0071, 78098, 64724 #### [facility] [address] [place] [address], [place] GFR/1.73 sq M predicted among blacks MDRD (S/P/Bld) [Vol rate/Area] mL/min/{1.73_m2} Normal >60 [facility] Comment on above: Order Comment: No: D o not add to previous draw Performed By: #### 0 0071, 17770, 44688 #### [facility] [address] [place] [address], [place] GFR/1.73 sq M predicted among non-blacks MDRD (S/P/Bld) [Vol rate/Area] mL/min/{1.73_m2} Normal >60 [facility] Comment on above: Order Comment: No: D o not add to previous draw Performed By: #### 0 0071, 94204, 32796 #### [facility] [address] [place] [address], [place] Glucose [Mass/Vol] 100 mg/dL Normal 70-100 [facility] Comment on above: Order Comment: No: D o not add to previous draw Performed By: #### 0 0071, 47658, 39122 #### [facility] [address] [place] [address], [place] Potassium [Moles/Vol] 3.8 mmol/L Normal 3.5-5.1 [facility] Comment on above: Order Comment: No: D o not add to previous draw Performed By: #### 0 0071, 67112, 31169 #### [facility] [address] [place] [address], [place] Sodium [Moles/Vol] 139 mmol/L Normal 136-145 [facility] Comment on above: Order Comment: No: D o not add to previous draw Performed By: #### 0 0071, 33204, 49131 #### [facility] [address] [place] [address], [place] Urea nitrogen [Mass/Vol] 14 mg/dL Normal 7-25 [facility] Comment on above: Order Comment: No: D o not add to previous draw Performed By: #### 0 0071, 68969, 30317 #### [facility] [address] [place] [address], [place] BASIC METABOLIC PANELon 2 Calcium [Mass/Vol] 9.2 mg/dL Normal 8.6-10.3 [facility] Comment on above: Order Comment: No: D o not add to previous draw Performed By: #### 0 0071, 06264, 47970 #### [facility] [address] [place] [address], [place] Chloride [Moles/Vol] 105 mmol/L Normal 98-107 [facility] Comment on above: Order Comment: No: D o not add to previous draw Performed By: #### 0 0071, 92290, 32536 #### [facility] [address] [place] [address], [place] CO2 [Moles/Vol] 28 mmol/L Normal 21-31 [facility] Comment on above: Order Comment: No: D o not add to previous draw Performed By: #### 0 0071, 47643, 90732 #### [facility] [address] [place] [address], [facility] Creatinine [Mass/Vol] 0.97 mg/dL Normal 0.70-1.30 [facility] Comment on above: Order Comment: No: D o not add to previous draw Performed By: #### 0 0071, 85918, 22384 #### [facility] [address] [place] [address], [place] GFR/1.73 sq M predicted among blacks MDRD (S/P/Bld) [Vol rate/Area] mL/min/{1.73_m2} Normal >60 [facility] Comment on above: Order Comment: No: D o not add to previous draw Performed By: #### 0 0071, 21662, 29469 #### [facility] [address] [place] [address], [place] GFR/1.73 sq M predicted among non-blacks MDRD (S/P/Bld) [Vol rate/Area] mL/min/{1.73_m2} Normal >60 [facility] Comment on above: Order Comment: No: D o not add to previous draw Performed By: #### 0 0071, 99739, 81891 #### [facility] [address] [place] [address], [place] Glucose [Mass/Vol] 104 mg/dL High 70-100 [facility] Comment on above: Order Comment: No: D o not add to previous draw Performed By: #### 0 0071, 76484, 53176 #### [facility] [address] [place] [address], [facility] Potassium [Moles/Vol] 4.0 mmol/L Normal 3.5-5.1 [facility] Comment on above: Order Comment: No: D o not add to previous draw Performed By: #### 0 0071, 04997, 20026 #### [facility] [address] [place] [id number], [facility] Sodium [Moles/Vol] 140 mmol/L Normal 136-145 [facility] Comment on above: Order Comment: No: D o not add to previous draw Performed By: #### 0 0071, 85601, 33142 #### [facility] [address] [place] [address], [facility] Urea nitrogen [Mass/Vol] 15 mg/dL Normal 7-25 [facility] Comment on above: Order Comment: No: D o not add to previous draw Performed By: #### 0 1, 94110, 92295 #### [facility] [address] CBC COMPLETE BLOOD COUNTon 0 05-09-2019 Erythrocyte distribution width (RBC) [Ratio] 13.2 % Normal 11.5-15.0 [facility] Comment on above: Order Comment: No: D o not add to previous draw Performed By: #### 0 0071, 05635, 90496 #### [facility] [address] [place] [id number], [facility] Hematocrit (Bld) [Volume fraction] 41.7 % Normal 39.0-50.0 [facility] Comment on above: Order Comment: No: D o not add to previous draw Performed By: #### 0 0071, 64044, 63368 #### [facility] [address] [place] [address], [facility] Hemoglobin (Bld) [Mass/Vol] 13.6 g/dL Normal 13.0-17.0 [facility] Comment on above: Order Comment: No: D o not add to previous draw Performed By: #### 0 1, 74113, 79535 #### [facility] [address] [place] [id number], [facility] MCH (RBC) [Entitic mass] 30.6 pg Normal 27.0-33.0 [facility] Comment on above: Order Comment: No: D o not add to previous draw Performed By: #### 0 70, 24591, 85398 #### [facility] [address] [place] [address], [facility] MCHC (RBC) [Mass/Vol] 32.6 g/dL Normal 32.0-35.0 [facility] Comment on above: Order Comment: No: D o not add to previous draw Performed By: #### 0 70, 63498, 89638 #### [facility] [address] [place] [address], [facility] MCV (RBC) [Entitic vol] 93.7 fL Normal 82.0-98.0 [facility] Comment on above: Order Comment: No: D o not add to previous draw Performed By: #### 0 70, 94521, 98930 #### [facility] [address] [place] [address], [facility] Nucleated RBC/100 WBC (Bld) [Ratio] 0 % Normal 0-0 [facility] Comment on above: Order Comment: No: D o not add to previous draw Performed By: #### 0 0071, 79626, 95644 #### [facility] [address] [place] [id number], [facility] PLAT CNT 195 10*3/uL Normal 150-400 [facility] Comment on above: Order Comment: No: D o not add to previous draw Performed By: #### 0 0071, 00605, 43315 #### [facility] [address] [place] [address], [facility] RBC (Bld) [#/Vol] 4.45 10*6/uL Normal 4.20-5.70 [facility] Comment on above: Order Comment: No: D o not add to previous draw Performed By: #### 0 0071, 42343, 14315 #### [facility] [address] [place] [address], [facility] WBC (Bld) [#/Vol] 7.92 10*3/uL Normal 4.00-10.60 [facility] Comment on above: Order Comment: No: D o not add to previous draw Performed By: #### 0 0071, 32806, 33672 #### [facility] [address] Cardiovascular Lab Reporton 05-09-2019 Cardiovascular Lab Report [facility] Patient Name: [facility] Weston Billings MR #: [id number] Department of Physician: Pastora Ramon M.D. Medicine Service Date: 05/08/2019 Division of Birthdate: 1960 Cardiology Room #: 3AB [id number] Adult Cardiovascular Services [place] [address] Cardiovascular Laboratory Report FINAL IMPRESSION: 1. 90% [...] Seldinger technique was used to place a 6-Ugandan sheath in the left radial artery. 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 The stenosis was proximal to a diagonal [...] P/Pastora Ramon M.D. Date Trans: 05/09/2019 07:18 A/mmo [id number] cc: Estefania Weeks M.D. [address], [facility] [address] Normal [facility] LIPID PROFILEon 05-09-2019 Cholesterol [Mass/Vol] 101 mg/dL Low 120-200 [facility] Comment on above: Order Comment: No: D o not add to previous draw Result Comment: CHOL ESTEROL REFERENCE RANGE: 20 YEARS AND OLDER CARDIOVASCULAR RISK Less than 200 mg/dl Low Risk 200 to 239 mg/dl Borderline Risk 240 mg/dl and greater High Risk Performed By: #### 0 0071, 52153, 28264 #### [facility] [address] [place] [address], [facility] Cholesterol in HDL [Mass/Vol] 29 mg/dL Normal 23-92 [facility] Comment on above: Order Comment: No: D o not add to previous draw Result Comment: Slig ht variation in normal range could be due to gender and/or age. HDL CHOLESTEROL REFERENCE RANGE: 20 years and older Cardiovascular Risk > or =60 mg/dL Desirable 40 TO 59 mg/dL Low Risk <40 mg/dL High Risk Performed By: #### 0 0071, 81047, 01386 #### [facility] [address] [place] [address], [place] Cholesterol in LDL [Mass/Vol] 41 mg/dL Normal 0-130 [facility] Comment on above: Order Comment: No: D o not add to previous draw Result Comment: LDL IS A CALCULATION LDL IS ONLY VALID IF THE TRIG IS LESS THAN 400. Performed By: #### 0 0071, 75806, 62430 #### [facility] [address] Cholesterol.total/Ch olesterol in HDL [Mass ratio] 3.5 {ratio} Normal 0.0-4.5 [facility] Comment on above: Order Comment: No: D o not add to previous draw Performed By: #### 0 0071, 04133, 11374 #### [facility] [address] NON-HDL CHOLESTEROL 72 mg/dL Normal [facility] Comment on above: Order Comment: No: D o not add to previous draw Performed By: #### 0 0071, 41696, 52154 #### [facility] [address] Triglyceride [Mass/Vol] 157 mg/dL High 40-149 [facility] Comment on above: Order Comment: No: D o not add to previous draw Result Comment: TRIG LYCERIDE REFERENCE RANGE: 20 YEARS AND OLDER CARDIOVASCULAR RISK LESS THAN 150 mg/dl LOW RISK 150 TO 199 mg/dl BORDERLINE RISK 200 mg/dl AND GREATER HIGH RISK Performed By: #### 0 0071, 28253, 61334 #### [facility] [address] VLDL CHOL 31 mg/dL Normal 0-40 [facility] Comment on above: Order Comment: No: D o not add to previous draw Performed By: #### 0 0071, 70601, 28832 #### [facility] [address] APTTon 05-08-2019 aPTT Coag (Bld) [Time] 33.4 s Normal 25.0-35.0 [facility] Comment on above: Order Comment: [...] THIS PURPOSE. Performed By: #### 0 0071, 87475, 54965 #### [facility] [address] [place] [address], [facility] BASIC METABOLIC PANELon - Calcium [Mass/Vol] 9.2 mg/dL Normal 8.6-10.3 [facility] Comment on above: Order Comment: No: D o not add to previous draw Performed By: #### 0 0071, 20704, 50580 #### [facility] [address] [place] [address], [facility] Chloride [Moles/Vol] 103 mmol/L Normal 98-107 [facility] Comment on above: Order Comment: No: D o not add to previous draw Performed By: #### 0 0071, 79939, 56681 #### [facility] [address] [place] [address], [facility] CO2 [Moles/Vol] 27 mmol/L Normal 21-31 [facility] Comment on above: Order Comment: No: D o not add to previous draw Performed By: #### 0 0071, 73689, 96631 #### [facility] [address] [place] [address], [facility] Creatinine [Mass/Vol] 1.06 mg/dL Normal 0.70-1.30 [facility] Comment on above: Order Comment: No: D o not add to previous draw Performed By: #### 0 0071, 85972, 82957 #### [facility] [address] [place] [address], [facility] GFR/1.73 sq M predicted among blacks MDRD (S/P/Bld) [Vol rate/Area] mL/min/{1.73_m2} Normal >60 [facility] Comment on above: Order Comment: No: D o not add to previous draw Performed By: #### 0 0071, 23137, 79115 #### [facility] [address] [place] [address], [place] GFR/1.73 sq M predicted among non-blacks MDRD (S/P/Bld) [Vol rate/Area] mL/min/{1.73_m2} Normal >60 [facility] Comment on above: Order Comment: No: D o not add to previous draw Performed By: #### 0 0071, 34162, 78574 #### [facility] [address] [place] [address], [place] Glucose [Mass/Vol] 110 mg/dL High 70-100 [facility] Comment on above: Order Comment: No: D o not add to previous draw Performed By: #### 0 0071, 96602, 86195 #### [facility] [address] [place] [address], [place] Potassium [Moles/Vol] 3.6 mmol/L Normal 3.5-5.1 [facility] Comment on above: Order Comment: No: D o not add to previous draw Performed By: #### 0 1, 32739, 60839 #### [facility] [address] [place] [address], [place] Sodium [Moles/Vol] 137 mmol/L Normal 136-145 [facility] Comment on above: Order Comment: No: D o not add to previous draw Performed By: #### 0 0071, 42267, 89590 #### [facility] [address] [place] [address], [place] Urea nitrogen [Mass/Vol] 21 mg/dL Normal 7-25 [facility] Comment on above: Order Comment: No: D o not add to previous draw Performed By: #### 0 0071, 11937, 20958 #### [facility] [address] [place] [address], [place] CBC COMPLETE BLOOD COUNTon 0 -24-2019 Erythrocyte distribution width (RBC) [Ratio] 13.2 % Normal 11.5-15.0 [facility] Comment on above: Order Comment: No: D o not add to previous draw Performed By: #### 0 0071, 07202, 52772 #### [facility] [address] [place] [address], [facility] Hematocrit (Bld) [Volume fraction] 39.0 % Normal 39.0-50.0 [facility] Comment on above: Order Comment: No: D o not add to previous draw Performed By: #### 0 0071, 03051, 73005 #### [facility] [address] [place] [id number], [facility] Hemoglobin (Bld) [Mass/Vol] 13.0 g/dL Normal 13.0-17.0 [facility] Comment on above: Order Comment: No: D o not add to previous draw Performed By: #### 0 0071, 88457, 10842 #### [facility] [address] [place] [address], [facility] MCH (RBC) [Entitic mass] 31.0 pg Normal 27.0-33.0 [facility] Comment on above: Order Comment: No: D o not add to previous draw Performed By: #### 0 007, 41513, 31209 #### [facility] [address] [place] [address], [facility] MCHC (RBC) [Mass/Vol] 33.3 g/dL Normal 32.0-35.0 [facility] Comment on above: Order Comment: No: D o not add to previous draw Performed By: #### 0 0071, 24022, 42207 #### [facility] [address] [place] [address], [place] MCV (RBC) [Entitic vol] 93.1 fL Normal 82.0-98.0 [facility] Comment on above: Order Comment: No: D o not add to previous draw Performed By: #### 0 0071, 90451, 82308 #### [facility] [address] [place] [address], [facility] Nucleated RBC/100 WBC (Bld) [Ratio] 0 % Normal 0-0 [facility] Comment on above: Order Comment: No: D o not add to previous draw Performed By: #### 0 0071, 01339, 42887 #### [facility] [address] [place] [address], [facility] PLAT CNT 187 10*3/uL Normal 150-400 [facility] Comment on above: Order Comment: No: D o not add to previous draw Performed By: #### 0 0071, 70607, 74068 #### [facility] [address] [place] [address], [facility] RBC (Bld) [#/Vol] 4.19 10*6/uL Low 4.20-5.70 [facility] Comment on above: Order Comment: No: D o not add to previous draw Performed By: #### 0 0071, 16945, 71205 #### [facility] [address] [place] [address], [facility] WBC (Bld) [#/Vol] 8.56 10*3/uL Normal 4.00-10.60 [facility] Comment on above: Order Comment: No: D o not add to previous draw Performed By: #### 0 0071, 15139, 53762 #### [facility] [address] [place] [id number], [facility] MAGNESIUM BLOODon 05-08-2019 Magnesium [Mass/Vol] 1.8 mg/dL Low 1.9-2.7 [facility] Comment on above: Order Comment: No: D o not add to previous draw Performed By: #### 0 0071, 16418, 53634 #### [facility] [address] [place] [id number], [facility] POC GLUCOSE LABon 05-08-2019 Glucose [Mass/Vol] CANCELED Normal 70-100 [facility] Comment [facility]: Order Comment: No: D o not add to previous draw Result Comment: The released value 147 was canceled by BAIRON on 05/08/2019 16:27 Performed By: #### 0 0071, 16645, 75340 #### [facility] [address] [facility]. [address] NOTE CANCELED Normal [facility] Comment on above: Order Comment: No: D o not add to previous draw Performed By: #### 0 0071, 95251, 67373 #### [facility] [address] [facility]. [address] Glucose [Mass/Vol] 108 mg/dL High 70-100 [facility] Comment on above: Performed By: #### 0 0071, 45781, 76329 #### [facility] [address] [facility] PROTHROMBIN TIMEon 9 INR Coag (PPP) [Relative time] 1.05 {INR} Normal 0.91-1.16 [facility] Comment on above: Order Comment: [...] CHEST 1995;[id number]. Performed By: #### 0 0071, 72549, 01382 #### [facility] [address] [place] [address], [facility] PT Coag (PPP) [Time] 13.7 s Normal 12.3-14.8 [facility] Comment on above: Order Comment: No: D o not add to previous draw Result Comment: ALL RESULTS MUST BE INTERPRETED WITH RESPECT TO BLOOD DRAWING ARTIFACT OR DILUTION ERROR OF ANTICOAGULANT AT THE TIME OF SAMPLING. Performed By: #### 0 0071, 67302, 72723 #### [facility] [address] [place] [address], [facility] TROPONIN-Ion 05-08-2019 Troponin I.cardiac [Mass/Vol] 0.34 ng/mL Critically high 0.00-0.04 [facility] Comment on above: Order Comment: No: D o not add to previous draw Result Comment: M-MD EVIOUS CRITICAL RESULT REFERENCE RANGES: 0.00 - 0.04 ng/ml NORMAL 0.05 - 0.50 ng/ml INDETERMINATE > 0.50 ng/ml CONSISTENT WITH AN M.I. Performed By: #### 0 0071, 46445, 94102 #### [facility] [address] [place] [address], [facility] Troponin I.cardiac [Mass/Vol] 0.59 ng/mL Critically high 0.00-0.04 [facility] Comment on above: Order Comment: No: D o not add to previous draw Result Comment: REFE RENCE RANGES: 0.00 - 0.04 ng/ml NORMAL 0.05 - 0.50 ng/ml INDETERMINATE > 0.50 ng/ml CONSISTENT WITH AN M.I. Performed By: #### 0 0071, 58975, 39954 #### [facility] [address] [place] [address], [facility] Troponin I.cardiac [Mass/Vol] 0.74 ng/mL Critically high 0.00-0.04 [facility] Comment on above: Order Comment: No: [...] AN M.I. Performed By: #### 0 0071, 92680, 81412 #### [facility] [address] UFH HEPARIN ASSAYon 05-08-20 19 UNFRACTIONATED HEPARIN 0.47 IU/mL Normal 0.30-0.70 [facility] Comment on above: Result Comment: [place] roxaban and Apixaban will interfere with the anti Xa assay used to monitor UFH and LMWH. Performed By: #### 0 0071, 00733, 05993 #### [facility] [address] [facility] BASIC METABOLIC PANELon 12-13 Calcium [Mass/Vol] 8.8 mg/dL Normal 8.6-10.3 [facility] Comment on above: Order Comment: No: D o not add to previous draw Performed By: #### 0 0071, 88297, 85823 #### [facility] [address] [place] [address], [facility] Chloride [Moles/Vol] 106 mmol/L Normal 98-107 [facility] Comment on above: Order Comment: No: D o not add to previous draw Performed By: #### 0 0071, 58888, 73165 #### [facility] [address] [place] [address], [facility] CO2 [Moles/Vol] 24 mmol/L Normal 21-31 [facility] Comment on above: Order Comment: No: D o not add to previous draw Performed By: #### 0 0071, 80688, 05056 #### [facility] [address] [place] [address], [place] Creatinine [Mass/Vol] 0.90 mg/dL Normal 0.70-1.30 [facility] Comment on above: Order Comment: No: D o not add to previous draw Performed By: #### 0 0071, 80995, 30840 #### [facility] [address] [place] [address], [place] GFR/1.73 sq M predicted among blacks MDRD (S/P/Bld) [Vol rate/Area] mL/min/{1.73_m2} Normal >60 [facility] Comment on above: Order Comment: No: D o not add to previous draw Performed By: #### 0 0071, 60801, 85234 #### [facility] [address] [place] [address], [place] GFR/1.73 sq M predicted among non-blacks MDRD (S/P/Bld) [Vol rate/Area] mL/min/{1.73_m2} Normal >60 [facility] Comment on above: Order Comment: No: D o not add to previous draw Performed By: #### 0 0071, 40677, 88420 #### [facility] [address] [place] [address], [place] Glucose [Mass/Vol] 104 mg/dL High 70-100 [facility] Comment on above: Order Comment: No: D o not add to previous draw Performed By: #### 0 0071, 79037, 27018 #### [facility] [address] [place] [address], [place] Potassium [Moles/Vol] 4.0 mmol/L Normal 3.5-5.1 [facility] Comment on above: Order Comment: No: D o not add to previous draw Performed By: #### 0 0071, 26523, 17242 #### [facility] [address] Sodium [Moles/Vol] 137 mmol/L Normal 136-145 [facility] Comment on above: Order Comment: No: D o not add to previous draw Performed By: #### 0 0071, 73603, 13509 #### [facility] [address] Urea nitrogen [Mass/Vol] 11 mg/dL Normal 7-25 [facility] Comment on above: Order Comment: No: D o not add to previous draw Performed By: #### 0 0071, 83159, 96197 #### [facility] [address] [facility]. [address] CBC W/DIFFon 12-28-2018 ABS BASOPHILS 0.1 10*3/uL Normal 0.0-0.2 [facility] Comment on above: Order Comment: No: D o not add to previous draw Performed By: #### 0 0071, 14294, 37139 #### [facility] [address] [facility] ABS IMM GRANS 0.0 10*3/uL Normal 0.0-0.2 [facility] Comment on above: Order Comment: No: D o not add to previous draw Performed By: #### 0 0071, 90940, 27441 #### [facility] [address] [facility]. [address] ABS NEUTROPHILS 4.0 10*3/uL Normal 1.6-7.6 [facility] Comment on above: Order Comment: No: D o not add to previous draw Performed By: #### 0 0071, 52038, 92062 #### [facility] [address] [place] [address], [facility] Basophils/100 WBC (Bld) 0.7 % Normal 0.0-1.0 [facility] Comment on above: Order Comment: No: D o not add to previous draw Performed By: #### 0 0071, 07506, 50102 #### [facility] [address] [place] [address], [facility] Eosinophils (Bld) [#/Vol] 0.3 10*3/uL Normal 0.0-0.5 [facility] Comment on above: Order Comment: No: D o not add to previous draw Performed By: #### 0 0071, 09932, 11719 #### [facility] [address] [place] [id number], [facility] Eosinophils/100 WBC (Bld) 3.8 % Normal 0.0-6.0 [facility] Comment on above: Order Comment: No: D o not add to previous draw Performed By: #### 0 0071, 09186, 05550 #### [facility] [address] [place] [address], [facility] Erythrocyte distribution width (RBC) [Ratio] 12.9 % Normal 11.5-15.0 [facility] Comment on above: Order Comment: No: D o not add to previous draw Performed By: #### 0 0071, 25898, 10079 #### [facility] [address] [place] [address], [facility] Hematocrit (Bld) [Volume fraction] 37.0 % Low 39.0-50.0 [facility] Comment on above: Order Comment: No: D o not add to previous draw Performed By: #### 0 0071, 91997, 18219 #### [facility] [address] [place] [address], [facility] Hemoglobin (Bld) [Mass/Vol] 12.4 g/dL Low 13.0-17.0 [facility] Comment on above: Order Comment: No: D o not add to previous draw Performed By: #### 0 0071, 67030, 58106 #### [facility] [address] [place] [address], [facility] IMMATURE GRANS 0.3 % Normal 0.0-1.0 [facility] Comment on above: Order Comment: No: D o not add to previous draw Performed By: #### 0 0071, 94888, 35393 #### [facility] [address] [place] [address], [facility] Lymphocytes (Bld) [#/Vol] 2.4 10*3/uL Normal 1.2-4.0 [facility] Comment on above: Order Comment: No: D o not add to previous draw Performed By: #### 0 0071, 08273, 15278 #### [facility] [address] [place] [address], [facility] Lymphocytes/100 WBC (Bld) 31.7 % Normal 20.0-45.0 [facility] Comment on above: Order Comment: No: D o not add to previous draw Performed By: #### 0 007, 16037, 43215 #### [facility] [address] [place] [address], [facility] MCH (RBC) [Entitic mass] 31.5 pg Normal 27.0-33.0 [facility] Comment on above: Order Comment: No: D o not add to previous draw Performed By: #### 0 007, 46451, 89830 #### [facility] [address] [place] [address], [facility] MCHC (RBC) [Mass/Vol] 33.5 g/dL Normal 32.0-35.0 [facility] Comment on above: Order Comment: No: D o not add to previous draw Performed By: #### 0 0071, 59367, 98467 #### [facility] [address] [place] [id number], [facility] MCV (RBC) [Entitic vol] 93.9 fL Normal 82.0-98.0 [facility] Comment on above: Order Comment: No: D o not add to previous draw Performed By: #### 0 0071, 97999, 79196 #### [facility] [address] [place] [address], [facility] Monocytes (Bld) [#/Vol] 0.7 10*3/uL Normal 0.1-1.0 [facility] Comment on above: Order Comment: No: D o not add to previous draw Performed By: #### 0 0071, 34033, 52859 #### [facility] [address] [place] [address], [facility] MONOS 9.9 % Normal 5.0-12.0 [facility] Comment on above: Order Comment: No: D o not add to previous draw Performed By: #### 0 0071, 11438, 80603 #### [facility] [address] [place] [address], [facility] Neutrophils/100 WBC (Bld) 53.6 % Normal 40.0-72.0 [facility] Comment on above: Order Comment: No: D o not add to previous draw Performed By: #### 0 1, 78089, 24633 #### [facility] [address] [place] [id number], [facility] Nucleated RBC/100 WBC (Bld) [Ratio] 0 % Normal 0-0 [facility] Comment on above: Order Comment: No: D o not add to previous draw Performed By: #### 0 0071, 72700, 88207 #### [facility] [address] [place] [address], [place] PLAT CNT 208 10*3/uL Normal 150-400 [facility] Comment on above: Order Comment: No: D o not add to previous draw Performed By: #### 0 0071, 52559, 17741 #### [facility] [address] [place] [address], [place] RBC (Bld) [#/Vol] 3.94 10*6/uL Low 4.20-5.70 [facility] Comment on above: Order Comment: No: D o not add to previous draw Performed By: #### 0 0071, 59422, 19392 #### [facility] [address] WBC (Bld) [#/Vol] 7.41 10*3/uL Normal 4.00-10.60 [facility] Comment on above: Order Comment: No: D o not add to previous draw Performed By: #### 0 0071, 17079, 31719 #### [facility] [address] History and Physicalon 12-28 History and Physical MR#: [id number] [facility] Pt. Name: Weston Cano Admitted: 12/27/2018 Date of : 1960 Attending Physician: Nate French MD Room #: [id number] Discharge Date: HISTORY AND PHYSICAL TIME: 11:15 p.m. CHIEF COMPLAINT: Syncope. HISTORY OF PRESENT ILLNESS: This is a 58-year-old male, who had CABG for 3-vessel coronary artery disease about a month ago. Today, he presented to [place] [facility] after having an episode of syncope. [...] passing out or after recovering. In the [place] ER, the patient had EKG without any acute ST-segment or T-wave changes, but troponins of 0.12 and due to history of recent CABG for 3-vessel coronary artery disease the patient was started on IV heparin for non ST-elevation ND and transferred to [facility] for plan of care. At the time [...] artery bypass graft. 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 FAMILY HISTORY: Reviewed, noncontributory. MEDICATION LIST: Reviewed [...] French MD Date Trans: 12/28/2018 01:02 A/love [id number] Normal [facility] TROPONIN-Ion 12-28-2018 Troponin I.cardiac [Mass/Vol] 0.04 ng/mL Normal 0.00-0.04 [facility] Comment on above: Result Comment: REFE RENCE RANGES: 0.00 - 0.04 ng/ml NORMAL 0.05 - 0.50 ng/ml INDETERMINATE > 0.50 ng/ml CONSISTENT WITH AN M.I. Performed By: #### 0 0071, 75755, 05681 #### [facility] [address] [facility] Troponin I.cardiac [Mass/Vol] 0.05 ng/mL High 0.00-0.04 [facility] Comment on above: Order Comment: No: D o not add to previous draw Result Comment: REFE RENCE RANGES: 0.00 - 0.04 ng/ml NORMAL 0.05 - 0.50 ng/ml INDETERMINATE > 0.50 ng/ml CONSISTENT WITH AN M.I. Performed By: #### 0 0071, 84705, 83909 #### [facility] [address] UFH HEPARIN ASSAYon 12-29-19 19 UNFRACTIONATED HEPARIN 0.32 IU/mL Normal 0.30-0.70 [facility] Comment on above: Result Comment: [place] roxaban and Apixaban will interfere with the anti Xa assay used to monitor UFH and LMWH. Performed By: #### 0 0071, 01144, 16749 #### [facility] [address] [facility] UNFRACTIONATED HEPARIN 0.20 IU/mL Low 0.30-0.70 [facility] Comment on above: Result Comment: [place] roxaban and Apixaban will interfere with the anti Xa assay used to monitor UFH and LMWH. Performed By: #### 0 0071, 74196, 58311 #### [facility] [address] POC GLUCOSE LABon 12-01-2018 Glucose [Mass/Vol] 138 mg/dL High 70-100 [facility] Comment on above: Performed By: #### 0 0071, 03681, 25582 #### [facility] [address] [facility]. [address] Glucose [Mass/Vol] 99 mg/dL Normal 70-100 [facility] Comment on above: Performed By: #### 0 0071, 45761, 81107 #### [facility] [address] [facility] BASIC METABOLIC PANELon 11-13 Calcium [Mass/Vol] 8.3 mg/dL Low 8.6-10.3 [facility] Comment on above: Order Comment: No: D o not add to previous draw Performed By: #### 0 0071, 46586, 12003 #### [facility] [address] [place] [address], [facility] Chloride [Moles/Vol] 108 mmol/L High 98-107 [facility] Comment on above: Order Comment: No: D o not add to previous draw Performed By: #### 0 0071, 93050, 39683 #### [facility] [address] [facility] [address], [facility] CO2 [Moles/Vol] 25 mmol/L Normal 21-31 [facility] Comment on above: Order Comment: No: D o not add to previous draw Performed By: #### 0 0071, 71583, 49265 #### [facility] [address] [place] [address], [place] Creatinine [Mass/Vol] 0.94 mg/dL Normal 0.70-1.30 [facility] Comment on above: Order Comment: No: D o not add to previous draw Performed By: #### 0 0071, 04030, 78005 #### [facility] [address] [place] [address], [place] GFR/1.73 sq M predicted among blacks MDRD (S/P/Bld) [Vol rate/Area] mL/min/{1.73_m2} Normal >60 [facility] Comment on above: Order Comment: No: D o not add to previous draw Performed By: #### 0 0071, 95236, 77460 #### [facility] [address] [place] [address], [place] GFR/1.73 sq M predicted among non-blacks MDRD (S/P/Bld) [Vol rate/Area] mL/min/{1.73_m2} Normal >60 [facility] Comment on above: Order Comment: No: D o not add to previous draw Performed By: #### 0 0071, 30958, 40120 #### [facility] [address] [place] [address], [place] Glucose [Mass/Vol] 103 mg/dL High 70-100 [facility] Comment on above: Order Comment: No: D o not add to previous draw Performed By: #### 0 0071, 41841, 53360 #### [facility] [address] [place] [address], [place] Potassium [Moles/Vol] 3.5 mmol/L Normal 3.5-5.1 [facility] Comment on above: Order Comment: No: D o not add to previous draw Performed By: #### 0 0071, 06048, 14373 #### [facility] [address] [place] [id number], [facility] Sodium [Moles/Vol] 141 mmol/L Normal 136-145 [facility] Comment on above: Order Comment: No: D o not add to previous draw Performed By: #### 0 0071, 77617, 17605 #### [facility] [address] [place] [address], [facility] Urea nitrogen [Mass/Vol] 17 mg/dL Normal 7-25 [facility] Comment on above: Order Comment: No: D o not add to previous draw Performed By: #### 0 0071, 67862, 71426 #### [facility] [address] [facility] [place] [id number], [facility] CBC COMPLETE BLOOD COUNTon 0 - Erythrocyte distribution width (RBC) [Ratio] 12.7 % Normal 11.5-15.0 [facility] Comment on above: Order Comment: No: D o not add to previous draw Performed By: #### 0 0071, 01378, 91219 #### [facility] [address] [place] [address], [facility] Hematocrit (Bld) [Volume fraction] 29.2 % Low 39.0-50.0 [facility] Comment on above: Order Comment: No: D o not add to previous draw Performed By: #### 0 0071, 30845, 86577 #### [facility] [address] [place] [address], [facility] Hemoglobin (Bld) [Mass/Vol] 9.8 g/dL Low 13.0-17.0 [facility] Comment on above: Order Comment: No: D o not add to previous draw Performed By: #### 0 0071, 61678, 98718 #### [facility] [address] [place] [address], [facility] MCH (RBC) [Entitic mass] 32.1 pg Normal 27.0-33.0 [facility] Comment on above: Order Comment: No: D o not add to previous draw Performed By: #### 0 0071, 87238, 35047 #### [facility] [address] [place] [id number], [facility] MCHC (RBC) [Mass/Vol] 33.6 g/dL Normal 32.0-35.0 [facility] Comment on above: Order Comment: No: D o not add to previous draw Performed By: #### 0 0071, 18073, 51073 #### [facility] [address] [place] [address], [facility] MCV (RBC) [Entitic vol] 95.7 fL Normal 82.0-98.0 [facility] Comment on above: Order Comment: No: D o not add to previous draw Performed By: #### 0 0071, 04795, 78827 #### [facility] [address] [place] [address], [facility] Nucleated RBC/100 WBC (Bld) [Ratio] 0 % Normal 0-0 [facility] Comment on above: Order Comment: No: D o not add to previous draw Performed By: #### 0 1, 69603, 80018 #### [facility] [address] [place] [address], [place] PLAT CNT 206 10*3/uL Normal 150-400 [facility] Comment on above: Order Comment: No: D o not add to previous draw Performed By: #### 0 0071, 47349, 09924 #### [facility] [address] [place] [id number], [facility] RBC (Bld) [#/Vol] 3.05 10*6/uL Low 4.20-5.70 [facility] Comment on above: Order Comment: No: D o not add to previous draw Performed By: #### 0 0071, 64238, 97772 #### [facility] [address] [place] [address], [facility] WBC (Bld) [#/Vol] 7.92 10*3/uL Normal 4.00-10.60 [facility] Comment on above: Order Comment: No: D o not add to previous draw Performed By: #### 0 0071, 16727, 22700 #### [facility] [address] [place] [address], [place] MAGNESIUM BLOODon 11-30-2018 Magnesium [Mass/Vol] 2.0 mg/dL Normal 1.9-2.7 [facility] Comment on above: Order Comment: No: D o not add to previous draw Performed By: #### 0 0071, 51379, 29765 #### [facility] [address] [place] [address], [place] POC GLUCOSE LABon 11-30-2018 Glucose [Mass/Vol] 144 mg/dL High 70-100 [facility] Comment on above: Performed By: #### 0 0071, 66991, 52117 #### [facility] [address] [place] [address], [place] Glucose [Mass/Vol] 142 mg/dL High 70-100 [facility] Comment on above: Performed By: #### 0 0071, 53293, 63798 #### [facility] [address] [place] [address], [place] Glucose [Mass/Vol] 110 mg/dL High 70-100 [facility] Comment on above: Performed By: #### 0 0071, 85037, 75108 #### [facility] [address] [place] [address], [place] Glucose [Mass/Vol] 120 mg/dL High 70-100 [facility] Comment on above: Performed By: #### 0 0071, 36133, 83643 #### [facility] [address] [place] [address], [place] POC GLUCOSE LABon 11-29-2018 Glucose [Mass/Vol] 105 mg/dL High 70-[address] [facility] [address] [facility] Comment on above: Performed By: #### 0 0071, 09543, 94331 #### [facility] [address] [place] [address], [place] Glucose [Mass/Vol] 77 mg/dL Normal 70-[address] [facility] Comment on above: Performed By: #### 0 0071, 80352, 78061 #### [facility] [address] [place] [address], [place] Glucose [Mass/Vol] 247 mg/dL High 70-[address] [facility] Comment on above: Performed By: #### 0 0071, 88549, 11496 #### [facility] [address] [place] [address], [place] Glucose [Mass/Vol] 119 mg/dL High 70-[address] [facility] Comment on above: Performed By: #### 0 0071, 25938, 28487 #### [facility] [address] [place] [address], [place] POC GLUCOSE LABon 11-28-2018 Glucose [Mass/Vol] 142 mg/dL High 70-[address] [facility] Comment on above: Performed By: #### 0 0071, 58549, 07200 #### [facility] [address] [place] [address], [place] Glucose [Mass/Vol] 132 mg/dL High 70-[address] [facility] Comment on above: Performed By: #### 0 0071, 59526, 68205 #### [facility] [facility] [address] [place] [address], [place] Glucose [Mass/Vol] 152 mg/dL High 70-[address] Comment on above: Performed By: #### 0 0071, 57181, 05188 #### [facility] [address] [place] [id number], [facility] Glucose [Mass/Vol] 109 mg/dL High 70-100 [facility] Comment on above: Performed By: #### 0 0071, 04488, 91996 #### [facility] [address] [place] [id number], [facility] BASIC METABOLIC PANELon 11-13 Calcium [Mass/Vol] 8.3 mg/dL Low 8.6-10.3 [facility] Comment on above: Order Comment: No: D o not add to previous draw Performed By: #### 0 0071, 92759, 02771 #### [facility] [address] [place] [address], [facility] Chloride [Moles/Vol] 108 mmol/L High 98-107 [facility] Comment on above: Order Comment: No: D o not add to previous draw Performed By: #### 0 0071, 57883, 07021 #### [facility] [address] [place] [address], [facility] CO2 [Moles/Vol] 26 mmol/L Normal 21-31 The [facility] Comment on above: Order Comment: No: D o not add to previous draw Performed By: #### 0 0071, 09968, 11500 #### [facility] [address] [place] [address], [facility] Creatinine [Mass/Vol] 0.91 mg/dL Normal 0.70-1.30 [facility] Comment on above: Order Comment: No: D o not add to previous draw Performed By: #### 0 0071, 04349, 91527 #### [facility] [address] [place] [id number], [place] GFR/1.73 sq M predicted among blacks MDRD (S/P/Bld) [Vol rate/Area] mL/min/{1.73_m2} Normal >60 [facility] Comment on above: Order Comment: No: D o not add to previous draw Performed By: #### 0 0071, 51354, 36976 #### [facility] [address] [place] [address], [place] GFR/1.73 sq M predicted among non-blacks MDRD (S/P/Bld) [Vol rate/Area] mL/min/{1.73_m2} Normal >60 [facility] Comment on above: Order Comment: No: D o not add to previous draw Performed By: #### 0 0071, 98066, 69044 #### [facility] [address] [place] [address], [place] Glucose [Mass/Vol] 113 mg/dL High 70-100 [facility] Comment on above: Order Comment: No: D o not add to previous draw Performed By: #### 0 0071, 97017, 16549 #### [facility] [address] [place] [address], [place] Potassium [Moles/Vol] 4.1 mmol/L Normal 3.5-5.1 [facility] Comment on above: Order Comment: No: D o not add to previous draw Performed By: #### 0 0071, 94176, 49218 #### [facility] [address] [place] [address], [place] Sodium [Moles/Vol] 137 mmol/L Normal 136-145 [facility] Comment on above: Order Comment: No: D o not add to previous draw Performed By: #### 0 0071, 74196, 97324 #### [facility] [address] [place] [address], [place] Urea nitrogen [Mass/Vol] 10 mg/dL Normal 7-25 [facility] Comment on above: Order Comment: No: D o not add to previous draw Performed By: #### 0 0071, 32759, 45852 #### [facility] [address] CBC W/DIFFon 11-27-2018 ABS BASOPHILS 0.0 10*3/uL Normal 0.0-0.2 The [facility] Comment on above: Order Comment: No: D o not add to previous draw Performed By: #### 5 610, 60013 #### [facility] [address] [facility]. [address] ABS IMM GRANS 0.1 10*3/uL Normal 0.0-0.2 The [facility] Comment on above: Order Comment: No: D o not add to previous draw Performed By: #### 5 6100, 95461 #### [facility] [address] ABS NEUTROPHILS 8.1 10*3/uL High 1.6-7.6 The [facility] Comment on above: Order Comment: No: D o not add to previous draw Performed By: #### 5 6100, 19029 #### [facility] [address] [place] [address], [facility] Basophils/100 WBC (Bld) 0.4 % Normal 0.0-1.0 [facility] Comment on above: Order Comment: No: D o not add to previous draw Performed By: #### 5 6100, 86927 #### [facility] [address] [facility] [address], [facility] Eosinophils (Bld) [#/Vol] 0.2 10*3/uL Normal 0.0-0.5 [facility] Comment on above: Order Comment: No: D o not add to previous draw Performed By: #### 5 610, 07777 #### [facility] [address] [facility] [address], [facility] Eosinophils/100 WBC (Bld) 1.9 % Normal 0.0-6.0 [facility] Comment on above: Order Comment: No: D o not add to previous draw Performed By: #### 5 6100, 46142 #### [facility] [address] [place] [address], [facility] Erythrocyte distribution width (RBC) [Ratio] 13.2 % Normal 11.5-15.0 [facility] Comment on above: Order Comment: No: D o not add to previous draw Performed By: #### 5 6100, 10479 #### [facility] [address] [place] [id number], [facility] Hematocrit (Bld) [Volume fraction] 26.9 % Low 39.0-50.0 [facility] Comment on above: Order Comment: No: D o not add to previous draw Performed By: #### 5 6100, 80804 #### [facility] [address] [place] [address], [facility] Hemoglobin (Bld) [Mass/Vol] 9.2 g/dL Low 13.0-17.0 [facility] Comment on above: Order Comment: No: D o not add to previous draw Performed By: #### 5 6100, 17942 #### [facility] [address] [place] [address], [facility] IMMATURE GRANS 0.6 % Normal 0.0-1.0 The [facility] Comment on above: Order Comment: No: D o not add to previous draw Performed By: #### 5 6100, 75178 #### [facility] [address] [place] [address], [facility] Lymphocytes (Bld) [#/Vol] 1.7 10*3/uL Normal 1.2-4.0 [facility] Comment on above: Order Comment: No: D o not add to previous draw Performed By: #### 5 610, 76290 #### [facility] [address] [place] [id number], [facility] Lymphocytes/100 WBC (Bld) 15.0 % Low 20.0-45.0 [facility] Comment on above: Order Comment: No: D o not add to previous draw Performed By: #### 5 6100, 12795 #### [facility] [address] [place] [address], [facility] MCH (RBC) [Entitic mass] 32.9 pg Normal 27.0-33.0 [facility] Comment on above: Order Comment: No: D o not add to previous draw Performed By: #### 5 6100, 91463 #### [facility] [address] [place] [address], [facility] MCHC (RBC) [Mass/Vol] 34.2 g/dL Normal 32.0-35.0 [facility] Comment on above: Order Comment: No: D o not add to previous draw Performed By: #### 5 6100, 86794 #### [facility] [address] [place] [address], [facility] MCV (RBC) [Entitic vol] 96.1 fL Normal 82.0-98.0 [facility] Comment on above: Order Comment: No: D o not add to previous draw Performed By: #### 5 6100, 40887 #### [facility] [address] [place] [address], [facility] Monocytes (Bld) [#/Vol] 1.0 10*3/uL Normal 0.1-1.0 [facility] Comment on above: Order Comment: No: D o not add to previous draw Performed By: #### 5 6100, 00958 #### [facility] [address] [place] [address], [facility] MONOS 9.3 % Normal 5.0-12.0 [facility] Comment on above: Order Comment: No: D o not add to previous draw Performed By: #### 5 6100, 91751 #### [facility] [address] [place] [id number], [facility] Neutrophils/100 WBC (Bld) 72.8 % High 40.0-72.0 [facility] Comment on above: Order Comment: No: D o not add to previous draw Performed By: #### 5 610, 77281 #### [facility] [address] [place] [id number], [facility] Nucleated RBC/100 WBC (Bld) [Ratio] 0 % Normal 0-0 [facility] Comment on above: Order Comment: No: D o not add to previous draw Performed By: #### 5 610, 39096 #### [facility] [address] [place] [address], [place] PLAT CNT 120 10*3/uL Low 150-400 The [facility] Comment on above: Order Comment: No: D o not add to previous draw Performed By: #### 5 610, 71963 #### [facility] [address] [place] [address], [facility] RBC (Bld) [#/Vol] 2.80 10*6/uL Low 4.20-5.70 [facility] Comment on above: Order Comment: No: D o not add to previous draw Performed By: #### 5 6101, 64739 #### [facility] [address] [place] [id number], [facility] WBC (Bld) [#/Vol] 11.16 10*3/uL High 4.00-10.60 [facility] Comment on above: Order Comment: No: D o not add to previous draw Performed By: #### 5 610, 71893 #### [facility] [address] [place] [address], [facility] MAGNESIUM BLOODon 11-27-2018 Magnesium [Mass/Vol] 1.9 mg/dL Normal 1.9-2.7 [facility] Comment on above: Order Comment: No: D o not add to previous draw Performed By: #### 5 610, 31479 #### [facility] [address] [place] [id number], [facility] Operative Reporton 9 Operative Report MR#: [id number] I [facility] Pt. Name: Weston Cano Room #: 3CD [id number] Discharge Date: Birthdate: 1960 OPERATIVE REPORT DATE [...] the OM. 2. RCA and PLV endarterectomy. PRESCHOOL TEACHER: 1. DENISE Arriaga. 2. DENISE Bernal. [...] Monitoring lines consisted of a right IJ [place]-Comfort catheter, right radial artery pressure catheter, Astudillo [...] anastomoses proximally and distally to assure patency. security assessor was given. The patient was then placed [...] Rio MD Date Trans: 11/27/2018 02:17 A/love [id number] cc: Estefania Weeks M.D. [address], [facility] [address] Normal [facility] PHOSPHORUS BLOODon 9 Phosphate [Mass/Vol] 2.8 mg/dL Normal 2.5-5.0 [facility] Comment on above: Order Comment: No: D o not add to previous draw Performed By: #### 5 6101, 74114 #### [facility] [address] [facility] [place] [address], [facility] POC GLUCOSE LABon 11-27-2018 Glucose [Mass/Vol] 121 mg/dL High 70-100 [facility] Comment on above: Performed By: #### 0 0071, 23773, 30712 #### [facility] [address] [place] [address], [place] Glucose [Mass/Vol] 87 mg/dL Normal 70-100 [facility] Comment on above: Performed By: #### 0 0071, 87070, 25417 #### [facility] [address] [facility] [place] [address], [facility] Glucose [Mass/Vol] 113 mg/dL High 70-100 [facility] Comment on above: Performed By: #### 0 0071, 78335, 05028 #### [facility] [address] [facility] [place] [address], [facility] Glucose [Mass/Vol] 128 mg/dL High 70-100 [facility] Comment on above: Performed By: #### 0 0071, 14008, 06999 #### [facility] [address] [place] [address], [facility] PORTABLE CHEST 1 VIEWon 11-13 PORTABLE CHEST 1 VIEW [facility] Department of Radiology [address] [place], [place] [id number] Patient Name: WESTON CANO : 1960 Sex: M Age: Race: White Pt. Location: [id number] Patient Status: I Ordered Date: 11/27/2018 7:00:00 [...] probable infiltrate. There is left basilar atelectasis. [place]-Comfort catheter has been removed. Patient has been extubated. IMPRESSION: Patient has been extubated with removal of [place]-Comfort catheter. Chronic cardiomegaly. Right basilar effusion and probable infiltrate/atelectas is. Electronically signed by:Kena Nix. Transcribed by: [email or web address], User Resident: Electronically Signed by: KENA NIX @ 11/27/2018 07:43 AM Normal [facility] Comment on above: Order Comment: No: D o not add to previous draw ARTERIAL BLOOD GAS WITH ICAo n 11-26-2018 BASE EXCESS -5 mmol/L Low -2-3 [facility] Comment on above: Performed By: #### 4 999, , 14580 #### [facility] [address] [place] [address], [facility] DELIVERY SYSTEMS NASAL CANNULA Normal [facility] Comment on above: Performed By: #### 4 999, , 35102 #### [facility] [address] [place] [address], [place] HCO3 (Bld) [Moles/Vol] 19 mmol/L Low 21-28 [facility] Comment on above: Performed By: #### 4 1000, , 56436 #### [facility] [address] [place] [address], [place] IONIZED CALCIUM 1.17 mmol/L Normal 1.13-1.32 The [facility] Comment on above: Performed By: #### 4 1000, , 40625 #### [facility] [address] [place] [address], [facility] LPM 3.0 LPM Normal [facility] Comment on above: Performed By: #### 4 1000, , 06052 #### [facility] [address] [place] [address], [facility] Oxygen (Bld) [Partial pressure] 61 mm[Hg] Low 83-108 The [facility] Comment on above: Performed By: #### 4 1000, , 39082 #### [facility] [address] [place] [address], [facility] Oxygen saturation in Blood 90.2 % Low 94.0-97.0 [facility] Comment on above: Performed By: #### 4 1000, , 26205 #### [facility] [address] [place] [address], [facility] PCO2 30 mmHg Low 35-45 [facility] Comment on above: Performed By: #### 4 1000, , 45615 #### [facility] [address] [place] [address], [facility] pH (Bld) 7.41 [pH] Normal 7.35-7.45 [facility] Comment on above: Result Comment: DAPHNEY SHRESTHA NOTE: Effective 10/17/18, reference ranges for Respiratory GEM analyzers running arterial blood have been updated to reflect the prosthetic makeup designer's published reference ranges. Performed By: #### 4 1000, , 36147 #### [facility] [address] [place] [address], [facility] BASIC METABOLIC PANELon - Calcium [Mass/Vol] 8.3 mg/dL Low 8.6-10.3 [facility] Comment on above: Performed By: #### 4 1000, , 00028 #### [facility] [address] [place] [address], [place] Chloride [Moles/Vol] 114 mmol/L High 98-107 [facility] Comment on above: Performed By: #### 4 999, , 47922 #### [facility] [address] [place] [address], [place] CO2 [Moles/Vol] 19 mmol/L Low 21-31 [facility] Comment on above: Performed By: #### 4 1000, , 53432 #### [facility] [address] [place] [address], [place] Creatinine [Mass/Vol] 1.00 mg/dL Normal 0.70-1.30 [facility] Comment on above: Performed By: #### 4 1000, , 52925 #### [facility] [address] [place] [address], [place] GFR/1.73 sq M predicted among blacks MDRD (S/P/Bld) [Vol rate/Area] mL/min/{1.73_m2} Normal >60 [facility] Comment on above: Performed By: #### 4 1000, , 93447 #### [facility] [address] [place] [address], [place] GFR/1.73 sq M predicted among non-blacks MDRD (S/P/Bld) [Vol rate/Area] mL/min/{1.73_m2} Normal >60 [facility] Comment on above: Performed By: #### 4 1000, , 55916 #### [facility] [address] [place] [address], [place] Glucose [Mass/Vol] 153 mg/dL High 70-100 [facility] Comment on above: Performed By: #### 4 1000, , 74411 #### [facility] [address] [place] [address], [place] Potassium [Moles/Vol] 4.0 mmol/L Normal 3.5-5.1 [facility] Comment on above: Performed By: #### 4 1000, , 73389 #### [facility] [address] [facility]. [address] Sodium [Moles/Vol] 140 mmol/L Normal 136-145 [facility] Comment on above: Performed By: #### 4 1000, , 56171 #### [facility] [address] [facility]. [address] Urea nitrogen [Mass/Vol] 11 mg/dL Normal 7-25 [facility] Comment on above: Performed By: #### 4 1000, , 77703 #### [facility] [address] CBC W/DIFFon 11-26-2018 ABS BASOPHILS 0.0 10*3/uL Normal 0.0-0.2 [facility] Comment on above: Order Comment: No: D o not add to previous draw Performed By: #### 4 1000, , 03550 #### [facility] [address] ABS IMM GRANS 0.1 10*3/uL Normal 0.0-0.2 [facility] Comment on above: Order Comment: No: D o not add to previous draw Performed By: #### 4 1000, , 75917 #### [facility] [address] ABS NEUTROPHILS 7.6 10*3/uL Normal 1.6-7.6 [facility] Comment on above: Order Comment: No: D o not add to previous draw Performed By: #### 4 1000, , 89239 #### [facility] [address] [place] [address], [facility] Basophils/100 WBC (Bld) 0.2 % Normal 0.0-1.0 [facility] Comment on above: Order Comment: No: D o not add to previous draw Performed By: #### 4 1000, , 99329 #### [facility] [address] [place] [address], [facility] Eosinophils (Bld) [#/Vol] 0.0 10*3/uL Normal 0.0-0.5 [facility] Comment on above: Order Comment: No: D o not add to previous draw Performed By: #### 4 1000, , 11364 #### [facility] [address] [place] [id number], [facility] Eosinophils/100 WBC (Bld) 0.2 % Normal 0.0-6.0 [facility] Comment on above: Order Comment: No: D o not add to previous draw Performed By: #### 4 1000, , #### [facility] [address] [place] [address], [facility] Erythrocyte distribution width (RBC) [Ratio] 13.2 % Normal 11.5-15.0 [facility] Comment on above: Order Comment: No: D o not add to previous draw Performed By: #### 4 1000, , #### [facility] [address] [place] [address], [facility] Hematocrit (Bld) [Volume fraction] 33.2 % Low 39.0-50.0 [facility] Comment on above: Order Comment: No: D o not add to previous draw Performed By: #### 4 1000, , 37508 #### [facility] [address] [place] [address], [place] Hemoglobin (Bld) [Mass/Vol] 11.6 g/dL Low 13.0-17.0 [facility] Comment on above: Order Comment: No: D o not add to previous draw Performed By: #### 4 1000, , 00962 #### [facility] [address] [place] [id number], [place] IMMATURE GRANS 0.5 % Normal 0.0-1.0 [facility] Comment on above: Order Comment: No: D o not add to previous draw Performed By: #### 4 1000, , 11283 #### [facility] [address] [place] [address], [facility] Lymphocytes (Bld) [#/Vol] 1.4 10*3/uL Normal 1.2-4.0 [facility] Comment on above: Order Comment: No: D o not add to previous draw Performed By: #### 4 1000, , 14201 #### [facility] [address] [place] [address], [facility] Lymphocytes/100 WBC (Bld) 14.3 % Low 20.0-45.0 [facility] Comment on above: Order Comment: No: D o not add to previous draw Performed By: #### 4 1000, , 20527 #### [facility] [address] [place] [address], [facility] MCH (RBC) [Entitic mass] 33.0 pg Normal 27.0-33.0 [facility] Comment on above: Order Comment: No: D o not add to previous draw Performed By: #### 4 1000, , 70196 #### [facility] [address] [place] [address], [facility] MCHC (RBC) [Mass/Vol] 34.9 g/dL Normal 32.0-35.0 [facility] Comment on above: Order Comment: No: D o not add to previous draw Performed By: #### 4 1000, , 33878 #### [facility] [address] [place] [address], [facility] MCV (RBC) [Entitic vol] 94.6 fL Normal 82.0-98.0 [facility] Comment on above: Order Comment: No: D o not add to previous draw Performed By: #### 4 1000, , 34253 #### [facility] [address] [place] [id number], [facility] Monocytes (Bld) [#/Vol] 0.9 10*3/uL Normal 0.1-1.0 [facility] Comment on above: Order Comment: No: D o not add to previous draw Performed By: #### 4 1000, , 11364 #### [facility] [address] [place] [id number], [facility] MONOS 8.9 % Normal 5.0-12.0 [facility] Comment on above: Order Comment: No: D o not add to previous draw Performed By: #### 4 1000, , 67943 #### [facility] [address] [place] [address], [facility] Neutrophils/100 WBC (Bld) 75.9 % High 40.0-72.0 [facility] Comment on above: Order Comment: No: D o not add to previous draw Performed By: #### 4 1000, , 20761 #### [facility] [address] [place] [address], [facility] Nucleated RBC/100 WBC (Bld) [Ratio] 0 % Normal 0-0 [facility] Comment on above: Order Comment: No: D o not add to previous draw Performed By: #### 4 1000, , 14715 #### [facility] [address] [facility] [address], [facility] PLAT CNT 102 10*3/uL Low 150-400 [facility] Comment on above: Order Comment: No: D o not add to previous draw Performed By: #### 4 1000, , 08605 #### [facility] [address] [facility] [address], [facility] RBC (Bld) [#/Vol] 3.51 10*6/uL Low 4.20-5.70 [facility] Comment on above: Order Comment: No: D o not add to previous draw Performed By: #### 4 1000, , 98344 #### [facility] [address] [place] [address], [facility] WBC (Bld) [#/Vol] 10.04 10*3/uL Normal 4.00-10.60 [facility] Comment on above: Order Comment: No: D o not add to previous draw Performed By: #### 4 1000, , 52826 #### [facility] [address] [place] [address], [facility] MAGNESIUM BLOODon 11-26-2018 Magnesium [Mass/Vol] 1.9 mg/dL Normal 1.9-2.7 [facility] Comment on above: Order Comment: No: D o not add to previous draw Performed By: #### 5 6101, 22977 #### [facility] [address] [place] [address], [facility] MIXED VENOUS BLOOD GAS W/PUBLIC SAFETY DISPATCHER Xon 11-26-2018 BASE EXCESS -4 mmol/L Normal [facility] Comment on above: Performed By: #### 4 1000, , 25253 #### [facility] [address] [place] [address], [facility] COHB 1 % Normal [facility] Comment on above: Performed By: #### 4 1000, , 51464 #### [facility] [address] [place] [address], [facility] HCO3 (Bld) [Moles/Vol] 20 mmol/L Normal [facility] Comment on above: Performed By: #### 4 1000, , 62220 #### [facility] [address] [place] [address], [facility] LPM 3 Normal [facility] Comment on above: Performed By: #### 4 1000, , 25750 #### [facility] [address] [place] [address], [place] METHB 1 % Normal [facility] Comment on above: Performed By: #### 4 999, , 87359 #### [facility] [address] [place] [address], [facility] Oxygen (Bld) [Partial pressure] 31 mm[Hg] Low 35-45 The [facility] Comment on above: Performed By: #### 4 1000, , 84691 #### [facility] [address] Oxygen saturation in Blood 56.2 % Low 65.0-75.0 [facility] Comment on above: Performed By: #### 4 999, , 83415 #### [facility] [address] [facility] [address], [facility] PCO2 34 mmHg Low 40-50 [facility] Comment on above: Performed By: #### 4 999, , 70215 #### [facility] [address] [place] [address], [facility] pH (Bld) 7.38 [pH] Normal 7.31-7.41 [facility] Comment on above: Result Comment: DAPHNEY SHRESTHA NOTE: Effective 11/09/18, reference ranges for Respiratory GEM analyzers running venous blood have been updated to reflect the prosthetic makeup designer's published reference ranges. Performed By: #### 4 999, , 50089 #### [facility] [address] [facility] [address], [facility] THB 9.7 g/dL Normal [facility] Comment on above: Performed By: #### 4 1000, , 55605 #### [facility] [address] [facility] [address], [facility] PHOSPHORUS BLOODon 9 Phosphate [Mass/Vol] 2.3 mg/dL Low 2.5-5.0 [facility] Comment on above: Order Comment: No: D o not add to previous draw Performed By: #### 5 9771, 33296 #### [facility] [address] [place] [address], [place] POC GLUCOSE LABon 11-26-2018 Glucose [Mass/Vol] 162 mg/dL High 70-[address] [facility] Comment on above: Performed By: #### 5 610, 14374 #### [facility] [address] [place] [address], [place] Glucose [Mass/Vol] 113 mg/dL High 70-100 [facility] Comment on above: Performed By: #### 5 6100, 55558 #### [facility] [address] [place] [address], [place] Glucose [Mass/Vol] 158 mg/dL High 70-100 [facility] Comment on above: Performed By: #### 5 6100, 04457 #### [facility] [address] [place] [address], [place] Glucose [Mass/Vol] 101 mg/dL High 70-100 [facility] Comment on above: Performed By: #### 5 6100, 24437 #### [facility] [address] [place] [address], [place] Glucose [Mass/Vol] 104 mg/dL High 70-[address] [facility] Comment on above: Performed By: #### 5 610, 11667 #### [facility] [address] [place] [address], [place] Glucose [Mass/Vol] 159 mg/dL High 70-[address] [facility] Comment on above: Performed By: #### 4 999, , 25594 #### [facility] [address] [place] [address], [place] Glucose [Mass/Vol] 105 mg/dL High 70-[address] [facility] Comment on above: Performed By: #### 4 999, , 28993 #### [facility] [address] [place] [address], [facility] ARTERIAL BLOOD GAS W/COOXon 11-25-2018 BASE EXCESS -9 mmol/L Low -2-3 [facility] Comment on above: Performed By: #### 5 0608 #### [facility] [address] [place] [address], [facility] COHB 0.9 % Normal 0.0-1.5 [facility] Comment on above: Performed By: #### 5 0608 #### [facility] [address] [place] [address], [facility] DELIVERY SYSTEMS VENTILATOR Normal [facility] Comment on above: Performed By: #### 5 0608 #### [facility] [address] [place] [address], [facility] FIO2 50 % Normal [facility] Comment on above: Performed By: #### 5 0608 #### [facility] [address] [place] [address], [facility] HCO3 (Bld) [Moles/Vol] 17 mmol/L Low 21-28 [facility] Comment on above: Performed By: #### 5 0608 #### [facility] [address] [place] [address], [facility] METHB 1.3 % Normal 0.0-1.5 [facility] Comment on above: Performed By: #### 5 0608 #### [facility] [address] [place] [address], [place] MIN VOLUME 9.9 Normal [facility] Comment on above: Performed By: #### 5 0608 #### [facility] [address] [place] [address], [place] MODALITY SIMV Normal [facility] Comment on above: Performed By: #### 5 0608 #### [facility] [address] [place] [address], [facility] Oxygen (Bld) [Partial pressure] 146 mm[Hg] Critically high 83-108 [facility] Comment on above: Performed By: #### 5 0608 #### [facility] [address] [place] [address], [facility] Oxygen saturation in Blood 95.5 % Normal 94.0-97.0 [facility] Comment on above: Performed By: #### 5 0608 #### [facility] [address] [place] [address], [facility] PCO2 37 mmHg Normal 35-45 [facility] Comment on above: Performed By: #### 5 0608 #### [facility] [address] [place] [address], [facility] PEEP 8.0 CMH20 Normal [facility] Comment on above: Performed By: #### 5 0608 #### [facility] [address] [place] [address], [facility] pH (Bld) 7.27 [pH] Low 7.35-7.45 [facility] Comment on above: Result Comment: DAPHNEY SHRESTHA NOTE: Effective 10/17/18, reference ranges for Respiratory GEM analyzers running arterial blood have been updated to reflect the prosthetic makeup designer's published reference ranges. Performed By: #### 5 0608 #### [facility] [address] [place] [address], [facility] PRESSURE SUPPORT 8 Normal [facility] Comment on above: Performed By: #### 5 0608 #### [facility] [address] [place] [address], [facility] THB 10.3 g/dL Low 12.0-16.3 [facility] Comment on above: Performed By: #### 5 0608 #### [facility] [address] [place] [address], [facility] TIDAL VOLUME (VT) CC 500 cc Normal [facility] Comment on above: Performed By: #### 5 0608 #### [facility] [address] [place] [address], [facility] ARTERIAL BLOOD GAS WITH ICAo n 11-25-2018 BASE EXCESS -7 mmol/L Low -2-3 [facility] Comment on above: Performed By: #### 4 1000, , 22211 #### [facility] [address] [place] [address], [facility] DELIVERY SYSTEMS VENTILATOR Normal [facility] Comment on above: Performed By: #### 4 1000, , 72264 #### [facility] [address] [place] [address], [facility] FIO2 40 % Normal [facility] Comment on above: Performed By: #### 4 999, , 65601 #### [facility] [address] [place] [address], [facility] HCO3 (Bld) [Moles/Vol] 18 mmol/L Low 21-28 [facility] Comment on above: Performed By: #### 4 1000, , 27817 #### [facility] [address] [facility] [address], [facility] IONIZED CALCIUM 1.10 mmol/L Low 1.13-1.32 [facility] Comment on above: Performed By: #### 4 1000, , 93388 #### [facility] [address] [place] [address], [facility] MIN VOLUME 11.7 Normal [facility] Comment on above: Performed By: #### 4 1000, , 15459 #### [facility] [address] [place] [id number], [facility] MODALITY SIMV Normal [facility] Comment on above: Performed By: #### 4 1000, , 12385 #### [facility] [address] [place] [id number], [facility] Oxygen (Bld) [Partial pressure] 92 mm[Hg] Normal 83-108 [facility] Comment on above: Performed By: #### 4 999, , 51366 #### [facility] [address] [place] [address], [place] Oxygen saturation in Blood 94.9 % Normal 94.0-97.0 [facility] Comment on above: Performed By: #### 4 999, , 32845 #### [facility] [address] [place] [address], [place] PCO2 32 mmHg Low 35-45 [facility] Comment on above: Performed By: #### 4 999, , 36885 #### [facility] [address] [place] [address], [facility] PEEP 8.0 CMH20 Normal [facility] Comment on above: Performed By: #### 4 999, , 47941 #### [facility] [address] [place] [address], [place] pH (Bld) 7.36 [pH] Normal 7.35-7.45 [facility] Comment on above: Result Comment: DAPHNEY SHRESTHA NOTE: Effective 10/17/18, reference ranges for Respiratory GEM analyzers running arterial blood have been updated to reflect the prosthetic makeup designer's published reference ranges. Performed By: #### 4 999, , 87373 #### [facility] [address] [place] [address], [place] PRESSURE SUPPORT 8 Normal [facility] Comment on above: Performed By: #### 4 999, , 00243 #### [facility] [address] [place] [address], [place] TIDAL VOLUME (VT) CC 500 cc Normal [facility] Comment on above: Performed By: #### 4 999, , 84688 #### [facility] [address] [place] [address], [place] CBC W/DIFFon 11-25-2018 ABS BASOPHILS 0.0 10*3/uL Normal 0.0-0.2 [facility] Comment on above: Order Comment: No: D o not add to previous draw Performed By: #### 4 1000, , 58805 #### [facility] [address] [facility]. [address] ABS IMM GRANS 0.1 10*3/uL Normal 0.0-0.2 [facility] Comment on above: Order Comment: No: D o not add to previous draw Performed By: #### 4 1000, , 54793 #### [facility] [address] ABS NEUTROPHILS 8.0 10*3/uL High 1.6-7.6 [facility] Comment on above: Order Comment: No: D o not add to previous draw Performed By: #### 4 1000, , 96756 #### [facility] [address] Basophils/100 WBC (Bld) 0.2 % Normal 0.0-1.0 [facility] Comment on above: Order Comment: No: D o not add to previous draw Performed By: #### 4 1000, , 79103 #### [facility] [address] [facility] [address], [facility] Eosinophils (Bld) [#/Vol] 0.1 10*3/uL Normal 0.0-0.5 [facility] Comment on above: Order Comment: No: D o not add to previous draw Performed By: #### 4 1000, , 47879 #### [facility] [address] [facility] [address], [facility] Eosinophils/100 WBC (Bld) 0.8 % Normal 0.0-6.0 [facility] Comment on above: Order Comment: No: D o not add to previous draw Performed By: #### 4 1000, , 28952 #### [facility] [address] [place] [address], [facility] Erythrocyte distribution width (RBC) [Ratio] 13.1 % Normal 11.5-15.0 [facility] Comment on above: Order Comment: No: D o not add to previous draw Performed By: #### 4 1000, , 87831 #### [facility] [address] [place] [address], [facility] Hematocrit (Bld) [Volume fraction] 30.0 % Low 39.0-50.0 [facility] Comment on above: Order Comment: No: D o not add to previous draw Performed By: #### 4 1000, , 65531 #### [facility] [address] [place] [address], [facility] Hemoglobin (Bld) [Mass/Vol] 10.4 g/dL Low 13.0-17.0 [facility] Comment on above: Order Comment: No: D o not add to previous draw Performed By: #### 4 999, , 10762 #### [facility] [address] [facility] [address], [facility] IMMATURE GRANS 0.4 % Normal 0.0-1.0 [facility] Comment on above: Order Comment: No: D o not add to previous draw Performed By: #### 4 999, , 83865 #### [facility] [address] [place] [address], [facility] Lymphocytes (Bld) [#/Vol] 1.8 10*3/uL Normal 1.2-4.0 [facility] Comment on above: Order Comment: No: D o not add to previous draw Performed By: #### 4 1000, , 53387 #### [facility] [address] [place] [id number], [facility] Lymphocytes/100 WBC (Bld) 15.8 % Low 20.0-45.0 [facility] Comment on above: Order Comment: No: D o not add to previous draw Performed By: #### 4 1000, , 96429 #### [facility] [address] [place] [address], [facility] MCH (RBC) [Entitic mass] 33.3 pg High 27.0-33.0 [facility] Comment on above: Order Comment: No: D o not add to previous draw Performed By: #### 4 1000, , 01102 #### [facility] [address] [place] [address], [facility] MCHC (RBC) [Mass/Vol] 34.7 g/dL Normal 32.0-35.0 [facility] Comment on above: Order Comment: No: D o not add to previous draw Performed By: #### 4 1000, , #### [facility] [address] [place] [address], [facility] MCV (RBC) [Entitic vol] 96.2 fL Normal 82.0-98.0 [facility] Comment on above: Order Comment: No: D o not add to previous draw Performed By: #### 4 1000, , 46851 #### [facility] [address] [place] [address], [facility] Monocytes (Bld) [#/Vol] 1.3 10*3/uL High 0.1-1.0 [facility] Comment on above: Order Comment: No: D o not add to previous draw Performed By: #### 4 1000, , 22918 #### [facility] [address] [place] [address], [facility] MONOS 11.5 % Normal 5.0-12.0 [facility] Comment on above: Order Comment: No: D o not add to previous draw Performed By: #### 4 1000, , 33392 #### [facility] [address] [place] [address], [facility] Neutrophils/100 WBC (Bld) 71.3 % Normal 40.0-72.0 [facility] Comment on above: Order Comment: No: D o not add to previous draw Performed By: #### 4 1000, , 36294 #### [facility] [address] [place] [address], [place] Nucleated RBC/100 WBC (Bld) [Ratio] 0 % Normal 0-0 [facility] Comment on above: Order Comment: No: D o not add to previous draw Performed By: #### 4 1000, , 85775 #### [facility] [address] [place] [id number], [facility] PLAT CNT 149 10*3/uL Low 150-400 [facility] Comment on above: Order Comment: No: D o not add to previous draw Performed By: #### 4 1000, , 07450 #### [facility] [address] [place] [address], [facility] RBC (Bld) [#/Vol] 3.12 10*6/uL Low 4.20-5.70 [facility] Comment on above: Order Comment: No: D o not add to previous draw Performed By: #### 4 1000, , 38605 #### [facility] [address] [place] [address], [place] WBC (Bld) [#/Vol] 11.23 10*3/uL High 4.00-10.60 [facility] Comment on above: Order Comment: No: D o not add to previous draw Performed By: #### 4 1000, 70602, 14275 #### [facility] [address] [place] [address], [place] COMP METABOLIC PANELon 11-25 Albumin [Mass/Vol] 3.6 g/dL Normal 3.5-5.7 [facility] Comment on above: Performed By: #### 4 1000, , 34312 #### [facility] [address] [place] [address], [facility] ALKALINE PHOSPH 31 IU/L Low 34-104 [facility] Comment on above: Performed By: #### 4 1000, , 64545 #### [facility] [address] [place] [address], [place] ALT [Catalytic activity/Vol] 18 U/L Normal 7-52 [facility] Comment on above: Performed By: #### 4 1000, , 79259 #### [facility] [address] [place] [address], [place] AST [Catalytic activity/Vol] 50 U/L High 13-39 [facility] Comment on above: Performed By: #### 4 1000, , 39157 #### [facility] [address] [place] [id number], [facility] Bilirubin [Mass/Vol] 0.9 mg/dL Normal 0.3-1.0 [facility] Comment on above: Performed By: #### 4 1000, , 10815 #### [facility] [address] [place] [address], [facility] Calcium [Mass/Vol] 7.8 mg/dL Low 8.6-10.3 [facility] Comment on above: Performed By: #### 4 1000, , 82461 #### [facility] [address] [place] [address], [place] Chloride [Moles/Vol] 116 mmol/L High 98-107 [facility] Comment on above: Performed By: #### 4 1000, , 38534 #### [facility] [address] [place] [address], [place] CO2 [Moles/Vol] 24 mmol/L Normal 21-31 [facility] Comment on above: Performed By: #### 4 1000, , 01833 #### [facility] [address] [place] [address], [place] Creatinine [Mass/Vol] 1.12 mg/dL Normal 0.70-1.30 [facility] Comment on above: Performed By: #### 4 1000, , 20963 #### [facility] [address] [place] [address], [place] GFR/1.73 sq M predicted among blacks MDRD (S/P/Bld) [Vol rate/Area] mL/min/{1.73_m2} Normal >60 [facility] Comment on above: Performed By: #### 4 1000, , 32719 #### [facility] [address] [place] [address], [place] GFR/1.73 sq M predicted among non-blacks MDRD (S/P/Bld) [Vol rate/Area] mL/min/{1.73_m2} Normal >60 [facility] Comment on above: Performed By: #### 4 1000, , 04006 #### [facility] [address] [place] [address], [place] Glucose [Mass/Vol] 129 mg/dL High 70-100 [facility] Comment on above: Performed By: #### 4 1000, , 84368 #### [facility] [address] [place] [address], [place] Potassium [Moles/Vol] 4.5 mmol/L Normal 3.5-5.1 [facility] Comment on above: Performed By: #### 4 1000, , 83905 #### [facility] [address] [place] [address], [place] Protein [Mass/Vol] 4.9 g/dL Low 6.0-8.3 [facility] Comment on above: Performed By: #### 4 1000, , 84714 #### [facility] [address] Sodium [Moles/Vol] 139 mmol/L Normal 136-145 [facility] Comment on above: Performed By: #### 4 1000, , 10447 #### [facility] [address] [place] [address], [facility] Urea nitrogen [Mass/Vol] 11 mg/dL Normal 7-25 [facility] Comment on above: Performed By: #### 4 1000, , 27682 #### [facility] [address] CPK-MB PROFILEon 11-25-2018 CK [Catalytic activity/Vol] 708 U/L High 30-223 [facility] Comment on above: Order Comment: No: D o not add to previous draw Performed By: #### 4 1000, , 24018 #### [facility] [address] [place] [address], [facility] CK.MB [Mass/Vol] 57.2 ng/mL High 0.0-5.0 [facility] Comment on above: Order Comment: No: D o not add to previous draw Result Comment: IF T OTAL CK <200 U/L AND: 1. CKMB IS 5-10 NG/ML----BORDERLINE 2. CKMB IS >10 NG/ML----INDICATIVE OF ND OR IF TOTAL CK >200 U/L AND CKMB INDEX >1.9----INDICATIVE OF ND Performed By: #### 4 1000, , 48167 #### [facility] [address] [place] [address], [facility] CK.MB [Mass/Vol] 8.1 ng/mL Critically high 0.0-1.9 [facility] Comment on above: Order Comment: No: D o not add to previous draw Performed By: #### 4 1000, , 93078 #### [facility] [address] [place] [address], [facility] MAGNESIUM BLOODon 11-25-2018 Magnesium [Mass/Vol] 2.3 mg/dL Normal 1.9-2.7 [facility] Comment on above: Order Comment: No: D o not add to previous draw Performed By: #### 4 1000, , 02004 #### [facility] [address] [place] [address], [place] MIXED VENOUS BLOOD GASon BASE EXCESS -4 mmol/L Normal [facility] Comment on above: Order Comment: No: D o not add to previous draw Performed By: #### 4 1000, , 28527 #### [facility] [address] [place] [address], [facility] DELIVERY SYSTEMS VENTILATOR Normal [facility] Comment on above: Order Comment: No: D o not add to previous draw Performed By: #### 4 1000, , 94934 #### [facility] [address] [place] [address], [place] HCO3 (Bld) [Moles/Vol] 22 mmol/L Normal [facility] Comment on above: Order Comment: No: D o not add to previous draw Performed By: #### 4 1000, , 20670 #### [facility] [address] [place] [address], [place] Oxygen (Bld) [Partial pressure] mm[Hg] Normal 35-45 [facility] Comment on above: Order Comment: No: D o not add to previous draw Performed By: #### 4 1000, , 07953 #### [facility] [address] [place] [address], [place] Oxygen saturation in Blood 55.1 % Low 65.0-75.0 [facility] Comment on above: Order Comment: No: D o not add to previous draw Performed By: #### 4 1000, , 83468 #### [facility] [address] [place] [address], [place] PCO2 41 mmHg Normal 40-50 [facility] Comment on above: Order Comment: No: D o not add to previous draw Performed By: #### 4 1000, 26173, 01947 #### [facility] [address] [place] [address], [place] pH (Bld) 7.33 [pH] Normal 7.31-7.41 [facility] Comment on above: Order Comment: No: D o not add to previous draw Result Comment: DAPHNEY SHRESTHA NOTE: Effective 11/09/18, reference ranges for Respiratory GEM analyzers running venous blood have been updated to reflect the prosthetic makeup designer's published reference ranges. Performed By: #### 4 1000, 03807, 58374 #### [facility] [address] [place] [address], [place] POC GLUCOSE LABon 11-25-2018 Glucose [Mass/Vol] 77 mg/dL Normal 70-100 [facility] on above: Performed By: #### 4 1000, 46833, 39924 #### [facility] [address] [place] [address], [place] Glucose [Mass/Vol] 76 mg/dL Normal 70-100 [facility] Comment on above: Performed By: #### 4 1000, 84834, 25924 #### [facility] [address] [place] [address], [place] Glucose [Mass/Vol] 105 mg/dL High 70-100 [facility] Comment on above: Performed By: #### 4 1000, 51776, 37478 #### [facility] [address] [place] [address], [place] Glucose [Mass/Vol] 117 mg/dL High 70-[address] [facility] Comment on above: Performed By: #### 4 1000, 78916, 18629 #### [facility] [address] [place] [address], [place] Glucose [Mass/Vol] 164 mg/dL High 70-[address] [facility] Comment on above: Performed By: #### 5 0608 #### [facility] [address] [place] [address], [place] Glucose [Mass/Vol] 131 mg/dL High 70-100 [facility] Comment on above: Performed By: #### 4 1000, , 30385 #### [facility] [address] [place] [address], [place] Glucose [Mass/Vol] 115 mg/dL High 70-100 [facility] Comment on above: Performed By: #### 4 1000, , 36385 #### [facility] [address] [place] [address], [place] Glucose [Mass/Vol] 118 mg/dL High 70-100 [facility] Comment on above: Performed By: #### 4 1000, , 57817 #### [facility] [address] [place] [address], [place] Glucose [Mass/Vol] 122 mg/dL High 70-100 [facility] Comment on above: Performed By: #### 4 1000, , 50276 #### [facility] [address] [place] [address], [place] Glucose [Mass/Vol] 124 mg/dL High 70-100 [facility] Comment on above: Performed By: #### 4 1000, , 67816 #### [facility] [address] [place] [address], [place] Glucose [Mass/Vol] 123 mg/dL High 70-100 [facility] Comment on above: Performed By: #### 4 1000, , 20124 #### [facility] [address] [place] [address], [place] Glucose [Mass/Vol] 128 mg/dL High 70-100 [facility] Comment on above: Performed By: #### 4 1000, 12991, 97580 #### [facility] [address] [place] [address], [place] Glucose [Mass/Vol] 133 mg/dL High 70-100 [facility] Comment on above: Performed By: #### 4 1000, 54548, 61673 #### [facility] [address] [place] [address], [place] Glucose [Mass/Vol] 138 mg/dL High 70-100 [facility] Comment on above: Performed By: #### 5 0608 #### [facility] [address] [place] [address], [place] Glucose [Mass/Vol] 142 mg/dL High 70-100 [facility] Comment on above: Performed By: #### 5 0608 #### [facility] [address] [place] [address], [place] Glucose [Mass/Vol] 156 mg/dL High 70-100 [facility] Comment on above: Performed By: #### 5 0608 #### [facility] [address] [facility] [place] [address], [facility] PORTABLE CHEST 1 VIEWon 11-13 PORTABLE CHEST 1 VIEW [facility] Department of Radiology [address] [place] [id number] Patient Name: WESTON CANO : 1960 Sex: M Age: Race: White Pt. Location: [id number] Patient Status: I Ordered Date: 11/25/2018 6:00:00 [...] of the clavicle, unchanged. Right internal jugular [place]fort catheter terminates within the right main pulmonary [...] findings. Electronically signed by:Leida Ferro. Transcribed by: [email or web address], User Resident: KIMBERLY VALDEZ Electronically Signed by: LEIDA FERRO @ 11/25/2018 06:05 PM I personally read this/these film(s) with this resident Normal [facility] Comment on above: Order Comment: No: D o not add to previous draw PROTHROMBIN TIMEon 9 INR Coag (PPP) [Relative time] 1.39 {INR} High 0.91-1.16 The [facility] Comment on above: Order Comment: No: [...] CHEST 1995;108:[id number]. Performed By: #### 4 999, , 45486 #### [facility] [address] [place] [address], [facility] PT Coag (PPP) [Time] 17.1 s High 12.3-14.8 [facility] Comment on above: Order Comment: No: D o not add to previous draw Result Comment: ALL RESULTS MUST BE INTERPRETED WITH RESPECT TO BLOOD DRAWING ARTIFACT OR DILUTION ERROR OF ANTICOAGULANT AT THE TIME OF SAMPLING. Performed By: #### 4 999, , 72297 #### [facility] [address] [place] [address], [facility] VENOUS BLOOD GAS W/COOXon BASE EXCESS -4 mmol/L Normal [facility] Comment on above: Performed By: #### 4 1000, , 89207 #### [facility] [address] [place] [address], [place] COHB 1 % Normal [facility] Comment on above: Performed By: #### 4 1000, , 55317 #### [facility] [address] [place] [address], [facility] HCO3 (Bld) [Moles/Vol] 20 mmol/L Normal [facility] Comment on above: Performed By: #### 4 1000, , 97112 #### [facility] [address] [place] [address], [facility] METHB 0.7 % Normal [facility] Comment on above: Performed By: #### 4 1000, , 77675 #### [facility] [address] [place] [address], [facility] Oxygen (Bld) [Partial pressure] 31 mm[Hg] Low 35-45 [facility] Comment on above: Performed By: #### 4 1000, , 37556 #### [facility] [address] [place] [address], [facility] Oxygen saturation in Blood 57.9 % Low 65.0-75.0 [facility] Comment on above: Performed By: #### 4 1000, , 95034 #### [facility] [address] [place] [address], [facility] PCO2 34 mmHg Low 40-50 [facility] Comment on above: Performed By: #### 4 999, , 69785 #### [facility] [address] [place] [id number], [place] pH (Bld) 7.38 [pH] Normal 7.31-7.41 [facility] Comment on above: Result Comment: DAPHNEY SHRESTHA NOTE: Effective 11/09/18, reference ranges for Respiratory GEM analyzers running venous blood have been updated to reflect the prosthetic makeup designer's published reference ranges. Performed By: #### 4 1000, , 36491 #### [facility] [address] [place] [id number], [facility] THB 10.4 g/dL Normal [facility] Comment on above: Performed By: #### 4 1000, 54943, 97022 #### [facility] [address] [place] [address], [facility] *MRSA/MSSA DNA NASALon 11-24 *MRSA/MSSA DNA NASAL Clinical Report: (D ) Specimen: NASAL SWAB Collected: 11/24/2018 07:00 Status: Final Last Updated: 11/24/2018 12:46 MSSA DNA (Final) Negative MRSA DNA (Final) Negative Normal [facility] Comment on above: Performed By: #### 0 0071, 55550, 39991 #### [facility] [address] [place] [address], [facility] ACTIVATED CLOTTING TIMEon ACTIVATED CLOTTING TIME 127 sec Normal 82-152 [facility] Comment on above: Performed By: #### 0 0071, 34650, 97418 #### [facility] [address] [place] [address], [facility] ACTIVATED CLOTTING TIME 418 sec High 82-152 [facility] Comment on above: Performed By: #### 0 0071, 27135, 44894 #### [facility] [address] [place] [address], [facility] ACTIVATED CLOTTING TIME 443 sec High 82-152 [facility] Comment on above: Performed By: #### 0 0071, 64850, 71005 #### [facility] [address] [place] [address], [facility] ACTIVATED CLOTTING TIME 473 sec High 82-152 [facility] Comment on above: Performed By: #### 0 0071, 48371, 75850 #### [facility] [address] [place] [address], [facility] ACTIVATED CLOTTING TIME 443 sec High 82-152 [facility] Comment on above: Performed By: #### 0 0071, 17777, 72235 #### [facility] [address] [place] [address], [facility] ACTIVATED CLOTTING TIME 455 sec High 82-152 [facility] Comment on above: Performed By: #### 0 0071, 50384, 12001 #### [facility] [address] [place] [address], [facility] ACTIVATED CLOTTING TIME 514 sec High 82-152 [facility] Comment on above: Performed By: #### 0 0071, 68739, 37399 #### [facility] [address] [place] [address], [facility] ACTIVATED CLOTTING TIME 721 sec High 82-152 [facility] Comment on above: Performed By: #### 0 0071, 77728, 86170 #### [facility] [address] [place] [address], [facility] ACTIVATED CLOTTING TIME 138 sec Normal 82-152 [facility] Comment on above: Performed By: #### 0 0071, 11608, 11127 #### [facility] [address] APTTon 11-24-2018 aPTT Coag (Bld) [Time] 35.9 s High 25.0-35.0 [facility] Comment on above: Result Comment: ALL [...] PURPOSE. Performed By: #### 4 6447 #### [facility] [address] [place] [address], [facility] ARTERIAL BLOOD GAS WITH ICAo n 11-24-2018 BASE EXCESS -12 mmol/L Low -2-3 [facility] Comment on above: Performed By: #### 4 6447 #### [facility] [address] DELIVERY SYSTEMS VENTILATOR Normal [facility] Comment on above: Performed By: #### 4 6447 #### [facility] [address] [place] [address], [facility] FIO2 100 % Normal [facility] Comment on above: Performed By: #### 4 6447 #### [facility] [address] [place] [address], [facility] HCO3 (Bld) [Moles/Vol] 16 mmol/L Low 21-28 [facility] Comment on above: Performed By: #### 4 6447 #### [facility] [address] [place] [address], [facility] IONIZED CALCIUM 1.11 mmol/L Low 1.13-1.32 [facility] Comment on above: Performed By: #### 4 6440 #### [facility] [address] [place] [address], [facility] MIN VOLUME 13.1 Normal [facility] Comment on above: Performed By: #### 4 6447 #### [facility] [address] [place] [address], [facility] MODALITY SIMV Normal [facility] Comment on above: Performed By: #### 4 6486 #### [facility] [address] [place] [id number], [facility] Oxygen (Bld) [Partial pressure] 108 mm[Hg] Normal 83-108 [facility] Comment on above: Performed By: #### 4 6453 #### [facility] [address] [place] [address], [facility] Oxygen saturation in Blood 94.9 % Normal 94.0-97.0 [facility] Comment on above: Performed By: #### 4 6456 #### [facility] [address] [place] [address], [facility] PCO2 41 mmHg Normal 35-45 [facility] Comment on above: Performed By: #### 4 6447 #### [facility] [address] [place] [address], [place] PEEP 8.0 CMH20 Normal [facility] Comment on above: Performed By: #### 4 6447 #### [facility] [address] [place] [address], [place] pH (Bld) 7.19 [pH] Critically low 7.35-7.45 The [facility] Comment on above: Result Comment: DAPHNEY SHRESTHA NOTE: Effective 10/17/18, reference ranges for Respiratory GEM analyzers running arterial blood have been updated to reflect the prosthetic makeup designer's published reference ranges. Performed By: #### 4 6447 #### [facility] [address] [place] [address], [place] TIDAL VOLUME (VT) CC 500 cc Normal [facility] Comment on above: Performed By: #### 4 6447 #### [facility] [address] [place] [address], [place] BASE EXCESS -9 mmol/L Low -2-3 [facility] Comment on above: Order Comment: No: D o not add to previous draw Performed By: #### 4 6447 #### [facility] [address] [place] [address], [place] DELIVERY SYSTEMS MV Normal [facility] Comment on above: Order Comment: No: D o not add to previous draw Performed By: #### 4 6434 #### [facility] [address] [place] [address], [place] FIO2 50 % Normal [facility] Comment on above: Order Comment: No: D o not add to previous draw Performed By: #### 4 6488 #### [facility] [address] [place] [address], [place] HCO3 (Bld) [Moles/Vol] 19 mmol/L Low 21-28 [facility] Comment on above: Order Comment: No: D o not add to previous draw Performed By: #### 4 6447 #### [facility] [address] [place] [address], [place] IONIZED CALCIUM 1.14 mmol/L Normal 1.13-1.32 [facility] Comment on above: Order Comment: No: D o not add to previous draw Performed By: #### 4 6447 #### [facility] [address] [place] [address], [place] MIN VOLUME 10.1 Normal [facility] Comment on above: Order Comment: No: D o not add to previous draw Performed By: #### 4 6447 #### [facility] [address] [place] [address], [place] MODALITY SIMV Normal [facility] Comment on above: Order Comment: No: D o not add to previous draw Performed By: #### 4 6447 #### [facility] [address] [place] [address], [place] Oxygen (Bld) [Partial pressure] 84 mm[Hg] Normal 83-108 [facility] Comment on above: Order Comment: No: D o not add to previous draw Performed By: #### 4 6447 #### [facility] [address] [place] [address], [place] Oxygen saturation in Blood 92.7 % Low 94.0-97.0 [facility] Comment on above: Order Comment: No: D o not add to previous draw Performed By: #### 4 6447 #### [facility] [address] [place] [address], [place] PCO2 45 mmHg Normal 35-45 [facility] Comment on above: Order Comment: No: D o not add to previous draw Performed By: #### 4 6447 #### [facility] [address] [place] [address], [place] PEEP 8.0 CMH20 Normal [facility] Comment on above: Order Comment: No: D o not add to previous draw Performed By: #### 4 6447 #### [facility] [address] [place] [address], [facility] PF RATIO 168 mmHg Normal [facility] Comment on above: Order Comment: No: D o not add to previous draw Performed By: #### 4 6447 #### [facility] [address] [place] [address], [facility] pH (Bld) 7.23 [pH] Critically low 7.35-7.45 [facility] Comment on above: Order Comment: No: D o not add to previous draw Result Comment: DAPHNEY SHRESTHA NOTE: Effective 10/17/18, reference ranges for Respiratory GEM analyzers running arterial blood have been updated to reflect the prosthetic makeup designer's published reference ranges. Performed By: #### 4 6447 #### [facility] [address] [place] [address], [facility] PRESSURE SUPPORT 8 Normal [facility] Comment on above: Order Comment: No: D o not add to previous draw Performed By: #### 4 6447 #### [facility] [address] [place] [address], [facility] TIDAL VOLUME (VT) CC 500 cc Normal [facility] Comment on above: Order Comment: No: D o not add to previous draw Performed By: #### 4 6447 #### [facility] [address] [place] [address], [facility] BASIC METABOLIC PANELon 04- Calcium [Mass/Vol] 8.1 mg/dL Low 8.6-10.3 [facility] Comment on above: Order Comment: No: D o not add to previous draw Performed By: #### 5 0608 #### [facility] [address] [place] [address], [facility] Chloride [Moles/Vol] 112 mmol/L High 98-107 [facility] Comment on above: Order Comment: No: D o not add to previous draw Performed By: #### 5 0608 #### [facility] [address] [place] [address], [place] CO2 [Moles/Vol] 17 mmol/L Low 21-31 [facility] Comment on above: Order Comment: No: D o not add to previous draw Performed By: #### 5 0608 #### [facility] [address] [place] [address], [place] Creatinine [Mass/Vol] 1.41 mg/dL High 0.70-1.30 [facility] Comment on above: Order Comment: No: D o not add to previous draw Performed By: #### 5 0608 #### [facility] [address] [place] [address], [place] GFR/1.73 sq M predicted among blacks MDRD (S/P/Bld) [Vol rate/Area] mL/min/{1.73_m2} Normal >60 [facility] Comment on above: Order Comment: No: D o not add to previous draw Performed By: #### 5 0608 #### [facility] [address] [place] [address], [place] GFR/1.73 sq M predicted among non-blacks MDRD (S/P/Bld) [Vol rate/Area] 52 ml/min/1.73sq m Abnormal >60 [facility] Comment on above: Order Comment: No: D o not add to previous draw Performed By: #### 5 0608 #### [facility] [address] [place] [address], [place] Glucose [Mass/Vol] 177 mg/dL High 70-100 [facility] Comment on above: Order Comment: No: D o not add to previous draw Performed By: #### 5 0608 #### [facility] [address] [place] [address], [place] Potassium [Moles/Vol] 5.1 mmol/L Normal 3.5-5.1 [facility] Comment on above: Order Comment: No: D o not add to previous draw Performed By: #### 5 0608 #### [facility] [address] [place] [address], [place] Sodium [Moles/Vol] 140 mmol/L Normal 136-145 [facility] Comment on above: Order Comment: No: D o not add to previous draw Performed By: #### 5 0608 #### [facility] [address] [place] [address], [place] Urea nitrogen [Mass/Vol] 14 mg/dL Normal 7-25 [facility] Comment on above: Order Comment: No: D o not add to previous draw Performed By: #### 5 0608 #### [facility] [address] [place] [address], [place] Calcium [Mass/Vol] 7.8 mg/dL Low 8.6-10.3 [facility] Comment on above: Order Comment: No: D o not add to previous draw Performed By: #### 0 0071, 29662, 54362 #### [facility] [address] [place] [address], [place] Chloride [Moles/Vol] 110 mmol/L High 98-107 [facility] Comment on above: Order Comment: No: D o not add to previous draw Performed By: #### 0 0071, 33625, 50708 #### [facility] [address] [place] [address], [place] CO2 [Moles/Vol] 22 mmol/L Normal 21-31 [facility] Comment on above: Order Comment: No: D o not add to previous draw Performed By: #### 0 0071, 23980, 13595 #### [facility] [address] [place] [address], [place] Creatinine [Mass/Vol] 1.13 mg/dL Normal 0.70-1.30 [facility] Comment on above: Order Comment: No: D o not add to previous draw Performed By: #### 0 0071, 84435, 98609 #### [facility] [address] [place] [address], [place] GFR/1.73 sq M predicted among blacks MDRD (S/P/Bld) [Vol rate/Area] mL/min/{1.73_m2} Normal >60 [facility] Comment on above: Order Comment: No: D o not add to previous draw Performed By: #### 0 0071, 54122, 98075 #### [facility] [address] [place] [address], [facility] GFR/1.73 sq M predicted among non-blacks MDRD (S/P/Bld) [Vol rate/Area] mL/min/{1.73_m2} Normal >60 [facility] Comment on above: Order Comment: No: D o not add to previous draw Performed By: #### 0 0071, 06627, 27717 #### [facility] [address] [place] [address], [place] Glucose [Mass/Vol] 109 mg/dL High 70-100 [facility] Comment on above: Order Comment: No: D o not add to previous draw Performed By: #### 0 0071, 07112, 89924 #### [facility] [address] [place] [address], [place] Potassium [Moles/Vol] 3.9 mmol/L Normal 3.5-5.1 [facility] Comment on above: Order Comment: No: D o not add to previous draw Performed By: #### 0 0071, 80873, 10546 #### [facility] [address] [place] [address], [place] Sodium [Moles/Vol] 138 mmol/L Normal 136-145 [facility] Comment on above: Order Comment: No: D o not add to previous draw Performed By: #### 0 0071, 72943, 15540 #### [facility] [address] [place] [address], [place] Urea nitrogen [Mass/Vol] 12 mg/dL Normal 7-25 [facility] Comment on above: Order Comment: No: D o not add to previous draw Performed By: #### 0 0071, 13208, 87630 #### [facility] [address] [place] [address], [place] Calcium [Mass/Vol] 8.8 mg/dL Normal 8.6-10.3 [facility] Comment on above: Order Comment: No: D o not add to previous draw Performed By: #### 0 0071, 75877, 17462 #### [facility] [address] [place] [address], [place] Chloride [Moles/Vol] 102 mmol/L Normal 98-107 [facility] Comment on above: Order Comment: No: D o not add to previous draw Performed By: #### 0 0071, 19006, 28610 #### [facility] [address] [place] [address], [place] CO2 [Moles/Vol] 23 mmol/L Normal 21-31 [facility] Comment on above: Order Comment: No: D o not add to previous draw Performed By: #### 0 0071, 86891, 45337 #### [facility] [address] [place] [address], [place] Creatinine [Mass/Vol] 0.99 mg/dL Normal 0.70-1.30 [facility] Comment on above: Order Comment: No: D o not add to previous draw Performed By: #### 0 0071, 43367, 67940 #### [facility] [address] [place] [address], [place] GFR/1.73 sq M predicted among blacks MDRD (S/P/Bld) [Vol rate/Area] mL/min/{1.73_m2} Normal >60 [facility] Comment on above: Order Comment: No: D o not add to previous draw Performed By: #### 0 0071, 27232, 24119 #### [facility] [address] [place] [address], [place] GFR/1.73 sq M predicted among non-blacks MDRD (S/P/Bld) [Vol rate/Area] mL/min/{1.73_m2} Normal >60 [facility] Comment on above: Order Comment: No: D o not add to previous draw Performed By: #### 0 0071, 74689, 45943 #### [facility] [address] [place] [address], [place] Glucose [Mass/Vol] 100 mg/dL Normal 70-100 [facility] Comment on above: Order Comment: No: D o not add to previous draw Performed By: #### 0 0071, 76588, 02221 #### [facility] [address] [place] [address], [place] Potassium [Moles/Vol] 3.7 mmol/L Normal 3.5-5.1 [facility] Comment on above: Order Comment: No: D o not add to previous draw Performed By: #### 0 0071, 01491, 71537 #### [facility] [address] [place] [address], [place] Sodium [Moles/Vol] 133 mmol/L Low 136-145 [facility] Comment on above: Order Comment: No: D o not add to previous draw Performed By: #### 0 0071, 79969, 49840 #### [facility] [address] [place] [address], [place] Urea nitrogen [Mass/Vol] 11 mg/dL Normal 7-25 [facility] Comment on above: Order Comment: No: D o not add to previous draw Performed By: #### 0 0071, 07504, 22551 #### [facility] [address] CBC COMPLETE BLOOD COUNTon 0 - Erythrocyte distribution width (RBC) [Ratio] 12.4 % Normal 11.5-15.0 [facility] Comment on above: Order Comment: No: D o not add to previous draw Performed By: #### 0 0071, 45189, 39314 #### [facility] [address] Hematocrit (Bld) [Volume fraction] 31.5 % Low 39.0-50.0 [facility] Comment on above: Order Comment: No: D o not add to previous draw Performed By: #### 0 0071, 15533, 81569 #### [facility] [address] Hemoglobin (Bld) [Mass/Vol] 11.4 g/dL Low 13.0-17.0 [facility] Comment on above: Order Comment: No: D o not add to previous draw Performed By: #### 0 1, 53850, 19896 #### [facility] [facility] [address] [address], [facility] MCH (RBC) [Entitic mass] 33.2 pg High 27.0-33.0 [facility] Comment on above: Order Comment: No: D o not add to previous draw Performed By: #### 0 0071, 02229, 30424 #### [facility] [address] [place] [address], [facility] MCHC (RBC) [Mass/Vol] 36.2 g/dL High 32.0-35.0 [facility] Comment on above: Order Comment: No: D o not add to previous draw Performed By: #### 0 0071, 45821, 98245 #### [facility] [address] MCV (RBC) [Entitic vol] 91.8 fL Normal 82.0-98.0 [facility] Comment on above: Order Comment: No: D o not add to previous draw Performed By: #### 0 0071, 41425, 24341 #### [facility] [address] [place] [address], [facility] Nucleated RBC/100 WBC (Bld) [Ratio] 0 % Normal 0-0 [facility] Comment on above: Order Comment: No: D o not add to previous draw Performed By: #### 0 0071, 56550, 39869 #### [facility] [address] [place] [address], [facility] PLAT CNT 133 10*3/uL Low 150-400 [facility] Comment on above: Order Comment: No: D o not add to previous draw Performed By: #### 0 0071, 08392, 95360 #### [facility] [address] [facility] [address], [facility] RBC (Bld) [#/Vol] 3.43 10*6/uL Low 4.20-5.70 [facility] Comment on above: Order Comment: No: D o not add to previous draw Performed By: #### 0 0071, 27889, 09943 #### [facility] [address] [facility] [place] [address], [facility] WBC (Bld) [#/Vol] 10.86 10*3/uL High 4.00-10.60 [facility] Comment on above: Order Comment: No: D o not add to previous draw Performed By: #### 0 0071, 78457, 31360 #### [facility] [address] [place] [address], [facility] CBC W/DIFFon 11-24-2018 ABS BASOPHILS 0.0 10*3/uL Normal 0.0-0.2 [facility] Comment on above: Performed By: #### 5 0608 #### [facility] [address] [place] [address], [facility] ABS IMM GRANS 0.1 10*3/uL Normal 0.0-0.2 [facility] Comment on above: Performed By: #### 5 0608 #### [facility] [address] [place] [address], [facility] ABS NEUTROPHILS 15.8 10*3/uL High 1.6-7.6 [facility] Comment on above: Performed By: #### 5 0608 #### [facility] [address] [place] [address], [facility] Basophils/100 WBC (Bld) 0.2 % Normal 0.0-1.0 [facility] Comment on above: Performed By: #### 5 0608 #### [facility] [address] [place] [address], [facility] Eosinophils (Bld) [#/Vol] 0.0 10*3/uL Normal 0.0-0.5 [facility] Comment on above: Performed By: #### 5 0608 #### [facility] [address] [place] [address], [facility] Eosinophils/100 WBC (Bld) 0.2 % Normal 0.0-6.0 [facility] Comment on above: Performed By: #### 5 0608 #### [facility] [address] Erythrocyte distribution width (RBC) [Ratio] 12.9 % Normal 11.5-15.0 [facility] Comment on above: Performed By: #### 5 0608 #### [facility] [address] [place] [address], [facility] Hematocrit (Bld) [Volume fraction] 33.4 % Low 39.0-50.0 [facility] Comment on above: Performed By: #### 5 0608 #### [facility] [address] [facility] [address], [facility] Hemoglobin (Bld) [Mass/Vol] 11.6 g/dL Low 13.0-17.0 [facility] Comment on above: Performed By: #### 5 0608 #### [facility] [address] [place] [address], [facility] IMMATURE GRANS 0.5 % Normal 0.0-1.0 [facility] Comment on above: Performed By: #### 5 0608 #### [facility] [address] [place] [address], [facility] Lymphocytes (Bld) [#/Vol] 1.4 10*3/uL Normal 1.2-4.0 [facility] Comment on above: Performed By: #### 5 0608 #### [facility] [address] Lymphocytes/100 WBC (Bld) 7.6 % Low 20.0-45.0 [facility] Comment on above: Performed By: #### 5 0608 #### [facility] [address] [place] [address], [facility] MCH (RBC) [Entitic mass] 33.3 pg High 27.0-33.0 [facility] Comment on above: Performed By: #### 5 0608 #### [facility] [address] [place] [address], [facility] MCHC (RBC) [Mass/Vol] 34.7 g/dL Normal 32.0-35.0 [facility] Comment on above: Performed By: #### 5 0608 #### [facility] [address] [place] [address], [facility] MCV (RBC) [Entitic vol] 96.0 fL Normal 82.0-98.0 [facility] Comment on above: Performed By: #### 5 0608 #### [facility] [address] [place] [address], [facility] Monocytes (Bld) [#/Vol] 1.3 10*3/uL High 0.1-1.0 [facility] Comment on above: Performed By: #### 5 0608 #### [facility] [address] [facility] [address], [facility] MONOS 7.1 % Normal 5.0-12.0 [facility] Comment on above: Performed By: #### 5 0608 #### [facility] [address] [facility] [address], [facility] Neutrophils/100 WBC (Bld) 84.4 % High 40.0-72.0 [facility] Comment on above: Performed By: #### 5 0608 #### [facility] [address] [facility] [address], [facility] Nucleated RBC/100 WBC (Bld) [Ratio] 0 % Normal 0-0 [facility] Comment on above: Performed By: #### 5 0608 #### [facility] [address] [facility] [address], [facility] PLAT CNT 210 10*3/uL Normal 150-400 [facility] Comment on above: Performed By: #### 5 0608 #### [facility] [address] [facility] [place] [address], [facility] RBC (Bld) [#/Vol] 3.48 10*6/uL Low 4.20-5.70 [facility] Comment on above: Performed By: #### 5 0608 #### [facility] [address] [facility] [address], [facility] WBC (Bld) [#/Vol] 18.69 10*3/uL High 4.00-10.60 [facility] Comment on above: Performed By: #### 5 0608 #### [facility] [address] [place] [address], [facility] ABS BASOPHILS 0.0 10*3/uL Normal 0.0-0.2 [facility] Comment on above: Order Comment: No: D o not add to previous draw Performed By: #### 0 0071, 38301, 17653 #### [facility] [address] [place] [address], [facility] ABS IMM GRANS 0.0 10*3/uL Normal 0.0-0.2 [facility] Comment on above: Order Comment: No: D o not add to previous draw Performed By: #### 0 0071, 86895, 81334 #### [facility] [address] [place] [address], [facility] ABS NEUTROPHILS 3.5 10*3/uL Normal 1.6-7.6 [facility] Comment on above: Order Comment: No: D o not add to previous draw Performed By: #### 0 0071, 99841, 61418 #### [facility] [address] [place] [address], [facility] Basophils/100 WBC (Bld) 0.6 % Normal 0.0-1.0 [facility] Comment on above: Order Comment: No: D o not add to previous draw Performed By: #### 0 0071, 31094, 31399 #### [facility] [address] [place] [id number], [facility] Eosinophils (Bld) [#/Vol] 0.4 10*3/uL Normal 0.0-0.5 [facility] Comment on above: Order Comment: No: D o not add to previous draw Performed By: #### 0 0071, 52778, 59601 #### [facility] [address] [place] [address], [place] Eosinophils/100 WBC (Bld) 6.0 % Normal 0.0-6.0 [facility] Comment on above: Order Comment: No: D o not add to previous draw Performed By: #### 0 0071, 90027, 77113 #### [facility] [address] [place] [id number], [facility] Erythrocyte distribution width (RBC) [Ratio] 12.3 % Normal 11.5-15.0 [facility] Comment on above: Order Comment: No: D o not add to previous draw Performed By: #### 0 0071, 40004, 48553 #### [facility] [address] [place] [address], [facility] Hematocrit (Bld) [Volume fraction] 41.0 % Normal 39.0-50.0 [facility] Comment on above: Order Comment: No: D o not add to previous draw Performed By: #### 0 1, 41395, 02194 #### [facility] [address] [place] [address], [facility] Hemoglobin (Bld) [Mass/Vol] 14.7 g/dL Normal 13.0-17.0 [facility] Comment on above: Order Comment: No: D o not add to previous draw Performed By: #### 0 0071, 41482, 81221 #### [facility] [address] [place] [address], [place] IMMATURE GRANS 0.3 % Normal 0.0-1.0 [facility] Comment on above: Order Comment: No: D o not add to previous draw Performed By: #### 0 0071, 03749, 36642 #### [facility] [address] [place] [address], [place] Lymphocytes (Bld) [#/Vol] 2.0 10*3/uL Normal 1.2-4.0 [facility] Comment on above: Order Comment: No: D o not add to previous draw Performed By: #### 0 0071, 72830, 15715 #### [facility] [address] [place] [address], [facility] Lymphocytes/100 WBC (Bld) 30.0 % Normal 20.0-45.0 [facility] Comment on above: Order Comment: No: D o not add to previous draw Performed By: #### 0 0071, 41760, 72547 #### [facility] [address] [place] [address], [facility] MCH (RBC) [Entitic mass] 33.0 pg Normal 27.0-33.0 [facility] Comment on above: Order Comment: No: D o not add to previous draw Performed By: #### 0 0071, 66333, 28253 #### [facility] [address] [place] [address], [facility] MCHC (RBC) [Mass/Vol] 35.9 g/dL High 32.0-35.0 [facility] Comment on above: Order Comment: No: D o not add to previous draw Performed By: #### 0 0071, 13699, 28142 #### [facility] [address] [place] [address], [facility] MCV (RBC) [Entitic vol] 92.1 fL Normal 82.0-98.0 [facility] Comment on above: Order Comment: No: D o not add to previous draw Performed By: #### 0 0071, 99103, 26939 #### [facility] [address] [place] [address], [facility] Monocytes (Bld) [#/Vol] 0.7 10*3/uL Normal 0.1-1.0 [facility] Comment on above: Order Comment: No: D o not add to previous draw Performed By: #### 0 0071, 39665, 86674 #### [facility] [address] [place] [id number], [facility] MONOS 10.4 % Normal 5.0-12.0 [facility] Comment on above: Order Comment: No: D o not add to previous draw Performed By: #### 0 0071, 34431, 71149 #### [facility] [address] [place] [address], [facility] Neutrophils/100 WBC (Bld) 52.7 % Normal 40.0-72.0 [facility] Comment on above: Order Comment: No: D o not add to previous draw Performed By: #### 0 0071, 00674, 00022 #### [facility] [address] [place] [address], [place] Nucleated RBC/100 WBC (Bld) [Ratio] 0 % Normal 0-0 [facility] Comment on above: Order Comment: No: D o not add to previous draw Performed By: #### 0 0071, 73200, 57289 #### [facility] [address] [place] [id number], [facility] PLAT CNT 209 10*3/uL Normal 150-400 [facility] Comment on above: Order Comment: No: D o not add to previous draw Performed By: #### 0 0071, 95020, 81363 #### [facility] [address] [place] [address], [facility] RBC (Bld) [#/Vol] 4.45 10*6/uL Normal 4.20-5.70 [facility] Comment on above: Order Comment: No: D o not add to previous draw Performed By: #### 0 0071, 90750, 72868 #### [facility] [address] [place] [address], [place] WBC (Bld) [#/Vol] 6.54 10*3/uL Normal 4.00-10.60 [facility] Comment on above: Order Comment: No: D o not add to previous draw Performed By: #### 0 0071, 32666, 80221 #### [facility] [address] [place] [address], [place] COOXIMETRYon 11-24-2018 COHB 2 % Normal [facility] Comment on above: Performed By: #### 4 6447 #### [facility] [address] [place] [address], [facility] METHB 0 % Normal [facility] Comment on above: Performed By: #### 4 6447 #### [facility] [address] [place] [address], [facility] Oxygen saturation in Blood 59.4 % Low 65.0-75.0 [facility] Comment on above: Performed By: #### 4 6447 #### [facility] [address] [place] [address], [facility] THB 12.4 g/dL Normal [facility] Comment on above: Performed By: #### 4 6447 #### [facility] [address] [place] [address], [facility] MAGNESIUM BLOODon 11-24-2018 Magnesium [Mass/Vol] 2.5 mg/dL Normal 1.9-2.7 [facility] Comment on above: Order Comment: No: D o not add to previous draw Performed By: #### 5 0608 #### [facility] [address] [place] [address], [facility] Magnesium [Mass/Vol] 2.8 mg/dL High 1.9-2.7 [facility] Comment on above: Performed By: #### 0 0071, 59244, 26836 #### [facility] [address] [place] [address], [place] MIXED VENOUS BLOOD GASon BASE EXCESS CANCELED Normal [facility] Comment on above: Order Comment: No: D o not add to previous draw Result Comment: The released value -8 was canceled by DANIELA on 11/24/2018 16:42 Performed By: #### 4 6447 #### [facility] [address] [place] [address], [place] BILEVEL CANCELED Normal [facility] Comment on above: Order Comment: No: D o not add to previous draw Performed By: #### 4 6447 #### [facility] [address] [place] [address], [place] DELIVERY SYSTEMS CANCELED Normal [facility] Comment on above: Order Comment: No: D o not add to previous draw Performed By: #### 4 6447 #### [facility] [address] [place] [address], [place] FIO2 CANCELED Normal [facility] Comment on above: Order Comment: No: D o not add to previous draw Performed By: #### 4 6447 #### [facility] [address] [place] [address], [place] HCO3 (Bld) [Moles/Vol] CANCELED Normal [facility] Comment on above: Order Comment: No: D o not add to previous draw Result Comment: The released value 20 was canceled by DANIELA on 11/24/2018 16:42 Performed By: #### 4 6447 #### [facility] [address] [place] [address], [place] LPM CANCELED Normal [facility] Comment on above: Order Comment: No: D o not add to previous draw Performed By: #### 4 6447 #### [facility] [address] [place] [address], [place] MIN VOLUME CANCELED Normal [facility] Comment on above: Order Comment: No: D o not add to previous draw Performed By: #### 4 6460 #### [facility] [address] [place] [address], [place] MODALITY CANCELED Normal [facility] Comment on above: Order Comment: No: D o not add to previous draw Performed By: #### 4 6432 #### [facility] [address] [place] [address], [place] Oxygen (Bld) [Partial pressure] CANCELED Normal 35-45 [facility] Comment on above: Order Comment: No: D o not add to previous draw Result Comment: The released value 38 was canceled by DANIELA on 11/24/2018 16:42 Performed By: #### 4 6447 #### [facility] [address] [place] [address], [place] Oxygen saturation in Blood CANCELED Normal 65.0-75.0 [facility] Comment on above: Order Comment: No: D o not add to previous draw Result Comment: The released value 59.4 was canceled by DANIELA on 11/24/2018 16:42 Performed By: #### 4 6447 #### [facility] [address] [place] [address], [place] PCO2 CANCELED Normal 40-50 [facility] Comment on above: Order Comment: No: D o not add to previous draw Result Comment: The released value 53 was canceled by DANIELA on 11/24/2018 16:42 Performed By: #### 4 6447 #### [facility] [address] [place] [address], [place] PEEP CANCELED Normal [facility] Comment on above: Order Comment: No: D o not add to previous draw Performed By: #### 4 6447 #### [facility] [address] [place] [address], [place] pH (Bld) CANCELED Normal 7.31-7.41 [facility] Comment on above: Order Comment: No: D o not add to previous draw Result Comment: The released value 7.19 was canceled by DANIELA on 11/24/2018 16:42 Performed By: #### 4 6447 #### [facility] [address] [place] [address], [place] PRESSURE SUPPORT CANCELED Normal [facility] Comment on above: Order Comment: No: D o not add to previous draw Performed By: #### 4 6447 #### [facility] [address] [place] [address], [facility] TIDAL VOLUME (VT) CC CANCELED Normal [facility] Comment on above: Order Comment: No: D o not add to previous draw Performed By: #### 4 6447 #### [facility] [address] [place] [address], [place] PERFUSION BLOOD PANELon 11-13 BASE EXCESS -8.0 mmol/L Low -2.0-3.0 [facility] Comment on above: Performed By: #### 4 1000, , 61250 #### [facility] [address] [place] [address], [place] Glucose [Mass/Vol] 162 mg/dL High 70-105 [facility] Comment on above: Performed By: #### 4 1000, , 65666 #### [facility] [address] [place] [address], [place] Hematocrit (Bld) [Volume fraction] 30 % Low 38-51 [facility] Comment on above: Performed By: #### 4 1000, , 84168 #### [facility] [address] [place] [address], [place] Hemoglobin (Bld) [Mass/Vol] 10.2 g/dL Low 12.0-17.0 [facility] Comment on above: Performed By: #### 4 1000, , 75297 #### [facility] [address] [place] [address], [place] IONIZED CALCIUM 1.09 mmol/L Low 1.12-1.32 [facility] Comment on above: Performed By: #### 4 1000, , 78625 #### [facility] [address] [place] [address], [place] Oxygen (Bld) [Partial pressure] 319.0 mm[Hg] High 80.0-105.0 [facility] Comment on above: Performed By: #### 4 999, , 38642 #### [facility] [address] [place] [address], [facility] PCO2 42.4 mmHg Normal 35.0-45.0 [facility] Comment on above: Performed By: #### 4 999, , 43557 #### [facility] [address] [place] [address], [place] pH (Bld) 7.26 [pH] Low 7.35-7.45 [facility] Comment on above: Performed By: #### 4 999, , 33118 #### [facility] [address] [place] [address], [place] Potassium [Moles/Vol] 4.8 mmol/L Normal 3.5-4.9 [facility] Comment on above: Performed By: #### 4 999, , 67419 #### [facility] [address] [place] [address], [place] Sodium [Moles/Vol] 142 mmol/L Normal 138-146 [facility] Comment on above: Performed By: #### 4 999, , 08028 #### [facility] [address] [place] [address], [place] BASE EXCESS -6.0 mmol/L Low -2.0-3.0 [facility] Comment on above: Performed By: #### 0 0071, 49263, 36774 #### [facility] [address] [place] [address], [place] Glucose [Mass/Vol] 97 mg/dL Normal 70-105 [facility] Comment on above: Performed By: #### 0 0071, 58392, 83744 #### [facility] [address] Hematocrit (Bld) [Volume fraction] 33 % Low 38-51 [facility] Comment on above: Performed By: #### 0 70, 32466, 58108 #### [facility] [address] [place] [address], [facility] Hemoglobin (Bld) [Mass/Vol] 11.2 g/dL Low 12.0-17.0 [facility] Comment on above: Performed By: #### 0 70, , 53699 #### [facility] [address] [place] [address], [facility] IONIZED CALCIUM 1.13 mmol/L Normal 1.12-1.32 [facility] Comment on above: Performed By: #### 0 70, , 45426 #### [facility] [address] Oxygen (Bld) [Partial pressure] 93.0 mm[Hg] Normal 80.0-105.0 [facility] Comment on above: Performed By: #### 0 70, 16198, 00613 #### [facility] [address] [facility] [address], [facility] PCO2 43.6 mmHg Normal 35.0-45.0 [facility] Comment on above: Performed By: #### 0 70, , 62806 #### [facility] [address] [place] [address], [facility] pH (Bld) 7.28 [pH] Low 7.35-7.45 [facility] Comment on above: Performed By: #### 0 70, 16909, 03487 #### [facility] [address] [place] [address], [facility] Potassium [Moles/Vol] 3.9 mmol/L Normal 3.5-4.9 [facility] Comment on above: Performed By: #### 0 70, , 50336 #### [facility] [address] [place] [address], [facility] Sodium [Moles/Vol] 140 mmol/L Normal 138-146 [facility] Comment on above: Performed By: #### 0 70, , 86833 #### [facility] [address] [place] [address], [facility] BASE EXCESS -4.0 mmol/L Low -2.0-3.0 [facility] Comment on above: Performed By: #### 0 70, , 46627 #### [facility] [address] [place] [address], [facility] Glucose [Mass/Vol] 107 mg/dL High 70-105 [facility] Comment on above: Performed By: #### 0 70, , 12189 #### [facility] [address] [place] [address], [facility] Hematocrit (Bld) [Volume fraction] 26 % Low 38-51 [facility] Comment on above: Performed By: #### 0 70, , 57803 #### [facility] [address] [place] [address], [facility] Hemoglobin (Bld) [Mass/Vol] 8.8 g/dL Low 12.0-17.0 [facility] Comment on above: Performed By: #### 0 70, , 88898 #### [facility] [address] [place] [address], [facility] IONIZED CALCIUM 1.18 mmol/L Normal 1.12-1.32 [facility] Comment on above: Performed By: #### 0 70, , 65888 #### [facility] [address] [place] [address], [facility] Oxygen (Bld) [Partial pressure] 195.0 mm[Hg] High 80.0-105.0 [facility] [facility] Comment on above: Performed By: #### 0 0071, 85815, 63113 #### [facility] [address] [place] [address], [facility] PCO2 44.9 mmHg Normal 35.0-45.0 [facility] Comment on above: Performed By: #### 0 0071, 43339, 25661 #### [facility] [address] [place] [address], [facility] pH (Bld) 7.31 [pH] Low 7.35-7.45 [facility] Comment on above: Performed By: #### 0 0071, 43652, 30774 #### [facility] [address] [place] [address], [facility] Potassium [Moles/Vol] 3.7 mmol/L Normal 3.5-4.9 [facility] Comment on above: Performed By: #### 0 0071, 71355, 11522 #### [facility] [address] [place] [address], [facility] Sodium [Moles/Vol] 138 mmol/L Normal 138-146 [facility] Comment on above: Performed By: #### 0 1, 51312, 01958 #### [facility] [address] [place] [address], [facility] BASE EXCESS -2.0 mmol/L Normal -2.0-3.0 [facility] Comment on above: Performed By: #### 0 0071, 00143, 02182 #### [facility] [address] [place] [address], [facility] Glucose [Mass/Vol] 118 mg/dL High 70-105 [facility] Comment on above: Performed By: #### 0 0071, 84834, 58666 #### [facility] [address] Hematocrit (Bld) [Volume fraction] 27 % Low 38-51 [facility] Comment on above: Performed By: #### 0 70, , 30799 #### [facility] [address] [place] [address], [facility] Hemoglobin (Bld) [Mass/Vol] 9.2 g/dL Low 12.0-17.0 [facility] Comment on above: Performed By: #### 0 70, , 17203 #### [facility] [address] [place] [address], [facility] IONIZED CALCIUM 1.00 mmol/L Low 1.12-1.32 [facility] Comment on above: Performed By: #### 0 70, , 42264 #### [facility] [address] [facility]. [address] Oxygen (Bld) [Partial pressure] 329.0 mm[Hg] High 80.0-105.0 [facility] Comment on above: Performed By: #### 0 70, 95730, 82220 #### [facility] [address] [facility] [address], [facility] PCO2 47.2 mmHg High 35.0-45.0 [facility] Comment on above: Performed By: #### 0 70, , 88377 #### [facility] [address] [facility] [address], [facility] pH (Bld) 7.32 [pH] Low 7.35-7.45 [facility] Comment on above: Performed By: #### 0 70, , 51550 #### [facility] [address] [facility] [address], [facility] Potassium [Moles/Vol] 4.3 mmol/L Normal 3.5-4.9 [facility] Comment on above: Performed By: #### 0 70, , 69551 #### [facility] [address] [place] [address], [facility] Sodium [Moles/Vol] 136 mmol/L Low 138-146 [facility] Comment on above: Performed By: #### 0 0071, 17403, 65056 #### [facility] [address] [place] [address], [facility] BASE EXCESS -2.0 mmol/L Normal -2.0-3.0 [facility] Comment on above: Performed By: #### 0 0071, 85089, 29505 #### [facility] [address] [place] [address], [facility] Glucose [Mass/Vol] 120 mg/dL High 70-105 [facility] Comment on above: Performed By: #### 0 70, 45397, 76696 #### [facility] [address] [place] [address], [facility] Hematocrit (Bld) [Volume fraction] 30 % Low 38-51 [facility] Comment on above: Performed By: #### 0 0071, 82968, 04813 #### [facility] [address] [place] [address], [facility] Hemoglobin (Bld) [Mass/Vol] 10.2 g/dL Low 12.0-17.0 [facility] Comment on above: Performed By: #### 0 0071, 75525, 52301 #### [facility] [address] [place] [address], [facility] IONIZED CALCIUM 1.00 mmol/L Low 1.12-1.32 [facility] Comment on above: Performed By: #### 0 007, 88308, 31762 #### [facility] [address] [place] [address], [facility] Oxygen (Bld) [Partial pressure] 332.0 mm[Hg] High 80.0-105.0 [facility] Comment on above: Performed By: #### 0 0071, 08873, 91621 #### [facility] [address] [place] [address], [facility] PCO2 46.0 mmHg High 35.0-45.0 [facility] Comment on above: Performed By: #### 0 0071, 08880, 35895 #### [facility] [address] [place] [address], [facility] pH (Bld) 7.33 [pH] Low 7.35-7.45 [facility] Comment on above: Performed By: #### 0 0071, 78294, 87764 #### [facility] [address] [place] [address], [facility] Potassium [Moles/Vol] 4.5 mmol/L Normal 3.5-4.9 [facility] Comment on above: Performed By: #### 0 0071, 06378, 03554 #### [facility] [address] [place] [address], [facility] Sodium [Moles/Vol] 136 mmol/L Low 138-146 [facility] Comment on above: Performed By: #### 0 0071, 80717, 42030 #### [facility] [address] [place] [address], [facility] BASE EXCESS 0.0 mmol/L Normal -2.0-3.0 [facility] Comment on above: Performed By: #### 0 0071, 56195, 78289 #### [facility] [address] [place] [address], [facility] Glucose [Mass/Vol] 120 mg/dL High 70-105 [facility] Comment on above: Performed By: #### 0 0071, 99387, 64327 #### [facility] [address] [place] [address], [facility] Hematocrit (Bld) [Volume fraction] 31 % Low 38-51 [facility] Comment on above: Performed By: #### 0 70, , 92020 #### [facility] [address] [place] [address], [facility] Hemoglobin (Bld) [Mass/Vol] 10.5 g/dL Low 12.0-17.0 [facility] Comment on above: Performed By: #### 0 70, , 43760 #### [facility] [address] [place] [address], [facility] IONIZED CALCIUM 0.99 mmol/L Low 1.12-1.32 [facility] Comment on above: Performed By: #### 0 70, , 53176 #### [facility] [address] [facility] [address] Oxygen (Bld) [Partial pressure] 396.0 mm[Hg] High 80.0-105.0 [facility] Comment on above: Performed By: #### 0 70, 95418, 62976 #### [facility] [address] [facility] [address], [facility] PCO2 41.9 mmHg Normal 35.0-45.0 [facility] Comment on above: Performed By: #### 0 70, , 31785 #### [facility] [address] [facility] [address], [facility] pH (Bld) 7.38 [pH] Normal 7.35-7.45 [facility] Comment on above: Performed By: #### 0 70, 10987, 36765 #### [facility] [address] [place] [address], [facility] Potassium [Moles/Vol] 4.3 mmol/L Normal 3.5-4.9 [facility] Comment on above: Performed By: #### 0 70, , 13344 #### [facility] [address] [place] [address], [facility] Sodium [Moles/Vol] 137 mmol/L Low 138-146 [facility] Comment on above: Performed By: #### 0 0071, 97830, 15352 #### [facility] [address] [place] [address], [facility] BASE EXCESS 0.0 mmol/L Normal -2.0-3.0 [facility] Comment on above: Performed By: #### 0 0071, 24488, 57748 #### [facility] [address] [facility] [place] [id number], [facility] Glucose [Mass/Vol] 115 mg/dL High 70-105 [facility] Comment on above: Performed By: #### 0 70, 33764, 34029 #### [facility] [address] [place] [address], [facility] Hematocrit (Bld) [Volume fraction] 30 % Low 38-51 [facility] Comment on above: Performed By: #### 0 0071, 28157, 16938 #### [facility] [address] [place] [address], [facility] Hemoglobin (Bld) [Mass/Vol] 10.2 g/dL Low 12.0-17.0 [facility] Comment on above: Performed By: #### 0 0071, 17090, 30910 #### [facility] [address] [place] [address], [facility] IONIZED CALCIUM 0.99 mmol/L Low 1.12-1.32 [facility] Comment on above: Performed By: #### 0 0071, 56322, 39145 #### [facility] [address] [place] [address], [facility] Oxygen (Bld) [Partial pressure] 346.0 mm[Hg] High 80.0-105.0 [facility] Comment on above: Performed By: #### 0 0071, 97833, 27041 #### [facility] [address] [place] [address], [facility] PCO2 44.8 mmHg Normal 35.0-45.0 [facility] Comment on above: Performed By: #### 0 0071, 29667, 63583 #### [facility] [address] [place] [address], [facility] pH (Bld) 7.37 [pH] Normal 7.35-7.45 [facility] Comment on above: Performed By: #### 0 0071, 10762, 85710 #### [facility] [address] [place] [address], [place] Potassium [Moles/Vol] 4.1 mmol/L Normal 3.5-4.9 [facility] Comment on above: Performed By: #### 0 0071, 15250, 48505 #### [facility] [address] [place] [address], [facility] Sodium [Moles/Vol] 138 mmol/L Normal 138-146 [facility] Comment on above: Performed By: #### 0 1, 77893, 87310 #### [facility] [address] [place] [address], [place] BASE EXCESS -3.0 mmol/L Low -2.0-3.0 [facility] Comment on above: Performed By: #### 0 0071, 37150, 82380 #### [facility] [address] [place] [address], [facility] Glucose [Mass/Vol] 103 mg/dL Normal 70-105 [facility] Comment on above: Performed By: #### 0 0071, 62966, 27607 #### [facility] [address] Hematocrit (Bld) [Volume fraction] 30 % Low 38-51 [facility] Comment on above: Performed By: #### 0 70, , 88631 #### [facility] [address] [place] [address], [facility] Hemoglobin (Bld) [Mass/Vol] 10.2 g/dL Low 12.0-17.0 [facility] Comment on above: Performed By: #### 0 70, , 67759 #### [facility] [address] [place] [address], [facility] IONIZED CALCIUM 1.00 mmol/L Low 1.12-1.32 [facility] Comment on above: Performed By: #### 0 70, , 68790 #### [facility] [address] [facility] [address] Oxygen (Bld) [Partial pressure] 272.0 mm[Hg] High 80.0-105.0 [facility] Comment on above: Performed By: #### 0 70, 45995, 57561 #### [facility] [address] [facility] [address], [facility] PCO2 38.6 mmHg Normal 35.0-45.0 [facility] Comment on above: Performed By: #### 0 70, , 93605 #### [facility] [address] [facility] [address], [facility] pH (Bld) 7.36 [pH] Normal 7.35-7.45 [facility] Comment on above: Performed By: #### 0 70, 75791, 02020 #### [facility] [address] [facility] [address], [facility] Potassium [Moles/Vol] 4.3 mmol/L Normal 3.5-4.9 [facility] Comment on above: Performed By: #### 0 70, , 99207 #### [facility] [address] [place] [address], [place] Sodium [Moles/Vol] 137 mmol/L Low 138-146 [facility] Comment on above: Performed By: #### 0 1, 85374, 91825 #### [facility] [address] [place] [address], [place] Glucose [Mass/Vol] 101 mg/dL Normal 70-105 [facility] Comment on above: Performed By: #### 0 1, 45625, 65955 #### [facility] [address] [place] [address], [place] Oxygen (Bld) [Partial pressure] 496.0 mm[Hg] High 80.0-105.0 [facility] Comment on above: Performed By: #### 0 70, 69441, 66739 #### [facility] [address] [place] [address], [place] PCO2 50.1 mmHg High 35.0-45.0 [facility] Comment on above: Performed By: #### 0 70, 19356, 24037 #### [facility] [address] [place] [address], [place] BASE EXCESS -5.0 mmol/L Low -2.0-3.0 [facility] Comment on above: Performed By: #### 0 007, 98565, 54256 #### [facility] [address] [place] [address], [place] Glucose [Mass/Vol] 108 mg/dL High 70-105 [facility] Comment on above: Performed By: #### 0 0071, 47874, 23839 #### [facility] [address] [place] [address], [place] Hematocrit (Bld) [Volume fraction] 35 % Low 38-51 [facility] Comment on above: Performed By: #### 0 1, 71158, 05066 #### [facility] [address] [place] [address], [facility] Hemoglobin (Bld) [Mass/Vol] 11.9 g/dL Low 12.0-17.0 [facility] Comment on above: Performed By: #### 0 1, 11112, 21438 #### [facility] [address] [place] [address], [facility] IONIZED CALCIUM 1.13 mmol/L Normal 1.12-1.32 [facility] Comment on above: Performed By: #### 0 1, 46012, 84228 #### [facility] [address] [place] [address], [facility] Oxygen (Bld) [Partial pressure] 184.0 mm[Hg] High 80.0-105.0 [facility] Comment on above: Performed By: #### 0 1, 08346, 91842 #### [facility] [address] [place] [address], [facility] PCO2 49.9 mmHg High 35.0-45.0 [facility] Comment on above: Performed By: #### 0 1, 19293, 98986 #### [facility] [address] [place] [address], [facility] pH (Bld) 7.26 [pH] Low 7.35-7.45 [facility] Comment on above: Performed By: #### 0 1, 43665, 85205 #### [facility] [address] [place] [address], [facility] Potassium [Moles/Vol] 4.0 mmol/L Normal 3.5-4.9 [facility] Comment on above: Performed By: #### 0 1, 05354, 39165 #### [facility] [address] [place] [address], [facility] Sodium [Moles/Vol] 138 mmol/L Normal 138-146 [facility] Comment on above: Performed By: #### 0 1, 56265, 69693 #### [facility] [address] [place] [address], [facility] BASE EXCESS -1.0 mmol/L Normal -2.0-3.0 [facility] Comment on above: Performed By: #### 0 70, 43812, 97364 #### [facility] [address] [place] [address], [facility] Glucose [Mass/Vol] 109 mg/dL High 70-105 [facility] Comment on above: Performed By: #### 0 70, 69027, 66995 #### [facility] [address] [place] [address], [facility] Hematocrit (Bld) [Volume fraction] 37 % Low 38-51 [facility] Comment on above: Performed By: #### 0 70, 41873, 04904 #### [facility] [address] [place] [address], [facility] Hemoglobin (Bld) [Mass/Vol] 12.6 g/dL Normal 12.0-17.0 [facility] Comment on above: Performed By: #### 0 70, 87714, 82023 #### [facility] [address] [place] [address], [facility] IONIZED CALCIUM 1.14 mmol/L Normal 1.12-1.32 [facility] Comment on above: Performed By: #### 0 70, 07536, 81635 #### [facility] [address] [place] [address], [facility] Oxygen (Bld) [Partial pressure] 231.0 mm[Hg] High 80.0-105.0 [facility] Comment on above: Performed By: #### 0 0071, 05383, 30239 #### [facility] [address] [place] [address], [place] PCO2 43.2 mmHg Normal 35.0-45.0 [facility] Comment on above: Performed By: #### 0 0071, 18561, 40603 #### [facility] [address] [place] [address], [place] pH (Bld) 7.36 [pH] Normal 7.35-7.45 [facility] Comment on above: Performed By: #### 0 0071, 18351, 01965 #### [facility] [address] [place] [address], [place] Potassium [Moles/Vol] 4.2 mmol/L Normal 3.5-4.9 [facility] Comment on above: Performed By: #### 0 0071, 26986, 35355 #### [facility] [address] [place] [address], [place] Sodium [Moles/Vol] 137 mmol/L Low 138-146 [facility] Comment on above: Performed By: #### 0 0071, 54832, 74350 #### [facility] [address] [place] [address], [facility] PHOSPHORUS BLOODon 9 Phosphate [Mass/Vol] 4.0 mg/dL Normal 2.5-5.0 [facility] Comment on above: Order Comment: No: D o not add to previous draw Performed By: #### 5 0608 #### [facility] [address] [place] [address], [place] POC GLUCOSE LABon 11-24-2018 Glucose [Mass/Vol] 104 mg/dL High 70-100 [facility] Comment on above: Performed By: #### 5 0608 #### [facility] [address] [place] [address], [place] Glucose [Mass/Vol] 88 mg/dL Normal 70-100 [facility] Comment on above: Performed By: #### 4 6447 #### [facility] [address] [place] [address], [place] Glucose [Mass/Vol] 92 mg/dL Normal 70-100 [facility] Comment on above: Performed By: #### 4 6447 #### [facility] [address] [facility] [place] [address], [place] Glucose [Mass/Vol] 80 mg/dL Normal 70-100 [facility] Comment on above: Performed By: #### 4 6447 #### [facility] [address] [place] [address], [place] Glucose [Mass/Vol] 105 mg/dL High 70-100 [facility] Comment on above: Performed By: #### 0 0071, 43891, 52764 #### [facility] [address] [facility] [place] [address], [facility] PORTABLE CHEST 1 VIEWon 11-13 PORTABLE CHEST 1 VIEW [facility] Department of Radiology [address] [place] [id number] Patient Name: WESTON CANO : 1960 Sex: M Age: Race: White Pt. Location: [id number] Patient Status: I Ordered Date: 11/24/2018 8:40:00 [...] from clotilde, in satisfactory position. Right IJ [place]-Com[place] catheter again seen with tip just left [...] tubes in satisfactory position. 2. Right IJ [place]-Comfort catheter again seen, slightly retracted with tip [...] findings. Electronically signed by:Leida Ferro. Transcribed by: [email or web address], User Resident: YOLANDA NICOLE Electronically Signed by: LEIDA FERRO @ 11/25/2018 09:37 AM I personally read this/these film(s) with this resident Normal [facility] Comment on above: Order Comment: No: D o not add to previous draw PORTABLE CHEST 1 VIEW [facility] Department of Radiology [address] [place] [id number] Patient Name: WESTON CANO : 1960 Sex: M Age: Race: White Pt. Location: [address] [place] [address] Patient Status: I Ordered Date: 11/24/2018 3:45:00 [...] tube extends beneath the diaphragm. Right IJ [place]-Com[place] catheter with the tip in the proximal [...] tubes in satisfactory positions with right IJ [place] catheter tip in the right main pulmonary artery. 3. Left-sided chest tube in place. 4. Cardiomegaly with perihilar vascular congestion. Approved by:Rajani Santillan on 11/24/2018 4:16 PM EDT. I, Danette Krueger, have reviewed the images and report and concur with these findings. Electronically signed by:Danette Krueger. Transcribed by: [email or web address], User Resident: RAJANI SANTILLAN Electronically Signed by: DANETTE KRUEGER @ 11/24/2018 04:32 PM I personally read this/these film(s) with this resident Normal [facility] Comment on above: Order Comment: No: D o not add to previous draw PORTABLE CHEST 1 VIEW [facility] Department of Radiology [address] [place] [id number] Patient Name: WESTON CANO : 1960 Sex: M Age: Race: White Pt. Location: [id number] Patient Status: I Ordered Date: 11/23/2018 10:20:00 [...] cardiomegaly. Electronically signed by:Leida Ferro. Transcribed by: [email or web address], User Resident: Electronically Signed by: LEIDA FERRO @ 11/24/2018 01:13 PM Normal [facility] Comment on above: Order Comment: No: D o not add to previous draw PROTHROMBIN TIMEon 9 INR Coag (PPP) [Relative time] 1.43 {INR} High 0.91-1.16 [facility] Comment on above: Order Comment: [...] 1995;108:[id number]. Performed By: #### 4 6447 #### [facility] [address] PT Coag (PPP) [Time] 17.5 s High 12.3-14.8 [facility] Comment on above: Order Comment: No: D o not add to previous draw Result Comment: ALL RESULTS MUST BE INTERPRETED WITH RESPECT TO BLOOD DRAWING ARTIFACT OR DILUTION ERROR OF ANTICOAGULANT AT THE TIME OF SAMPLING. Performed By: #### 4 6447 #### [facility] [address] [facility] RBC'S 2 UNITSon 11-24-2018 CROSSMATCH INTERP 1 COMP Normal [facility] Comment on above: Performed By: #### 0 0071, 88126, 63478 #### [facility] [address] [facility] CROSSMATCH INTERP 2 COMP Normal [facility] Comment on above: Performed By: #### 0 0071, 69272, 48397 #### [facility] [address] [facility] PRODUCT CODE 1 E0336 Normal [facility] Comment on above: Performed By: #### 0 0071, 02199, 77048 #### [facility] [address] [place] [address], [facility] PRODUCT CODE 2 E0336 Normal [facility] Comment on above: Performed By: #### 0 0071, 55113, 16590 #### [facility] [address] [place] [address], [place] PRODUCT STATUS 1 RE Normal [facility] Comment on above: Result Comment: Resu lt changed by IF on 11/28/2018 06:51. The previous value was XM. Performed By: #### 0 0071, 85105, 80162 #### [facility] [address] [place] [address], [place] PRODUCT STATUS 2 RE Normal [facility] Comment on above: Result Comment: Resu lt changed by IF on 11/28/2018 06:51. The previous value was XM. Performed By: #### 0 0071, 69750, 52920 #### [facility] [address] [place] [address], [place] UNIT ABO 1 A Normal [facility] Comment on above: Performed By: #### 0 0071, 58828, 71609 #### [facility] [address] [place] [address], [place] UNIT ABO 2 A Normal [facility] Comment on above: Performed By: #### 0 0071, 91332, 63487 #### [facility] [address] [place] [address], [place] UNIT ID 1 [id number] Normal [facility] Comment on above: Performed By: #### 0 0071, 66124, 46050 #### [facility] [address] [place] [address], [place] UNIT ID 2 [id number] Normal [facility] Comment on above: Performed By: #### 0 0071, 36001, 15288 #### [facility] [address] [place] [address], [place] UN[place] RH 1 Positive Normal [facility] Comment on above: Performed By: #### 0 0071, 34495, 62602 #### [facility] [address] [place] [address], [place] UN[place] RH 2 Positive Normal [facility] Comment on above: Performed By: #### 0 0071, 74499, 38290 #### [facility] [address] [place] [address], [facility] TYPE AND SCREENon 11-24-2018 ABO INTERPRETATION A Normal [facility] Comment on above: Performed By: #### 0 0071, 20721, 89188 #### [facility] [address] [place] [address], [facility] RH INTERPRETATION Positive Normal [facility] Comment on above: Performed By: #### 0 0071, 29009, 81722 #### [facility] [address] APTTon 11-23-2018 aPTT Coag (Bld) [Time] 30.2 s Normal 25.0-35.0 [facility] Comment on above: Order Comment: [...] THIS PURPOSE. Performed By: #### 0 0071, 51029, 66517 #### [facility] [address] BASIC METABOLIC PANELon 11-13 Calcium [Mass/Vol] 8.7 mg/dL Normal 8.6-10.3 [facility] Comment on above: Order Comment: No: D o not add to previous draw Performed By: #### 4 1000, 45398, 27307 #### [facility] [address] [place] [address], [facility] Chloride [Moles/Vol] 106 mmol/L Normal 98-107 [facility] Comment on above: Order Comment: No: D o not add to previous draw Performed By: #### 4 1000, , 23488 #### [facility] [address] [place] [address], [place] CO2 [Moles/Vol] 24 mmol/L Normal 21-31 [facility] Comment on above: Order Comment: No: D o not add to previous draw Performed By: #### 4 1000, , 95816 #### [facility] [address] [place] [address], [place] Creatinine [Mass/Vol] 1.08 mg/dL Normal 0.70-1.30 [facility] Comment on above: Order Comment: No: D o not add to previous draw Performed By: #### 4 1000, , 28129 #### [facility] [address] [place] [address], [place] GFR/1.73 sq M predicted among blacks MDRD (S/P/Bld) [Vol rate/Area] mL/min/{1.73_m2} Normal >60 [facility] Comment on above: Order Comment: No: D o not add to previous draw Performed By: #### 4 1000, , 25284 #### [facility] [address] [place] [address], [place] GFR/1.73 sq M predicted among non-blacks MDRD (S/P/Bld) [Vol rate/Area] mL/min/{1.73_m2} Normal >60 [facility] Comment on above: Order Comment: No: D o not add to previous draw Performed By: #### 4 1000, , 39942 #### [facility] [address] [place] [address], [place] Glucose [Mass/Vol] 105 mg/dL High 70-100 [facility] Comment on above: Order Comment: No: D o not add to previous draw Performed By: #### 4 1000, , 83429 #### [facility] [address] [place] [address], [facility] Potassium [Moles/Vol] 4.1 mmol/L Normal 3.5-5.1 [facility] Comment on above: Order Comment: No: D o not add to previous draw Performed By: #### 4 1000, 05945, 24569 #### [facility] [address] [place] [address], [place] Sodium [Moles/Vol] 137 mmol/L Normal 136-145 [facility] Comment on above: Order Comment: No: D o not add to previous draw Performed By: #### 4 1000, 80425, 46552 #### [facility] [address] [place] [id number], [facility] Urea nitrogen [Mass/Vol] 9 mg/dL Normal 7-25 [facility] Comment on above: Order Comment: No: D o not add to previous draw Performed By: #### 4 1000, 60021, 63774 #### [facility] [address] [place] [id number], [facility] CBC COMPLETE BLOOD COUNTon 0 - Erythrocyte distribution width (RBC) [Ratio] 12.5 % Normal 11.5-15.0 [facility] Comment on above: Order Comment: No: D o not add to previous draw Performed By: #### 5 0608 #### [facility] [address] [place] [id number], [facility] Hematocrit (Bld) [Volume fraction] 39.5 % Normal 39.0-50.0 [facility] Comment on above: Order Comment: No: D o not add to previous draw Performed By: #### 5 0608 #### [facility] [address] [place] [id number], [facility] Hemoglobin (Bld) [Mass/Vol] 13.9 g/dL Normal 13.0-17.0 [facility] Comment on above: Order Comment: No: D o not add to previous draw Performed By: #### 5 0608 #### [facility] [address] [place] [id number], [facility] MCH (RBC) [Entitic mass] 32.2 pg Normal 27.0-33.0 [facility] Comment on above: Order Comment: No: D o not add to previous draw Performed By: #### 5 0608 #### [facility] [address] [place] [id number], [facility] MCHC (RBC) [Mass/Vol] 35.2 g/dL High 32.0-35.0 [facility] Comment on above: Order Comment: No: D o not add to previous draw Performed By: #### 5 0608 #### [facility] [address] [place] [id number], [facility] MCV (RBC) [Entitic vol] 91.4 fL Normal 82.0-98.0 [facility] Comment on above: Order Comment: No: D o not add to previous draw Performed By: #### 5 0608 #### [facility] [address] [place] [address], [facility] Nucleated RBC/100 WBC (Bld) [Ratio] 0 % Normal 0-0 [facility] Comment on above: Order Comment: No: D o not add to previous draw Performed By: #### 5 0608 #### [facility] [address] [place] [id number], [facility] PLAT CNT 208 10*3/uL Normal 150-400 [facility] Comment on above: Order Comment: No: D o not add to previous draw Performed By: #### 5 0608 #### [facility] [address] [place] [address], [facility] RBC (Bld) [#/Vol] 4.32 10*6/uL Normal 4.20-5.70 [facility] Comment on above: Order Comment: No: D o not add to previous draw Performed By: #### 5 0608 #### [facility] [address] WBC (Bld) [#/Vol] 6.36 10*3/uL Normal 4.00-10.60 The [facility] Comment on above: Order Comment: No: D o not add to previous draw Performed By: #### 5 0608 #### [facility] [address] Cardiovascular Lab Reporton 11-23-2018 Cardiovascular Lab Report [facility] Patient Name: [facility] Weston Billings MR #: [id number] Department of Physician: Austin Hartley M.D. Division of Service Date: 11/22/2018 Cardiology Birthdate: 1960 Adult Cardiovascular Room #: [id number] [place] [address] Cardiovascular Laboratory Report INDICATION: The patient is [...] signed informed consent. He was brought to photonic laboratory technician in a fasting state. The right wrist area was prepped and draped in usual fashion. The Vaughn's test was favorable. Using micropuncture technique, the right radial artery was accessed a 6-Ugandan x 11 cm Hydrophilic sheath was advanced. Verapamil was given through the sheath and heparin was administered intravenously. Left heart catheterization was then performed by advancing the 6-Ugandan JR5 diagnostic catheter over the wire into the left ventricular cavity. Measurement of pressures was performed. Pullback across the aortic valve was performed with measurement of pressures. Bilateral selective coronary angiography was then performed using 6-Ugandan JR5 and JL 3.5. diagnostic catheters. Catheters [...] Hartley M.D. Date Trans: 11/23/2018 07:36 Amadeo/love [id number] cc: Estefania Weeks M.D. [address] [place] [address] Normal [facility] MAGNESIUM BLOODon 11-23-2018 Magnesium [Mass/Vol] 2.0 mg/dL Normal 1.9-2.7 [facility] Comment on above: Order Comment: No: D o not add to previous draw Performed By: #### 4 1000, 40964, 24266 #### [facility] [address] [place] [address], [facility] PHOSPHORUS BLOODon 9 Phosphate [Mass/Vol] 2.9 mg/dL Normal 2.5-5.0 [facility] Comment on above: Order Comment: No: D o not add to previous draw Performed By: #### 4 1000, 69807, 40927 #### [facility] [address] [place] [address], [facility] PROTHROMBIN TIMEon 9 INR Coag (PPP) [Relative time] 1.11 {INR} Normal 0.91-1.16 [facility] Comment on above: Order Comment: [...] CHEST 1995;108:[id number]. Performed By: #### 5 6101, 35208 #### [facility] [address] [place] [address], [facility] PT Coag (PPP) [Time] 14.3 s Normal 12.3-14.8 [facility] Comment on above: Order Comment: No: D o not add to previous draw Result Comment: ALL RESULTS MUST BE INTERPRETED WITH RESPECT TO BLOOD DRAWING ARTIFACT OR DILUTION ERROR OF ANTICOAGULANT AT THE TIME OF SAMPLING. Performed By: #### 5 6101, 48059 #### [facility] [address] [place] [address], [facility] BASIC METABOLIC PANELon 11-13 Calcium [Mass/Vol] 9.4 mg/dL Normal 8.6-10.3 [facility] Comment on above: Order Comment: No: D o not add to previous draw Performed By: #### 0 0071, 95808, 98675 #### [facility] [address] [place] [address], [facility] Chloride [Moles/Vol] 106 mmol/L Normal 98-107 [facility] Comment on above: Order Comment: No: D o not add to previous draw Performed By: #### 0 0071, 40287, 00766 #### [facility] [address] [place] [address], [facility] CO2 [Moles/Vol] 26 mmol/L Normal 21-31 [facility] Comment on above: Order Comment: No: D o not add to previous draw Performed By: #### 0 0071, 76909, 31437 #### [facility] [address] [place] [address], [facility] Creatinine [Mass/Vol] 1.01 mg/dL Normal 0.70-1.30 [facility] Comment on above: Order Comment: No: D o not add to previous draw Performed By: #### 0 0071, 70519, 08313 #### [facility] [address] [place] [address], [facility] GFR/1.73 sq M predicted among blacks MDRD (S/P/Bld) [Vol rate/Area] mL/min/{1.73_m2} Normal >60 [facility] Comment on above: Order Comment: No: D o not add to previous draw Performed By: #### 0 0071, 09399, 80844 #### [facility] [address] [place] [address], [place] GFR/1.73 sq M predicted among non-blacks MDRD (S/P/Bld) [Vol rate/Area] mL/min/{1.73_m2} Normal >60 [facility] Comment on above: Order Comment: No: D o not add to previous draw Performed By: #### 0 0071, 75116, 18247 #### [facility] [address] [place] [address], [place] Glucose [Mass/Vol] 99 mg/dL Normal 70-100 [facility] Comment on above: Order Comment: No: D o not add to previous draw Performed By: #### 0 0071, 79459, 05455 #### [facility] [address] [place] [address], [place] Potassium [Moles/Vol] 3.9 mmol/L Normal 3.5-5.1 [facility] Comment on above: Order Comment: No: D o not add to previous draw Performed By: #### 0 0071, 89962, 91695 #### [facility] [address] [place] [address], [place] Sodium [Moles/Vol] 137 mmol/L Normal 136-145 [facility] Comment on above: Order Comment: No: D o not add to previous draw Performed By: #### 0 0071, 78426, 18665 #### [facility] [address] [place] [address], [place] Urea nitrogen [Mass/Vol] 8 mg/dL Normal 7-25 [facility] Comment on above: Order Comment: No: D o not add to previous draw Performed By: #### 0 0071, 19235, 27565 #### [facility] [address] CBC W/DIFFon 11-22-2018 ABS BASOPHILS 0.1 10*3/uL Normal 0.0-0.2 [facility] Comment on above: Order Comment: No: D o not add to previous draw Performed By: #### 5 0103 #### [facility] [address] [place] [address], [facility] ABS IMM GRANS 0.0 10*3/uL Normal 0.0-0.2 [facility] Comment on above: Order Comment: No: D o not add to previous draw Performed By: #### 5 0103 #### [facility] [address] [place] [address], [facility] ABS NEUTROPHILS 4.9 10*3/uL Normal 1.6-7.6 [facility] Comment on above: Order Comment: No: D o not add to previous draw Performed By: #### 5 0103 #### [facility] [address] [place] [address], [facility] Basophils/100 WBC (Bld) 0.6 % Normal 0.0-1.0 [facility] Comment on above: Order Comment: No: D o not add to previous draw Performed By: #### 5 0103 #### [facility] [address] [place] [address], [facility] Eosinophils (Bld) [#/Vol] 0.3 10*3/uL Normal 0.0-0.5 [facility] Comment on above: Order Comment: No: D o not add to previous draw Performed By: #### 5 0103 #### [facility] [address] [place] [address], [facility] Eosinophils/100 WBC (Bld) 3.3 % Normal 0.0-6.0 [facility] Comment on above: Order Comment: No: D o not add to previous draw Performed By: #### 5 0103 #### [facility] [address] [place] [address], [facility] Erythrocyte distribution width (RBC) [Ratio] 12.4 % Normal 11.5-15.0 [facility] Comment on above: Order Comment: No: D o not add to previous draw Performed By: #### 5 3 #### [facility] [address] [place] [address], [facility] Hematocrit (Bld) [Volume fraction] 40.9 % Normal 39.0-50.0 [facility] Comment on above: Order Comment: No: D o not add to previous draw Performed By: #### 5 3 #### [facility] [address] [place] [address], [facility] Hemoglobin (Bld) [Mass/Vol] 14.4 g/dL Normal 13.0-17.0 [facility] Comment on above: Order Comment: No: D o not add to previous draw Performed By: #### 5 3 #### [facility] [address] [place] [id number], [facility] IMMATURE GRANS 0.4 % Normal 0.0-1.0 [facility] Comment on above: Order Comment: No: D o not add to previous draw Performed By: #### 5 3 #### [facility] [address] [place] [address], [facility] Lymphocytes (Bld) [#/Vol] 2.4 10*3/uL Normal 1.2-4.0 [facility] Comment on above: Order Comment: No: D o not add to previous draw Performed By: #### 5 3 #### [facility] [address] [place] [id number], [facility] Lymphocytes/100 WBC (Bld) 29.4 % Normal 20.0-45.0 [facility] Comment on above: Order Comment: No: D o not add to previous draw Performed By: #### 5 3 #### [facility] [address] [place] [address], [facility] MCH (RBC) [Entitic mass] 32.8 pg Normal 27.0-33.0 [facility] Comment on above: Order Comment: No: D o not add to previous draw Performed By: #### 5 0103 #### [facility] [address] [place] [id number], [facility] MCHC (RBC) [Mass/Vol] 35.2 g/dL High 32.0-35.0 [facility] Comment on above: Order Comment: No: D o not add to previous draw Performed By: #### 5 0103 #### [facility] [address] [place] [address], [facility] MCV (RBC) [Entitic vol] 93.2 fL Normal 82.0-98.0 [facility] Comment on above: Order Comment: No: D o not add to previous draw Performed By: #### 5 0103 #### [facility] [address] [place] [address], [facility] Monocytes (Bld) [#/Vol] 0.6 10*3/uL Normal 0.1-1.0 [facility] Comment on above: Order Comment: No: D o not add to previous draw Performed By: #### 5 3 #### [facility] [address] [place] [address], [facility] MONOS 7.5 % Normal 5.0-12.0 [facility] Comment on above: Order Comment: No: D o not add to previous draw Performed By: #### 5 0103 #### [facility] [address] [place] [address], [facility] Neutrophils/100 WBC (Bld) 58.8 % Normal 40.0-72.0 [facility] Comment on above: Order Comment: No: D o not add to previous draw Performed By: #### 5 3 #### [facility] [address] [place] [address], [facility] Nucleated RBC/100 WBC (Bld) [Ratio] 0 % Normal 0-0 [facility] Comment on above: Order Comment: No: D o not add to previous draw Performed By: #### 5 0103 #### [facility] [address] [place] [address], [place] PLAT CNT 209 10*3/uL Normal 150-400 [facility] Comment on above: Order Comment: No: D o not add to previous draw Performed By: #### 5 0103 #### [facility] [address] [place] [address], [facility] RBC (Bld) [#/Vol] 4.39 10*6/uL Normal 4.20-5.70 [facility] Comment on above: Order Comment: No: D o not add to previous draw Performed By: #### 5 0103 #### [facility] [address] [place] [id number], [facility] WBC (Bld) [#/Vol] 8.26 10*3/uL Normal 4.00-10.60 [facility] Comment on above: Order Comment: No: D o not add to previous draw Performed By: #### 5 0103 #### [facility] [address] [place] [address], [facility] HEMOGLOBIN A1Con 11-22-2018 HbA1c (Bld) [Mass fraction] 6.1 % High 4.0-6.0 [facility] Comment on above: Order Comment: No: D o not add to previous draw Performed By: #### 4 6447 #### [facility] [address] [place] [id number], [facility] HbA1c (Bld) [Mass fraction] 128 mg/dL High 70-126 [facility] Comment on above: Order Comment: No: D o not add to previous draw Performed By: #### 4 6420 #### [facility] [address] [place] [address], [facility] LIPID PROFILEon 11-22-2018 Cholesterol [Mass/Vol] 166 mg/dL Normal 120-200 [facility] Comment on above: Order Comment: No: D o not add to previous draw Result Comment: CHOL ESTEROL REFERENCE RANGE: 20 YEARS AND OLDER CARDIOVASCULAR RISK Less than 200 mg/dl Low Risk 200 to 239 mg/dl Borderline Risk 240 mg/dl and greater High Risk Performed By: #### 0 0071, 68151, 30209 #### [facility] [address] [place] [address], [facility] Cholesterol in HDL [Mass/Vol] 30 mg/dL Normal 23-92 [facility] Comment on above: Order Comment: No: D o not add to previous draw Result Comment: Slig ht variation in normal range could be due to gender and/or age. HDL CHOLESTEROL REFERENCE RANGE: 20 years and older Cardiovascular Risk > or =60 mg/dL Desirable 40 TO 59 mg/dL Low Risk <40 mg/dL High Risk Performed By: #### 0 0071, 54305, 57199 #### [facility] [address] [place] [address], [facility] Cholesterol in LDL [Mass/Vol] 112 mg/dL Normal 0-130 [facility] Comment on above: Order Comment: No: D o not add to previous draw Result Comment: LDL IS A CALCULATION LDL IS ONLY VALID IF THE TRIG IS LESS THAN 400. Performed By: #### 0 0071, 17037, 85674 #### [facility] [address] [place] [address], [place] Cholesterol.total/Ch olesterol in HDL [Mass ratio] 5.5 {ratio} High .0-4.5 [facility] Comment on above: Order Comment: No: D o not add to previous draw Performed By: #### 0 0071, 72174, 86804 #### [facility] [address] [place] [address], [place] NON-HDL CHOLESTEROL 136 mg/dL Normal [facility] Comment on above: Order Comment: No: D o not add to previous draw Performed By: #### 0 0071, 93615, 12895 #### [facility] [address] Triglyceride [Mass/Vol] 119 mg/dL Normal 40-149 [facility] Comment on above: Order Comment: No: D o not add to previous draw Result Comment: TRIG LYCERIDE REFERENCE RANGE: 20 YEARS AND OLDER CARDIOVASCULAR RISK LESS THAN 150 mg/dl LOW RISK 150 TO 199 mg/dl BORDERLINE RISK 200 mg/dl AND GREATER HIGH RISK Performed By: #### 0 0071, 20117, 02004 #### [facility] [address] VLDL CHOL 24 mg/dL Normal 0-40 [facility] Comment on above: Order Comment: No: D o not add to previous draw Performed By: #### 0 0071, 82336, 51105 #### [facility] [address] LIVER BATTERYon 11-22-2018 Albumin [Mass/Vol] 4.2 g/dL Normal 3.5-5.7 [facility] Comment on above: Order Comment: No: D o not add to previous draw Performed By: #### 0 0071, 92351, 82826 #### [facility] [address] [facility]. [address] ALKALINE PHOSPH 56 IU/L Normal 34-104 [facility] Comment on above: Order Comment: No: D o not add to previous draw Performed By: #### 0 0071, 20537, 92983 #### [facility] [address] [facility] [address], [facility] ALT [Catalytic activity/Vol] 32 U/L Normal 7-52 [facility] Comment on above: Order Comment: No: D o not add to previous draw Performed By: #### 0 0071, 34395, 99397 #### [facility] [address] [place] [address], [facility] AST [Catalytic activity/Vol] 21 U/L Normal 13-39 [facility] Comment on above: Order Comment: No: D o not add to previous draw Performed By: #### 0 0071, 00806, 09749 #### [facility] [address] [place] [address], [place] Bilirubin [Mass/Vol] 0.6 mg/dL Normal 0.3-1.0 [facility] Comment on above: Order Comment: No: D o not add to previous draw Performed By: #### 0 0071, 09570, 66850 #### [facility] [address] [place] [address], [place] Bilirubin.direct [Mass/Vol] 0.1 mg/dL Normal 0.0-0.2 [facility] Comment on above: Order Comment: No: D o not add to previous draw Performed By: #### 0 0071, 85236, 91508 #### [facility] [address] [place] [address], [place] Protein [Mass/Vol] 7.1 g/dL Normal 6.0-8.3 [facility] Comment on above: Order Comment: No: D o not add to previous draw Performed By: #### 0 0071, 36512, 22828 #### [facility] [address] [place] [id number], [facility] Vital Signs Date Time Vital Sign Value Performing Clinician Facility 11-25-2018 08:07-0400 Respiratory rate 12 /min ESTEFANIA WEEKS [facility] Comment on above: Performed By: #### 4 1000, 82489, 35894 #### [facility] [address] [place] [address], [place] 11-25-2018 01:22-0400 Respiratory rate 12 /min ESTEFANIA WEEKS [facility] Comment on above: Performed By: #### 5 0608 #### [facility] [address] [place] [address], [facility] 11-24-2018 22:23-0400 Respiratory rate 12 /min ESTEFANIA WEEKS [facility] Comment on above: Performed By: #### 4 6447 #### [facility] [address] [place] [address], [facility] 11-24-2018 18:19-0400 Respiratory rate CANCELED ESTEFANIA WEEKS [facility] Comment on above: Order Comment: No: D o not add to previous draw Performed By: #### 4 6447 #### [facility] [address] [place] [address], [facility] 11-24-2018 18:18-0400 Respiratory rate 12 /min ESTEFANIA CHERIE [facility] Comment on above: Order Comment: No: D o not add to previous draw Performed By: #### [id number] #### [facility] [address] [place], [place] [address] [place] [address] Encounters Encounter Date Encounter Type Care Provider Facility Start: 01-29-2025 End: 01-29-2025 ambulatory Ady Lezama Facility:[facility] Start: 12-11-2024 End: 12-11-2024 ambulatory GR[facility] Start: 10-30-2024 End: 10-30-2024 Patient encounter procedure Estefania Weeks MD Work Phone: [facility] Start: 10-30-2024 End: 10-30-2024 ambulatory Estefania Weeks MD Work Phone: [facility] Work Phone: Start: 10-30-2024 Non-patient / Non-visit Fidelina Weeks MD Work Phone: [facility] Start: 07-31-2024 End: 07-31-2024 ambulatory Ady Lezama Facility:[facility] Start: 05-01-2024 End: 05-01-2024 Patient encounter procedure MD Estefania Weeks Work Phone: [facility] Start: 05-01-2024 End: 05-01-2024 ambulatory MD Estefania Weeks Work Phone: [facility] Work Phone: Start: 01-30-2024 End: 01-30-2024 ambulatory MD Estefania Weeks Work Phone: [facility] Work Phone: Start: 01-30-2024 End: 01-30-2024 Patient encounter procedure MD Estefania Weeks Work Phone: [facility] Start: 10-28-2023 End: 10-28-2023 ambulatory MD Estefania Weeks Work Phone: [facility] Work Phone: Start: 10-28-2023 End: 10-28-2023 Patient encounter procedure MD Estefania Weeks Work Phone: [facility] Start: 04-29-2023 ambulatory Facility:9 [id number] Start: 01-25-2023 ambulatory Facility:9 090 Start: 10-25-2022 End: 10-25-2022 ambulatory MD Estefania Weeks Work Phone: [facility] Work Phone: Start: 10-25-2022 End: 10-25-2022 Patient encounter procedure MD Estefania Weeks Work Phone: [facility] Start: 10-22-2022 ambulatory Facility:9 [id number] Start: 08-31-2022 End: 09-01-[address] ESTEFANIA WEEKS Facility:[facility]1 Start: 07-23-2022 End: 07-23-2022 ambulatory MD Estefania Weeks Work Phone: [facility] Work Phone: Start: 07-23-2022 End: 07-23-2022 Patient encounter procedure MD Estefania Weeks Work Phone: [facility] Start: 07-23-2022 ambulatory Facility:9 090 Start: 04-23-2022 End: 04-23-2022 Patient encounter procedure MD Estefania Weeks Work Phone: [facility] Start: 01-19-2022 End: 01-19-2022 Patient encounter procedure MD Estefania Weeks Work Phone: [facility] Start: 10-16-2021 End: 10-16-2021 Patient encounter procedure MD Estefania Weeks Work Phone: [facility] Start: 05-08-2019 End: 05-10-2019 Evaluation and management of inpatient ANAS RENNO Facility:[facility] Start: 12-28-2018 End: 12-28-2018 Evaluation and management of inpatient ESTEFANIA WEEKS Facility:[facility] Start: 11-22-2018 End: 12-01-2018 Evaluation and management of inpatient ESTEFANIA WEEKS Facility:[facility] Procedures Date Procedure Procedure Detail Performing Clinician [...] on above: Performed By: #### [id number] #### [address] Start: 11-24-2018 BYPASS 1 COR ART FRO M L INT MAMMARY, OPEN APPROACH MARCELLO DEL RIO Start: 11-24-2018 BYPASS 2 COR ART FRO M AORTA WITH AUTOL VN, OPEN APPROACH MARCELLO DEL RIO Start: 11-24-2018 EXCISION OF LEFT SAP HENOUS VEIN, PERC ENDO APPROACH MARCELLO DEL RIO Start: 11-24-2018 EXTIRPATION OF MATTE R FROM 1 COR ART, OPEN APPROACH MARCELLO DEL RIO Start: 11-24-2018 MONITORING OF ARTERI AL PRESSURE, PULMONARY, PERC APPROACH ASHLEY Mirza YERMAL Start: 11-24-2018 MONITORING OF ARTERI AL SATURATION, PERIPHERAL, PERC APPROACH MARCELLO RUIZ Start: 11-24-2018 MONITORING OF CARDIA C OUTPUT, PERCUTANEOUS APPROACH SOIVA SAAVEDRARMAL Start: 11-24-2018 Performance of Cardi ac Output, Continuous MARCELLO RUIZ Start: 11-24-2018 PERFORMANCE OF CARDI AC OUTPUT, SINGLE, MANUAL NARETHAN RUIZ Start: 11-24-2018 ULTRASONOGRAPHY OF R IGHT AND LEFT HEART, TRANSESOPHAGEAL SOIVA SAAVEDRARM Start: 11-22-2018 FLUOROSCOPY OF MULTI PLE CORONARY ARTERIES USING OTH CONTRAST AUSTIN HARTLEY Start: 11-22-2018 MEASURE OF CARDIAC S AMPL \T\ PRESSURE, L HEART, PERC APPROACH AUSTIN HARTLEY History of coronary artery bypass grafting S/P CABG x 3 MD Estefania Weeks Work Phone: Comment on above: Problem List clean-u p per request of Phys. EHR Cmte Payers Date Payer Category Payer Self-pay [id number] 1960 Unknown [id number] 2.16.8 [id number] 1960 Unknown [id number] 2.16.8 [id number] 1962 Unknown [id number] 2.16.8 [id number] 1962 Unknown [id number] 2.16.84 [id number] 1962 Unknown [id number] 2.16. [id number] 1962 Unknown [id number] 2.16. [id number] 1962 Unknown [id number] 2.16. [id number] 1962 Unknown [id number] 2.16. [id number] 1959 Unknown [id number] Unknown [id number] Unknown [id number] 2.16.8 [id number] Unknown [id number] 2.16.8 [id number] Unknown [id number] 2.16.8 [id number] Unknown [id number] 2.16.8 [id number] Social History Date Type Detail Facility Start: 08-24-2019 End: 08-24-2019 Tobacco smoking status VAIS Ex-smoker (finding) [facility] End: 12-12-2018 History of tobacco use [facility] Work Phone: Start: 1960 Sex Assigned At Male F [facility] Start: 10-31-2024 Sex Male (finding) [facility] Medical Equipment Procedure Code Equipment Code Equipment Origin al Text Equipment Identifier Dates Insertion, pacemaker Endocardial pacing lead [id number] FDA Start: 08-24-2019 Insertion, pacemaker Endocardial pacing lead ()[id number] FDA Start: 08-24-2019 Insertion, pacemaker Dual-chamber implantable pacemaker, rate-responsive ()[id number] FDA Start: 08-24-2019 Progress note 12-11-2024 Note Date & Type Note Facility 12-11-2024 Note [facility] Note Chief Complaint: Patient here for 1 year follow up CAD, hypertension, and hyperlipidemia. Still follows with [facility] in [place] for device interrogations. Had labs in Aug 2024. Denies chest pain, SOB, and palpitations. Feels good cardiac lu he says. HPI: Weston Cano is a 64 y.o. male presents to clinic for routine f/u. Known h/o CAD s/p CABG x3 in 2019, HTN, HLD Pacemaker placed d/t complete heart block at [facility] this past August 24, 2019. 10/19/2021 He denies any changes since last seen. He stays active, walks 2-3 miles daily. Tries to maintain a heart helathy diet. Denies CP, dyspnea, PRATER, orthopnea, PND, LE edema, dizziness/LH, palpitations, syncope 11/2023 Doing well 11/2024 Doing well; no significant symptoms from a cardiac standpoint. However, he has had significant swelling and inflammation of the joints and the bursa in the knee. Pertinently, he did not have symptoms prior to the need for bypass in 2019. The need for cath and CABG was discovered on a routine stress test. Cardiology ROS: Review of Systems Musculoskeletal: Positive for arthritis, joint pain and joint swelling. All other systems reviewed and are negative. [...] Outpatient Medications: aspirin 81 mg EC tablet, TAKE 1 TABLET (81 MG) BY MOUTH IN THE MORNING, Disp: 30 tablet, Rfl: 11 clopidogrel (Plavix) 75 mg tablet, Take 1 tablet (75 mg) by mouth in the morning., Disp: 90 tablet, Rfl: 3 lisinopril 5 mg tablet, Take 1 tablet (5 mg) by mouth in the morning., Disp: 90 tablet, Rfl: 3 metoprolol succinate XL (Toprol-XL) 25 mg 24 hr tablet, Take 1 tablet (25 mg) by mouth in the morning., Disp: 90 tablet, Rfl: 3 rosuvastatin (Crestor) 20 mg tablet, TAKE 1 TABLET BY MOUTH EVERY DAY IN THE MORNING, Disp: 90 tablet, Rfl: 3 Last Recorded Vitals BP 144/80 (BP Location: Left arm, Patient Position: Sitting) Pulse 57 Ht 1.778 m (5' 10 ) Wt 104 kg (229 lb) SpO2 97% BMI 32.86 kg/m??? Physical Examination: GENERAL: alert and oriented [...] greater than 60, ALT 28, AST 19 RhnR9c-3.8 Lipids 06/27/2021-cholesterol 96, HDL 40, trig 73, [...] 55 to 60%. No significant valvular abnormalities. Labs 12/24/2023: Triglycerides 205, cholesterol 129, HDL 40, LDL 48 ASSESSMENT 1. Coronary arteriosclerosis - -S/p CABG x3 2019 -Lipids 06/27/2021-cholesterol 96, HDL 40, trig 73, LDL 41 -Denies angina or dyspnea -Continue aspirin, statin, Plavix, lisinopril and metoprolol -Continue cardiac risk factor modification with routine exercise and heart healthy diet. I25.10: Atherosclerotic heart disease of [place] coronary artery without angina pectoris 2. History of coronary artery bypass grafting - -As above Z95.1: Presence of aortocoronary bypass graft 3. Mixed hyperlipidemia - -Well controlled -Continue atorvastatin E78.2: Mixed h (more content not included)... [facility] Evaluation note Note Date & Type Note Facility Evaluation note No [facility] Work Phone: Summary Purpose Family History No Family History Records FoundNo Family History Records FoundNo Family History Records FoundNo Family History Records FoundNo Family History Records Found Advance Directives No Advanced Directives Records Found Advance Directive Response Recorded Date/ Time Advance Directives No June 8:48am Advance Directive Response Recorded Date/ Time Advance Directives No June 9:48am Hospital Course Note MR#: [id number] [facility] Name: Weston Cano Admitted: 11/22/2018 Discharged: [...] aft (more content not included)... Note MR#: [id number] [facility] Name: Weston Cano Admitted: 12/27/2018 Discharged: 12/28/2018 Date of : 1960 Physician: Frank Jacome MD DISCHARGE SUMMARY PRINCIPAL DIAGNOSES: 1. Syncope. 2. Zoz-PI-zsfgjlpkv myocardial infarction. 3. Coronary artery disease, status [...] fell face forward. He was sent to [place]. He had a troponin of 0.12. Given this troponin, they sent him to [facility] for further care. He had no shortness of breath or incontinence. He had no other symptoms. He states that he has been compliant with his medications. He was starte (more content not included)... Note MR#: [id number] [facility] Name: Weston Cano Admitted: 05/08/2019 Discharged: 05/10/2019 Date of : 1960 Physician: Vicki Freire M.D. DISCHARGE SUMMARY PRIMARY DIAGNOSIS: Hjk-AS-xemouusfo myocardial infarction. SECONDARY DIAGNOSES: 1. Coronary artery disease, status post CABG. 2. Hyperlipidemia. HISTORY OF PRESENT ILLNESS AND HOSPITAL COURSE: The patient is a 58-year-old male with a past medical history of CAD status post CABG in November of 2018, who was transferred from [facility] for NSTEMI. The patient reported that [...] for Visit Chief Complaint complete heart block Chief Complaint Admit Date complete heart block October 30, 2024 9: 00am complete heart block October 30, 2024 10 :39am Additional Source Comments (unrecognized sect ion and content) No Status Records FoundNo Status Records FoundNo Status Records FoundNo Status Records FoundNo Status Records Found INFORMATION SOURCE (unrecogn ized section and content) DATE CREATED AUTHOR 05/25/2019 [facility] DATE CREATED AUTHOR AUTHOR'S ORGANIZ ATION 09/01/2022 [facility] DATE CREATED AUTHOR AUTHOR'S ORGANIZ ATION 05/05/2023 [facility] DATE CREATED AUTHOR AUTHOR'S ORGANIZ ATION 12/12/2024 [facility] DATE CREATED AUTHOR AUTHOR'S ORGANIZ ATION 02/07/2025 [facility] Care Teams (unrecognized sec tion and content) Team Status: Active Member Role Status Dates Estefania Weeks MD Primary Care Provider Active Team Status: Active Member Role Status Dates Estefania Weeks MD Primary Care Provider Active Start: October 30, 2024 Ady Lezama MD Other Provider Active Start: October 30, 2024 Bob Marte MD Attending Provider Active Start: October 30, 2024 Team Status: Inactive Member Role Status Dates Estefania Weeks MD Primary Care Provider Active Start: October 30, 2024 End: October 30, 2024 Ady Lezama MD Attending Provider Active Start: October 30, 2024 End: October 30, 2024 Team Status: Inactive Member Role Status Teri Weeks MD Primary Care Provider Active Ady Lezama MD Attending Provider Active Team Status: Inactive Member Role Status Teri Weeks MD Primary Care Provider Active Start: October 28, 2023 End: October 28, 2023 Ady Lezama MD Attending Provider Active Start: October 28, 2023 End: October 28, 2023 Team Status: Inactive Member Role Status Teri Weeks MD Primary Care Provider Active Start: [...] BE BASED ON THE PRIMARY CLINICAL RECORDS. [employer] provides no warranty or guarantee of the accuracy or completeness of information in this document.
[2025-02-09 07:28] LABS: Alanine Aminotransferase 42 U/L (16-63); Albumin Level 3.7 g/dL (3.4-5.0); Alkaline Phosphatase 66 U/L (46-116); Aspartate Amino Transferase 23 U/L (15-37); Bilirubin Direct 0.2 mg/dL (0.0-0.2); Bilirubin Total 0.7 mg/dL (0.2-1.0); Chol HDL Ratio 3.4; Cholesterol 138 mg/dL (<=200); Globulin 3.6 g/dL; HDL Cholesterol 41 mg/dL (40-60); Total Protein 7.3 g/dL (6.4-8.2); Triglycerides 197 mg/dL (<=150); VLDL CHOLESTEROL 39.4 mg/dL
== END 2025-02-09 06:45 | disposition home or self-care (01) ==
LOC: LAB 06:45
PROVIDERS: PCP Family Medicine; Visit Provider Internal Medicine Interventional Cardiology
DX: I25.10 Atherosclerotic heart disease of native coronary artery without angina pectoris (principal); Z95.1 Presence of aortocoronary bypass graft
CPT/HCPCS: 36415; 80061; 80076

== ENCOUNTER 2025-07-03 16:47 | Outpatient (OUT) | payer OTHER, SELFPAY ==
--- OUTSIDE RECORDS SUMMARY | 2025-07-03 16:53 | XMS_ITS | Clinical Summary ---
Author Organization [facility] Address [address] [place] [address] Phone Care Team Providers Care Retail Coverage Merchandiser Name Role Phone Unavailable Primary Care Provider Unavailabl e Social History Tobacco UseTypesPacks/DayYears UsedDateSmoking Tobacco: Never AssessedSex and Gender InformationValueDate RecordedSex Assigned at BirthNot on fileLegal Sex Male07/10/2022 3:17 PM ESTGender IdentityNot on fileSexual OrientationNot on file Plan of Treatment Health MaintenanceDue DateLast DoneCommentsCT Wihrbyugszpm1962Colonoscopy 2Colorectal Cancer Yjreelwdq1962FIT-DNA (Cologuard)1962FIT 1960HIV Vrgpumokj1962Lipid Panel06/19/19620455Tntmcdjoodvtu1962 Yearly Adult Uszfrnct1962MMR Vaccines (1 of 1 - Standard series)1963 Hepatitis C Lnzjjjeif99/05/1980DTaP/Tdap/Td Vaccines (1 - Tdap)1984PSA Prostate Cancer Gtznufzvb66/05/2012Pneumococcal Vaccine (1 of 1 - PCV)2012 Zoster Vaccines (1 of 2)2012Influenza Vaccine (#1)5COVID-19 Vaccine (1 - season)2025RSV High Risk: (Elderly (60+) or Population) (1 - 1-dose 75+ series)2037HIB VaccinesAged OutNo longer eligible based on patient's age to complete this topicHPV VaccinesAged OutNo longer eligible based on patient's age to complete this topicHepatitis A VaccinesAged OutNo longer eligible based on patient's age to complete this topic Hepatitis B VaccinesAged OutNo longer eligible based on patient's age to complete this topicIPV VaccinesAged OutNo longer eligible based on patient's age to complete this topicMeningococcal VaccineAged OutNo longer eligible based on patient's age to complete this topicRotavirus VaccinesAged OutNo longer eligible based on patient's age to complete this topic Insurance
--- OUTSIDE RECORDS SUMMARY | 2025-07-03 16:53 | XMS_ITS | Clinical Summary ---
Author Organization [employer] [facility] tem Address [id number] [address] [place] [address] Care Team Providers Care Enterprise Business Architect Name Role Phone Jose Weeks MD Primary Care Provider + Allergies No known active allergies Medications No known medications Active Problems ProblemNoted DateDiagnosed DateObesity (BMI 30-39.9)01/05/2017 Family History Medical HistoryRelationNameCommentsCancerFatherRelationNameStatusCommentsFather Social History Tobacco UseTypesPacks/DayYears UsedDateSmoking Tobacco: Every BmjZhudqyftjn18 Cigars Tobacco Cessation:Ready to Q uit: No; Counseling Given: No Alcohol UseStandard Drinks/WeekCommentsYes0 (1 standard drink = 0.6 oz pure alcohol)SOCIALChildcareAnswerDate CiclhtabXgzftlkueAlpeltc72/12/2019Employment AnswerDate QxpbecimWkwxuhaejuHeyidiz72/12/2019Purpose - LifeAnswerDate Recorded Purpose and direction in fjggNubynln98/11/2021ex and Gender InformationValue Date RecordedSex Assigned at BirthNot on fileLegal RemOmkx8012/22/2016 11:34 AM EDTGender IdentityNot on fileSexual OrientationNot on file Last Filed Vital Signs Vital SignReadingTime TakenCommentsBlood Wqqxtcmi261/78001/05/2017 1:12 PM EDT Pulse--Temperature--Respiratory Rate--Oxygen Saturation--Inhaled Oxygen Concentration--Pmlumd178.2 kg (232 lb)01/05/2017 1:12 PM IOKVpndpu304.8 cm (5' 10 )01/05/2017 1:12 PM EDTBody Mass Index33.29001/05/2017 1:12 PM EDT Plan of Treatment Health MaintenanceDue DateLast DoneCommentsDepression Ultdpuotr66/05/1974Tobacco Homvtklkz64/05/1974Adult BMI Lxdwgbfkz35/05/1980DTaP,Tdap and Td Vaccines (1 - Tdap)1981Zoster (Shingles) Vaccine (1 of 2)2012Influenza Vaccine 04/15/2025RSV ( or age 60+ yrs) (1 - 1-dose 75+ series)2037 [employer] Not on file Insurance Care Teams Team MemberRelationshipSpecialtyStart Jose Weeks MD [facility]12/22/16
--- OUTSIDE RECORDS SUMMARY | 2025-07-03 16:53 | XMS_ITS | Clinical Summary ---
Author Organization [facility] Address [address] [address] Care Team Providers Care Microfabrication Engineer Manager Name Role Phone Jose Weeks MD Primary Care Provider [phone] Allergies No known active allergies Medications MedicationSigDispense QuantityRefillsLast FilledStart DateEnd DateStatus aspirin 81 mg EC tablet Indications:Coronary artery disease due to lipid rich plaqueTAKE 1 TABLET (81 MG) BY MOUTH IN THE MORNING 30 tablet 11009/24/566746/6Active metoprolol succinate XL (Toprol-XL) 25 mg 24 hr tablet Indications:Essential hypertensionTake 1 tablet (25 mg) by mouth in the morning. 90 tablet 303//553521/6Active icosapent ethyL (Vascepa) 1 gram capsule Indications:Coronary artery disease, unspecified vessel or lesion type, unspecified whether angina present, unspecified whether [place] or transplanted heart,History of coronary artery bypass graftTake 2 capsules (2 g) by mouth with breakfast and with evening meal. 120 capsule 11012/11/622282/6Active rosuvastatin (Crestor) 20 mg tablet Indications:Hyperlipidemia, unspecified hyperlipidemia typeTake 1 tablet (20 mg) by mouth at bedtime. 90 tablet 306/09/565818/096Active lisinopril 5 mg tablet Indications:Essential hypertensionTAKE 1 TABLET BY MOUTH EVERY DAY IN THE MORNING 30 tablet 1105Active clopidogrel (Plavix) 75 mg tablet Indications:Atherosclerotic heart disease of [place] coronary artery without angina pectorisTAKE 1 TABLET (75 MG) BY MOUTH IN THE MORNING 30 tablet 1108//407962/6Active Active Problems ProblemNoted DateDiagnosed DateAcute coronary uxpaisod78/ Complete heart block04izzinessElevated fodqzkhj17Near nnsocex88NSTEMI (non-ST elevated myocardial infarction)oronary arteriosclerosis 01/02/2019History of coronary artery bypass ycbdlct5612/13/2018Cardiovascular stress test hvhfefji91/03/2019Chest pain11/15/20187283Jlxqikd38/03/2019Obesity (BMI 30-39.9) Family History Medical HistoryRelationNameCommentsNo Known ProblemsFatherNo Known Problems MotherRelationNameStatusCommentsFatherMother Social History Tobacco UseTypesPacks/DayYears UsedDateSmoking Tobacco: FormerCigarettes Smokeless Tobacco: Never Tobacco Cessation:Counseling Given: Not Answered Alcohol UseStandard Drinks/WeekCommentsNot Currently0 (1 standard drink = 0.6 oz pure alcohol)FL Safety & EnvironmentAnswerDate RecordedFear of Current or Ex-PartnerNot on file10/06/2023Emotionally AbusedNot on file10/06/2023hysically AbusedNot on file10/06/2023Sexually AbusedNot on file10/06/2023hysically or Sexually AbusedNot on file10/06/2023Sex and Gender InformationValueDate Recorded Sex Assigned at BirthNot on fileLegal WzcZfch7502/11/2022 12:13 AM EDTGender IdentityNot on fileSexual OrientationNot on file Last Filed Vital Signs Vital SignReadingTime TakenCommentsBlood Slqlogiw146/8004 2:02 PM EDT Hbblb0529 2:02 PM HVMCsjvumjpyhl32.6 ??C (97.9 ??F)12/13/2018 10:32 AM EDTRespiratory Rate--Oxygen Hvbcecuroh06%12/11/2024 2:02 PM EDTInhaled Oxygen Concentration--Ppynll346 kg (229 lb)12/11/2024 2:02 PM XLBKlpuqj657.8 cm (5' 10 )12/11/2024 2:02 PM EDTBody Mass Index32.8604 2:02 PM EDT Plan of Treatment Health MaintenanceDue DateLast DoneCommentsCT Mzhqyaqhydpb1962Colonoscopy 2Colorectal Cancer Ppadjdtqj1962FIT-DNA1962FIT1962 FOBT8601Ivztkjtywqbny1962Depression Aswiwzqbv93/05/1974Pneumococcal Vaccine: Pediatrics (0 to 5 Years) and At-Risk Patients (6 to 64 Years) (1 of 2 - PCV)1981Adult Kmyqldr1806/19/1984Zoster Vaccines (1 of 2)2012COVID- 19 Vaccine (1 - season)2025Influenza Vaccine (#1)2025 06/12/2020, 06/15/2019HIB VaccinesAged OutNo longer eligible based on patient's age to complete this topicHPV VaccinesAged OutNo longer eligible based on patient's age to complete this topicIPV VaccinesAged OutNo longer eligible based on patient's age to complete this topicMeningococcal B VaccineAged OutNo longer eligible based on patient's age to complete this topicMeningococcal VaccineAged OutNo longer eligible based on patient's age to complete this topicRotavirus VaccinesAged OutNo longer eligible based on patient's age to complete this topic Insurance Care Teams Team MemberRelationshipSpecialtyStart DateEnd Date Jose Weeks MD [address] [facility] [place] [place] [address] [facility] - Zltzktx83/11/22
--- OUTSIDE RECORDS SUMMARY | 2025-07-03 16:54 | XMS_ITS | Patient Health Record ---
Author Organization The [facility] in Midnight Address [address] [place] [address] Care Team Providers Care Porcelain Enameler Name Role Phone Chaz Weeks Primary Care Provider Allergies No Known Allergies Results Component Value Reference Range Notes Erythrocyte Sedimentation Ra te Reviewed date:08/28/2024 04:19:46 PM Interpretation: Performing Lab: Notes/Report: [facility] , Erythrocyte Sedimentation Rate 35 <=20 mm/hr Performing Lab:see noteML - [facility] LBURIC ACID SERUM Reviewed date:08/28/2024 04:27:49 PM Interpretation: Performing Lab: Notes/Report: [facility] ,Uric Acid7.43.5-7.2 mg/dLPerforming Lab:see noteML - [facility] LB PROF 14(COMP METB) Reviewed date:08/28/2024 04:27:49 PM Interpretation: Performing Lab: Notes/Report: [facility] ,Kllean711487-254 mmol/LPotassium4.53.5-5.1 mmol/PYinvqaml50172-779 mmol/LCarbon Tcwnesu57.321.0-32.0 mmol/LAnion Gap11.0Sbnxjre68579-329 mg/dLBlood Urea Vdvlipzy66.07.0-18.0 mg/dLCreatinine1.390.70-1.30 mg/dLEstimated GFR ( Amanda>60>=60 mL/min/1.73m 2Estimated GFR (Non- Ame52>=60 mL/min/1.73m 2 BUN Creatinine Ratio14.4Ppqcqnt1.28.5-10.1 mg/dLBilirubin Total0.30.2-1.0 mg/dL Aspartate Amino Wkkmxjhmwkd3566-80 U/LAlanine Tagkrnttyqetahxg5315-83 U/L Alkaline Ryvhprqtbgb3435-959 U/LTotal Protein7.86.4-8.2 g/dLAlbumin Level3.93.4- 5.0 g/dLGlobulin3.9Albumin Globulin Ratio1.0Performing Lab:see noteML - [facility] LBCRP Reviewed date:08/28/2024 04:27:49 PM Interpretation: Performing Lab: Notes/Report: [facility] ,C Reactive Protein1.48<=0.50 mg/dLPerforming Lab:see noteML - [facility] LBCBC AUTO DIFF Reviewed date:08/28/2024 04:19:46 PM Interpretation: Performing Lab: Notes/Report: [facility] ,White Blood Count9.74.0-11.0 10 3/uLRed Blood Count3.944.70-6.10 10 6/uL Epcjkxlfqa16.414.0-18.0 g/iAHligkfxktr16.242.0-54.0 %Mean Corpuscular Oggcka19.4 80.0-94.0 fLMean Corpuscular Kwuzqceuiv63.525.9-34.0 pgMean Corpuscular HGB Conc 33.329.9-35.2 g/dLRed Cell Distribution Width12.211.0-15.0 %Platelet Yatmh352 150-450 10 3/uLMean Platelet Volume9.69.5-13.5 fLNeutrophils Percent Auto77.4 43.0-75.0 %Lymphocytes Percent Auto14.320.5-60.0 %Monocytes Percent Auto6.81.7- 12.0 %Eosinophils Percent Auto0.70.9-7.0 %Basophils Percent Auto0.40.2-2.0 % Immature Granulocytes Pct Auto0.40.0-0.5 %Neutrophils Absolute Auto7.51.4-6.5 10 3/uLLymphocytes Absolute Auto1.41.2-3.8 10 3/uLMonocytes Absolute Auto0.70.3-0.8 10 3/uLEosinophils Absolute Auto0.10.0-0.7 10 3/uLBasophils Absolute Auto0.00.0- 0.1 10 3/uLImmature Granulocytes Abs Auto0.040.00-0.03 10 3/uLPerforming Lab:see pavel - [facility] LBAntistreptolysin O Ab Reviewed date:08/30/2024 07:51:01 PM Interpretation: Performing Lab: Notes/Report: [facility] ,Antistreptolysin O Ab124.10.0-200.0 IU/mL Performed at: [address] [id number] [employer] Supervisor: Jas Turk PhD, Phone: [phone] Performing Lab:[facility] LBRHEUMATOID FACTOR Reviewed date:08/30/2024 07:51:01 PM Interpretation: Performing Lab: Notes/Report: [facility] ,Rheumatoid Factor (RF)<10.0<14.0 IU/mLPerforming Lab:see [facility]Good [facility] LBANA by IFA Reviewed date:08/30/2024 07:51:01 PM Interpretation: Performing Lab: Notes/Report: [facility] ,Antinuclear Antibodies, IFANegative. Negative <1:80 Borderline 1:80 Positive >1:80 ICAP nomenclature: AC-0 For more information about Hep-2 cell patterns use ANApatterns.org, the official website for the International Consensus on Antinuclear Antibody (GENE) Patterns (ICAP). Performed at: [address] [id number] [employer] Supervisor: Jas Turk PhD, Phone: [phone] Performing Lab:see [facility] LBLIVER PROFILE Reviewed date:02/10/2025 01:17:33 PM Interpretation: Performing Lab: Notes/Report: [facility] ,Bilirubin Total0.70.2-1.0 mg/dLBilirubin Direct0.20.0-0.2 mg/dLAspartate Amino Vtptxlrpitd8514-51 U/LAlanine Aarmkvntyhufpppf4892-60 U/LAlkaline Ylgtcafegzz05 46-116 U/LTotal Protein7.36.4-8.2 g/dLAlbumin Level3.73.4-5.0 g/dLGlobulin3.6 Albumin Globulin Ratio1.0Performing Lab:see noteML - [facility] LB LIPID PROFILE Reviewed date:02/10/2025 01:17:33 PM Interpretation: Performing Lab: Notes/Report: [facility] ,Corrqmhpwfokg193<=150 mg/iCSvzsaggtdxn094<=200 mg/dLHDL Zzasqyplgnl3201-95 mg/dL > or =60 mg/dl - LOW CARDIOVASCULAR RISK <40 mg/dl - HIGH CARDIOVASCULAR RISK LDL Cholesterol Zfucseyvwa24.0 <100 mg/dl OPTIMAL 100-129 mg/dl NEAR OR ABOVE OPTIMAL 130-159 mg/dl BORDERLINE HIGH 160-189 mg/dl HIGH >190 mg/dl VERY HIGH VLDL ESIRSLTUPUG44.4Chol HDL Ratio3.4 3.3 - 4.4 LOW RISK 4.4 - 7.1 AVERAGE RISK 7.1 - 11.0 MODERATE RISK >11.0 HIGH RISK Performing Lab:see noteML - [facility] LB Reason For Referral No Information Medications Medication SIG (Take, Route, Frequency, Duration) Notes Start Date End Date Status Rosuvastatin Calcium 20 MG 1 tablet Orally Once a day ActiveDiclofenac Sodium 75 MG1 tablet as needed Orally Twice a day; Duration: 30 days5ActiveLisinopril 5 MG1 tablet Orally Once a dayActiveMetoprolol Succinate ER 25 MG1 tablet Orally Once a dayActivePlavix 75 MG1 tablet Orally Once a dayActiveAspirin 81 MG1 tablet Orally Once a dayActive Social History Tobacco Use: Social History Observation Description Date Details (start date - stop date) Former Smoker 08/15/1991 - 08/15/2018 Tobacco Use/Smoking Question Answer Notes Patient is a former smoker When did you start smoking?08/15/1991When did you stop smoking?08/15/2018Alcohol Screen (Audit-C) Question Answer Notes Did you have a drink containing alcohol in the p ast year? Yes How often did you have 6 or more drinks on one occasion in the past year?Never (0 point)How many drinks did you have on a typical day when you were drinking in the past year?1 or 2 drinks (0 point)How often did you have a drink containing alcohol in the past year?Less than monthly (1 point)Blerfx9Hsgzyamlwcgysg NegativeAUDIT-C (Standard) Question Answer Notes Did you have a drink containing alcohol in the p ast year? Yes How often did you have a drink containing alcohol in the past year?Never (0 point)How many drinks did you have on a typical day when you were drinking in the past year?1 or 2 drinks (0 point)How often did you have six or more drinks on one occasion in the past year?Less than monthly (1 point)Points1 InterpretationNegative Problems Problem Type SNOMED Code ICD Code Onset Dates Problem Status W/U Status Risk Notes Problem Mixed hyperlipidemia (006114518) Mixed hy perlipidemia (E78.2) ActiveconfirmedProblemBypass stent graft present (094827607275800)Presence of aortocoronary bypass graft (Z95.1)ActiveconfirmedProblemPain in limb (56675003) Arm pain (M79.603)ActiveconfirmedProblemCardiac pacemaker in situ (287811433) Cardiac pacemaker in situ (Z95.0)ActiveconfirmedProblemCoronary arteriosclerosis (94403123)Coronary arteriosclerosis (I25.10)ActiveconfirmedProblemWrist sprain (25079773)Wrist sprain (S63.509A)ActiveconfirmedProblemInternal derangement of knee (24351680)Internal derangement of knee (M23.90)ActiveconfirmedProblem Enthesopathy of knee (52435181)Knee bursitis, right (M70.51)Activeconfirmed ProblemPrimary hypertension (95920916)Primary hypertension (I10)Activeconfirmed Vital Signs Blood pressure diastolic 80 mm Hg 07/03/2025 Bitmei51 in07/03/2025lood pressure oswljltm217 mm Hg07/03/20251650Pcsyeq158 lbs 07/03/2025BMI35.01 kg/m207/03/2025 Encounters Encounter Location Date Provider Diagnosis [facility] [address] [place] [address] 08/28/2024 Chaz Weeks [facility] [place] [address] [facility] [place] [address]/Doug HoyArm pain M79.603BPresbyterian/[facility] [address] [place] [address]/Doug HoyWrist sprain S63.509ABPres[facility] [place] [address]/Doug HoyKnee bursitis, right M70.51BuPark[facility] [facility] [place] [address]/12/2024Doug HoyInternal derangement of knee M23.90 Assessments Encounter Date Diagnosis (ICD Code) Assessment Notes Treatment Notes Treatment Clinical Notes Section Notes 08/27/2024 Wrist sprain (ICD-10 - S63.509A) 12/06/2024Knee bursitis, right (ICD-10 - M70.51)R knee - injected - mY NEED repeated nqhdyyov69/05/2025Internal derangement of knee (ICD-10 - M23.90) 07/03/2025rm pain (ICD-10 - M79.603) Plan Of Treatment Pending Test Test Name Order Date RHEUMATOID PANEL 07/03/2025 RHEUMATOID PANEL 08/27/2024 CBC AUTO DIFF 07/03/2025 PROF 14(COMP METB) 07/03/2025 SED RATE WESTERGREN 07/03/2025 SED RATE WESTERGREN 08/27/2024 XR KNEE RT 3V 04/19/2025 US venous doppler UE RT 07/03/2025 Insurance Providers Payer Name Payer Address Payer Phone Subscriber Number Group Number Insured Name Patient Relationship to Insured Coverage Start Date Coverage End Date [employer] [address] [address] [place] [address] [id number] Weston Lopez Self - patient is the insured Medications Administered Medication Instructions Date of Administration Dosage Notes Dexamethasone, 4mg/mL mLKetorolac Vsuehnthmjkc68/17/202360 vy20Sfwquvnyo Tromethamine mgKetorolac Doawnzqjjwbg31/24/377860 mgKetorolac Tromethamine mgmethylPREDNISolone Iwcjzsf57 mgTriamcinolone 40 mg/ml mg Medical (General) History Medical History History ICD Code Bursitis of elbow M70.30 Pacemaker Z95.0 CAD (coronary artery disease) I25.10 Chest pain R07.9 Syncope R55 Asthmatic bronchitis J45.909 Regular astigmatism, 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
[2025-07-03 17:24] LABS: Hematocrit 37.6 % (42.0-54.0); Hemoglobin 12.4 g/dL (14.0-18.0); Immature Granulocytes Abs Auto 0.04 10^3/uL (0.00-0.03); Immature Granulocytes Pct Auto 0.5 % (0.0-0.5); Lymphocytes Absolute Auto 2.0 10^3/uL (1.2-3.8); Mean Corpuscular HGB Conc 33.0 g/dL (29.9-35.2); Mean Corpuscular Hemoglobin 31.4 pg (25.9-34.0); Mean Corpuscular Volume 95.2 fL (80.0-94.0); Platelet Count 201 10^3/uL (150-450); Red Blood Count 3.95 10^6/uL (4.70-6.10); White Blood Count 8.7 10^3/uL (4.0-11.0)
[2025-07-03 18:11] LABS: Alanine Aminotransferase 42 U/L (16-63); Albumin Globulin Ratio 1.0; Albumin Level 3.5 g/dL (3.4-5.0); Alkaline Phosphatase 68 U/L (46-116); Anion Gap 10.7; Aspartate Amino Transferase 22 U/L (15-37); Blood Urea Nitrogen 16.0 mg/dL (7.0-18.0); Calcium 8.8 mg/dL (8.5-10.1); Carbon Dioxide 27.3 mmol/L (21.0-32.0); Chloride 107 mmol/L (98-107); Estimated GFR (African America >60 (>=60 mL/min/1.73m^2); Estimated GFR (Non-African Ame 59 (>=60 mL/min/1.73m^2); Globulin 3.6 g/dL; Glucose 116 mg/dL (74-106); Potassium 4.0 mmol/L (3.5-5.1); Sodium 141 mmol/L (136-145); Total Protein 7.1 g/dL (6.4-8.2); Uric Acid 6.5 mg/dL (3.5-7.2)
[2025-07-07 11:09] LABS: Antinuclear Antibodies, IFA Negative (.)
== END 2025-07-03 16:48 | disposition home or self-care (01) ==
PROVIDERS: PCP Family Medicine; Visit Provider Family Medicine
DX: M79.601 Pain in right arm (principal); M79.603 Pain in arm, unspecified
CPT/HCPCS: 36415; 80053; 84550; 85025; 85652; 86038; 86060; 86140; 86431; 93971